=== PATIENT | female | born 1990 | race Caucasian/White ===

== ENCOUNTER 2021-12-17 12:57 | Observation (INO) ==
[2021-12-17 13:34] LABS: Basophils # (auto) 0.02 K/uL (0-0.2); Basophils % (auto) 0.3 %; Eosinophils # (auto) 0.18 K/uL (0-0.50); Hematocrit (blood only) 36.7 % (34.1-44.9); Hemoglobin 12.8 g/dl (12.0-16.0); Immature Granulocytes # (auto) 0.03 K/uL (0.00-0.02); Immature Granulocytes % (auto) 0.5 %; Lymphocytes # (auto) 1.29 K/uL (1.2-3.4); Lymphocytes % (auto) 21.2 %; Mean Corpuscular Hemoglobin 29.6 pg (25.0-34.0); Mean Corpuscular Hgb Conc 34.9 g/dL (32.0-36.0); Mean Corpuscular Volume 84.8 fL (80.0-100.0); Mean Platelet Volume 9.8 fL (9.4-12.3); Monocytes # (auto) 0.43 K/uL (0.24-0.82); Monocytes % (auto) 7.1 %; Neutrophils # (auto) 4.13 K/uL (1.4-6.5); Neutrophils % (auto) 67.9 %; Platelet Count 172 K/uL (130-400); RDW Standard Deviation 42.9 fL (36.4-46.3); Red Blood Count 4.33 M/uL (3.93-5.22); White Blood Count 6.08 K/ul (4.8-10.8)
[2021-12-17 13:55] LABS: Albumin Globulin Ratio 1.3 (0.9-2); Albumin Level 3.9 gm/dl (3.4-5.0); BUN Creatinine Ratio 6.2 (10-20); Bilirubin,Total 0.5 mg/dl (0.2-1.0); Calcium 8.7 mg/dl (8.5-10.1); Creatinine Clr Calc Pharmacy 42.3 ml/min; Est GFR (African American) 24.3 ml/min; Est GFR (Non-African American) 20.9 ml/min; Potassium 3.5 mmol/L (3.5-5.1); Total Protein 6.9 gm/dl (6.0-8.3)
[2021-12-17] MEDS ORDERED: PANTOprazole 80 MG in DEXTROSE 5% 100 ML IV STA (14:02)
[2021-12-17] MEDS ORDERED: hydrALAZINE HCL 20 MG/ML VIAL IV STA ×3 (14:02→18:48)
--- NOTE | 2021-12-17 14:03 | Emergency Department Note ---
Impression & Plan Hypertensive emergency, Acute renal failure, COVID-19, Acute epigastric pain ED Provider Note Name: AARON CHAUHAN Age: 31 Sex: F Arrives Via: Ambulance Informant: Patient, EMS ED Provider: Cyrus Donnelly MD Chief Complaint: Epigastric pain Impression: As per impressions above Medical Decision Makin-year-old female arrives for evaluation of epigastric pain. Patient has never been at this facility before but notes recently spending over a week in an outside hospital. Story is a bit vague though seems she has been dealing with this epigastric pain for quite some time and was hospitalized for worsening blood pressure. She notes she has been taking her new blood pressure medications including her clonidine which she does have the patches on her left shoulder at this time. Unfortunately patient is not a great historian as to what her previous work-up or labs have been. That said on arrival she does seem somewhat uncomfortable alert of concern is her blood pressure is quite elevated. She has no chest pain or shortness of breath or recent syncope. She does note that she has been having increasing diarrhea body aches fatigue and chills without fever. On examination she seems to have some tenderness over the epigastrium though does not have peritonitis. Work-up initiated including CT imaging, laboratory evaluation. During this I attempted to obtain the records from the outside hospital though after multiple hours of construction secretary attempting to get them she was unsuccessful in outside hospital setting the requested labs nor discharge summaries. During this time patient was multiple rounds of antihypertensives though with her mild low heart rate we did use hydralazine. She furthermore had a CT which was essentially unremarkable. An EKG is unremarkable. She did test positive for COVID-19. Of note her creatinine is quite elevated above 2. When asking the patient she is somewhat unsure of what her kidney function has been in the past, does state that she was told her kidneys do not work very well but states she was never said she was in renal insufficiency or failure or that she needed to see a assistant professor of education. Without having her past labs it is impossible to know exactly what her previous renal function is but we will assume that this is acute renal failure and a 31-year-old who has COVID as well as the setting of hypertensive emergency. She was given hydration, hydralazine and some Tylenol for her discomfort. Given all this I consulted the hospitalist who evaluated her and bring her in for further management. Patient is not hypotensive, hypoxic nor she has significant respiratory distress I do not feel IV steroids are indicated at this time. Triage/Nursing Notes reviewed by Me Multiple attempts were tried to get outside hospital records but to no avail Differentials:Benign hypertension, hypertensive emergency, cardiovascular pathology, toxicologic, pheochromocytoma, electrolyte abnormality, renal disease, endorgan damage, as well as other pathologies. Vital Signs: reviewed and remarkable for hypertension Interventions: Normal saline bolus, Tylenol IV, hydralazine 10 mg IV x2, hydralazine 20 mg IV Labs:Reviewed and remarkable for no significant abnormalities Imaging:CT abdomen pelvis without contrast reveals no acute findings. Chest x- ray unremarkable. EKG:Per My Interpretation: Indication hypertension: NSR 62bpm, qtc 481. No Ectopy. No Ischemia. No previous EKG for comparison Cardiac/Tele Monitoring: Cardiac Monitoring: An Order was placed for continuous cardiac monitoring. The monitor shows a rate of 60 with a normal sinus rhythm. Consults:Dr Rebecca CHIN Hospitalist Plan: Disposition:Hospitalization. Condition: Good History of Present Illness:31-year-old female arrives for evaluation of epigastric pain. Patient notes several weeks of epigastric pain. Patient states the pain radiates to her back and her sides. Associated with nausea. She states pain gets worse with any eating. She notes diarrhea for the last 3 days as well. She states her diarrhea is somewhat dark and sometimes tarry. Sh e complains of feeling weak and tired. She notes she was admitted to [facility] for a week 2 weeks ago. She states this was for her abdominal pain and her high blood pressure. She was discharged on 3 different blood pressure medications including Cardura, spironolactone, clonidine. She has been using them but states they make her abdominal pain worse. She denies any falls, trauma, injuries. She denies any alcohol nor drug use. She states she does smoke but this too makes her feel worse. She notes that she had a CAT scan she believes at [facility] but they were unable to find why she was having pain. She does not take any antacids. She denies any chest pain, shortness of breath, syncope, headache, neck pain, fevers, chills, urinary symptoms, leg swelling, calf pain, rashes nor other concerning signs or symptoms. She denies any bruising or unusual nosebleeds. ROS: See above HPI for pertinent positives & negatives. A total of 10 systems reviewed and were otherwise negative. Past Medical History:Hypertension Past Surgical History:Tubal ligation Family History:Patient states unknown Social History:Patient from [place] notes she lives in housing with a roommate but states she is essentially homeless. She notes she smokes denies any drug or alcohol use. Home Medications:Cardura, clonidine, spironolactone Allergies:Denies any known drug allergies Vitals:Blood Pressure: 171/109, Pulse 64, RR 18, T 36.7C, O2 98% on RA Physical Exam: GENERAL: Patient is uncomfortable appearing and in mild distress. Dehydrated appearing EYES: No scleral icterus, unremarkable pupils. ENT: Mucous membranes dry, no nasal congestion. NECK: No masses appreciated, nomeningismus, trachea is midline. RESPIRATORY: No dyspnea. Clear to auscultation and equal bilaterally. No wheeze, no rhonchi. CARDIOVASCULAR: Regular rate and rhythm.No murmurs, rubs, gallops appreciated. GASTROINTESTINAL: Abdomen soft, non-tender, no peritonitis.Bowel sounds positive.No masses appreciated. BACK: No midline tenderness, no CVA tenderness EXTREMITIES: Normal motion all extremities, no cyanosis, no edema. NEUROLOGIC: Alert and oriented, no acute motor or sensory deficits, no focal weakness, cranial nerves grossly intact. SKIN: No rash, no jaundice, no diaphoresis. PSYCH: Appropriate GCS: 15 ED Course: Times/Reassessments: Patient does appear to be feeling better she is breathing comfortably and in no severe distress vitals do show that her heart rate has slightly increased with hydralazine and her blood pressure is slowly coming down after higher dosing of hydralazine Critical Care: I have personally spent 40 minutes of critical care time in the direct management of this patient. Acute hypertensive emergency requiring multiple rounds of IV. antihypertensives. This was a life/limb threatening event. This 40 minutes is in excess of all separately billable procedures. 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: Faroese Flight Operations Inspector Required: No Beliefs That Will Affect Care: None Current Living Situation: Other Current Living Situation Comment: roommate Feels Safe at Home: Yes Assistive Devices: None Allergies Allergies Allergy/AdvReac Type Severity Reaction Status Date / Time No Known Allergies Allergy Verified 12/17/21 23:57 Home Meds Home Medications Medication Instructions Recorded Confirmed carvedilol 25 mg tablet 25 mg PO BID 12/17/21 12/17/21 clonidine 0.1 mg/24 hr weekly 0.1 mg transdermal WK 12/17/21 12/17/21 transdermal patch clonidine 0.2 mg/24 hr weekly 0.2 mg transdermal WK 12/17/21 12/17/21 transdermal patch spironolactone 25 mg tablet 25 mg PO DAILY 12/17/21 12/17/21 Results & Data (ED) Vital Signs Vital Signs - 24 hr 12/17/21 15:08 12/17/21 15:30 12/17/21 17:18 Pulse Rate 54 L 62 62 Pulse Rate from SpO2 Sensor 55 L 64 63 Respiratory Rate 20 22 16 Blood Pressure 187/94 H 194/109 H 188/124 H Blood Pressure Mean 125 137 145 Pulse Oximetry 96 98 98 12/17/21 17:30 12/17/21 18:00 12/17/21 18:30 Pulse Rate 57 L 69 68 Pulse Rate from SpO2 Sensor 59 L 71 70 Respiratory Rate 14 13 17 Blood Pressure 179/118 H 204/113 H Blood Pressure Mean 138 143 Pulse Oximetry 96 98 98 Laboratory Data Result diagrams: 12/18/21 06:43 12/18/21 06:43 Lab Results 12/17/21 12/17/21 12/17/21 Range/Units 13:00 13:00 13:00 WBC 6.08 (4.8-10.8) K/ul RBC 4.33 (3.93-5.22) M/uL Hgb 12.8 (12.0-16.0) g/dl Hct 36.7 (34.1-44.9) % MCV 84.8 (80.0-100.0) fL MCH 29.6 (25.0-34.0) pg MCHC 34.9 (32.0-36.0) g/dL RDW Std Deviation 42.9 (36.4-46.3) fL RDW Coeff of Erin 14.0 (11.5-14.5) % Plt Count 172 (130-400) K/uL MPV 9.8 (9.4-12.3) fL Immature Gran % (Auto) 0.5 % Neut % (Auto) 67.9 % Lymph % (Auto) 21.2 % [place] % (Auto) 7.1 % Eos % (Auto) 3.0 % Baso % (Auto) 0.3 % Neut # (Auto) 4.13 (1.4-6.5) K/uL Lymph # (Auto) 1.29 (1.2-3.4) K/uL [place] # (Auto) 0.43 (0.24-0.82) K/uL Eos # (Auto) 0.18 (0-0.50) K/uL Baso # (Auto) 0.02 (0-0.2) K/uL Immature Gran # (Auto) 0.03 H (0.00-0.02) K/uL Sodium 137 (136-145) mmol/L Potassium 3.5 (3.5-5.1) mmol/L Chloride 106 (98-107) mmol/L Carbon Dioxide 22 (21-32) mmol/L Anion Gap 9 (3-11) BUN 18 (6-23) mg/dl Creatinine 2.89 H (0.6-1.2) mg/dl Est Cr Clr Drug Dosing 42.3 ml/min Est GFR ( Amer) 24.3 ml/min Est GFR (Non-Af Amer) 20.9 ml/min BUN/Creatinine Ratio 6.2 L (10-20) Glucose 95 (70-99(Fasting)) mg/dl Calcium 8.7 (8.5-10.1) mg/dl Magnesium (1.7-2.4) mg/dl Total Bilirubin 0.5 (0.2-1.0) mg/dl AST 17 (13-39) U/L ALT 20 (7-52) U/L Alkaline Phosphatase 71 (34-104) U/L Troponin I High Sens (0-14) pg/ml Total Protein 6.9 (6.0-8.3) gm/dl Albumin 3.9 (3.4-5.0) gm/dl Globulin 3.0 (2.5-4.0) gm/dl Albumin/Globulin Ratio 1.3 (0.9-2) Lipase 57 (11-82) U/L HCG, Qual Negative (Negative) SARS-CoV-2, RNA, NAAT (NEGATIVE) 12/17/21 12/17/21 Range/Units 13:00 15:05 WBC (4.8-10.8) K/ul RBC (3.93-5.22) M/uL Hgb (12.0-16.0) g/dl Hct (34.1-44.9) % MCV (80.0-100.0) fL MCH (25.0-34.0) pg MCHC (32.0-36.0) g/dL RDW Std Deviation (36.4-46.3) fL RDW Coeff of Erin (11.5-14.5) % Plt Count (130-400) K/uL MPV (9.4-12.3) fL Immature Gran % (Auto) % Neut % (Auto) % Lymph % (Auto) % [place] % (Auto) % Eos % (Auto) % Baso % (Auto) % Neut # (Auto) (1.4-6.5) K/uL Lymph # (Auto) (1.2-3.4) K/uL [place] # (Auto) (0.24-0.82) K/uL Eos # (Auto) (0-0.50) K/uL Baso # (Auto) (0-0.2) K/uL Immature Gran # (Auto) (0.00-0.02) K/uL Sodium (136-145) mmol/L Potassium (3.5-5.1) mmol/L Chloride (98-107) mmol/L Carbon Dioxide (21-32) mmol/L Anion Gap (3-11) BUN (6-23) mg/dl Creatinine (0.6-1.2) mg/dl Est Cr Clr Drug Dosing ml/min Est GFR ( Amer) ml/min Est GFR (Non-Af Amer) ml/min BUN/Creatinine Ratio (10-20) Glucose (70-99(Fasting)) mg/dl Calcium (8.5-10.1) mg/dl Magnesium 2.0 (1.7-2.4) mg/dl Total Bilirubin (0.2-1.0) mg/dl AST (13-39) U/L ALT (7-52) U/L Alkaline Phosphatase (34-104) U/L Troponin I High Sens 20.4 H (0-14) pg/ml Total Protein (6.0-8.3) gm/dl Albumin (3.4-5.0) gm/dl Globulin (2.5-4.0) gm/dl Albumin/Globulin Ratio (0.9-2) Lipase (11-82) U/L HCG, Qual (Negative) SARS-CoV-2, RNA, NAAT POSITIVE A* (NEGATIVE) Administered Medications Acetaminophen (Acetaminophen 325 Mg Tab) 650 mg PO Q4H PRN PRN Reason: Pain or Fever Stop: 01/16/22 22:35 Last Admin: 12/18/21 10:15 Dose: 650 mg Documented By: Admin: 12/18/21 05:48 Dose: 650 mg Documented By: Admin: 12/18/21 00:08 Dose: 650 mg Documented By: BREA Carvedilol (Carvedilol 25 Mg Tab) 25 mg PO BID [facility] Stop: 01/16/22 22:35 Last Admin: 12/18/21 07:57 Dose: 25 mg Documented By: Admin: 12/18/21 00:46 Dose: 25 mg Documented By: BREA Clonidine HCl (Clonidine Hcl 0.1 Mg/24 Hr Transderm Sys) 1 patch TD Th@0900 [facility] Stop: 01/17/22 08:59 Last Admin: 12/18/21 07:58 Dose: 1 patch Documented By: BEULAH Clonidine HCl (Clonidine Hcl 0.2 Mg/24 Hr Transderm Sys) 1 patch TD Th@0900 [facility] Stop: 01/17/22 08:59 Last Admin: 12/18/21 07:57 Dose: 1 patch Documented By: BEULAH Enoxaparin Sodium (Enoxaparin Inj 40 Mg/0.4 Ml Syr) 40 mg SQ PM [facility] Stop: 01/17/22 00:29 Last Admin: 12/18/21 01:21 Dose: Not Given Documented By: BREA Lactated Ringer's (Lr) 1,000 mls @ 125 mls/hr IV .Q8H ONE[facility] Stop: 01/16/22 22:35 Last Admin: 12/18/21 08:04 Dose: 125 mls/hr Documented By: Infusion: 12/18/21 08:04 Dose: 125 mls/hr Documented By: Admin: 12/18/21 00:08 Dose: 125 mls/hr Documented By: BREA Famotidine 20 mg/ Syringe 5 mls @ 2.5 mls/min IV BID [facility] Stop: 01/17/22 08:59 Last Admin: 12/18/21 07:59 Dose: 2.5 mls/min Documented By: BEULAH Rider (Remove Clonidine Patch) 1 each N/A Th@0859 [facility] Stop: 01/17/22 08:58 Last Admin: 12/18/21 07:58 Dose: 1 each Documented By: BEULAH Rider (Check Clonidine Patch Placement) 1 each N/A QS [facility] Stop: 01/17/22 00:00 Last Admin: 12/18/21 07:58 Dose: 1 each Documented By: Admin: 12/18/21 01:21 Dose: 1 each Documented By: BREA Rider (Remove Clonidine Patch) 1 each N/A Th@0859 [facility] Stop: 01/17/22 08:58 Last Admin: 12/18/21 07:58 Dose: 1 each Documented By: BEULAH Rider (Check Clonidine Patch Placement) 1 each N/A QS [facility] Stop: 01/17/22 07:59 Last Admin: 12/18/21 07:58 Dose: 1 each Documented By: BEULAH Pantoprazole Sodium (Pantoprazole 40 Mg Tab) 40 mg PO BID [facility] Stop: 01/16/22 22:35 Last Admin: 12/18/21 07:57 Dose: 40 mg Documented By: Admin: 12/18/21 00:46 Dose: 40 mg Documented By: BREA Spironolactone (Spironolactone 25 Mg Tab) 25 mg PO DAILY [facility] Stop: 01/16/22 22:35 Last Admin: 12/18/21 07:57 Dose: 25 mg Documented By: Admin: 12/18/21 00:46 Dose: 25 mg Documented By: BREA Discontinued Medications Acetaminophen (Acetaminophen 500 Mg Tab) 1,000 mg PO NOW STA Stop: 12/17/21 17:23 Last Admin: 12/17/21 17:42 Dose: 1,000 mg Documented By: VINAY Clonidine HCl (Clonidine Hcl 0.1 Mg Tab) 0.2 mg PO NOW ONE Stop: 12/18/21 01:16 Last Admin: 12/18/21 01:22 Dose: 0.2 mg Documented By: BREA Hydralazine HCl (Hydralazine Hcl 20 Mg/Ml Vial) 10 mg IV NOW STA Stop: 12/17/21 14:03 Last Admin: 12/17/21 14:59 Dose: 10 mg Documented By: VINAY Hydralazine HCl (Hydralazine Hcl 20 Mg/Ml Vial) 10 mg IV NOW STA Stop: 12/17/21 17:23 Last Admin: 12/17/21 17:42 Dose: 10 mg Documented By: VINAY Hydralazine HCl (Hydralazine Hcl 20 Mg/Ml Vial) 20 mg IV NOW STA Stop: 12/17/21 18:49 Last Admin: 12/17/21 19:17 Dose: 20 mg Documented By: VINAY Pantoprazole Sodium 80 mg/ (Dextrose) 100 mls @ 400 mls/hr IV ONE STA Stop: 12/17/21 14:16 Last Infusion: 12/17/21 15:30 Dose: 0 mls/hr Documented By: Admin: 12/17/21 15:01 Dose: 400 mls/hr Documented By: VINAY Sodium Chloride (Nss 1000ml) 1,000 mls @ 999 mls/hr IV .Q1H1M ONE Stop: 12/17/21 15:27 Last Infusion: 12/17/21 17:41 Dose: 0 mls/hr Documented By: Admin: 12/17/21 14:59 Dose: 999 mls/hr Documented By: VINAY Sodium Chloride (Nss 1000ml) 1,000 mls @ 125 mls/hr IV .Q8H ONEIL Stop: 01/16/22 17:29 Last Infusion: 12/18/21 01:22 Dose: 0 mls/hr Documented By: Admin: 12/17/21 17:42 Dose: 125 mls/hr Documented By: VINAY Famotidine 20 mg/ Syringe 5 mls @ 2.5 mls/min IV ONE ONE Stop: 12/18/21 00:16 Last Admin: 12/18/21 00:46 Dose: 2.5 mls/min Documented By: BREA Miscellaneous Information (Patient's Allergy Info Needs Entered) 1 each N/A Q30M ONEIL Stop: 01/16/22 22:59 Last Admin: 12/18/21 01:34 Dose: Not Given Documented By: Admin: 12/18/21 01:33 Dose: Not Given Documented By: BREA Morphine Sulfate (Morphine Sulfate 4 Mg/Ml 1 Ml Carp\Vial) 4 mg IV NOW STA Stop: 12/18/21 12:41 Last Admin: 12/18/21 13:17 Dose: 4 mg Documented By: [facility] [place] Imaging Data Radiologist's Impression: Abdomen/Pelvis CT 12/17/21 14:12 CT abd pelvis wo con CLINICAL HISTORY: epigastric abdominal pain COMPARISON STUDY: No previous studies for comparison. CT DOSE: 1280.01 mGycm TECHNIQUE: Standard CT of the Abdomen and Pelvis was performed without IV contrast. The patient did not receive oral contrast. A dose lowering technique was utilized adhering to the principles of ALARA. FINDINGS: Lung base: The lung bases are clear. Abdominal cavity: There is no evidence for abdominal mass, adenopathy or ascites. Liver: The liver is homogeneous in attenuation on these limited noncontrast images.. Spleen: The spleen is homogeneous in attenuation on these limited noncontrast images. There is mild splenomegaly. Pancreas: The pancreas is homogeneous in attenuation on these limited noncontrast images. Gall Bladder: The gallbladder is well distended with no evidence for cholelithiasis, wall thickening or pericholecystic edema.. Adrenal glands: The adrenal glands are normal in size and attenuation on these limited noncontrast images. Kidneys: The kidneys are homogeneous in attenuation on these limited noncontrast images. There is a 2 mm nonobstructing left renal calculus. There is no evidence for right renal calculus or hydronephrosis bilaterally. There is no gross renal mass is identified. Bowel: The bowel loops are normally placed within the abdomen and pelvis without evidence for dilatation or obstruction. There is no evidence for mass lesion. There are no inflammatory changes present. There is no evidence for free air. There is a normal appendix in the right lower quadrant. Bladder: There is no evidence for focal bladder wall thickening, calculus or diverticulum. : There is no evidence for pelvic mass or adenopathy. Cystic changes are present involving the ovaries bilaterally. Vasculature: There is no evidence for focal aneurysmal dilatation of the abdo [place] aorta. Osseous structures: There is no acute osseous pathology. IMPRESSION: 1. 2 mm nonobstructing left renal calculus. 2. Cystic changes of the ovaries bilaterally. 3. Otherwise, no acute intra-abdominal or pelvic abnormality on these limited noncontrast images. ACT 112: Negative or not required by law. Electronically signed by: Rito Arteaga M.D. 12/17/2021 4:08 PM Chest X-Ray 12/17/21 17:41 SINGLE VIEW CHEST CLINICAL HISTORY: Covid. Hypertension FINDINGS: 2 AP, portable, upright chest radiographs are obtained. Correlation is made with abdominal CT performed earlier the same day 12/17/2021. The cardiomediastinal silhouette is top normal for projection. The lungs and pleural spaces are clear. No pneumothorax is seen. The bony thorax is grossly intact. IMPRESSION: No active disease in the chest. ACT 112: Negative or not required by law. Electronically signed by: Josef Saldana M.D. 12/17/2021 6:16 PM Discharge Plan Visit Data Chief Complaint: Abdominal Pain Stated Complaint: AB PAIN, NAUSEA, VOMITING, DIARRHEA ED Provider: Cyrus Donnelly Discharge Problem: Hypertensive emergency, Acute renal failure, COVID-19, Acute epigastric pain Patient Disposition: Admitted As Inpatient Discharge Instructions Interventions: ED Discharge Assessment Last Done: 12/17/21 21:29 : Acute renal failure Qualifiers: Acute renal failure type: unspecified Qualified Code(s): N17.9 - Acute kidney failure, unspecified
[2021-12-17 14:15] LABS: Pregnancy Test, Serum Negative (Negative)
[2021-12-17] MEDS ORDERED: SODIUM CHLORIDE 0.9% 1000ML 1,000 ML IV ONE (14:27)
[2021-12-17 15:09] LABS: Troponin I High Sensitivity 20.4 pg/ml (0-14)
--- NOTE | 2021-12-17 16:09 | CT Scan Report ---
CT abd pelvis wo con CLINICAL HISTORY: epigastric abdominal pain COMPARISON STUDY: No previous studies for comparison. CT DOSE: 1280.01 mGycm TECHNIQUE: Standard CT of the Abdomen and Pelvis was performed without IV contrast. The patient did not receive oral contrast. A dose lowering technique was utilized adhering to the principles of MIRTA Doll. FINDINGS: Lung base: The lung bases are clear. Abdominal cavity: There is no evidence for abdominal mass, adenopathy or ascites. Liver: The liver is homogeneous in attenuation on these limited noncontrast images.. Spleen: The spleen is homogeneous in attenuation on these limited noncontrast images. There is mild s plenomegaly. Pancreas: The pancreas is homogeneous in attenuation on these limited noncontrast images. Gall Bladder: The gallbladder is well distended with no evidence for cholelithiasis, wall thickening or pericholecystic edema.. Adrenal glands: The adrenal glands are normal in size and attenuation on these limited noncontrast im ages. Kidneys: The kidneys are homogeneous in attenuation on these limited noncontrast images. There is a 2 mm nonobstructing left renal calculus. There is no evidence for right renal calculus or hydronephros is bilaterally. There is no gross renal mass is identified. Bowel: The bowel loops are normally placed within the abdomen and pelvis without evidence for dilatat ion or obstruction. There is no evidence for mass lesion. There are no inflammatory changes present. There is no evidence for free air. There is a normal appendix in the right lower quadrant. Bladder: There is no evidence for focal bladder wall thickening, calculus or diverticulum. : There is no evidence for pelvic mass or adenopathy. Cystic changes are present involving the ovar ies bilaterally. Vasculature: There is no evidence for focal aneurysmal dilatation of the abdominal aorta. Osseous structures: There is no acute osseous pathology. IMPRESSION: 1. 2 mm nonobstructing left renal calculus. 2. Cystic changes of the ovaries bilaterally. 3. Otherwise, no acute intra-abdominal or pelvic abnormality on these limited noncontrast images. ACT 112: Negative or not required by law. Electronically signed by: Rito Arteaga M.D. 12/17/2021 4:08 PM
[2021-12-17] MEDS ORDERED: ACETAMINOPHEN 500 MG TAB PO STA (17:22)
[2021-12-17] MEDS ORDERED: SODIUM CHLORIDE 0.9% 1000ML 1,000 ML IV SCH (17:30)
--- NOTE | 2021-12-17 18:18 | XRay Report ---
SINGLE VIEW CHEST CLINICAL HISTORY: Covid. Hypertension FINDINGS: 2 AP, portable, upright chest radiographs are obtained. Correlation is made with abdominal CT performed earlier the same day 12/17/2021. The cardiomediastinal silhouette is top normal for proje ction. The lungs and pleural spaces are clear. No pneumothorax is seen. The bony thorax is grossly in tact. IMPRESSION: No active disease in the chest. ACT 112: Negative or not required by law. Electronically signed by: Josef Saldana M.D. 12/17/2021 6:16 PM
--- NOTE | 2021-12-17 19:02 | History & Physical Report ---
Date of Service December 17, 2021 Assessment & Plan (1) COVID: Plan: Acutely it appears most of her illness does relate to COVIDfortunately more myalgias and GI issues rather than any significant respiratory issues. She is 98 to 99% on room air and her chest x-ray is clear, lungs are clear to exam. Because of all of these parameters, as well as the fact that she is on day 7 of illnessnagi does not appear to be someone who would really benefit much, or at all, from any COVID-specific therapeutics, and given that her breathing is good and she is not hypoxiccorticosteroids would be likely of no real benefit (and possible harm as we get to her abdominal pain below). Supportive care, the specific fallout from her COVID appears to be a worsening of her hypertension from feeling lousy, possibly ZULEIMA on CKD, and abdominal pain that is likely a degree of illness/stress-induced gastritiseach to be outlined in their own plan below. (2) Uncontrolled hypertension: Plan: She relates this to an adrenal diagnosishave asked for records from her PCP and her hospital discharge summary to try to shed light on what exactly this diagnosis is. That said, I do agree with her that she is probably more u ncontrolled than normal due to feeling lousy. Continue home meds, additional clonidine now, symptomatic control to try to improve the "feeling lousy", as needed hydralazine, follow closely. Her EKG does not show any ischemia, her troponin is 20.4we will trend, but I suspect this is really more of a nonspecific elevation or simply due to afterload from her marked hypertension. (3) Elevated serum creatinine: Plan: Uncertain baselineI got a secondhand signout that she may have a baseline creatinine of about 1.5but she does not know, hopefully getting records as above will shed light on this. That said her estimation of "my kidneys work at 25%" suggest she may not be that far from her baseline. Certainly she is clinically dryand there is likely a prerenal component to this. Check a UA and a fractional excretion of sodium. No obstruction noted on CTtherefore renal ultrasound would likely be of limited utility. IV fluids in the form of LR at 125 an hour, follow-up basic metabolic panel in the morning. (4) Abdominal pain: Plan: Symptoms and exam most consistent with viral gastroenteritis related to COVID, as well as a stress/illness induced gastritis. At this point she shows no worrisome signs or symptoms or no signs of acute blood loss anemiawe will give aggressive symptomatic care with Pepcid and Protonix twice daily, as well as Zofran as needed. Serial exams, diet as tolerated. (5) Adrenal abnormality: Plan: See above under hypertensiondepending on information obtained, may need to institute further work-up. (6) DVT prophylaxis: Plan: Lovenox (7) Discharge planning issues: Plan: Admit to telemetry due to marked uncontrolled hypertension. History of Present Illness Chief Complaint: feeling lousy Primary Care Provider: NO PCP very pleasant and very fatigued 31yo - notes that she got sick about a week ago (last so today is day 7) - thought it was "just as summer flu" - notes that she has had myalgias, headaches, stomach (epigastric) pain, diarrhea (frequent, sometimes with a lot of urgency), poor PO intake. a little bit of a cough. no dyspnea. some chest pressure. no actual sob though. was just in [place] about 2wks ago - notes that she was in due to blood pressure issues related to her adrenal problem. She notes that while she was there they adjusted her medicines, she started to feel a good bit better, and was discharged feeling pretty reasonably well. She wonders if her current elevations in blood pressure are more due to feeling lousy. She was home for about the last 2 weeksbefore getting sick a week ago. She came to the hospital today just mostly because she was continuing to feel lousy. She was surprised to see that she had COVID, but notes that her roommate was sick starting somewhere shortly before she got sick herself. She is not aware of the name of her adrenal diagnosisbut notes that she has been following with a physician in the [facility] system for this for a while, does note that for what ever circumstances she was in the process of changing PCPs. Medical historyuncontrolled hypertension related to "adrenal problem" of which she does not remember the name of the diagnosis at this time, CKDuncertain of her baseline creatinine "my kidneys work at 25% due to my high blood pressure" Surgical history tubal Social history smokerbut notes she is felt so lousy in the last week she has barely smoked. No alcohol no drugs Family history heart diseasenothing of a strong/specific nature. Home Medications Medication Instructions Recorded Confirmed Type carvedilol 25 mg tablet 25 mg PO BID 12/17/21 12/17/21 History clonidine 0.1 mg/24 hr weekly 0.1 mg transdermal WK 12/17/21 12/17/21 History transdermal patch clonidine 0.2 mg/24 hr weekly 0.2 mg transdermal WK 12/17/21 12/17/21 History transdermal patch spironolactone 25 mg tablet 25 mg PO DAILY 12/17/21 12/17/21 History Past Med/Surg History Social History Smoking Status: Current some day smoker Tobacco Type: Cigarettes Preferred Language: Georgian Feels Safe at Home: Yes Review of Systems Review of Systems: All systems reviewed & are unremarkable except as noted in HPI & below Physical Exam Physical Exam: In general she is awake alert oriented x3 very fatigued but no distress. HEENT normocephalic atraumatic mucous membranes slightly dry. Cardio is regular no rubs murmurs or gallops. Lungs are clear to auscultation bilaterally no rales rhonchi or wheeze with good effort. Abdomen is soft she does have epigastric greater than left and right upper quadrant tenderness but no guarding rebound or rigidity. The remainder of her abdomen is soft benign nontender no guarding rebound or rigidity. Extremities without sinus clubbing or edema, no calf tenderness. Skin shows no rashes no pallor or icterus. Neuro shows cranial nerves II through XII be grossly intact gross motor and sensory are intact. Musculoskeletal yields no gross lesions. Mental status shows her to be very fatigued but has good recent and remote recall normal mood and affect good judgment and insight. Results & Data Results & Data ([facility]) Vital Signs (Past 12 Hours) Vital Signs Temp Pulse Resp BP Pulse Ox O2 Del Method 12/17/21 18:30 68 17 98 12/17/21 18:00 69 13 204/113 H 98 12/17/21 17:30 57 L 14 179/118 H 96 12/17/21 17:18 62 16 188/124 H 98 12/17/21 15:30 62 22 194/109 H 98 12/17/21 15:08 54 L 20 187/94 H 96 12/17/21 12:57 98.1 F 64 18 171/109 H 98 Room Air Code Status & VTE Plan VTE Prophylaxis Plan VTE Prophylaxis will be ordered: Yes PG Care Time/CCT Total # of Minutes Spent Total Time Spent with Patient: Total time spent is greater than 50% in coordination of care (as documented) at patient's floor/unit and/or counseling patient: Coding Level of Care Code 75448 Initial Inpt Care Lvl 3 Diagnoses COVID U07.1 Uncontrolled hypertension I10 Elevated serum creatinine R79.89 Abdominal pain R10.9 Adrenal abnormality E27.9 DVT prophylaxis Z29.9 Discharge planning issues Z02.9
[2021-12-17] MEDS ORDERED: POLYETHYLENE (MIRALAX) 17 GM PACK PO PRN (22:36)
[2021-12-17] MEDS ORDERED: ALUMINUM/MAGNESIUM SUSP 30 ML UDC PO PRN (22:36)
[2021-12-17] MEDS ORDERED: cloNIDine HCL 0.1 MG TAB PO ONE (22:36)
[2021-12-17] MEDS ORDERED: ONDANSETRON INJ 2 MG/ML 2 ML VIAL IV PRN (22:36)
[2021-12-17] MEDS ORDERED: MAGNESIUM HYDROXIDE SUSP 30 ML UDC PO PRN (22:36)
[2021-12-18] MEDS: ACETAMINOPHEN 325 MG TAB PO PRN ×3 (00:08→10:15)
[2021-12-18] MEDS: LACTATED RINGER'S 1,000 ML IV SCH ×2 (00:08→08:04)
[2021-12-18] MEDS ORDERED: FAMOTIDINE 20 MG in SYRINGE 3 ML IV ONE (00:15)
[2021-12-18] MEDS: SPIRONOLACTONE 25 MG TAB PO SCH ×2 (00:46→07:57)
[2021-12-18] MEDS: PANTOprazole 40 MG TAB PO SCH ×3 (00:46→21:13)
[2021-12-18] MEDS: carvediloL 25 MG TAB PO SCH ×3 (00:46→21:13)
[2021-12-18 00:51] LABS: Creatinine Urine Random 38.9 mg/dl
[2021-12-18 00:53] LABS: Appearance Urine Clear (Clear); Bacteria Urine Automated Negative (Negative); Bilirubin Urine Negative (Negative); Blood Urine Negative (Negative); Cast Urine Automated 0 /lpf (0-5); Color Urine Yellow; Epithelial Cell Urine Auto 20-30 /lpf (0-5); Glucose Urine UA Negative (Negative); Ketones Urine Negative (Negative); Leukocyte Esterase Urine Negative (Negative); Nitrite Urine Negative (Negative); Protein Urine 1+ (Negative); RBC Urine Automated 0-4 /hpf (0-4); Specific Gravity Urine 1.008 (1.000-1.030); Urobilinogen Urine Negative (Negative); pH Urine 6.5 (4.5-7.5)
[2021-12-18] MEDS ORDERED: cloNIDine HCL 0.1 MG TAB PO ONE (01:15)
[2021-12-18] MEDS: ENOXAPARIN INJ 40 MG/0.4 ML SYR SQ SCH ×2 (01:21→21:13)
[2021-12-18] MEDS: CHECK CLONIDINE PATCH PLACEMENT SCH ×5 (01:21→16:09)
[2021-12-18] MEDS: Patient's ALLERGY Info needs ENTERED SCH ×2 (01:33→01:34)
[2021-12-18 07:00] LABS: Basophils # (auto) 0.04 K/uL (0-0.2); Basophils % (auto) 0.8 %; Eosinophils # (auto) 0.16 K/uL (0-0.50); Eosinophils % (auto) 3.1 %; Hematocrit (blood only) 35.6 % (34.1-44.9); Hemoglobin 12.4 g/dl (12.0-16.0); Immature Granulocytes # (auto) 0.05 K/uL (0.00-0.02); Lymphocytes # (auto) 1.89 K/uL (1.2-3.4); Lymphocytes % (auto) 36.3 %; Mean Corpuscular Hemoglobin 29.5 pg (25.0-34.0); Mean Corpuscular Hgb Conc 34.8 g/dL (32.0-36.0); Mean Corpuscular Volume 84.6 fL (80.0-100.0); Mean Platelet Volume 10.1 fL (9.4-12.3); Monocytes # (auto) 0.48 K/uL (0.24-0.82); Monocytes % (auto) 9.2 %; Neutrophils # (auto) 2.59 K/uL (1.4-6.5); Neutrophils % (auto) 49.6 %; Platelet Count 166 K/uL (130-400); RDW Standard Deviation 42.9 fL (36.4-46.3); Red Blood Count 4.21 M/uL (3.93-5.22); White Blood Count 5.21 K/ul (4.8-10.8)
[2021-12-18 07:18] LABS: BUN Creatinine Ratio 6.2 (10-20); Calcium 8.2 mg/dl (8.5-10.1); Creatinine Clr Calc Pharmacy 47.2 ml/min; Est GFR (Non-African American) 24.1 ml/min; Potassium 3.4 mmol/L (3.5-5.1)
[2021-12-18] MEDS: cloNIDine HCL 0.1 MG/24 HR TRANSDERM SYS TD SCH (07:58)
[2021-12-18] MEDS: FAMOTIDINE 20 MG in SYRINGE 3 ML IV SCH ×2 (07:59→21:00)
[2021-12-18] MEDS ORDERED: MoRPHine SULFATE 4 MG/ML 1 ML CARP\\VIAL IV STA (12:40)
[2021-12-18] MEDS ORDERED: LIDOCAINE VISCOUS 2% 15 ML UDC PO STA (13:10)
[2021-12-18] MEDS ORDERED: ALUMINUM/MAGNESIUM SUSP 30 ML UDC PO STA (13:10)
[2021-12-18 14:31] LABS: Alanine Aminotransferase 20 U/L (7-52); Albumin Globulin Ratio 1.5 (0.9-2); Albumin Level 3.7 gm/dl (3.4-5.0); Alkaline Phosphatase 68 U/L (34-104); Anion Gap 8 (3-11); Aspartate Aminotransferase 16 U/L (13-39); BUN Creatinine Ratio 6.3 (10-20); Bilirubin,Total 0.6 mg/dl (0.2-1.0); Blood Urea Nitrogen 17 mg/dl (6-23); C Reactive Protein < 0.50 mg/dl (0-0.5); Calcium 8.4 mg/dl (8.5-10.1); Carbon Dioxide 22 mmol/L (21-32); Chloride 107 mmol/L (98-107); Creatinine Clr Calc Pharmacy 45.1 ml/min; Est GFR (African American) 26.5 ml/min; Est GFR (Non-African American) 22.8 ml/min; Globulin 2.5 gm/dl (2.5-4.0); Glucose 107 mg/dl (70-99(Fasting)); Potassium 3.4 mmol/L (3.5-5.1); Sodium 137 mmol/L (136-145); Total Protein 6.2 gm/dl (6.0-8.3)
[2021-12-18] MEDS: MoRPHine SULFATE 4 MG/ML 1 ML CARP\\VIAL IV PRN ×2 (16:41→20:59)
[2021-12-18] MEDS: hydrALAZINE HCL 20 MG/ML VIAL IV PRN ×2 (17:17→21:48)
--- NOTE | 2021-12-18 18:11 | Ultrasound Report ---
ULTRASOUND RIGHT UPPER QUADRANT ABDOMEN CLINICAL HISTORY: Right upper quadrant abdominal pain. COMPARISON STUDY: Abdominal CT dated 12/17/2021. TECHNIQUE: Real-time, grayscale, and color flow sonography of the right upper quadrant of the abdomen was performed. Images are reviewed in the transverse and longitudinal planes. FINDINGS: Liver: The liver is enlarged and demonstrates heterogeneous increased echotexture indicating steatosi s. Fatty sparing is seen adjacent to gallbladder fossa. There is no intrahepatic biliary ductal dilat ation. The main portal vein is patent. Gallbladder: The gallbladder is distended and there are shadowing calcified gallstones. There is no g allbladder wall thickening or pericholecystic fluid. A sonographic Eastman's sign is reportedly presen t. The common bile duct measures up to 0.4 cm in diameter. Pancreas: Visualized portions of the pancreatic head and body are normal in appearance. Right kidney: Survey images of the right kidney demonstrate normal size and echotexture. There is no hydronephrosis. Ascites: None. IMPRESSION: 1. Distended gallbladder with shadowing gallstones. There is no gallbladder wall thickening or perich olecystic fluid; however, a sonographic Eastman's sign is reportedly present. Acute cholecystitis is n ot entirely excluded. Clinical and laboratory correlation will be required. If warranted a nuclear he patobiliary scan could be considered for further assessment. 2. Hepatomegaly and hepatic steatosis. 3. There is no intra or extrahepatic biliary ductal dilatation. ACT 112: Negative or not required by law. Electronically signed by: Josef Saldana M.D. 12/18/2021 6:08 PM
--- NOTE | 2021-12-18 18:27 | Hospitalist Progress Note ---
Date of Service December 18, 2021 Assessment & Plan (1) COVID: Plan: Acutely it appears most of her illness does relate to COVIDfortunately more myalgias and GI issues rather than any significant respiratory issues. Continues to be stable on room air. With the evolution of her abdominal pain (see #4) I also do wonder if some of her GI symptoms may be gallbladder related. Continue supportive care. Because of all of these parameters, as well as the fact that she is on day 8 of illnessnagi does not appear to be someone who would really benefit much, or at all, from any COVID-specific therapeutics, and given that her breathing is good and she is not hypoxiccorticosteroids would be likely of no real benefit (and possible harm as we get to her abdominal pain below). Continue supportive care. (2) Uncontrolled hypertension: Plan: She relates this to an adrenal diagnosisoutpatient records show nothing of thisbut she certainly does seem to have really difficult to control hypertension, and no renal artery stenosis. Will check cortisol, renin, aldosterone, continue to titrate blood pressure meds. (3) Elevated serum creatinine: Plan: Appears actually to be around her baselinewhich appears to be stage III CKD. Keep fluids going to prevent any worsening until her p.o. intake improves. Manage blood pressure as best as possible. (4) Abdominal pain: Plan: Yesterday symptoms most consistent with viral gastroenteritis likely related to COVID, as well as stress/illness induced gastritis. However, today her nausea vomiting and right upper quadrant pain to become more dominantrepeat LFTs, check right upper quadrant ultrasound. (Is a late addendum LFTs were reassuring, right upper quadrant ultrasound did show a distended gallbladder and stones although no sheree cholecystitis, and a positive sonographic Eastman signgiven these equivocal but concerning findings, along with the clinical picturecontinue supportive care, serial examswe will also check HIDA. (5) Adrenal abnormality: Plan: See above under [facility] further work-up. (6) DVT prophylaxis: Plan: Lovenox (7) Discharge planning issues: Plan: Continue on telemetry due to marked uncontrolled hypertension. Admission and Anticipated Discharge Date Admission Date: December 17, 2021 Subjective lots of belly pain and nausea, some vomiting - couldn't tolerate eating. pain now more RUQ than anywhere else. otherwise no new complaints Called PCPs officelabs show her creatinine to probably be around her baseline, had renal artery duplex/renal ultrasound that was basically normal in August, had echo with the degree of LVH EF of 56% earlier this month. They were not aware/did not have on her problem list any type of adrenal or renal cause for her hypertension. Review of Systems Review of Systems: All systems reviewed & are unremarkable except as noted in HPI & below Physical Exam Physical Exam: gen sitting up and appearing uncomfortable. heent nc at mmm breathing unlabored no accessory muscles good effort skin no rashes no pallor or icterus. abd soft but (+) RUQ pain very exquisite although no guarding/rebound. (+) epigastric TTP as well. no guarding/rebound. Results & Data Results & Data ([facility]) Vital Signs (Past 12 Hours) Vital Signs Temp Pulse Pulse Pulse Resp BP Pulse Ox 12/18/21 17:08 98.8 F 59 L 18 201/109 H 99 12/18/21 10:35 69 16 154/93 H 98 12/18/21 10:21 98.1 F 61 22 184/98 H 98 12/18/21 09:09 60 12/18/21 09:09 12/18/21 06:59 97.5 F L 60 23 174/117 H 99 O2 Del Method 12/18/21 17:08 Room Air 12/18/21 10:35 Room Air 12/18/21 10:21 Room Air 12/18/21 09:09 12/18/21 09:09 Room Air 12/18/21 06:59 Room Air PG Care Time/CCT Total # of Minutes Spent Total Time Spent with Patient: Total time spent is greater than 50% in coordination of care (as documented) at patient's floor/unit and/or counseling patient: Coding Level of Care Code 96215 Subseq Hosp Care Lvl 3 Diagnoses COVID U07.1 Uncontrolled hypertension I10 Elevated serum creatinine R79.89 Abdominal pain R10.9 Adrenal abnormality E27.9 DVT prophylaxis Z29.9 Discharge planning issues Z02.9
[2021-12-18] MEDS ORDERED: amLODIPine BESYLATE 5 MG TAB PO ONE (19:22)
[2021-12-18] MEDS: PROMETHAZINE HCL 6.25 MG in SODIUM CHLORIDE 0.9% 50 ML IV PRN (21:02)
--- NOTE | 2021-12-18 21:46 | Electrocardiogram Report ---
Test Reason : Blood Pressure : / mmHG Vent. Rate : 062 BPM Atrial Rate : 062 BPM P-R Int : 164 ms QRS Dur : 104 ms QT Int : 474 ms P-R-T Axes : -18 020 052 degrees QTc Int : 481 ms Normal sinus rhythm Prolonged QT Abnormal ECG No previous ECGs available Confirmed by Gavino Kemp ([id number]) on 12/18/2021 9:46:13 PM Referred By: REFERRED SELF Confirmed By:Gavino Kemp
--- NOTE | 2021-12-18 22:50 | Electrocardiogram Report ---
Test Reason : Blood Pressure : / mmHG Vent. Rate : 060 BPM Atrial Rate : 060 BPM P-R Int : 174 ms QRS Dur : 102 ms QT Int : 484 ms P-R-T Axes : -20 036 053 degrees QTc Int : 484 ms Normal sinus rhythm Prolonged QT Abnormal ECG When compared with ECG of 18-DEC-2021 05:55, No significant change was found Confirmed by Gavino Kemp ([id number]) on 12/18/2021 10:49:26 PM Referred By: REFERRED SELF Confirmed By:Gavino Kemp
[2021-12-19] MEDS: CHECK CLONIDINE PATCH PLACEMENT SCH ×8 (01:02→23:15)
[2021-12-19] MEDS: LACTATED RINGER'S 1,000 ML IV SCH ×5 (01:26→21:15)
[2021-12-19] MEDS: MoRPHine SULFATE 4 MG/ML 1 ML CARP\\VIAL IV PRN ×4 (01:40→20:47)
[2021-12-19] MEDS: PANTOprazole 40 MG TAB PO SCH ×2 (08:48→20:49)
[2021-12-19] MEDS: carvediloL 25 MG TAB PO SCH ×2 (08:48→20:49)
[2021-12-19] MEDS: SPIRONOLACTONE 25 MG TAB PO SCH (08:48)
[2021-12-19] MEDS ORDERED: amLODIPine BESYLATE 5 MG TAB PO SCH (09:00)
[2021-12-19 09:30] LABS: Basophils # (auto) 0.03 K/uL (0-0.2); Basophils % (auto) 0.5 %; Eosinophils # (auto) 0.17 K/uL (0-0.50); Eosinophils % (auto) 2.9 %; Hematocrit (blood only) 34.4 % (34.1-44.9); Immature Granulocytes # (auto) 0.05 K/uL (0.00-0.02); Immature Granulocytes % (auto) 0.8 %; Lymphocytes % (auto) 25.4 %; Mean Corpuscular Hemoglobin 29.9 pg (25.0-34.0); Mean Corpuscular Hgb Conc 34.9 g/dL (32.0-36.0); Mean Corpuscular Volume 85.8 fL (80.0-100.0); Monocytes # (auto) 0.45 K/uL (0.24-0.82); Monocytes % (auto) 7.6 %; Neutrophils % (auto) 62.8 %; Platelet Count 165 K/uL (130-400); RDW Standard Deviation 43.3 fL (36.4-46.3); Red Blood Count 4.01 M/uL (3.93-5.22)
[2021-12-19] MEDS: FAMOTIDINE 20 MG in SYRINGE 3 ML IV SCH ×2 (09:33→20:50)
[2021-12-19 10:08] LABS: Albumin Globulin Ratio 1.4 (0.9-2); Albumin Level 3.6 gm/dl (3.4-5.0); BUN Creatinine Ratio 6.1 (10-20); Bilirubin,Total 0.5 mg/dl (0.2-1.0); Calcium 8.4 mg/dl (8.5-10.1); Creatinine Clr Calc Pharmacy 47.2 ml/min; Est GFR (African American) 27.3 ml/min; Est GFR (Non-African American) 23.6 ml/min; Globulin 2.5 gm/dl (2.5-4.0); Potassium 3.3 mmol/L (3.5-5.1); Total Protein 6.1 gm/dl (6.0-8.3)
--- NOTE | 2021-12-19 18:33 | Hospitalist Progress Note ---
Date of Service December 19, 2021 Assessment & Plan (1) COVID: Plan: Acutely it appears most of her illness does relate to COVIDfortunately more myalgias and GI issues rather than any significant respiratory issues. Continues to be stable on room air. With the evolution of her abdominal pain (see #4) I continue to wonder if some of her GI symptoms may be gallbladder related. Continue supportive care. Because of all of these parameters, as well as the fact that she is on day 9 of illnessnagi does not appear to be someone who would really benefit much, or at all, from any COVID-specific therapeutics, and given that her breathing is good and she is not hypoxiccorticosteroids would be likely of no real benefit (and possible harm as we get to her abdominal pain below). Continue supportive care. (2) Uncontrolled hypertension: Plan: She relates this to an adrenal diagnosisoutpatient records show nothing of thisbut she certainly does seem to have really difficult to control hypertension, and no renal artery stenosis. Cortisol okay, renin and aldosterone are pending, will also add TSH to next lab work. Pressure has responded reasonably well to the addition of amlodipinewill titrate. (3) Elevated serum creatinine: Plan: Appears actually to be around her baselinewhich appears to be stage III CKD. For now we will continue keep fluids going to prevent any worsening until her p.o. intake improves. Manage blood pressure as best as possible. (4) Abdominal pain: Plan: The main differentials appear to be how much of this is COVID-related viral, versus how much is biliary, versus how much is more of simply a gastritis type picture. HIDA will be helpful once its able to be completed, in the meantime serial exams and following for her ability to tolerate p.o., follow serial labs periodically. (5) Adrenal abnormality: Plan: See above under hypertensionpending further work-up. Renin and aldosterone sent (6) DVT prophylaxis: Plan: Lovenox (7) Discharge planning issues: Plan: Continue on telemetry due to marked uncontrolled hypertension. Although this is improving Admission and Anticipated Discharge Date Admission Date: December 17, 2021 Subjective Was n.p.o. and narcotic pain medicines had to be on hold for much of the morning due to HIDA scan, she notedand nursing noted as wellthat her pain was quite severe during that time. Unfortunately then, HIDA was not able to be done due to her COVID-positive status and apparently availability/negative pressure issues. She was able to eat, notes that with antiemetics and morphine her pain stays very well controlled and nausea stays very well controlled, and then whenever the medications wear off she feels worse again. In discussion of her abdominal pain, she notes that she has right-sided abdominal pain that has been going off and on for monthsdefinitely preceding when she got sick with COVID. Review of Systems Review of Systems: All systems reviewed & are unremarkable except as noted in HPI & below Physical Exam Physical Exam: In general she is awake and alert pleasant mildly anxious but no distress. HEENT normocephalic atraumatic mucous membranes moist. Breathing unlabored no accessory muscle use good effort. Skin shows no rashes no pallor or icterus. Abdomen is soft nondistended may be mildly tender epigastric and right upper quadrantnothing like yesterday no guarding rebound or rigidity no other tenderness. Skin shows no rashes no pallor or icterus. Neuro without focal deficits. Results & Data Results & Data ([facility]) Vital Signs (Past 12 Hours) Vital Signs Temp Pulse Pulse Resp BP Pulse Ox O2 Del Method 12/19/21 15:00 64 12/19/21 13:03 97.9 F 63 18 161/97 H 99 Room Air 12/19/21 07:00 60 12/19/21 08:39 98.1 F 69 18 161/99 H 96 Room Air PG Care Time/CCT Total # of Minutes Spent Total Time Spent with Patient: Total time spent is greater than 50% in coordination of care (as documented) at patient's floor/unit and/or counseling patient: Coding Level of Care Code 75690 Subseq Hosp Care Lvl 3 Diagnoses COVID U07.1 Uncontrolled hypertension I10 Elevated serum creatinine R79.89 Abdominal pain R10.9 Adrenal abnormality E27.9 DVT prophylaxis Z29.9 Discharge planning issues Z02.9
[2021-12-19] MEDS: amLODIPine BESYLATE 5 MG TAB PO SCH (20:50)
[2021-12-19] MEDS: ENOXAPARIN INJ 40 MG/0.4 ML SYR SQ SCH (20:50)
[2021-12-19] MEDS: MELATONIN 3 MG TAB PO PRN (22:01)
[2021-12-20] MEDS: LACTATED RINGER'S 1,000 ML IV SCH ×3 (06:04→21:41)
[2021-12-20] MEDS: MoRPHine SULFATE 4 MG/ML 1 ML CARP\\VIAL IV PRN ×3 (06:05→21:19)
[2021-12-20] MEDS: CHECK CLONIDINE PATCH PLACEMENT SCH ×4 (07:53→16:56)
[2021-12-20] MEDS: amLODIPine BESYLATE 5 MG TAB PO SCH ×2 (09:09→21:12)
[2021-12-20] MEDS: carvediloL 25 MG TAB PO SCH ×2 (09:10→21:13)
[2021-12-20] MEDS: PANTOprazole 40 MG TAB PO SCH ×2 (09:10→21:14)
[2021-12-20] MEDS: FAMOTIDINE 20 MG in SYRINGE 3 ML IV SCH ×2 (09:11→21:14)
[2021-12-20] MEDS: PROMETHAZINE HCL 6.25 MG in SODIUM CHLORIDE 0.9% 50 ML IV PRN (09:12)
[2021-12-20] MEDS: SPIRONOLACTONE 25 MG TAB PO SCH (10:11)
--- NOTE | 2021-12-20 18:14 | Hospitalist Progress Note ---
Date of Service December 20, 2021 Assessment & Plan (1) COVID: Plan: Acutely it appears most of her illness does relate to COVIDfortunately more myalgias and GI issues rather than any significant respiratory issues. Continues to be stable on room air. With the evolution of her abdominal pain (see #4) I continue to wonder if some of her GI symptoms may be gallbladder related. Continue supportive care. Because of all of these parameters, as well as the fact that she is on day 10 of illnessnagi does not appear to be someone who would really benefit much, or at all, from any COVID-specific therapeutics, and given that her breathing is good and she is not hypoxiccorticosteroids would be likely of no real benefit (and possible harm as we get to her abdominal pain below). Continue supportive care. (2) Uncontrolled hypertension: Plan: She relates this to an adrenal diagnosisoutpatient records show nothing of thisbut she certainly does seem to have really difficult to control hypertension, and no renal artery stenosis. Cortisol okay, renin and aldosterone are pending, adding TSH to next lab work. Pressure has responded reasonably well to the addition of amlodipinewe will continue. (3) Elevated serum creatinine: Plan: Appears actually to be around her baselinewhich appears to be stage III CKD. For now we will continue keep fluids going to prevent any worsening until her p.o. intake improves. Manage blood pressure as best as possible. Follow periodically (4) Abdominal pain: Plan: The main differentials appear to be how much of this is COVID-related viral, versus how much is biliary, versus how much is more of simply a gastritis type picture. As I continue to follow her, and the pain seems to be getting more localized to her right upper quadrant, and definitely seems to be triggered with eatingI am much more suspicious that some, if not all may be biliary/gallbladder dysfunction in nature. HIDA is still ordered and pending for Wednesday, but I will ask for surgical opinion. (5) Adrenal abnormality: Plan: See above under hypertensionpending further work-up. Renin and aldosterone sent (6) DVT prophylaxis: Plan: Lovenox (7) Discharge planning issues: Plan: Stable for medical, definitely not safe for home yet given that she cannot eat or drink well. Admission and Anticipated Discharge Date Admission Date: December 17, 2021 Subjective Continues to have abdominal pain nausea and vomiting basically right after eating every time. Pain and nausea medications help, but then whenever she tries to eat again it comes back. Notes the pain is predominantly right abdominal. Reiterates that now that she has given time to revisiting her HPI, this is definitely been going on for months. Review of Systems Review of Systems: All systems reviewed & are unremarkable except as noted in HPI & below Physical Exam Physical Exam: In general she is awake and alert pleasant no distress. HEENT normocephalic atraumatic mucous membranes moist. Breathing unlabored no accessory muscle use good effort. Skin shows no rashes no pallor or icterus. Abdomen is soft but she does have right upper quadrant tenderness with a mild degree of voluntary guardingworse than yesterday. She also has epigastric tenderness although comparatively less than the right upper quadrant. Results & Data Results & Data ([facility]) Vital Signs (Past 12 Hours) Vital Signs Temp Pulse Pulse Pulse Resp BP Pulse Ox 12/20/21 17:13 97.7 F 67 18 149/92 H 100 12/20/21 15:00 52 L 12/20/21 13:05 98.2 F 71 18 145/75 H 18 L 12/20/21 13:08 12/20/21 09:08 57 L 144/91 H 12/20/21 07:51 98.2 F 61 16 135/81 99 12/20/21 07:00 58 L O2 Del Method 12/20/21 17:13 Room Air 12/20/21 15:00 12/20/21 13:05 Room Air 12/20/21 13:08 Room Air 12/20/21 09:08 12/20/21 07:51 Room Air 12/20/21 07:00 PG Care Time/CCT Total # of Minutes Spent Total Time Spent with Patient: Total time spent is greater than 50% in coordination of care (as documented) at patient's floor/unit and/or counseling patient: Coding Level of Care Code 08898 Subseq Hosp Care Lvl 3 Diagnoses COVID U07.1 Uncontrolled hypertension I10 Elevated serum creatinine R79.89 Abdominal pain R10.9 Adrenal abnormality E27.9 DVT prophylaxis Z29.9 Discharge planning issues Z02.9
--- NOTE | 2021-12-20 20:53 | Surgery Consultation ---
Date of Consultation December 20, 2021 Assessment & Plan (1) Cholelithiasis: Patient has been admitted on the hospitalist service and is currently undergoing treatment for her COVID (supportive care) as well as uncontrolled hypertension. Concerning patient's cholelithiasis we recommend the following: The patient does have right upper quadrant pain but there is no convincing evidence of cholecystitis on imaging performed, and her LFTs are noted to be not elevated The primary service has ordered a HIDA scan which will help better delineate if patient is indeed suffering from cholecystitis. We will await results of this study to determine the next best course of action. It would be preferable for patient to be fully recovered from her COVID infection and have her blood pressure optimized prior to entertaining any surgery Supervising Physician Co-Signing Physician Notes As per Holden Malloy physician patent legal assistant The patient is not complaining of any abdominal discomfort No abdominal findings by exam no right upper quadrant discomfort History of Present Illness Reason for Consultation: Cholelithiasis Attending Physician: Albert Hartman DO History of Present Illness This is a 31-year-old female who was admitted to [facility] on 12/17/2021 secondary to generalized fatigue, myalgias, headache, as well as epigastric pain. In addition the patient notes some diarrhea. Prior to admission she has noted poor oral intake as well as a slight cough. As part of her evaluation she was tested for COVID which came back positive. The patient has largely had no respiratory symptoms due to her COVID and therefore did not receive any COVID-specific treatment and has received supportive care.. Since admission she has been treated for uncontrolled hypertension. The patient did report abdominal pain in the epigastric as well as right upper quadrant area. She did not undergo abdominal imaging which will be listed below. Due to the presence of gallstones General surgery was asked to see the patient. I did question patient on her abdominal pain and she notes that she has been having right upper quadrant and epigastric abdominal pain for approximately 2 months. She does note intermittent bouts of diarrhea. I asked her about the pain and she says it sometimes radiates to her back. She notes that the pain often will dissipate on its own without any active intervention. She does not identify any specific palliative factors. She does feel as though the pain is markedly worse after eating and specifically notes that the pain usually presents approximately 10 to 15 minutes after eating and again has been going on for approximately 2 months. She denies any fevers, shakes, or chills. She does report intermittent nausea and vomiting when she gets the pain. Since admission to the hospital this patient has had labs and imaging which I independent reviewed. She did have a CT scan of the abdomen pelvis on 12/17/2021. This showed a nonobstructing left-sided renal calculus. There is no acute intra-abdominal or pelvic abnormality noted on the study. A chest x-ray showed no evidence of pneumonia. (The study was on 12/17/2021.) Patient is also had a liver ultrasound on 12/18/2021. This showed a distended gallbladder with some gallstones. There is no got gallbladder wall thickening or pericholecystic fluid. Labs performed this admission included a CBC were white blood cell count has remained normal. Her hemoglobin, hematocrit, and platelet count have also been normal. Chemistry profile has revealed normal sodium levels. Her potassium has been approximately 3.3-3.4. Her BUN is within the normal range. The patient's creatinine has been anywhere from 2.5-2.8. The patient's bilirubin, transaminases, and alkaline phosphatase have been nonelevated. At time of admission her lipase was not elevated. Of note the patient did have a positive COVID test on 12/17/2021. Allergies Allergy/AdvReac Type Severity Reaction Status Date / Time No Known Allergies Allergy Verified 12/17/21 23:57 Home Medications Medication Instructions Recorded Confirmed Type carvedilol 25 mg tablet 25 mg PO BID 12/17/21 12/17/21 History clonidine 0.1 mg/24 hr weekly 0.1 mg transdermal WK 12/17/21 12/17/21 History transdermal patch clonidine 0.2 mg/24 hr weekly 0.2 mg transdermal WK 12/17/21 12/17/21 History transdermal patch spironolactone 25 mg tablet 25 mg PO DAILY 12/17/21 12/17/21 History Patient History Social History Smoking Status: Current some day smoker Tobacco Type: Cigarettes Cigarettes Per Day: 5; Second Hand Exposure: Yes; Hx Alcohol Use: No Hx Substance Use: No Preferred Language: Amharic Food Service Substitute Required: No Beliefs That Will Affect Care: None Current Living Situation: Other Current Living Situation Comment: roommate Feels Safe at Home: Yes Assistive Devices: None Review of Systems Constitutional: no fever and no chills Eyes: no eye pain Ear, Nose, Mouth, Throat: no ear pain Respiratory: no cough and no dyspnea Cardiovascular: no chest pain Gastrointestinal: as per Subjective / HPI Genitourinary: no dysuria Musculoskeletal: no back pain Integumentary: no rash Neurologic: no localized weakness Physical Exam Constitutional: well developed and well nourished; no acute distress Eyes: no conjunctival abnormality ENMT: Ears: no hearing impairment Mouth: no oropharynx abnormality Neck: trachea midline Respiratory: normal respiratory effort; no respiratory distress and no labored breathing Cardiovascular: Rate/Rhythm: regular rate and regular rhythm Gastrointestinal (Abdomen): Abdomen is soft and nondistended. Her abdomen is nonrigid with positive bowel sounds. There is no rebound tenderness or guarding. The patient did have pain with palpation in the right upper quadrant. Musculoskeletal: No calf tenderness Skin: no rashes Neurologic: moves all extremities Psychiatric: A+Ox3, euthymic affect Results & Data ([facility]) Vital Signs (Past 12 Hours) Vital Signs Temp Pulse Pulse Pulse Resp BP Pulse Ox 12/20/21 17:13 36.5 C 67 18 149/92 H 100 12/20/21 15:00 52 L 12/20/21 13:05 36.8 C 71 18 145/75 H 18 L 12/20/21 13:08 12/20/21 09:08 57 L 144/91 H O2 Del Method 12/20/21 17:13 Room Air 12/20/21 15:00 12/20/21 13:05 Room Air 12/20/21 13:08 Room Air 12/20/21 09:08 PG Care Time/CCT Total # of Minutes Spent Total Time Spent with Patient: Total time spent is greater than 50% in coordination of care (as documented) at patient's floor/unit and/or counseling patient: Coding Level of Care Code 27391 Inpt Consult Level 5 Diagnoses Cholelithiasis K80.20
[2021-12-20] MEDS: MELATONIN 3 MG TAB PO PRN (21:12)
[2021-12-20] MEDS: ENOXAPARIN INJ 40 MG/0.4 ML SYR SQ SCH (21:13)
[2021-12-21] MEDS: CHECK CLONIDINE PATCH PLACEMENT SCH ×8 (00:13→23:04)
[2021-12-21] MEDS: LACTATED RINGER'S 1,000 ML IV SCH ×3 (02:31→22:44)
[2021-12-21 07:52] LABS: Basophils # (auto) 0.03 K/uL (0-0.2); Basophils % (auto) 0.4 %; Eosinophils # (auto) 0.18 K/uL (0-0.50); Eosinophils % (auto) 2.6 %; Hematocrit (blood only) 32.5 % (34.1-44.9); Hemoglobin 10.6 g/dl (12.0-16.0); Immature Granulocytes # (auto) 0.03 K/uL (0.00-0.02); Immature Granulocytes % (auto) 0.4 %; Lymphocytes # (auto) 1.51 K/uL (1.2-3.4); Lymphocytes % (auto) 21.6 %; Mean Corpuscular Hemoglobin 29.1 pg (25.0-34.0); Mean Corpuscular Hgb Conc 32.6 g/dL (32.0-36.0); Mean Corpuscular Volume 89.3 fL (80.0-100.0); Mean Platelet Volume 10.1 fL (9.4-12.3); Monocytes # (auto) 0.52 K/uL (0.24-0.82); Monocytes % (auto) 7.4 %; Neutrophils # (auto) 4.73 K/uL (1.4-6.5); Neutrophils % (auto) 67.6 %; Platelet Count 165 K/uL (130-400); RDW Standard Deviation 45.5 fL (36.4-46.3); Red Blood Count 3.64 M/uL (3.93-5.22)
[2021-12-21 08:15] LABS: Albumin Globulin Ratio 1.5 (0.9-2); Albumin Level 3.4 gm/dl (3.4-5.0); Bilirubin,Total 0.5 mg/dl (0.2-1.0); Calcium 8.2 mg/dl (8.5-10.1); Creatinine Clr Calc Pharmacy 44.1 ml/min; Est GFR (African American) 25.1 ml/min; Est GFR (Non-African American) 21.7 ml/min; Globulin 2.3 gm/dl (2.5-4.0); Potassium 3.7 mmol/L (3.5-5.1); Total Protein 5.7 gm/dl (6.0-8.3)
[2021-12-21] MEDS: carvediloL 25 MG TAB PO SCH ×2 (09:13→21:12)
[2021-12-21] MEDS: PANTOprazole 40 MG TAB PO SCH ×2 (09:13→21:12)
[2021-12-21] MEDS: amLODIPine BESYLATE 5 MG TAB PO SCH ×2 (09:13→21:11)
[2021-12-21] MEDS: SPIRONOLACTONE 25 MG TAB PO SCH (09:13)
[2021-12-21] MEDS: FAMOTIDINE 20 MG in SYRINGE 3 ML IV SCH ×2 (09:13→21:12)
[2021-12-21] MEDS: MoRPHine SULFATE 4 MG/ML 1 ML CARP\\VIAL IV PRN ×3 (09:53→21:15)
--- NOTE | 2021-12-21 16:50 | Hospitalist Progress Note ---
Date of Service December 21, 2021 Assessment & Plan (1) COVID: Plan: Acutely it appears most of her illness does relate to COVIDfortunately more myalgias and GI issues rather than any significant respiratory issues. Continues to be stable on room air. With the evolution of her abdominal pain (see #4) I continue to wonder if some of her GI symptoms may be gallbladder related, but with the waxing and waning and slow improvement, may also be viral mediated. Continue supportive care. Because of all of these parameters, as well as the fact that she is on day 11 of illnessnagi does not appear to be someone who would really benefit much, or at all, from any COVID-specific therapeutics, and given that her breathing is good and she is not hypoxiccorticosteroids would be likely of no real benefit (and possible harm as we get to her abdominal pain below). Continue supportive care. (2) Uncontrolled hypertension: Plan: She relates this to an adrenal diagnosisoutpatient records show nothing of t hisbut she certainly does seem to have really difficult to control hypertension, and no renal artery stenosis. Cortisol okay, renin and aldosterone are pending, adding TSH to next lab work. Pressure has responded reasonably well to the addition of amlodipinewe will continue both now and as an outpatient (3) Elevated serum creatinine: Plan: Appears actually to be around her baselinewhich appears to be stage III CKD. For now we will continue keep fluids going to prevent any worsening until her p.o. intake improves. Manage blood pressure as best as possible. Follow periodicallycreatinine appears to be stable for her (4) Abdominal pain: Plan: The main differentials appear to be how much of this is COVID-related viral, versus how much is biliary, versus how much is more of simply a gastritis type picture. Appreciate surgical opinion. HIDA tomorrow. With waxing and waning symptoms, the whole picture is fairly nonspecific. If HIDA negative, consider ongoing supportive care and weaning back of medications, versus consideration for EGD (5) Adrenal abnormality: Plan: See above under hypertensionpending further work-up. Renin and aldosterone sent and pending (6) DVT prophylaxis: Plan: Lovenox (7) Discharge planning issues: Plan: Stable on medical, definitely not safe for home yet given that she cannot eat or drink well without significant support Admission and Anticipated Discharge Date Admission Date: December 17, 2021 Subjective Eating better notes that is really only with the medication. But she has not arora d nausea or vomiting. Abdominal pain is betterbut she clarifies multiple times that it is really only with the medication. Otherwise no new complaints. Mostly just wants to be able to take shower. Review of Systems Review of Systems: All systems reviewed & are unremarkable except as noted in HPI & below Physical Exam Physical Exam: In general she is awake and alert no distress. HEENT normocephalic atraumatic mucous membranes moist. Breathing unlabored no accessory muscle use good effort. Skin shows no rashes no pallor or icterus. Abdomen is soft mild right upper quadrant greater than epigastric tenderness no guarding rebound or rigiditymuch better than yesterday. Skin without rashes pallor or icterus. Results & Data Results & Data ([facility]) Vital Signs (Past 12 Hours) Vital Signs Temp Pulse Pulse Resp BP Pulse Ox O2 Del Method 12/21/21 15:32 97.9 F 65 20 156/95 H 95 Room Air 12/21/21 08:20 Room Air 12/21/21 07:51 98.1 F 59 L 16 127/77 97 Room Air 12/21/21 05:44 97.9 F 59 L 18 133/81 99 Room Air 12/21/21 05:53 Room Air PG Care Time/CCT Total # of Minutes Spent Total Time Spent with Patient: Total time spent is greater than 50% in coordination of care (as documented) at patient's floor/unit and/or counseling patient: Coding Level of Care Code 10218 Subseq Hosp Care Lvl 3 Diagnoses COVID U07.1 Uncontrolled hypertension I10 Elevated serum creatinine R79.89 Abdominal pain R10.9 Adrenal abnormality E27.9 DVT prophylaxis Z29.9 Discharge planning issues Z02.9
[2021-12-21] MEDS: MELATONIN 3 MG TAB PO PRN (21:12)
[2021-12-21] MEDS: ENOXAPARIN INJ 40 MG/0.4 ML SYR SQ SCH (21:12)
[2021-12-22] MEDS: ACETAMINOPHEN 325 MG TAB PO PRN (02:41)
[2021-12-22] MEDS: LACTATED RINGER'S 1,000 ML IV SCH ×2 (08:33→15:33)
[2021-12-22] MEDS: CHECK CLONIDINE PATCH PLACEMENT SCH ×4 (08:33→15:34)
[2021-12-22] MEDS: amLODIPine BESYLATE 5 MG TAB PO SCH ×2 (08:34→21:48)
[2021-12-22] MEDS: SPIRONOLACTONE 25 MG TAB PO SCH (08:36)
[2021-12-22] MEDS: PANTOprazole 40 MG TAB PO SCH ×2 (08:36→21:48)
[2021-12-22] MEDS: carvediloL 25 MG TAB PO SCH ×2 (08:36→21:48)
[2021-12-22] MEDS: FAMOTIDINE 20 MG in SYRINGE 3 ML IV SCH ×2 (08:36→21:49)
[2021-12-22] MEDS: MoRPHine SULFATE 4 MG/ML 1 ML CARP\\VIAL IV PRN ×2 (11:37→22:15)
--- NOTE | 2021-12-22 12:54 | Surgery Progress Note ---
Date of Service December 22, 2021 Assessment & Plan (1) Cholelithiasis: Plan: Pt admitted with + covid diagnosis and uncontrolled HTN, found to have gallstones on imaging for RUQ pain No findings of cholecystitis on CT or RUQ US. WBC and LFTs unremarkable Has been tolerating a diet, but reports continued right sided pain On exam patient's abdomen is soft, non distended, with mild discomfort to palpation elicited in the RUQ Awaiting HIDA scan which she says will occur this evening, will f/u on results Admission and Anticipated Discharge Date Admission Date: December 17, 2021 Subjective Patient feeling okay. Still reporting some R sided abdominal pain. She is tolerating a diet otherwise. Says it helps only mildly when she takes pain medication. Physical Exam Physical Exam: awake/alert, no distress Gastrointestinal (Abdomen): Inspection/Auscultation: abdomen not distended Percussion/Palpation: + abdomen tender (discomfort to palpation in R upper abdom en ) and abdomen soft Results & Data ([facility]) Vital Signs (Past 12 Hours) Vital Signs Temp Pulse Pulse Resp BP Pulse Ox O2 Del Method 12/22/21 08:00 Room Air 12/22/21 08:37 36.4 C L 62 16 153/85 H 97 Room Air 12/22/21 08:28 36.5 C 51 L 16 156/85 H 99 Room Air PG Care Time/CCT Total # of Minutes Spent Total Time Spent with Patient: Total time spent is greater than 50% in coordination of care (as documented) at patient's floor/unit and/or counseling patient: Coding Level of Care Code 06542 Subseq Hosp Care Lvl 1 Diagnoses Cholelithiasis K80.20
--- NOTE | 2021-12-22 16:50 | Hospitalist Progress Note ---
Date of Service December 22, 2021 Assessment & Plan (1) COVID: Plan: Acutely it appears most of her illness does relate to COVIDfortunately more myalgias and GI issues rather than any significant respiratory issues. Continues to be stable on room air. With the evolution of her abdominal pain (see #4) I continue to wonder if some of her GI symptoms may be gallbladder related, but with the waxing and waning and slow improvement, may also be viral mediated. Continue supportive care. Because of all of these parameters, as well as the fact that she is on day 12 of illnessnagi does not appear to be someone who would really benefit much, or at all, from any COVID-specific therapeutics, and given that her breathing is good and she is not hypoxiccorticosteroids would be likely of no real benefit (and possible harm as we get to her abdominal pain below). Continue supportive care. (2) Uncontrolled hypertension: Plan: She relates this to an adrenal diagnosisoutpatient records show nothing of t hisbut she certainly does seem to have really difficult to control hypertension, and no renal artery stenosis. Cortisol okay, renin and aldosterone are pending, adding TSH to next lab work. Pressure has responded reasonably well to the addition of amlodipinewould recommend this be added to her outpatient regimen on discharge (3) Elevated serum creatinine: Plan: Appears actually to be around her baselinewhich appears to be stage III CKD. For now we will continue keep fluids going to prevent any worsening until her p.o. intake improves. Manage blood pressure as best as possible. Follow periodicallycreatinine appears to be stable for her. We will repeat BMP in a.m. (4) Abdominal pain: Plan: The main differentials appear to be how much of this is COVID-related viral, versus how much is biliary, versus how much is more of simply a gastritis type p icture. Appreciate surgical opinion. HIDA later today. With waxing and waning symptoms, the whole picture is fairly nonspecific. If HIDA negative, given that her symptoms are unremitting for about a week in the hospital, and preceded COVID infection, and have been going on for probably about 3 or 4 months per her recollectionif HIDA negative, would probably have GI see her for considerations for EGD. (5) Adrenal abnormality: Plan: See above under hypertensionpending further work-up. Renin and aldosterone sent and pending (6) DVT prophylaxis: Plan: Lovenox (7) Discharge planning issues: Plan: Stable on medical, definitely not safe for home yet given that she cannot eat or drink well without significant support Admission and Anticipated Discharge Date Admission Date: December 17, 2021 Subjective Feeling about the same. Still really cannot eat without significant pain. Predominantly right-sided. Review of Systems Review of Systems: All systems reviewed & are unremarkable except as noted in HPI & below Physical Exam Physical Exam: Vitals noted, in general she is fatigued but no distress. H EENT normocephalic atraumatic mucous membranes moist. Breathing unlabored no accessory muscle use good effort. Abdomen is soft she has mild right upper quadrant and epigastric tenderness no guarding rebound or rigidity. Skin shows no rashes, pallor, icterus. No focal neurodeficits. Results & Data Results & Data ([facility]) Vital Signs (Past 12 Hours) Vital Signs Temp Pulse Pulse Resp BP BP Pulse Ox 12/22/21 14:33 97.5 F L 54 L 16 136/83 100 12/22/21 08:00 12/22/21 08:37 97.5 F L 62 16 153/85 H 97 12/22/21 08:28 97.7 F 51 L 16 156/85 H 99 O2 Del Method 12/22/21 14:33 Room Air 12/22/21 08:00 Room Air 12/22/21 08:37 Room Air 12/22/21 08:28 Room Air PG Care Time/CCT Total # of Minutes Spent Total Time Spent with Patient: Total time spent is greater than 50% in coordination of care (as documented) at patient's floor/unit and/or counseling patient: Coding Level of Care Code 88332 Subseq Hosp Care Lvl 3 Diagnoses COVID U07.1 Uncontrolled hypertension I10 Elevated serum creatinine R79.89 Abdominal pain R10.9 Adrenal abnormality E27.9 DVT prophylaxis Z29.9 Discharge planning issues Z02.9
--- NOTE | 2021-12-22 21:00 | Nuclear Medicine Report ---
NM hepatobiliary EF CLINICAL HISTORY: RUQ pain, nonspecific GB distention on US COMPARISON STUDY: CT of the abdomen and pelvis December 17, 2021. Right upper quadrant ultrasound November 292021. TECHNIQUE: 5.2 mCi of technetium 99m Choletec was injected IV at 6:35 PM on December 22, 2021. Immediatel y following injection, imaging of the abdomen was carried out in the anterior projection for 60 minut es. At this time, Boost was ingested and imaging was performed for an additional 45 minutes to estima te gallbladder ejection fraction. FINDINGS: Hepatic uptake of radiotracer is prompt and homogeneous. Activity is identified within the common bile duct and small bowel at 10 minutes. Gallbladder activity is noted at 20 minutes. Followin g ingestion of Boost, gallbladder ejection fraction was estimated at 77%. Normal is 30-35%. IMPRESSION: 1. Normal hepatobiliary scan. No evidence for acute or chronic cholecystitis. 2. Normal gallbladder ejection fraction. ACT 112: Negative or not required by law. Electronically signed by: Adithya Mancia M.D. 12/22/2021 8:58 PM
[2021-12-22] MEDS: ENOXAPARIN INJ 40 MG/0.4 ML SYR SQ SCH (21:48)
[2021-12-23] MEDS: CHECK CLONIDINE PATCH PLACEMENT SCH ×8 (00:14→23:51)
[2021-12-23] MEDS: MELATONIN 3 MG TAB PO PRN ×2 (00:14→20:19)
[2021-12-23] MEDS: MoRPHine SULFATE 4 MG/ML 1 ML CARP\\VIAL IV PRN ×2 (04:23→07:37)
[2021-12-23] MEDS: LACTATED RINGER'S 1,000 ML IV SCH ×2 (04:25→09:11)
[2021-12-23 05:41] LABS: Basophils # (auto) 0.03 K/uL (0-0.2); Basophils % (auto) 0.4 %; Eosinophils # (auto) 0.26 K/uL (0-0.50); Eosinophils % (auto) 3.2 %; Hematocrit (blood only) 34.2 % (34.1-44.9); Hemoglobin 11.5 g/dl (12.0-16.0); Immature Granulocytes # (auto) 0.04 K/uL (0.00-0.02); Immature Granulocytes % (auto) 0.5 %; Lymphocytes # (auto) 2.04 K/uL (1.2-3.4); Lymphocytes % (auto) 25.4 %; Mean Corpuscular Hemoglobin 30.2 pg (25.0-34.0); Mean Corpuscular Hgb Conc 33.6 g/dL (32.0-36.0); Mean Corpuscular Volume 89.8 fL (80.0-100.0); Mean Platelet Volume 9.8 fL (9.4-12.3); Monocytes # (auto) 0.68 K/uL (0.24-0.82); Monocytes % (auto) 8.5 %; Neutrophils # (auto) 4.98 K/uL (1.4-6.5); Platelet Count 236 K/uL (130-400); RDW Coefficient of Variation 13.6 % (11.5-14.5); RDW Standard Deviation 44.7 fL (36.4-46.3); Red Blood Count 3.81 M/uL (3.93-5.22); White Blood Count 8.03 K/ul (4.8-10.8)
[2021-12-23 06:01] LABS: Albumin Globulin Ratio 1.4 (0.9-2); Albumin Level 3.4 gm/dl (3.4-5.0); Bilirubin,Total 0.4 mg/dl (0.2-1.0); Calcium 8.3 mg/dl (8.5-10.1); Est GFR (Non-African American) 19.9 ml/min; Globulin 2.5 gm/dl (2.5-4.0); Potassium 3.9 mmol/L (3.5-5.1); Total Protein 5.9 gm/dl (6.0-8.3)
[2021-12-23] MEDS: PANTOprazole 40 MG TAB PO SCH ×2 (07:35→20:21)
[2021-12-23] MEDS: amLODIPine BESYLATE 5 MG TAB PO SCH ×2 (07:35→20:22)
[2021-12-23] MEDS: carvediloL 25 MG TAB PO SCH ×2 (07:36→20:22)
[2021-12-23] MEDS: FAMOTIDINE 20 MG in SYRINGE 3 ML IV SCH ×2 (07:36→20:21)
[2021-12-23] MEDS: SPIRONOLACTONE 25 MG TAB PO SCH (07:40)
--- NOTE | 2021-12-23 08:46 | Surgery Progress Note ---
Date of Service December 23, 2021 Assessment & Plan (1) Cholelithiasis: Plan: Pt admitted with + covid diagnosis and uncontrolled HTN, found to have gallstones on imaging for RUQ pain No findings of cholecystitis on CT or RUQ US. WBC and LFTs unremarkable HIDA obtained yesterday revealed no evidence of acute or chronic cholecystitis with normal EF Has been tolerating a diet, but reports continued right sided pain.. still taking morphine On exam patient's abdomen is soft, non distended, with mild discomfort to palpation elicited in the RUQ No plans for surgical intervention while here given no evidence of acute molina. Allow pt to recover from covid, HTN, ZULEIMA on CKD Could consider GI for workup of other etiologies of pain We will sign off, please call with any questions/concerns Admission and Anticipated Discharge Date Admission Date: December 17, 2021 Subjective Patient continues to report R sided abdominal pain. Says she must take morphine prior to eating. No n/v. Says pain has been constant over last 2 months. Physical Exam Physical Exam: awake/alert, no distress Gastrointestinal (Abdomen): Inspection/Auscultation: abdomen not distended Percussion/Palpation: + abdomen tender (discomfort to palpation in R upper abdomen ) and abdomen soft Results & Data ([facility]) Vital Signs (Past 12 Hours) Vital Signs Temp Pulse Resp BP Pulse Ox O2 Del Method 12/23/21 07:45 Room Air 12/23/21 07:32 36.7 C 60 16 146/87 H 98 Room Air 12/22/21 21:47 36.4 C L 66 16 180/97 H 100 Room Air PG Care Time/CCT Total # of Minutes Spent Total Time Spent with Patient: Total time spent is greater than 50% in coordination of care (as documented) at patient's floor/unit and/or counseling patient: Coding Level of Care Code 37065 Subseq Hosp Care Lvl 1 Diagnoses Cholelithiasis K80.20
[2021-12-23] MEDS ORDERED: DICYCLOMINE HCL 10 MG CAP PO ONE (08:55)
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
[2021-12-23] MEDS ORDERED: MoRPHine SULFATE 2 MG/ML CARP IV PRN (08:58)
[2021-12-23] MEDS: NICOTINE 7 MG/24 HR TDSY TD SCH (09:11)
--- NOTE | 2021-12-23 09:31 | Gastrointestinal Consultation ---
Date of Consultation December 23, 2021 Assessment & Plan (1) Abdominal pain: 31 year old female with pmhx of hypertension, adrenal abnormality, admitted 12/17/21 with complaints of epigastric pain x several months. she also tested positive for covid on day of admission but has not had any significant respiratory symptoms. She had unremarkable CT abd/pelvis. US suggestive of distended gallbladder with gallstones. HIDA with EF of 77%. Surgery on consult and no surgery planned at this time. GI consulted for opinion on EGD. - Discussed case with Dr. Montoya who advised on plan. - continue with protonix 40mg bid, famotidine 20mg bid. will add carafate 1gm qid to see if this helps with her symptoms. - Patient is without any alarm symptoms currently, could consider EGD as an outpatient. History of Present Illness Reason for Consultation: Nausea, vomiting, abdominal pain Requesting Physician: Ankita Arias PA-C Attending Physician: Heena Leon MD History of Present Illness 31 year old female with pmhx of hypertension, adrenal abnormality, admitted 12/17/21 with complaints of epigastric pain x several months. she rates this as a 2/10 on the pain scale. described as burning/stabbing in nature. She tells me she has also had nausea, vomiting, and heartburn in the past but has not had any of these symptoms recently. She moves bowels every other day. stools can be dark. GI was consulted to see for opinion on EGD. She did test positive for covid on 12/17/21. The patient has not had any respiratory symptoms due to her COVID and therefore she did not receive any COVID-specific treatment - just supportive care. Since admission she has also been treated for uncontrolled hypertension. Surgery was consulted due to cholelithiasis on on US. HIDA with EF of 77%. No surgical plans at this time. She denies any dysphagia, brbpr. she tells me she has not ever had an egd or colonoscopy. Allergies Allergy/AdvReac Type Severity Reaction Status Date / Time No Known Allergies Allergy Verified 12/17/21 23:57 Home Medications Medication Instructions Recorded Confirmed Type carvedilol 25 mg tablet 25 mg PO BID 12/17/21 12/17/21 History clonidine 0.1 mg/24 hr weekly 0.1 mg transdermal WK 12/17/21 12/17/21 History transdermal patch clonidine 0.2 mg/24 hr weekly 0.2 mg transdermal WK 12/17/21 12/17/21 History transdermal patch spironolactone 25 mg tablet 25 mg PO DAILY 12/17/21 12/17/21 History Patient History Social History Smoking Status: Current some day smoker Tobacco Type: Cigarettes Cigarettes Per Day: 5; Second Hand Exposure: Yes; Hx Alcohol Use: No Hx Substance Use: No Preferred Language: Vietnamese Communication Ability: Effective Clinic Scheduler Required: No Beliefs That Will Affect Care: None Current Living Situation: Other Current Living Situation Comment: roommate Feels Safe at Home: Yes Assistive Devices: None Review of Systems Constitutional: no fever and no chills Cardiovascular: no chest pain Physical Exam Constitutional: WD/WN, vitals as above Eyes: + anicteric sclerae and PERRL ENMT: external ear and nose normal, oropharynx normal Respiratory: normal respiratory effort, lungs clear to auscultation Cardiovascular: RRR, no murmur, no edema Gastrointestinal (Abdomen): soft, mild epigastric tenderness, no guarding. normoactive bowel sounds. Skin: no rashes, warm and dry Psychiatric: A+Ox3, euthymic affect Results & Data ([facility]) Vital Signs (Past 12 Hours) Vital Signs Temp Pulse Resp BP Pulse Ox O2 Del Method 12/23/21 07:45 Room Air 12/23/21 07:32 36.7 C 60 16 146/87 H 98 Room Air 12/22/21 21:47 36.4 C L 66 16 180/97 H 100 Room Air Diagnostic Findings CT abd pelvis wo con 12/17/21 CLINICAL HISTORY: epigastric abdominal pain COMPARISON STUDY: No previous studies for comparison. CT DOSE: 1280.01 mGycm TECHNIQUE: Standard CT of the Abdomen and Pelvis was performed without IV contrast. The patient did not receive oral contrast. A dose lowering technique was utilized adhering to the principles of ALARA. FINDINGS: Lung base: The lung bases are clear. Abdominal cavity: There is no evidence for abdominal mass, adenopathy or ascites. Liver: The liver is homogeneous in attenuation on these limited noncontrast images.. Spleen: The spleen is homogeneous in attenuation on these limited noncontrast images. There is mild splenomegaly. Pancreas: The pancreas is homogeneous in attenuation on these limited noncontrast images. Gall Bladder: The gallbladder is well distended with no evidence for cholelithiasis, wall thickening or pericholecystic edema.. Adrenal glands: The adrenal glands are normal in size and attenuation on these limited noncontrast images. Kidneys: The kidneys are homogeneous in attenuation on these limited noncontrast images. There is a 2 mm nonobstructing left renal calculus. There is no evidence for right renal calculus or hydronephrosis bilaterally. There is no gross renal mass is identified. Bowel: The bowel loops are normally placed within the abdomen and pelvis without evidence for dilatation or obstruction. There is no evidence for mass lesion. There are no inflammatory changes present. There is no evidence for free air. There is a normal appendix in the right lower quadrant. Bladder: There is no evidence for focal bladder wall thickening, calculus or diverticulum. : There is no evidence for pelvic mass or adenopathy. Cystic changes are present involving the ovaries bilaterally. Vasculature: There is no evidence for focal aneurysmal dilatation of the abdominal aorta. Osseous structures: There is no acute osseous pathology. IMPRESSION: 1. 2 mm nonobstructing left renal calculus. 2. Cystic changes of the ovaries bilaterally. 3. Otherwise, no acute intra-abdominal or pelvic abnormality on these limited noncontrast images. ULTRASOUND RIGHT UPPER QUADRANT ABDOMEN 12/18/21 CLINICAL HISTORY: Right upper quadrant abdominal pain. COMPARISON STUDY: Abdominal CT dated 12/17/2021. TECHNIQUE: Real-time, grayscale, and color flow sonography of the right upper quadrant of the abdomen was performed. Images are reviewed in the transverse and longitudinal planes. FINDINGS: Liver: The liver is enlarged and demonstrates heterogeneous increased ech otexture indicating steatosis. Fatty sparing is seen adjacent to gallbladder fossa. There is no intrahepatic biliary ductal dilatation. The main portal vein is patent. Gallbladder: The gallbladder is distended and there are shadowing calcified gallstones. There is no gallbladder wall thickening or pericholecystic fluid. A sonographic Eastman's sign is reportedly present. The common bile duct measures up to 0.4 cm in diameter. Pancreas: Visualized portions of the pancreatic head and body are normal in appearance. Right kidney: Survey images of the right kidney demonstrate normal size and echo texture. There is no hydronephrosis. Ascites: None. IMPRESSION: 1. Distended gallbladder with shadowing gallstones. There is no gallbladder wall thickening or pericholecystic fluid; however, a sonographic Eastman's sign is reportedly present. Acute cholecystitis is not entirely excluded. Clinical and laboratory correlation will be required. If warranted a nuclear hepatobiliary scan could be considered for further assessment. 2. Hepatomegaly and hepatic steatosis. 3. There is no intra or extrahepatic biliary ductal dilatation. NM hepatobiliary EF 12/22/21 CLINICAL HISTORY: RUQ pain, nonspecific GB distention on US COMPARISON STUDY: CT of the abdomen and pelvis December 17, 2021. Right upper quadrant ultrasound December 18, 2021. TECHNIQUE: 5.2 mCi of technetium 99m Choletec was injected IV at 6:35 PM on December 22, 2021. Immediately following injection, imaging of the abdomen was carried out in the anterior projection for 60 minutes. At this time, Boost was ingested and imaging was performed for an additional 45 minutes to estimate gallbladder ejection fraction. FINDINGS: Hepatic uptake of radiotracer is prompt and homogeneous. Activity is identified within the common bile duct and small bowel at 10 minutes. Gallbladder activity is noted at 20 minutes. Following ingestion of Boost, gallbladder ejection fraction was estimated at 77%. Normal is 30-35%. IMPRESSION: 1. Normal hepatobiliary scan. No evidence for acute or chronic cholecystitis. 2. Normal gallbladder ejection fraction. PG Care Time/CCT Total # of Minutes Spent Total Time Spent with Patient: Total time spent is greater than 50% in coordination of care (as documented) at patient's floor/unit and/or counseling patient: Coding Level of Care Code 86720 Inpt Consult Level 4 Diagnoses Abdominal pain R10.9
--- NOTE | 2021-12-23 12:08 | XRay Report ---
KUB CLINICAL HISTORY: persistent abdominal pain, eval constipation COMPARISON STUDY: CT of the abdomen and pelvis December 17, 2021. FINDINGS: Bowel gas pattern is unremarkable. There is no evidence for a bowel obstruction. Moderate a mount of stool within the colon and rectum is present. This has increased since prior CT. No urinary calculi are identified. IMPRESSION: 1. No evidence for a bowel obstruction. 2. Moderate amount of stool within the colon and rectum, increased since prior CT. ACT 112: Negative or not required by law. Electronically signed by: Adithya Mancia M.D. 12/23/2021 12:07 PM
[2021-12-23] MEDS: SUCRALFATE 1 GM/10 ML UDC PO SCH ×3 (12:29→20:23)
[2021-12-23] MEDS ORDERED: POLYETHYLENE (MIRALAX) 17 GM PACK PO ONE (14:45)
[2021-12-23] MEDS: DICLOFENAC SOD 1% GEL 100 GM TUBE EXT SCH ×2 (17:53→20:21)
--- NOTE | 2021-12-23 18:03 | Nephrology Consultation ---
Date of Consultation December 23, 2021 Assessment & Plan (1) Hypertensive emergency: BP controlled. Tolerating current therapy well. Renin and pradip levels pending. Continue amlodipine 10 mg daily, carvedilol 25 mg twice daily spironlactone 25 mg daily, and clonidine 0.3 mg patch. Low sodium diet. Close outpatient follow up encouraged. (2) ZULEIMA (acute kidney injury): Non-oliguric. Volume status acceptable. Electrolytes normal. Medications appropriate for kidney function. No emergent indication for DUMPMAN. Urine acellular. Imaging reviewed. Document strict I/O's and repeat metabolic profile in the AM. (3) Chronic kidney disease: KDIGO staging and classification of CKD reviewed. CKD IIIb by history but baseline not entirely clear. Recent records suggest 2.6-2.8 mg/dL. Protein +1 by dipstick. I suspect likely hypertension related nephrosclerosis. Close outpatient follow up will be essential. Medications appropriately dosed for kidney dysfunction. Avoid YAKELIN/ARB for now. (4) COVID: History of Present Illness Reason for Consultation: ZULEIMA/CKD Requesting Physician: Heena Leon MD Attending Physician: Heena Leon MD History of Present Illness Atiya Eli is a 31-year-old female with morbid obesity, hypertension, obstructive sleep apnea, and CKD. She describes a history of chronic kidney disease but denies any formal nephrology evaluation in the past. During a recent admission to [facility], she was told that her kidneys were filtering 25%. She was admitted from December 03 through with hypertensive emergency. BP eventually controlled with amlodipine 10 mg daily, spironolactone 25 mg daily, carvedilol 25 mg twice daily, and clonidine 0.3 mg/d patch. Records from report a renal duplex that did not demonstrate significant renal artery stenosis and urine catecholamines that did not demonstrate evidence of pheochromocytoma. She reports doing well at home after discharge until the onset of GI symptoms approximately 1 week later. Atiya's roommate had recently developed symptomatic COVID. Atiya presented to [facility] on December 17 with epigastric pain. Symptoms attributed to COVID Nephrology consultation requested for acute and chronic kidney dysfunction. Serum creatinine on December 07 was 2.86 mg/dL and potassium 2.3 mmol/L at that time. Atiya was admitted to [facility] on [address] 20 with a creatinine of 2.6 mg/dL. Creatinine is now 3.0 mg/dL. Metabolic profile is otherwise acceptable. Urine microscopy has been acellular. Dipstick notable for +[address] abdomen and pelvis without contrast reviewed demonstrating a 2 mm non-obstructing stone on the left. This cannot be a ppreciated on more recent KUB. The kidneys are normal in size with at least mild symmetric cortical atrophy. There is no evidence of obstruction. No cysts or lesions appreciated in the kidneys. Cystic changes of the ovaries are noted. There are no concerning adrenal lesions appreciated. AM cortisol 8.8. Renin and aldosterone levels are pending. GI symptoms have been attributed to COVID associated gastroenteritis. Symptoms are improving BP has been controlled with amlodipine 5 mg BID, carvedilol 25 mg BID, spironolactone 25 mg daily, and clonidine patch 0.3 mg daily. Atiya is tolerating the medications well. Hypertension initially diagnosed as a teenager. She first started medical therapy following approximately 8 years ago. She denies any history of eclampsia or preeclampsia. She reports hypertension not requiring medications during and being maintained on medical therapy for a short period of time following . She was eventually able to wean herself off medications. She denies a history of symptomatic hypertension but relates that she has a long history of notably accelerated (>250 mmHg) but asymptomatic BP readings in the past. She denies any prior history of PCOS. No notable family history of kidney disease reported. Allergies Allergy/AdvReac Type Severity Reaction Status Date / Time No Known Allergies Allergy Verified 12/17/21 23:57 Home Medications Medication Instructions Recorded Confirmed Type carvedilol 25 mg tablet 25 mg PO BID 12/17/21 12/17/21 History clonidine 0.1 mg/24 hr weekly 0.1 mg transdermal WK 12/17/21 12/17/21 History transdermal patch clonidine 0.2 mg/24 hr weekly 0.2 mg transdermal WK 12/17/21 12/17/21 History transdermal patch spironolactone 25 mg tablet 25 mg PO DAILY 12/17/21 12/17/21 History Patient History Medical History (Updated 12/23/21 @ 18:23 by Dennis Lee DO) Chronic kidney disease Social History Smoking Status: Current some day smoker Tobacco Type: Cigarettes Cigarettes Per Day: 5; Second Hand Exposure: Yes; Hx Alcohol Use: No Hx Substance Use: No Preferred Language: Croatian Communication Ability: Effective Selector Packer Required: No Beliefs That Will Affect Care: None Current Living Situation: Other Current Living Situation Comment: roommate Feels Safe at Home: Yes Assistive Devices: None Review of Systems Review of Systems: All systems reviewed & are unremarkable except as noted in HPI & below Physical Exam Constitutional: well developed; no acute distress Eyes: no scleral abnormality and no corneal abnormality Neck: normal visual inspection and trachea midline Respiratory: normal respiratory effort Auscultation: lungs clear to auscultation bilaterally Cardiovascular: Rate/Rhythm: regular rate Heart Sounds: normal S1 and normal S2 Extremities: no edema Musculoskeletal: Extremities: no cyanosis and no clubbing Skin: normal turgor; no lesions Neurologic: Motor/Sensory: no tremor and no asterixis Psychiatric: Orientation: alert and oriented x 3 Results & Data ([facility]) Vital Signs (Past 12 Hours) Vital Signs Temp Pulse Resp BP Pulse Ox O2 Del Method 12/23/21 15:10 36.8 C 99 H 18 134/81 99 Room Air 12/23/21 07:45 Room Air 12/23/21 07:32 36.7 C 60 16 146/87 H 98 Room Air Laboratory Results Laboratory Results - last 24 hr 12/23/21 12/23/21 12/23/21 05:25 05:25 05:25 WBC 8.03 RBC 3.81 L Hgb 11.5 L Hct 34.2 MCV 89.8 MCH 30.2 MCHC 33.6 RDW Std Deviation 44.7 RDW Coeff of Erin 13.6 Plt Count 236 MPV 9.8 Immature Gran % (Auto) 0.5 Neut % (Auto) 62.0 Lymph % (Auto) 25.4 Darke % (Auto) 8.5 Eos % (Auto) 3.2 Baso % (Auto) 0.4 Neut # (Auto) 4.98 Lymph # (Auto) 2.04 Darke # (Auto) 0.68 Eos # (Auto) 0.26 Baso # (Auto) 0.03 Immature Gran # (Auto) 0.04 H Sodium 139 Potassium 3.9 Chloride 109 H Carbon Dioxide 24 Anion Gap 6 BUN 18 Creatinine 3.02 H Est Cr Clr Drug Dosing 41.0 Est GFR ( Amer) 23.0 Est GFR (Non-Af Amer) 19.9 BUN/Creatinine Ratio 6.0 L Glucose 115 H Calcium 8.3 L Magnesium Total Bilirubin 0.4 AST 11 L ALT 17 Alkaline Phosphatase 77 Total Protein 5.9 L Albumin 3.4 Globulin 2.5 Albumin/Globulin Ratio 1.4 Lipase 40 Ur Random Creatinine U Random Total Protein 12/23/21 12/23/21 05:25 10:00 WBC RBC Hgb Hct MCV MCH MCHC RDW Std Deviation RDW Coeff of Erin Plt Count MPV Immature Gran % (Auto) Neut % (Auto) Lymph % (Auto) Darke % (Auto) Eos % (Auto) Baso % (Auto) Neut # (Auto) Lymph # (Auto) Darke # (Auto) Eos # (Auto) Baso # (Auto) Immature Gran # (Auto) Sodium Potassium Chloride Carbon Dioxide Anion Gap BUN Creatinine Est Cr Clr Drug Dosing Est GFR ( Amer) Est GFR (Non-Af Amer) BUN/Creatinine Ratio Glucose Calcium Magnesium 2.1 Total Bilirubin AST ALT Alkaline Phosphatase Total Protein Albumin Globulin Albumin/Globulin Ratio Lipase Ur Random Creatinine 76.0 U Random Total Protein 37.0 H PG Care Time/CCT Total # of Minutes Spent Total Time Spent with Patient: Total time spent is greater than 50% in coordination of care (as documented) at patient's floor/unit and/or counseling patient: Coding Level of Care Code 50691 Inpt Consult Level 4 Diagnoses Hypertensive emergency I16.1 ZULEIMA (acute kidney injury) N17.9 Chronic kidney disease N18.9 COVID U07.1
[2021-12-23] MEDS: ACETAMINOPHEN 325 MG TAB PO PRN (20:20)
[2021-12-23] MEDS: HEPARIN SOD 5,000 UNIT/0.5 ML VIAL SQ SCH (20:24)
[2021-12-24 07:14] LABS: Hematocrit (blood only) 30.7 % (34.1-44.9); Hemoglobin 10.3 g/dl (12.0-16.0); Mean Corpuscular Hemoglobin 29.7 pg (25.0-34.0); Mean Corpuscular Hgb Conc 33.6 g/dL (32.0-36.0); Mean Corpuscular Volume 88.5 fL (80.0-100.0); Mean Platelet Volume 9.6 fL (9.4-12.3); Platelet Count 222 K/uL (130-400); RDW Coefficient of Variation 13.6 % (11.5-14.5); RDW Standard Deviation 44.2 fL (36.4-46.3); Red Blood Count 3.47 M/uL (3.93-5.22); White Blood Count 6.18 K/ul (4.8-10.8)
[2021-12-24 07:36] LABS: Albumin Level 3.2 gm/dl (3.4-5.0); BUN Creatinine Ratio 5.9 (10-20); Bilirubin Direct 0.1 mg/dl (0-0.2); Bilirubin,Total 0.5 mg/dl (0.2-1.0); Calcium 8.4 mg/dl (8.5-10.1); Creatinine Clr Calc Pharmacy 42.7 ml/min; Est GFR (African American) 24.2 ml/min; Est GFR (Non-African American) 20.9 ml/min; Potassium 4.1 mmol/L (3.5-5.1); Total Protein 5.7 gm/dl (6.0-8.3)
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
[2021-12-24] MEDS: CHECK CLONIDINE PATCH PLACEMENT SCH ×4 (08:25→15:59)
[2021-12-24] MEDS: amLODIPine BESYLATE 5 MG TAB PO SCH ×2 (08:26→20:46)
[2021-12-24] MEDS: HEPARIN SOD 5,000 UNIT/0.5 ML VIAL SQ SCH ×2 (08:27→20:42)
[2021-12-24] MEDS: DICLOFENAC SOD 1% GEL 100 GM TUBE EXT SCH ×4 (08:27→20:46)
[2021-12-24] MEDS: carvediloL 25 MG TAB PO SCH ×2 (08:27→20:46)
[2021-12-24] MEDS: PANTOprazole 40 MG TAB PO SCH ×2 (08:28→20:44)
[2021-12-24] MEDS: SPIRONOLACTONE 25 MG TAB PO SCH (08:28)
[2021-12-24] MEDS: NICOTINE 7 MG/24 HR TDSY TD SCH (08:28)
[2021-12-24] MEDS: SUCRALFATE 1 GM/10 ML UDC PO SCH ×4 (08:29→20:45)
[2021-12-24] MEDS ORDERED: POLYETHYLENE (MIRALAX) 17 GM PACK PO SCH (09:00)
--- NOTE | 2021-12-24 09:27 | Nephrology Progress Note ---
Date of Service December 24, 2021 Assessment & Plan (1) Hypertensive emergency: Plan: BP controlled. Tolerating current therapy well. Renin and pradip levels pending. Continue amlodipine 10 mg daily, carvedilol 25 mg twice daily spironolactone 25 mg daily, and clonidine 0.3 mg patch. Low sodium diet. Close outpatient follow up encouraged. (2) ZULEIMA (acute kidney injury): Plan: Non-oliguric. Volume status acceptable. Electrolytes normal. Medications appropriate for kidney function. 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 Urine acellular. Imaging reviewed. Document strict I/O's and repeat metabolic profile in the AM. (3) Chronic kidney disease: Plan: KDIGO staging and classification of CKD reviewed. CKD IIIb by history but b aseline not entirely clear. Recent records suggest 2.6-3.0 mg/dL. Protein +1 by dipstick. I suspect likely hypertension related nephrosclerosis. Close outpatient follow up will be essential. Medications appropriately dosed for kidney dysfunction. Avoid YAKELIN/ARB for now. (4) COVID: Admission and Anticipated Discharge Date Admission Date: December 17, 2021 Subjective No acute events overnight. Abdominal pain persists. Describes persistent right upper quadrant discomfort with tenderness to palpation. Denies any improvement since admission. Reports constipation. No fevers or chills. BP reasonably controlled. Tolerating current Rx's well. No fluid retention or edema. Review of Systems Review of Systems: All systems reviewed & are unremarkable except as noted in HPI & below Physical Exam Constitutional: well developed and + morbidly obese; no acute distress Eyes: + anicteric sclerae; no corneal abnormality Neck: normal visual inspection and trachea midline Respiratory: normal respiratory effort Auscultation: lungs clear to auscultation bilaterally Cardiovascular: Rate/Rhythm: regular rate Heart Sounds: normal S1 and normal S2 Extremities: no edema Gastrointestinal (Abdomen): Inspection/Auscultation: normal bowel sounds Percussion/Palpation: abdomen soft Musculoskeletal: Extremities: no cyanosis and no clubbing Skin: normal turgor; no lesions Neurologic: Motor/Sensory: no tremor and no asterixis Psychiatric: Orientation: alert and cooperative Results & Data ([facility]) Vital Signs (Past 12 Hours) Vital Signs Temp Pulse Resp BP BP Pulse Ox O2 Del Method 12/24/21 07:20 36.6 C 61 16 145/86 H 97 Room Air 12/23/21 21:40 126/86 Laboratory Results Laboratory Results - last 24 hr 12/23/21 12/23/21 12/23/21 05:25 05:25 10:00 WBC RBC Hgb Hct MCV MCH MCHC RDW Std Deviation RDW Coeff of Erin Plt Count MPV Sodium Potassium Chloride Carbon Dioxide Anion Gap BUN Creatinine Est Cr Clr Drug Dosing Est GFR ( Amer) Est GFR (Non-Af Amer) BUN/Creatinine Ratio Glucose Calcium Magnesium 2.1 Total Bilirubin Direct Bilirubin AST ALT Alkaline Phosphatase Total Protein Albumin Lipase 40 25-OH Vitamin D Total Ur Random Creatinine 76.0 U Random Total Protein 37.0 H 12/24/21 12/24/21 12/24/21 06:54 06:54 06:54 WBC 6.18 RBC 3.47 L Hgb 10.3 L Hct 30.7 L MCV 88.5 MCH 29.7 MCHC 33.6 RDW Std Deviation 44.2 RDW Coeff of Erin 13.6 Plt Count 222 MPV 9.6 Sodium 140 Potassium 4.1 Chloride 109 H Carbon Dioxide 26 Anion Gap 5 BUN 17 Creatinine 2.90 H Est Cr Clr Drug Dosing 42.7 Est GFR ( Amer) 24.2 Est GFR (Non-Af Amer) 20.9 BUN/Creatinine Ratio 5.9 L Glucose 91 Calcium 8.4 L Magnesium 2.0 Total Bilirubin 0.5 Direct Bilirubin 0.1 AST 10 L ALT 14 Alkaline Phosphatase 71 Total Protein 5.7 L Albumin 3.2 L Lipase 25-OH Vitamin D Total 14.8 L Ur Random Creatinine U Random Total Protein PG Care Time/CCT Total # of Minutes Spent Total Time Spent with Patient: Total time spent is greater than 50% in coordination of care (as documented) at patient's floor/unit and/or counseling patient: Coding Level of Care Code 93297 Subseq Hosp Care Lvl 3 Diagnoses Hypertensive emergency I16.1 ZULEIMA (acute kidney injury) N17.9 Chronic kidney disease N18.9 COVID U07.1
[2021-12-24] MEDS: FAMOTIDINE 20 MG in SYRINGE 3 ML IV SCH ×2 (09:40→20:41)
[2021-12-24] MEDS: ACETAMINOPHEN 325 MG TAB PO PRN ×2 (09:48→20:44)
[2021-12-24] MEDS: DOCUSATE SODIUM/SENNA 50/8.6MG TAB PO SCH (10:52)
[2021-12-24] MEDS ORDERED: ERGOCALCIFEROL 50,000 UNITS 1250 MCG CAP PO SCH (12:30)
--- NOTE | 2021-12-24 12:39 | Communication Note ---
Date of Service: December 24, 2021 I was contacted by Ankita Arias PA-C asking if we were planning an EGD. I had discussed with Dr. Montoya and given her covid status, we would plan to do an EGD as an outpatient once she is recovered from covid. I had discussed this with patient yesterday. I made 4 attempts to contact the patient via phone today to relay this again to patient, but there was no answer on her room phone.
[2021-12-25] MEDS: CHECK CLONIDINE PATCH PLACEMENT SCH ×8 (00:26→23:30)
[2021-12-25] MEDS: HYDROmorphone INJ 0.5 MG/0.5 ML SYR IV PRN ×3 (01:58→18:16)
[2021-12-25] MEDS: ACETAMINOPHEN 325 MG TAB PO PRN (04:11)
[2021-12-25 07:48] LABS: Hematocrit (blood only) 30.5 % (34.1-44.9); Hemoglobin 10.2 g/dl (12.0-16.0); Mean Corpuscular Hemoglobin 29.7 pg (25.0-34.0); Mean Corpuscular Hgb Conc 33.4 g/dL (32.0-36.0); Mean Corpuscular Volume 88.7 fL (80.0-100.0); Mean Platelet Volume 9.7 fL (9.4-12.3); Platelet Count 233 K/uL (130-400); RDW Coefficient of Variation 13.2 % (11.5-14.5); RDW Standard Deviation 43.3 fL (36.4-46.3); Red Blood Count 3.44 M/uL (3.93-5.22); White Blood Count 6.69 K/ul (4.8-10.8)
[2021-12-25 08:13] LABS: Albumin Globulin Ratio 1.3 (0.9-2); Albumin Level 3.1 gm/dl (3.4-5.0); BUN Creatinine Ratio 7.6 (10-20); Bilirubin,Total 0.3 mg/dl (0.2-1.0); Calcium 8.1 mg/dl (8.5-10.1); Creatinine Clr Calc Pharmacy 42.5 ml/min; Est GFR (African American) 24.1 ml/min; Est GFR (Non-African American) 20.8 ml/min; Globulin 2.4 gm/dl (2.5-4.0); Total Protein 5.5 gm/dl (6.0-8.3)
[2021-12-25] MEDS: amLODIPine BESYLATE 5 MG TAB PO SCH (08:23)
[2021-12-25] MEDS: SUCRALFATE 1 GM/10 ML UDC PO SCH ×4 (08:23→21:06)
[2021-12-25] MEDS: DICLOFENAC SOD 1% GEL 100 GM TUBE EXT SCH ×4 (08:23→20:18)
[2021-12-25] MEDS: carvediloL 25 MG TAB PO SCH ×3 (08:23→20:19)
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
[2021-12-25] MEDS: cloNIDine HCL 0.1 MG/24 HR TRANSDERM SYS TD SCH (08:25)
[2021-12-25] MEDS: SPIRONOLACTONE 25 MG TAB PO SCH (08:25)
[2021-12-25] MEDS: HEPARIN SOD 5,000 UNIT/0.5 ML VIAL SQ SCH ×2 (08:25→20:20)
[2021-12-25] MEDS: PANTOprazole 40 MG TAB PO SCH ×2 (08:26→20:19)
[2021-12-25] MEDS: NICOTINE 7 MG/24 HR TDSY TD SCH (08:26)
[2021-12-25] MEDS: DOCUSATE SODIUM/SENNA 50/8.6MG TAB PO SCH (08:27)
[2021-12-25] MEDS: FAMOTIDINE 20 MG in SYRINGE 3 ML IV SCH (08:30)
--- NOTE | 2021-12-25 12:21 | Nephrology Progress Note ---
Date of Service December 25, 2021 Assessment & Plan (1) Hypertensive emergency: Plan: BP controlled. Tolerating current therapy well. Renin and pradip levels pending. Continue amlodipine 10 mg daily, carvedilol 25 mg twice daily spironolactone 25 mg daily, and clonidine 0.3 mg patch. Low sodium diet. Close outpatient follow up encouraged. (2) ZULEIMA (acute kidney injury): Plan: Non-oliguric. Volume status acceptable. Electrolytes normal. Medications appropriate for kidney function. 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 Urine acellular. Imaging reviewed. Document strict I/O's and repeat metabolic profile in the AM. (3) Chronic kidney disease: Plan: KDIGO staging and classification of CKD reviewed. CKD IIIb by history but b aseline not entirely clear. Recent records suggest 2.6-3.0 mg/dL. Protein +1 by dipstick. I suspect likely hypertension related nephrosclerosis. Close outpatient follow up will be essential. Medications appropriately dosed for kidney dysfunction. Avoid YAKELIN/ARB for now. (4) COVID: Plan: Anticipated discharge tomorrow to [facility]. Admission and Anticipated Discharge Date Admission Date: December 17, 2021 Subjective No acute events overnight. Sleeping this AM. Reported feeling very tired and with some nausea. No fevers or chills. Abdominal pain persists but with improvement. Review of Systems Review of Systems: All systems reviewed & are unremarkable except as noted in HPI & below Physical Exam Constitutional: well developed and + morbidly obese; no acute distress Eyes: + anicteric sclerae; no scleral abnormality and no corneal abnormality Neck: normal visual inspection and trachea midline Respiratory: normal respiratory effort Auscultation: lungs clear to auscultation bilaterally Cardiovascular: Rate/Rhythm: regular rate Heart Sounds: normal S1 and normal S2 Extremities: no edema Gastrointestinal (Abdomen): Inspection/Auscultation: normal bowel sounds Percussion/Palpation: abdomen soft Musculoskeletal: Extremities: no cyanosis and no clubbing Skin: normal turgor; no lesions Neurologic: Motor/Sensory: no tremor and no asterixis Psychiatric: Orientation: alert, oriented x 3 and cooperative Results & Data ([facility]) Vital Signs (Past 12 Hours) Vital Signs Temp Pulse Resp BP Pulse Ox O2 Del Method 12/25/21 09:45 Room Air 12/25/21 09:31 36.5 C 90 18 156/83 H 95 Room Air 07/28/22 08:17 36.5 C 60 12 129/86 99 Room Air Laboratory Results Laboratory Results - last 24 hr 12/24/21 12/25/21 12/25/21 06:54 07:09 07:09 WBC 6.69 RBC 3.44 L Hgb 10.2 L Hct 30.5 L MCV 88.7 MCH 29.7 MCHC 33.4 RDW Std Deviation 43.3 RDW Coeff of Erin 13.2 Plt Count 233 MPV 9.7 Sodium 139 Potassium 4.0 Chloride 108 H Carbon Dioxide 26 Anion Gap 5 BUN 22 Creatinine 2.91 H Est Cr Clr Drug Dosing 42.5 Est GFR ( Amer) 24.1 Est GFR (Non-Af Amer) 20.8 BUN/Creatinine Ratio 7.6 L Glucose 129 H Calcium 8.1 L Phosphorus 3.9 Total Bilirubin 0.3 AST 9 L ALT 15 Alkaline Phosphatase 75 Total Protein 5.5 L Albumin 3.1 L Globulin 2.4 L Albumin/Globulin Ratio 1.3 PG Care Time/CCT Total # of Minutes Spent Total Time Spent with Patient: Total time spent is greater than 50% in coordination of care (as documented) at patient's floor/unit and/or counseling patient: Coding Level of Care Code 68106 Subseq Hosp Care Lvl 3 Diagnoses Hypertensive emergency I16.1 ZULEIMA (acute kidney injury) N17.9 Chronic kidney disease N18.9 COVID U07.1
[2021-12-25] MEDS: hydrALAZINE HCL 20 MG/ML VIAL IV PRN (15:48)
[2021-12-25] MEDS: MELATONIN 3 MG TAB PO PRN (20:18)
[2021-12-25] MEDS: hydrOXYzine HCl 10 MG TAB PO PRN (20:18)
[2021-12-25] MEDS ORDERED: carvediloL 12.5 MG TAB PO SCH (21:00)
[2021-12-26] MEDS: NICOTINE 7 MG/24 HR TDSY TD SCH (08:51)
[2021-12-26] MEDS: DOCUSATE SODIUM/SENNA 50/8.6MG TAB PO SCH (08:51)
[2021-12-26] MEDS: PANTOprazole 40 MG TAB PO SCH (08:51)
[2021-12-26] MEDS: carvediloL 25 MG TAB PO SCH (08:51)
[2021-12-26] MEDS: SUCRALFATE 1 GM/10 ML UDC PO SCH (08:51)
[2021-12-26] MEDS: HEPARIN SOD 5,000 UNIT/0.5 ML VIAL SQ SCH (08:52)
[2021-12-26] MEDS: DICLOFENAC SOD 1% GEL 100 GM TUBE EXT SCH (08:54)
[2021-12-26] MEDS: SPIRONOLACTONE 25 MG TAB PO SCH (08:54)
[2021-12-26] MEDS: CHECK CLONIDINE PATCH PLACEMENT SCH ×2 (08:54→08:55)
[2021-12-26] MEDS ORDERED: FAMOTIDINE 20 MG TAB PO SCH (09:00)
[2021-12-26] MEDS ORDERED: amLODIPine BESYLATE 5 MG TAB PO SCH (09:00)
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
[2021-12-26] MEDS: ACETAMINOPHEN 325 MG TAB PO PRN (09:21)
[2021-12-26] MEDS: hydrOXYzine HCl 10 MG TAB PO PRN (10:10)
[2021-12-26 11:04] LABS: BUN Creatinine Ratio 6.8 (10-20); Creatinine Clr Calc Pharmacy 39.9 ml/min; Est GFR (African American) 22.3 ml/min; Est GFR (Non-African American) 19.2 ml/min; Potassium 4.3 mmol/L (3.5-5.1)
[2021-12-27 10:47] LABS: Renin Activity 7.85 ng/mL/h (0.25-5.82)
== END 2021-12-26 11:54 | disposition home or self-care (01) ==
LOC: ED 12:57 → SUATTDRO 18:48 → 2S 18:48 → INTOOBSV 18:48 → 2S 21:29 → 3E 12-21 05:31 → 3N 12-25 09:33

== ENCOUNTER 2022-04-21 08:14 | Inpatient (IN) ==
[2022-04-21] MEDS ORDERED: SODIUM CHLORIDE 0.9% 1000ML 1,000 ML IV STA (08:33)
[2022-04-21] MEDS ORDERED: ONDANSETRON INJ 2 MG/ML 2 ML VIAL IV STA ×2 (08:33→21:13)
--- NOTE | 2022-04-21 08:38 | Emergency Department Note ---
Impression & Plan Hypertensive emergency, Nausea & vomiting, Elevated troponin ED Provider Note NAME: AARON CHAUHAN AGE: 31 SEX: F : 1990 ARRIVES VIA: Ambulance INFORMANT: Patient ED PROVIDER(S): Albert Tucker DO CHIEF COMPLAINT: N/V/D HPI: Pt is a 31-year-old female who presents to the ER for symptoms that started 8 days ago. Initially started with a runny nose and sore throat combination with nausea, vomiting, and diarrhea. Has been vomiting about 5-6 times a day and has been having about 5-7 bouts of loose stools per day. Denies any dysuria, urgency, or frequency. Last menstrual period was almost exactly a month ago. Denies any other vaginal bleeding or vaginal discharge. She notes her symptoms have been going on for the past 8 days and she did not see her PCP as she does not have a ride. She only has an intermittent cough. No fevers. No other exacerbating or remitting factors. Pain is focal periumbilically. Is a 5 out of 10 and crampy pain. ROS: See above HPI for pertinent positives & negatives. A total of 10 systems reviewed and were otherwise negative. PAST MEDICAL HISTORY:See Below PAST SURGICAL HISTORY:See Below FAMILY HISTORY:See Below SOCIAL HISTORY:See Below HOME MEDICATIONS:See Below ALLERGIES:See Below VITALS:See Below PHYSICAL EXAMINATION: GENERAL: Sitting up in bed, alert, chronically ill-appearing, disheveled EYE EXAM: normal conjunctiva. PERRL and EOM's grossly intact. OROPHARYNX: no exudate, no erythema, lips, buccal mucosa, and tongue normal and mucous membranes are moist NECK: supple, no nuchal rigidity, no adenopathy, non-tender LUNGS: Clear to auscultation. Normal chest wall mechanics HEART: no murmurs, S1 normal and S2 normal ABDOMEN: abdomen soft, non-tender, normo-active bowel sounds, no masses, no rebound or guarding. UPPER EXTREMITIES: upper extremities are grossly normal. LOWER EXTREMITIES: No pitting edema. NEURO EXAM: Normal sensorium, cranial nerves II-XII grossly intact, normal speech, no gross weakness of arms, no gross weakness of legs. MEDICAL DECISION MAKING: Patient is a 31-year-old female who presents ER with above-stated complaint. IV was established blood work was obtained. Blood pressures to systolic were 250s. She has not been taking any of her medications. She mitts to a headache and belly pain. No chest pain or shortness of breath. IV was established blood work was obtained. Labs show leukocytosis 17,000. No significant anemia. BMP with hypokalemia 2.7. Creatinine at 3.15 up from a baseline of about 3. LFTs bilirubin was unremarkable. Troponin was elevated at nearly 100. Lipase is normal. UA was contaminated. Stool cultures were obtained and pending upon admission. COVID influenza and RSV was negative. CT abdomen pelvis showed no acute pathology. Patient was updated bedside. Patient was given IV labetalol, hydralazine and placed on a clonidine patch. Systolic pressures trended down to the 170s. Patient was updated and admitted for further work-up. Triage Nursing notes reviewed. Limited review of prior medical records performed Vital Signs: reviewed and remarkable for HTN Differential diagnosis: Differential diagnoses includes but is not limited to gastritis, peptic ulcer disease, GERD, gallbladder disease, pancreatitis, small bowel obstruction, acute coronary syndrome, pericarditis, ischemic bowel, irritable bowel disease, irritable bowel syndrome, appendicitis, diverticulitis, malignancy, hernia, urinary tract infection, torsion, 32, perforation, trauma, infectious. ER treatment provided: See below Diagnostics interpreted by me: ECG: Sinus rhythm rate 97 Normal axis No PVCs Prolonged QTC of 523 Cardiac Monitoring: An order was placed for continuous cardiac monitoring. The monitor shows a rate of 92 with sinus rhythm. Laboratory studies: As stated above and show below. Imaging studies: CT abdomen pelvis showed mesenteric adenitis CT head was negative Consultation(s): Discussed with the hospitalist for further evaluation Dr. Mendez Procedures: none Critical Care: I have personally spent 32 minutes of critical care time in the direct management of this patient. This includes bedside care, interpretation of diagnostic studies, and testing, discussion with consultants, patient, and family members, and other required patient management activities. This 32 minutes is in excess of all separately billable procedures. Past Med/Surg History Medical History Chronic kidney disease Social History Smoking Status: Current every day smoker Tobacco Type: Cigarettes Cigarettes Per Day: 5; Second Hand Exposure: Yes; Hx Alcohol Use: No Hx Substance Use: No Preferred Language: Kinyarwanda Communication Ability: Effective S Iron Worker Required: No Beliefs That Will Affect Care: None Current Living Situation: Other Current Living Situation Comment: roommate Feels Safe at Home: Yes Assistive Devices: None Allergies Allergies Allergy/AdvReac Type Severity Reaction Status Date / Time No Known Allergies Allergy Verified 12/17/21 23:57 Home Meds Home Medications Medication Instructions Recorded Confirmed carvedilol 25 mg tablet 25 mg PO BID 12/17/21 12/17/21 clonidine 0.1 mg/24 hr weekly 0.1 mg transdermal WK 12/17/21 12/17/21 transdermal patch clonidine 0.2 mg/24 hr weekly 0.2 mg transdermal WK 12/17/21 12/17/21 transdermal patch spironolactone 25 mg tablet 25 mg PO DAILY 12/17/21 12/17/21 Previous Rx's Medication Instructions Recorded diclofenac sodium 1 % topical gel 2 g EXT QID PRN pain #100 grams 12/25/21 (Voltaren Arthritis Pain) ergocalciferol (vitamin D2) 1,250 50,000 unit PO Q7D #7 caps 12/25/21 mcg (50,000 unit) capsule pantoprazole 40 mg tablet,delayed 40 mg PO BID #60 tabs 12/25/21 release sucralfate 100 mg/mL oral 1 g (10 mL) PO QID #1,000 mL 12/25/21 suspension acetaminophen 325 mg tablet 650 mg PO Q4H PRN #0 tabs 12/26/21 amlodipine 10 mg tablet 10 mg PO DAILY #30 tabs 12/26/21 hydroxyzine HCl 10 mg tablet 10 mg PO BID PRN anxiety or sleep 12/26/21 #60 tabs Results & Data (ED) Vital Signs Vital Signs - 24 hr 04/21/22 08:23 04/21/22 09:49 04/21/22 08:53 Temperature 37.2 C Temperature Source Oral Pulse Rate 96 H 103 H Pulse Rate [Finger] 95 H Pulse Rate from SpO2 Sensor Respiratory Rate 18 19 17 Respiratory Effort / Characteristics Non-Labored Spontaneous Non-Labored Spontaneous Respiratory Depth Normal Normal Respiratory Pattern Regular Regular Blood Pressure 235/153 H Blood Pressure [Right Arm] 250/167 H Blood Pressure Mean 180 Blood Pressure Mean [Right Arm] 194 Blood Pressure Position Sitting Blood Pressure Position [Right Arm] Sitting Pulse Oximetry 99 98 Oxygen Delivery Method Room Air Room Air Room Air Sepsis Recent Fever Within 48 Hours No Sepsis New/Unexplained Change in Mental Status No Sepsis Action Taken by Nursing No Action Required 04/21/22 09:00 04/21/22 09:10 04/21/22 09:20 Temperature Temperature Source Pulse Rate 94 H 98 H 108 H Pulse Rate [Finger] Pulse Rate from SpO2 Sensor Respiratory Rate 16 15 18 Respiratory Effort / Characteristics Respiratory Depth Respiratory Pattern Blood Pressure Blood Pressure [Right Arm] Blood Pressure Mean Blood Pressure Mean [Right Arm] Blood Pressure Position Blood Pressure Position [Right Arm] Pulse Oximetry Oxygen Delivery Method Room Air Room Air Room Air Sepsis Recent Fever Within 48 Hours Sepsis New/Unexplained Change in Mental Status Sepsis Action Taken by Nursing 04/21/22 09:31 04/21/22 09:40 04/21/22 09:49 Temperature Temperature Source Pulse Rate 100 H 104 H Pulse Rate [Finger] Pulse Rate from SpO2 Sensor Respiratory Rate 18 15 Respiratory Effort / Characteristics Respiratory Depth Respiratory Pattern Blood Pressure 250/167 H Blood Pressure [Right Arm] Blood Pressure Mean 194 Blood Pressure Mean [Right Arm] Blood Pressure Position Blood Pressure Position [Right Arm] Pulse Oximetry Oxygen Delivery Method Room Air Room Air Room Air Sepsis Recent Fever Within 48 Hours Sepsis New/Unexplained Change in Mental Status Sepsis Action Taken by Nursing 04/21/22 09:49 04/21/22 09:50 04/21/22 10:00 Temperature Temperature Source Pulse Rate 89 82 85 Pulse Rate [Finger] Pulse Rate from SpO2 Sensor 89 81 85 Respiratory Rate 24 20 21 Respiratory Effort / Characteristics Respiratory Depth Respiratory Pattern Blood Pressure Blood Pressure [Right Arm] Blood Pressure Mean Blood Pressure Mean [Right Arm] Blood Pressure Position Blood Pressure Position [Right Arm] Pulse Oximetry 98 97 99 Oxygen Delivery Method Room Air Room Air Room Air Sepsis Recent Fever Within 48 Hours Sepsis New/Unexplained Change in Mental Status Sepsis Action Taken by Nursing 04/21/22 10:01 04/21/22 10:01 04/21/22 10:07 Temperature Temperature Source Pulse Rate 85 86 Pulse Rate [Finger] Pulse Rate from SpO2 Sensor 87 85 Respiratory Rate 19 18 Respiratory Effort / Characteristics Respiratory Depth Respiratory Pattern Blood Pressure 223/154 H Blood Pressure [Right Arm] Blood Pressure Mean 177 Blood Pressure Mean [Right Arm] Blood Pressure Position Blood Pressure Position [Right Arm] Pulse Oximetry 99 98 Oxygen Delivery Method Room Air Room Air Room Air Sepsis Recent Fever Within 48 Hours Sepsis New/Unexplained Change in Mental Status Sepsis Action Taken by Nursing 04/21/22 10:07 04/21/22 10:10 04/21/22 10:20 Temperature Temperature Source Pulse Rate 82 88 Pulse Rate [Finger] Pulse Rate from SpO2 Sensor 84 88 Respiratory Rate 15 16 Respiratory Effort / Characteristics Respiratory Depth Respiratory Pattern Blood Pressure 220/167 H Blood Pressure [Right Arm] Blood Pressure Mean 184 Blood Pressure Mean [Right Arm] Blood Pressure Position Blood Pressure Position [Right Arm] Pulse Oximetry 96 98 Oxygen Delivery Method Room Air Room Air Room Air Sepsis Recent Fever Within 48 Hours Sepsis New/Unexplained Change in Mental Status Sepsis Action Taken by Nursing 04/21/22 10:30 04/21/22 10:31 04/21/22 10:31 Temperature Temperature Source Pulse Rate 94 H 93 H Pulse Rate [Finger] Pulse Rate from SpO2 Sensor 96 H 95 H Respiratory Rate 10 L 19 Respiratory Effort / Characteristics Respiratory Depth Respiratory Pattern Blood Pressure 164/115 H Blood Pressure [Right Arm] Blood Pressure Mean 131 Blood Pressure Mean [Right Arm] Blood Pressure Position Blood Pressure Position [Right Arm] Pulse Oximetry 99 99 Oxygen Delivery Method Room Air Room Air Room Air Sepsis Recent Fever Within 48 Hours Sepsis New/Unexplained Change in Mental Status Sepsis Action Taken by Nursing 04/21/22 10:42 Temperature Temperature Source Pulse Rate Pulse Rate [Finger] Pulse Rate from SpO2 Sensor 66 Respiratory Rate Respiratory Effort / Characteristics Respiratory Depth Respiratory Pattern Blood Pressure Blood Pressure [Right Arm] Blood Pressure Mean Blood Pressure Mean [Right Arm] Blood Pressure Position Blood Pressure Position [Right Arm] Pulse Oximetry 98 Oxygen Delivery Method Room Air Sepsis Recent Fever Within 48 Hours Sepsis New/Unexplained Change in Mental Status Sepsis Action Taken by Nursing Laboratory Data Result diagrams: 04/21/22 08:40 04/21/22 08:40 Lab Results 04/21/22 04/21/22 04/21/22 Range/Units 08:40 08:40 08:40 WBC 17.45 H (4.8-10.8) K/ul RBC 5.48 H (3.93-5.22) M/uL Hgb 15.5 (12.0-16.0) g/dl Hct 41.8 (34.1-44.9) % MCV 76.3 L (80.0-100.0) fL MCH 28.3 (25.0-34.0) pg MCHC 37.1 H (32.0-36.0) g/dL RDW Std Deviation 38.4 (36.4-46.3) fL RDW Coeff of Erin 14.3 (11.5-14.5) % Plt Count 75 L (130-400) K/uL MPV 11.0 (9.4-12.3) fL Immature Gran % (Auto) 0.7 % Neut % (Auto) 75.0 % Lymph % (Auto) 16.7 % Cascade % (Auto) 6.5 % Eos % (Auto) 0.6 % Baso % (Auto) 0.5 % Neut # (Auto) 13.08 H (1.4-6.5) K/uL Lymph # (Auto) 2.92 (1.2-3.4) K/uL Cascade # (Auto) 1.13 H (0.24-0.82) K/uL Eos # (Auto) 0.11 (0-0.50) K/uL Baso # (Auto) 0.09 (0-0.2) K/uL Immature Gran # (Auto) 0.12 H (0.00-0.02) K/uL Sodium 133 L (136-145) mmol/L Potassium 2.7 L (3.5-5.1) mmol/L Chloride 95 L (98-107) mmol/L Carbon Dioxide 27 (21-32) mmol/L Anion Gap 11 (3-11) BUN 30 H (6-23) mg/dl Creatinine 3.15 H (0.6-1.2) mg/dl Est Cr Clr Drug Dosing 39.2 ml/min Est GFR ( Amer) 21.9 ml/min Est GFR (Non-Af Amer) 18.9 ml/min BUN/Creatinine Ratio 9.5 L (10-20) Glucose 117 H (70-99(Fasting)) mg/dl Calcium 9.0 (8.5-10.1) mg/dl Magnesium (1.7-2.4) mg/dl Total Bilirubin 1.3 H (0.2-1.0) mg/dl AST 26 (13-39) U/L ALT 14 (7-52) U/L Alkaline Phosphatase 101 (34-104) U/L Troponin I High Sens 138.3 H* D (0-14) pg/ml Total Protein 6.5 (6.0-8.3) gm/dl Albumin 3.5 (3.4-5.0) gm/dl Globulin 3.0 (2.5-4.0) gm/dl Albumin/Globulin Ratio 1.2 (0.9-2) Lipase 12 (11-82) U/L Urine Color Urine Appearance (Clear) Urine pH (4.5-7.5) Ur Specific Fitzwilliam (1.000-1.030) Urine Protein (Negative) Urine Glucose (UA) (Negative) Urine Ketones (Negative) Urine Blood (Negative) Urine Nitrite (Negative) Urine Bilirubin (Negative) Urine Urobilinogen (Negative) Ur Leukocyte Esterase (Negative) Urine WBC (Auto) (0-5) /hpf Urine RBC (Auto) (0-4) /hpf U Hyaline Cast (Auto) (0-5) /lpf U Epithel Cells (Auto) (0-5) /lpf Urine Bacteria (Auto) (Negative) Ur Renal Epithelial Cell (0-5) /lpf Urine Yeast POC Ur Test NEG (NEG) SARS-CoV-2 (PCR) (Negative) Influenza Type A (PCR) (Neg) Influenza Type B (PCR) (Neg) RSV (RT-PCR) (Neg) 04/21/22 04/21/22 04/21/22 Range/Units 08:40 08:40 08:53 WBC (4.8-10.8) K/ul RBC (3.93-5.22) M/uL Hgb (12.0-16.0) g/dl Hct (34.1-44.9) % MCV (80.0-100.0) fL MCH (25.0-34.0) pg MCHC (32.0-36.0) g/dL RDW Std Deviation (36.4-46.3) fL RDW Coeff of Erin (11.5-14.5) % Plt Count (130-400) K/uL MPV (9.4-12.3) fL Immature Gran % (Auto) % Neut % (Auto) % Lymph % (Auto) % Cascade % (Auto) % Eos % (Auto) % Baso % (Auto) % Neut # (Auto) (1.4-6.5) K/uL Lymph # (Auto) (1.2-3.4) K/uL Cascade # (Auto) (0.24-0.82) K/uL Eos # (Auto) (0-0.50) K/uL Baso # (Auto) (0-0.2) K/uL Immature Gran # (Auto) (0.00-0.02) K/uL Sodium (136-145) mmol/L Potassium (3.5-5.1) mmol/L Chloride (98-107) mmol/L Carbon Dioxide (21-32) mmol/L Anion Gap (3-11) BUN (6-23) mg/dl Creatinine (0.6-1.2) mg/dl Est Cr Clr Drug Dosing ml/min Est GFR ( Amer) ml/min Est GFR (Non-Af Amer) ml/min BUN/Creatinine Ratio (10-20) Glucose (70-99(Fasting)) mg/dl Calcium (8.5-10.1) mg/dl Magnesium 2.1 (1.7-2.4) mg/dl Total Bilirubin (0.2-1.0) mg/dl AST (13-39) U/L ALT (7-52) U/L Alkaline Phosphatase (34-104) U/L Troponin I High Sens (0-14) pg/ml Total Protein (6.0-8.3) gm/dl Albumin (3.4-5.0) gm/dl Globulin (2.5-4.0) gm/dl Albumin/Globulin Ratio (0.9-2) Lipase (11-82) U/L Urine Color Yellow Urine Appearance Clear (Clear) Urine pH 6.5 (4.5-7.5) Ur Specific Fitzwilliam 1.017 (1.000-1.030) Urine Protein 4+ H (Negative) Urine Glucose (UA) Negative (Negative) Urine Ketones Negative (Negative) Urine Blood 3+ H (Negative) Urine Nitrite Negative (Negative) Urine Bilirubin Negative (Negative) Urine Urobilinogen Negative (Negative) Ur Leukocyte Esterase Negative (Negative) Urine WBC (Auto) 5-10 H (0-5) /hpf Urine RBC (Auto) 5-10 H (0-4) /hpf U Hyaline Cast (Auto) 1-5 (0-5) /lpf U Epithel Cells (Auto) >30 H (0-5) /lpf Urine Bacteria (Auto) Negative (Negative) Ur Renal Epithelial Cell 10-20 H (0-5) /lpf Urine Yeast Not Reportable POC Ur Test (NEG) SARS-CoV-2 (PCR) NEGATIVE (Negative) Influenza Type A (PCR) Negative (Neg) Influenza Type B (PCR) Negative (Neg) RSV (RT-PCR) Negative (Neg) Administered Medications Clonidine HCl (Clonidine Hcl 0.3 Mg/24 Hr Transderm Sys) 1 patch TD Q7D ONEIL Stop: 05/21/22 08:44 Last Admin: 04/21/22 09:17 Dose: 1 patch Documented By: PATEL Potassium Chloride (K Dylan / Wtr) 10 meq in 100 mls @ 100 mls/hr IV Q1H ONEIL Stop: 04/21/22 15:29 Last Admin: 04/21/22 14:12 Dose: 100 mls/hr Documented By: Infusion: 04/21/22 14:12 Dose: 0 mls/hr Documented By: Admin: 04/21/22 13:13 Dose: 100 mls/hr Documented By: CHAPIS Lactated Ringer's (Lr) 1,000 mls @ 80 mls/hr IV .[id number] ONEIL Stop: 05/21/22 11:44 Last Admin: 04/21/22 12:03 Dose: 80 mls/hr Documented By: OPHELIA Miscellaneous (Remove Clonidine Patch) 1 each N/A CQWK ONEIL Stop: 05/21/22 08:44 Last Admin: 04/21/22 08:51 Dose: Not Given Documented By: PATEL Discontinued Medications Hydralazine HCl (Hydralazine Hcl 20 Mg/Ml Vial) 10 mg IV NOW STA Stop: 04/21/22 10:00 Last Admin: 04/21/22 10:14 Dose: 10 mg Documented By: PATEL Sodium Chloride (Nss 1000ml) 1,000 mls @ 999 mls/hr IV .Q1H1M STA Stop: 04/21/22 09:33 Last Infusion: 04/21/22 09:53 Dose: 0 mls/hr Documented By: Admin: 04/21/22 08:50 Dose: 999 mls/hr Documented By: PATEL Potassium Chloride (K Dylan / Wtr) 10 meq in 100 mls @ 100 mls/hr IV Q1H ONEIL; P rotocol Stop: 04/21/22 11:44 Last Infusion: 04/21/22 13:02 Dose: 0 mls/hr Documented By: Admin: 04/21/22 10:14 Dose: 100 mls/hr Documented By: Infusion: 04/21/22 10:14 Dose: 100 mls/hr Documented By: Admin: 04/21/22 10:14 Dose: 100 mls/hr Documented By: PATEL Acetaminophen (Ofirmev) 1,000 mg in 100 mls @ 400 mls/hr IV NOW STA Stop: 04/21/22 11:40 Last Infusion: 04/21/22 13:46 Dose: 0 mls/hr Documented By: Admin: 04/21/22 13:06 Dose: 400 mls/hr Documented By: OPHELIA Labetalol HCl (Labetalol Hcl Iv 5 Mg/Ml 20ml) 10 mg IV NOW STA Stop: 04/21/22 09:26 Last Admin: 04/21/22 09:44 Dose: 10 mg Documented By: PATEL Co-signed By: YOSSI Ondansetron HCl (Ondansetron Inj 2 Mg/Ml 2 Ml Vial) 4 mg IV NOW STA Stop: 04/21/22 08:34 Last Admin: 04/21/22 08:50 Dose: 4 mg Documented By: PATEL Imaging Data Radiologist's Impression: Head CT 04/21/22 08:33 CT SCAN OF THE BRAIN WITHOUT IV CONTRAST CLINICAL HISTORY: Headache. COMPARISON STUDY: No priors. TECHNIQUE: Unenhanced axial CT scan of the brain is performed from the vertex to the skull base. A dose lowering technique was utilized adhering to the principles of ALARA. CT DOSE: 2409.96 mGy.cm FINDINGS: Brain parenchyma: The brain parenchyma is normal in appearance. There is no hemorrhage, mass effect, or evidence of acute territorial ischemia by CT criteria. Carey-white matter differentiation is preserved. No extra-axial fluid collection is seen. Ventricles, sulci, cisterns: Normal in configuration. Intracranial vasculature: The visualized intracranial vasculature at the skull base is normal in appearance. Calvarium: Unremarkable. Sinuses and mastoids: The visualized paranasal sinuses are clear. The mastoid air cells are well pneumatized. Orbits: The bony orbits are grossly intact. IMPRESSION: No acute intracranial abnormality. ACT 112: Negative or not required by law. Electronically signed by: Josef Saldana M.D. 04/21/2022 9:46 AM Abdomen/Pelvis CT 04/21/22 08:41 CT abd pelvis wo con CLINICAL HISTORY: abd pain n/v/d periumbilical TECHNIQUE: Helical axial images of the abdomen and pelvis were obtained. Automated dose lowering techniques and/or adjustment according to patient size were utilized for this exam. This exam was performed without intravenous contrast. COMPARISON: Comparison is made to CT abdomen pelvis 12/17/2021 FINDINGS: Lower chest: No acute abnormality. Liver: Unremarkable. No focal lesions are seen. Gallbladder and biliary tree: No calcified gallstones. Normal caliber wall. No intra- or extrahepatic biliary ductal dilation. Pancreas: Unremarkable, no focal lesions. Spleen: Unremarkable. Adrenals: Unremarkable. Kidneys and ureters: Unremarkable. Bladder: Diffuse homogeneous wall thickening is seen. Reproductive organs: Unremarkable. Bowel: Unremarkable appearance of the bowel. The appendix is normal. Right ovarian cystic changes seen. Lymph nodes Retroperitoneal: Subcentimeter lymph nodes are noted. Pelvic: Unremarkable. Mesenteric: Subcentimeter lymph nodes are noted. Peritoneum: Stranding is noted about the mesenteric vasculature in the left midabdomen. Vessels: Unremarkable. Abdominal wall: A fat-containing umbilical hernia is seen. Bones: Minimal degenerative changes are seen. IMPRESSION: There is left mesenteric stranding with associated lymphadenopathy compatible with mesenteric adenitis. No bowel disease or other acute abnormality is seen. ACT 112: Negative or not required by law. Electronically signed by: Brett Montoya M.D. 04/21/2022 10:39 AM Discharge Plan Visit Data Chief Complaint: Illness Stated Complaint: FLU LIKE SX, HTN ED Provider: Albert Tucker Discharge Problem: Hypertensive emergency, Nausea & vomiting, Elevated troponin Discharge Instructions Interventions: ED Discharge Assessment Last Done: 04/21/22 14:36
[2022-04-21 08:58] LABS: Hematocrit (blood only) 41.8 % (34.1-44.9); Hemoglobin 15.5 g/dl (12.0-16.0); White Blood Count 17.45 K/ul (4.8-10.8)
[2022-04-21 09:02] LABS: Appearance Urine Clear (Clear); Bacteria Urine Automated Negative (Negative); Bilirubin Urine Negative (Negative); Blood Urine 3+ (Negative); Color Urine Yellow; Epithelial Cell Urine Auto >30 /lpf (0-5); Glucose Urine UA Negative (Negative); Ketones Urine Negative (Negative); Leukocyte Esterase Urine Negative (Negative); Nitrite Urine Negative (Negative); Protein Urine 4+ (Negative); Specific Gravity Urine 1.017 (1.000-1.030); Urobilinogen Urine Negative (Negative); pH Urine 6.5 (4.5-7.5)
[2022-04-21] MEDS: cloNIDine HCL 0.3 MG/24 HR TRANSDERM SYS TD SCH (09:17)
[2022-04-21 09:20] LABS: Albumin Globulin Ratio 1.2 (0.9-2); Albumin Level 3.5 gm/dl (3.4-5.0); BUN Creatinine Ratio 9.5 (10-20); Bilirubin,Total 1.3 mg/dl (0.2-1.0); Creatinine Clr Calc Pharmacy 39.2 ml/min; Est GFR (African American) 21.9 ml/min; Est GFR (Non-African American) 18.9 ml/min; Potassium 2.7 mmol/L (3.5-5.1); Total Protein 6.5 gm/dl (6.0-8.3)
[2022-04-21 09:22] LABS: Mean Corpuscular Hemoglobin 28.3 pg (25.0-34.0); Mean Corpuscular Hgb Conc 37.1 g/dL (32.0-36.0); Mean Corpuscular Volume 76.3 fL (80.0-100.0); Platelet Count 75 K/uL (130-400); RDW Coefficient of Variation 14.3 % (11.5-14.5); RDW Standard Deviation 38.4 fL (36.4-46.3); Red Blood Count 5.48 M/uL (3.93-5.22)
[2022-04-21 09:24] LABS: Basophils # (auto) 0.09 K/uL (0-0.2); Basophils % (auto) 0.5 %; Eosinophils # (auto) 0.11 K/uL (0-0.50); Eosinophils % (auto) 0.6 %; Immature Granulocytes # (auto) 0.12 K/uL (0.00-0.02); Immature Granulocytes % (auto) 0.7 %; Lymphocytes # (auto) 2.92 K/uL (1.2-3.4); Lymphocytes % (auto) 16.7 %; Monocytes # (auto) 1.13 K/uL (0.24-0.82); Monocytes % (auto) 6.5 %; Neutrophils # (auto) 13.08 K/uL (1.4-6.5)
[2022-04-21 09:25] LABS: Troponin I High Sensitivity 138.3 pg/ml (0-14)
[2022-04-21] MEDS ORDERED: LABETALOL HCL IV 5 MG/ML 20ML IV STA ×2 (09:25→17:33)
[2022-04-21 09:42] LABS: Influenza A virus by PCR Negative (Neg); Influenza B virus by PCR Negative (Neg); RSV by PCR Negative (Neg); SARS CoV2 RNA(COVID-19)Cepheid NEGATIVE (Negative)
--- NOTE | 2022-04-21 09:48 | CT Scan Report ---
CT SCAN OF THE BRAIN WITHOUT IV CONTRAST CLINICAL HISTORY: Headache. COMPARISON STUDY: No priors. TECHNIQUE: Unenhanced axial CT scan of the brain is performed from the vertex to the skull base. A d ose lowering technique was utilized adhering to the principles of ALARA. CT DOSE: 2409.96 mGy.cm FINDINGS: Brain parenchyma: The brain parenchyma is normal in appearance. There is no hemorrhage, mass effect, or evidence of acute territorial ischemia by CT criteria. Carey-white matter differentiation is preser quintin. No extra-axial fluid collection is seen. Ventricles, sulci, cisterns: Normal in configuration. Intracranial vasculature: The visualized intracranial vasculature at the skull base is normal in appe arance. Calvarium: Unremarkable. Sinuses and mastoids: The visualized paranasal sinuses are clear. The mastoid air cells are well pneu matized. Orbits: The bony orbits are grossly intact. IMPRESSION: No acute intracranial abnormality. ACT 112: Negative or not required by law. Electronically signed by: Josef Saldana M.D. 04/21/2022 9:46 AM
[2022-04-21] MEDS ORDERED: hydrALAZINE HCL 20 MG/ML VIAL IV STA (09:59)
[2022-04-21] MEDS: POTASSIUM CHLORIDE / WTR 10 MEQ/100 ML PLCT IV SCH ×5 (10:14→17:06)
--- NOTE | 2022-04-21 10:40 | CT Scan Report ---
CT abd pelvis wo con CLINICAL HISTORY: abd pain n/v/d periumbilical TECHNIQUE: Helical axial images of the abdomen and pelvis were obtained. Automated dose lowering tech niques and/or adjustment according to patient size were utilized for this exam. This exam was perfor med without intravenous contrast. COMPARISON: Comparison is made to CT abdomen pelvis 12/17/2021 FINDINGS: Lower chest: No acute abnormality. Liver: Unremarkable. No focal lesions are seen. Gallbladder and biliary tree: No calcified gallstones. Normal caliber wall. No intra- or extrahepatic biliary ductal dilation. Pancreas: Unremarkable, no focal lesions. Spleen: Unremarkable. Adrenals: Unremarkable. Kidneys and ureters: Unremarkable. Bladder: Diffuse homogeneous wall thickening is seen. Reproductive organs: Unremarkable. Bowel: Unremarkable appearance of the bowel. The appendix is normal. Right ovarian cystic changes see n. Lymph nodes Retroperitoneal: Subcentimeter lymph nodes are noted. Pelvic: Unremarkable. Mesenteric: Subcentimeter lymph nodes are noted. Peritoneum: Stranding is noted about the mesenteric vasculature in the left midabdomen. Vessels: Unremarkable. Abdominal wall: A fat-containing umbilical hernia is seen. Bones: Minimal degenerative changes are seen. IMPRESSION: There is left mesenteric stranding with associated lymphadenopathy compatible with mesenteric adeniti s. No bowel disease or other acute abnormality is seen. ACT 112: Negative or not required by law. Electronically signed by: Brett Montoya M.D. 04/21/2022 10:39 AM
--- NOTE | 2022-04-21 11:05 | History & Physical Report ---
Date of Service April 21, 2022 Assessment & Plan (1) Nausea & vomiting: Plan: Uncontrolled hypertension Ran out of medications in the last week, has not taken home regimen including: Amlodipine 10, carvedilol 25 twice daily, clonidine transdermal patch, spirono lactone. Follows with urology, in the past 1+ protein and suspected hypertension related nephrosclerosis. Patient initially [id number], likely with medication noncompliance with additional rebound due to clonidine withdrawal Neurological exam without deficits Antihypertensives as above. Goal to bring down from [id number] to less than 180 today, and then progressively down to outpatient goal over the next day or 2 Low-salt diet TSH pending Renin elevated @ 7.85, Emmanuel wnl at 7 - R/Emmanuel Ratio: 1.12, Emmanuel/Renin 0.89. Cortisol normal at that time No renal artery stenosis on prior ultrasound Recommend tobacco cessation - Prior emmanuel normal, Renin elevated 7.85 Prior aldosterone level Abdominal pain Prior admission with discharge 12/26/2021, HIDA scan was negative, CT A/P was with gallstones without transaminitis. Deferred acute cholecystectomy during that admission, was recommended to follow-up with general surgery for elective cholecystectomy. Patient did not show for 02/04/2022 appointment. - Past GI Eval 12/19: Pepcid, Famotidine, carafate. Outpatient GI followup for EGD. - No transaminitis on admit. Tb 1.3 in the setting of volume depletion/n/v - Leukocytotis 17.45, ?demargination with vomiting. Stool PCR pending with concurrent mesenteric adenitis. Nonbloody bowel movements Patient with an episode of epigastric pain and an episode of bright red blood with her first episode of vomiting. ?UGIB vs Lina Atkins, history suspicious for Lina-Atkins tear. Patient with prior concern for peptic ulcer disease, was scheduled for outpatient follow-up but did not make this appointment. We will continue PPI twice daily at this time and follow hemoglobin. If hemoglobin dropping or recurrent hematemesis, will consult GI for inpatient scope. Recommend optimization of blood pressure, potassium, and fluid status prior to procedural intervention at this time. Hemoglobin 15.5 on admission Zofran, PPI, H2 CKD Past history of CKD with unclear baseline suspect 2.62.9, ?hypertensive nephrosclerosis - 3.15 on admission with commendation of acute hypertension with no medication use in the prior week and volume depletion with nausea/vomiting Received IV fluids, continue LR, continue hypertension control trend BMP Renally dose medications Elevated troponin Patient without upper chest pain rating into her shoulder, does endorse rib pain in her lower ribs when vomiting. EKG without acute ST segment changes/territorial T wave inversions. EKG not transmitted to MUSE at time of review, was reviewed onoca-bt-xama Troponin acutely elevated to 138 on admission, prior low-grade elevation in the 30s. Patient without concurrent diabetes. Does have hypertension and BMI 45 with tobacco use Trend troponin, echo pending. Suspect 2/2 severe hypertension Hypokalemia 2.7 on admission In the setting of 1 week of nausea/vomiting with poor p.o. intake. Additionally patient has been hypokalemic with concern for hyperaldosteronism, although prior Emmanuel levels have been normal with an elevated renin/cortisol on prior eval Resuming spironolactone, trend potassium every 4 hours, IV repletion ordered with p.o. to resume once nausea better controlled Tobacco abuse None in the last week as patient is felt too ill. Patch ordered at patient request DVT prophylaxis: SCDs, pharmacal prophylaxis deferred Diet:clears Disposition: Medical telemetry for cardiac evaluation and hypertension management CODE STATUS: Full code (2) CKD (chronic kidney disease) stage 3, GFR 30-59 ml/min: (3) ZULEIMA (acute kidney injury): (4) Hypertensive emergency: (5) Adrenal abnormality: History of Present Illness Primary Care Provider: Kishan Tubbs PA-C Atiya Mcdaniels is a 31-year-old female with a past medical history of CKD, hypertensive emergency, who presents with URI symptoms including sinus congestion, sore throat, nausea, vomiting, diarrhea and multiple loose stools per day. ER REview:CTA/P: There is left mesenteric stranding with associated lymphadenopathy compatible with mesenteric adenitis. No bowel disease or other acute abnormality is seen. Mesenteric adenitis present. All PCR pending. CT-H: IMPRESSION: No acute intracranial abnormality. - Trop 138.3 (last 31.2) UA with blood, without bacteria COVID-negative, flu negative, RSV negative Creatinine acutely elevated from baseline of 2.62.9, - 3.15 on admission with acute hypertension Home antihypertensives: Amlodipine 10, carvedilol 25 twice daily, clonidine transdermal patch, spironolactone. Follows with urology, in the past 1+ protein and suspected hypertension related nephrosclerosis. Atiya reports she has been sick since 8 days ago. Started with a headache, sore throat, stuffy nose. [place] feverish, not sure if she has had a temperature. Shifting the next day and developed vomiting and diarrhea. Has not been able to keep down any food or fluids in the last few days. Did have bright red blood in first episode of emesis and 'hut really bad' at the time above the belly button. Has not had a scope, was scheduled for an EGD but did not followup as an outpatient. Fever and chills off and on for the last few days, but not sure about the last 24 hours. Sleepy and has been sleeping a lot. Diarrhea is loose- liquid, 2-4 times per day. No bloody/black BM, BMs are off brownish in color. Did not followup with GI/Surgery after discharge. Followed up with Dr. Monte and was not concerned about this. Home medications: Has not taken in th elast 7 days, reports she stopped taking a week ago due to nausea and vomiting. Denies chest pain other than in her ribs, shortness of breath. Endorses fatigue over the last couple of days, lightheadedness in the last 2 days. Denies shoulder pain. Endorses diffuse muscle/body aches in the last week since being sick. Medical History: Reviewed Medications: Reviewed Surgical History: Reviewed Allergies: Reviewed Social History: Past cigarette use, none in last 8 days. Would like a patch Code Status: Full Code Allergies Allergy/AdvReac Type Severity Reaction Status Date / Time No Known Allergies Allergy Verified 12/17/21 23:57 Home Medications Medication Instructions Recorded Confirmed Type carvedilol 25 mg tablet 25 mg PO BID 12/17/21 12/17/21 History clonidine 0.1 mg/24 hr weekly 0.1 mg transdermal WK 12/17/21 12/17/21 History transdermal patch clonidine 0.2 mg/24 hr weekly 0.2 mg transdermal WK 12/17/21 12/17/21 History transdermal patch spironolactone 25 mg tablet 25 mg PO DAILY 12/17/21 12/17/21 History diclofenac sodium 1 % topical gel 2 g EXT QID PRN pain #100 grams 12/25/21 Rx (Voltaren Arthritis Pain) ergocalciferol (vitamin D2) 1,250 50,000 unit PO Q7D #7 caps 12/25/21 Rx mcg (50,000 unit) capsule pantoprazole 40 mg tablet,delayed 40 mg PO BID #60 tabs 12/25/21 Rx release sucralfate 100 mg/mL oral 1 g (10 mL) PO QID #1,000 mL 12/25/21 Rx suspension acetaminophen 325 mg tablet 650 mg PO Q4H PRN #0 tabs 12/26/21 Rx amlodipine 10 mg tablet 10 mg PO DAILY #30 tabs 12/26/21 Rx hydroxyzine HCl 10 mg tablet 10 mg PO BID PRN anxiety or sleep 12/26/21 Rx #60 tabs Past Med/Surg History Medical History Chronic kidney disease Social History Smoking Status: Current every day smoker Tobacco Type: Cigarettes Cigarettes Per Day: 5; Second Hand Exposure: Yes; Hx Alcohol Use: No Hx Substance Use: No Preferred Language: Nam[place]ian Communication Ability: Effective Sensitized Paper Tester Required: No Beliefs That Will Affect Care: None Current Living Situation: Other Current Living Situation Comment: roommate Feels Safe at Home: Yes Assistive Devices: None Review of Systems Review of Systems: All systems reviewed & are unremarkable except as noted in HPI & below Physical Exam Physical Exam: General: A&Ox3. NAD. Cooperative. HEENT: Atraumatic, normocephalic. Pulm: CTAB A&P. -wheezes, -rales, -rhonchi. Symmetrical chest rise. No increased work of breathing. No respiratory distress. Cardiac: regular, tachycardic, -mrg. Radial pulses intact and symmetrical. Abdominal: Nontender, nondistended, soft. BS present. CRANIAL NERVES: II: Pupils equal and reactive, no relative afferent pupillary defect, no VF cuts III, IV, : EOM intact, no gaze preference or deviation, no nystagmus. V: normal sensation in V1, V2, and V3 segments bilaterally VII: no asymmetry, no nasolabial fold flattening VIII: normal hearing to speech IX, X: normal palatal elevation, no uvular deviation XI: 5/5 head turn and 5/5 shoulder shrug bilaterally XII: midline tongue protrusion MOTOR: RUE: 5/5 field care coordinator strength LUE: 5/5 field care coordinator strength RLE: 5/5 to ankle dorsiflexion/plantarflexion LLE: 5/5 to ankle dorsiflexion/plantarflexion SENSORY: Normal to touch in upper and lower extremities without deficit or asymmetry Results & Data Results & Data ([facility]) Vital Signs (Past 12 Hours) Vital Signs Temp Pulse Pulse Resp BP BP Pulse Ox 04/21/22 10:42 98 04/21/22 10:31 164/115 H 04/21/22 10:31 93 H 19 99 04/21/22 10:30 94 H 10 L 99 04/21/22 10:20 88 16 98 04/21/22 10:10 82 15 96 04/21/22 10:07 220/167 H 04/21/22 10:07 86 18 98 04/21/22 10:01 223/154 H 04/21/22 10:01 85 19 99 04/21/22 10:00 85 21 99 04/21/22 09:50 82 20 97 04/21/22 09:49 89 24 98 04/21/22 09:49 250/167 H 04/21/22 09:40 104 H 15 04/21/22 09:31 100 H 18 04/21/22 09:20 108 H 18 04/21/22 09:10 98 H 15 04/21/22 09:00 94 H 16 04/21/22 08:53 103 H 17 04/21/22 09:49 95 H 19 250/167 H 98 04/21/22 08:23 37.2 C 96 H 18 235/153 H 99 O2 Del Method 04/21/22 10:42 Room Air 04/21/22 10:31 Room Air 04/21/22 10:31 Room Air 04/21/22 10:30 Room Air 04/21/22 10:20 Room Air 04/21/22 10:10 Room Air 04/21/22 10:07 Room Air 04/21/22 10:07 Room Air 04/21/22 10:01 Room Air 04/21/22 10:01 Room Air 04/21/22 10:00 Room Air 04/21/22 09:50 Room Air 04/21/22 09:49 Room Air 04/21/22 09:49 Room Air 04/21/22 09:40 Room Air 04/21/22 09:31 Room Air 04/21/22 09:20 Room Air 04/21/22 09:10 Room Air 04/21/22 09:00 Room Air 04/21/22 08:53 Room Air 04/21/22 09:49 Room Air 04/21/22 08:23 Room Air PG Care Time/CCT Total # of Minutes Spent Total Time Spent with Patient: Total time spent is greater than 50% in coordination of care (as documented) at patient's floor/unit and/or counseling patient: Coding Level of Care Code 59743 Initial Inpt Care Lvl 3 Diagnoses Nausea & vomiting R11.2 CKD (chronic kidney disease) stage 3, GFR 30-59 ml/min N18.30 ZULEIMA (acute kidney injury) N17.9 Hypertensive emergency I16.1 Adrenal abnormality E27.9
[2022-04-21] MEDS ORDERED: ACETAMINOPHEN 1,000 MG/100 ML VIAL IV STA (11:26)
[2022-04-21] MEDS: LACTATED RINGER'S 1,000 ML IV SCH ×2 (12:03→16:06)
[2022-04-21] MEDS ORDERED: SPIRONOLACTONE 25 MG TAB PO ONE (15:21)
[2022-04-21] MEDS ORDERED: hydrALAZINE HCL 20 MG/ML VIAL IV ONE (15:21)
[2022-04-21] MEDS ORDERED: amLODIPine BESYLATE 5 MG TAB PO ONE (15:21)
[2022-04-21] MEDS: PANTOprazole 40 MG in SYRINGE 0 ML IV SCH ×2 (16:06→22:14)
[2022-04-21] MEDS: SUCRALFATE 1 GM/10 ML UDC PO SCH ×3 (16:07→20:22)
[2022-04-21] MEDS: CHECK CLONIDINE PATCH PLACEMENT SCH (16:07)
[2022-04-21 16:18] LABS: Adenovirus F 40/41 PCR Not Detected (NotDetected); Astrovirus PCR Not Detected (NotDetected); Campylobacter PCR Not Detected (NotDetected); Cryptosporidium PCR Not Detected (NotDetected); Cyclospora cayetanensis PCR Not Detected (NotDetected); Entamoeba histolytica PCR Not Detected (NotDetected); Enteroaggregative E.coli(EAEC) Not Detected (NotDetected); Enteropathogenic E.coli (EPEC) Not Detected (NotDetected); Enterotoxigenic E.coli (ETEC) Not Detected (NotDetected); Giardia lamblia PCR Not Detected (NotDetected); Norovirus GI/GII PCR Not Detected (NotDetected); Plesiomonas shigelloides PCR Not Detected (NotDetected); Rotavirus A PCR Not Detected (NotDetected); Salmonella PCR Not Detected (NotDetected); Sapovirus PCR Not Detected (NotDetected); Shiga-like Toxin E.coli (STEC) Not Detected (NotDetected); Shigella/Enteroinvasive E.coli Not Detected (NotDetected); Vibrio cholerae PCR Not Detected (NotDetected); Vibrio species PCR Not Detected (NotDetected); Yersinia enterocolitica PCR Not Detected (NotDetected)
[2022-04-21] MEDS: POTASSIUM CHLORIDE CRTAB 20 MEQ TABCR PO SCH ×2 (16:48→20:21)
[2022-04-21 16:55] LABS: Hematocrit (blood only) 37.4 % (34.1-44.9)
[2022-04-21 17:16] LABS: BUN Creatinine Ratio 9.6 (10-20); Calcium 8.5 mg/dl (8.5-10.1); Creatinine Clr Calc Pharmacy 39.6 ml/min; Est GFR (African American) 22.1 ml/min; Est GFR (Non-African American) 19.1 ml/min; Potassium 2.7 mmol/L (3.5-5.1)
[2022-04-21] MEDS ORDERED: LORazepam 1 MG TAB PO STA (17:35)
[2022-04-21] MEDS ORDERED: ONDANSETRON INJ 2 MG/ML 2 ML VIAL IV SCH (17:45)
[2022-04-21] MEDS: carvediloL 25 MG TAB PO SCH (20:20)
[2022-04-21 21:07] LABS: Hematocrit (blood only) 38.3 % (34.1-44.9); Hemoglobin 14.1 g/dl (12.0-16.0)
[2022-04-22] MEDS: CHECK CLONIDINE PATCH PLACEMENT SCH ×3 (00:45→16:18)
[2022-04-22 02:59] LABS: Hemoglobin 12.4 g/dl (12.0-16.0); Mean Corpuscular Hemoglobin 27.9 pg (25.0-34.0); Mean Corpuscular Hgb Conc 35.4 g/dL (32.0-36.0); Mean Corpuscular Volume 78.8 fL (80.0-100.0); Mean Platelet Volume 12.4 fL (9.4-12.3); Platelet Count 79 K/uL (130-400); RDW Coefficient of Variation 14.8 % (11.5-14.5); RDW Standard Deviation 41.6 fL (36.4-46.3); Red Blood Count 4.44 M/uL (3.93-5.22); White Blood Count 16.47 K/ul (4.8-10.8)
[2022-04-22 03:03] LABS: Basophils # (auto) 0.07 K/uL (0-0.2); Basophils % (auto) 0.4 %; Eosinophils % (auto) 0.6 %; Immature Granulocytes # (auto) 0.14 K/uL (0.00-0.02); Immature Granulocytes % (auto) 0.9 %; Lymphocytes # (auto) 2.86 K/uL (1.2-3.4); Lymphocytes % (auto) 17.4 %; Monocytes # (auto) 1.19 K/uL (0.24-0.82); Monocytes % (auto) 7.2 %; Neutrophils # (auto) 12.11 K/uL (1.4-6.5); Neutrophils % (auto) 73.5 %; RBC Morphology Unremarkable
[2022-04-22 03:09] LABS: BUN Creatinine Ratio 8.9 (10-20); Calcium 8.3 mg/dl (8.5-10.1); Creatinine Clr Calc Pharmacy 36.5 ml/min; Est GFR (African American) 20.1 ml/min; Est GFR (Non-African American) 17.3 ml/min; Potassium 2.9 mmol/L (3.5-5.1)
[2022-04-22] MEDS ORDERED: ONDANSETRON INJ 2 MG/ML 2 ML VIAL IV STA (03:17)
[2022-04-22] MEDS: ACETAMINOPHEN 500 MG TAB PO PRN ×3 (05:52→23:56)
[2022-04-22] MEDS: LACTATED RINGER'S 1,000 ML IV SCH (08:09)
[2022-04-22] MEDS: hydrALAZINE HCL 20 MG/ML VIAL IV PRN (08:10)
[2022-04-22] MEDS ORDERED: POTASSIUM CHLORIDE CRTAB 20 MEQ TABCR PO STA (08:20)
[2022-04-22] MEDS: NICOTINE 14 MG/24 HR PATCH TD SCH (09:32)
[2022-04-22] MEDS: POTASSIUM CHLORIDE CRTAB 20 MEQ TABCR PO SCH ×3 (09:32→21:21)
[2022-04-22] MEDS: amLODIPine BESYLATE 5 MG TAB PO SCH (09:33)
[2022-04-22] MEDS: carvediloL 25 MG TAB PO SCH ×2 (09:33→21:20)
[2022-04-22] MEDS: SUCRALFATE 1 GM/10 ML UDC PO SCH ×4 (09:33→21:21)
[2022-04-22] MEDS: SPIRONOLACTONE 25 MG TAB PO SCH (09:33)
[2022-04-22] MEDS: PANTOprazole 40 MG in SYRINGE 0 ML IV SCH ×2 (09:34→21:20)
--- NOTE | 2022-04-22 14:06 | Hospitalist Progress Note ---
Date of Service April 22, 2022 Assessment & Plan (1) Hypertensive emergency: Plan: Ran out of medications in the last week, has not taken home regimen including: Amlodipine 10, carvedilol 25 twice daily, clonidine transdermal patch, spironolactone. - Supposed to follow with nephrology following her hospitalization for same in November 2021, suspected hypertension related nephrosclerosis. Patient initially [id number], likely with medication noncompliance with add itional rebound due to clonidine withdrawal Antihypertensives as above. Goal to bring down from [id number] to less than 180 today, and then progressively down to outpatient goal over the next day or 2 Low-salt, heart healthy diet Renin elevated @ 7.85, Pradip wnl at 7 - R/Pradip Ratio: 1.12, Pradip/Renin 0.89. Cortisol normal at that time No renal artery stenosis on prior ultrasound Recommend tobacco cessation - Prior pradip normal, Renin elevated 7.85 - Associated with elevated troponin which likely represents myocardial demand ischemia, no acute EKG changes and trop downtrending - Echo completed but has not been read and placed on chart yet - Given a dose of IV Hydralazine 10mg this AM x1 --> BP this afternoon greatly improved to 167/95 - Episode of CP this AM, repeat hsTop downtrending and EKG nonacute. CP resolved w/o intervention. (2) Nausea & vomiting: Plan: N/V with Abdominal pain Prior admission with discharge 12/26/2021, HIDA scan was negative, CT A/P was with gallstones without transaminitis. Deferred acute cholecystectomy during that admission, was recommended to follow-up with general surgery for elective cholecystectomy. Patient did not show for 02/04/2022 appointment. - Past GI Eval 12/19: Pepcid, Famotidine, carafate. Outpatient GI followup for EGD. - No transaminitis on admit. Tb 1.3 in the setting of volume depletion/n/v - Leukocytosis 17.45, ?demargination with vomiting. Stool PCR negative with concurrent mesenteric adenitis. Nonbloody bowel movements Patient with an episode of epigastric pain and an episode of bright red blood with her first episode of vomiting. ?UGIB vs Lina Atkins, history suspicious for Lina-Atkins tear. Patient with prior concern for peptic ulcer disease, was scheduled for outpatient follow-up but did not make this appointment. We will continue PPI twice daily at this time and follow hemoglobin. If hemoglobin dropping or recurrent hematemesis, will consult GI for inpatient scope. Recommend optimization of blood pressure, potassium, and fluid status prior to procedural intervention at this time. Hemoglobin 15.5 on admission Zofran, PPI, H2 - Heme test stool as pt concerned that there may be blood present (3) Hypokalemia: Plan: 2.7 on admission In the setting of 1 week of nausea/vomiting with poor p.o. intake. Additionally patient has been hypokalemic with concern for hyperaldosteronism, although prior Pradip levels have been normal with an elevated renin/cortisol on prior eval Resuming spironolactone, trend potassium every 4 hours, IV repletion ordered with p.o. to resume once nausea better controlled - Repeat K+ this AM on chemistry panel was 2.9, additional oral replacement ordered (4) CKD (chronic kidney disease) stage 3, GFR 30-59 ml/min: Plan: ZULEIMA on CKD Past history of CKD with unclear baseline suspect 2.62.9, ?hypertensive nephrosclerosis - 3.15 on admission with commendation of acute hypertension with no medication use in the prior week and volume depletion with nausea/vomiting Received IV fluids, continue LR, continue hypertension control trend BMP Renally dose medications - BMP ordered for tomorrow AM as she is not significantly off her baseline (5) Thrombocytopenia: Plan: - Etiology ?? - Could be related to a viral syndrome that she had over the past week that was inducing the abd pain n/v - Follow with repeat CBC in AM (6) Adrenal abnormality: Plan Repeat labs ordered for tomorrow. BP improved. Anticipate can be discharged home tomorrow. Pt requesting a shower chair, script has been provided. She has been advised she may need to pay for an uber or find other means of transportation if she is discharged tomorrow. Plan d/w Dr. Stark. Admission and Anticipated Discharge Date Admission Date: April 21, 2022 Subjective Patient seen on daily rounds this morning. She is currently resting in bed, has no complaints. Prior to my arrival, she had c/o CP and left arm pain to her nurse while her echo was being performed which she states dissipated after 20 minutes. No shorntess of breath. Denies vision changes or headache. No further abd pain, n/v. She was medicated early this AM with a dose if IV Hydralazine. She claims she doesn't have a ride home today and maybe not until Wednesday. Review of Systems Review of Systems: All systems reviewed and are unremarkable except as noted in HPI and below. Denies fever, chills, fatigue, headache, nasal congestion, sore throat, cough, shortness of breath, palpitations, orthopnea, PND, abdominal pain, n/v/d, constipation, dysuria, hematuria, frequency, back pain, joint pain or swelling, easy bruising or bleeding, skin lesions or rashes. Physical Exam Physical Exam: GENERAL: 31 yo Well-developed, well-nourished but morbidly obese WF. NAD. LUNGS: Clear to auscultation bilaterally. CARDIOVASCULAR: Regular rate and rhythm. ABDOMEN: Soft, non-tender and non-distended. BS normoactive x 4 quad. EXTREMITIES: No edema. Non-tender. Peripheral pulses +2/4. NEUROLOGIC: A&O x3. Nonfocal PSYCHIATRIC: Cooperative. Appropriate mood and affect. SKIN: Warm, dry, intact. No rashes or lesions. Results & Data Results & Data ([facility]) Vital Signs (Past 12 Hours) Vital Signs Temp Pulse Pulse Resp BP Pulse Ox O2 Del Method 04/22/22 08:00 78 04/22/22 11:04 36.7 C 83 19 167/95 H 97 Room Air 04/22/22 10:00 78 196/100 H 04/22/22 07:19 37.0 C 86 20 203/141 H 96 Room Air 04/22/22 03:42 37.0 C 83 20 174/115 H 98 Room Air Laboratory Results 04/22/22 02:20 04/22/22 02:20 PG Care Time/CCT Total # of Minutes Spent Total Time Spent with Patient: Total time spent is greater than 50% in coordination of care (as documented) at patient's floor/unit and/or counseling patient: Coding Level of Care Code 19088 Subseq Hosp Care Lvl 3 Diagnoses Hypertensive emergency I16.1 Nausea & vomiting R11.2 Hypokalemia E87.6 CKD (chronic kidney disease) stage 3, GFR 30-59 ml/min N18.30 Thrombocytopenia D69.6 Adrenal abnormality E27.9
--- NOTE | 2022-04-22 17:14 | XCELERA ---
[id number]
--- NOTE | 2022-04-22 23:45 | Electrocardiogram Report ---
Test Reason : Blood Pressure : / mmHG Vent. Rate : 097 BPM Atrial Rate : 097 BPM P-R Int : 156 ms QRS Dur : 104 ms QT Int : 408 ms P-R-T Axes : 035 010 044 degrees QTc Int : 519 ms Normal sinus rhythm Voltage criteria for left ventricular hypertrophy Prolonged QT Abnormal ECG When compared with ECG of 18-DEC-2021 05:56, Vent. rate has increased BY 37 BPM Confirmed by Gavino Kemp ([id number]) on 04/22/2022 11:45:33 PM Referred By: REFERRED SELF Confirmed By:Gavino Kemp
--- NOTE | 2022-04-23 00:03 | Electrocardiogram Report ---
Test Reason : Blood Pressure : / mmHG Vent. Rate : 094 BPM Atrial Rate : 094 BPM P-R Int : 184 ms QRS Dur : 108 ms QT Int : 412 ms P-R-T Axes : 066 035 -25 degrees QTc Int : 516 ms Normal sinus rhythm Prolonged QT Abnormal ECG When compared with ECG of 21-APR-2022 08:49, ST now depressed in Inferior leads T wave inversion now evident in Inferolateral leads Confirmed by Gavino Kemp ([id number] on 04/23/2022 12:03:30 AM Referred By: REFERRED SELF Confirmed By:Gavino Kemp
[2022-04-23] MEDS: CHECK CLONIDINE PATCH PLACEMENT SCH ×3 (00:34→16:44)
[2022-04-23 05:13] LABS: Basophils # (auto) 0.06 K/uL (0-0.2); Basophils % (auto) 0.4 %; Eosinophils # (auto) 0.36 K/uL (0-0.50); Eosinophils % (auto) 2.5 %; Hematocrit (blood only) 32.4 % (34.1-44.9); Hemoglobin 10.9 g/dl (12.0-16.0); Immature Granulocytes # (auto) 0.12 K/uL (0.00-0.02); Immature Granulocytes % (auto) 0.8 %; Lymphocytes % (auto) 19.1 %; Mean Corpuscular Hemoglobin 27.8 pg (25.0-34.0); Mean Corpuscular Hgb Conc 33.6 g/dL (32.0-36.0); Mean Corpuscular Volume 82.7 fL (80.0-100.0); Mean Platelet Volume 11.7 fL (9.4-12.3); Monocytes # (auto) 0.95 K/uL (0.24-0.82); Monocytes % (auto) 6.5 %; Neutrophils % (auto) 70.7 %; Platelet Count 117 K/uL (130-400); RDW Coefficient of Variation 15.3 % (11.5-14.5); Red Blood Count 3.92 M/uL (3.93-5.22); White Blood Count 14.69 K/ul (4.8-10.8)
[2022-04-23 05:35] LABS: Calcium 8.2 mg/dl (8.5-10.1); Creatinine Clr Calc Pharmacy 32.8 ml/min; Est GFR (African American) 17.9 ml/min; Est GFR (Non-African American) 15.5 ml/min
[2022-04-23] MEDS: hydrALAZINE HCL 20 MG/ML VIAL IV PRN ×2 (07:52→16:20)
[2022-04-23] MEDS ORDERED: POTASSIUM CHLORIDE CRTAB 20 MEQ TABCR PO STA (08:12)
[2022-04-23] MEDS: carvediloL 25 MG TAB PO SCH ×2 (08:45→20:16)
[2022-04-23] MEDS: amLODIPine BESYLATE 5 MG TAB PO SCH (08:45)
[2022-04-23] MEDS: NICOTINE 14 MG/24 HR PATCH TD SCH (08:45)
[2022-04-23] MEDS: SPIRONOLACTONE 25 MG TAB PO SCH (08:45)
[2022-04-23] MEDS: SUCRALFATE 1 GM/10 ML UDC PO SCH ×4 (08:46→20:16)
[2022-04-23] MEDS: POTASSIUM CHLORIDE CRTAB 20 MEQ TABCR PO SCH ×3 (08:51→20:16)
[2022-04-23] MEDS: ACETAMINOPHEN 500 MG TAB PO PRN ×2 (09:24→17:24)
[2022-04-23] MEDS ORDERED: LACTATED RINGER'S 1,000 ML IV SCH (09:45)
[2022-04-23] MEDS: PANTOprazole 40 MG in SYRINGE 0 ML IV SCH ×2 (10:52→20:16)
[2022-04-23] MEDS ORDERED: SPIRONOLACTONE 25 MG TAB PO ONE (12:00)
--- NOTE | 2022-04-23 12:03 | Nephrology Consultation ---
Date of Consultation April 23, 2022 Assessment & Plan (1) ZULEIMA (acute kidney injury): (2) Hypertensive kidney disease with CKD stage IV: (3) Hypokalemia: (4) Elevated troponin: (5) Hypertensive urgency: Plan 31-year-old female with morbid obesity, stage IV CKD secondary to hypertensive nephropathy repeated episodes of hypertensive urgency, admitted to the hospital with nausea vomiting unable to keep medication again noted to have hypertensive urgency, ZULEIMA. -- Focus on managing her nausea and vomiting -- increase spironolactone to 50 mg daily, continue other antihypertensive medications, replace potassium with 40 KCL IV if she is not able to to keep p.o. -- as she feels like her nausea is slightly better and she will be able to eat, encouraged her to maintain oral intake and discontinue IV fluid -- monitor renal function and electrolyte -- not consider any other workup at this time Thank you for allowing me to participate in your patient's care. It was a pleasure to see Atiya. History of Present Illness Reason for Consultation: Hypertensive urgency, acute kidney injury with history of advanced CKD. Attending Physician: Severiano Stark MD History of Present Illness Atiya Eli is a 31-year-old F with PMH of stage 4 CKD, morbid obesity, hypertension,RICHARDSON admitted to the hospital with hypertensive urgency, ZULEIMA, diarrhea and intractable nausea and vomiting. Nephrology consult was requested for further management of ZULEIMA and hypertensive urgency. EMR records are re viewed in detail during patient's visit. Atiya presented to the hospital with several days history of runny nose, sore throat, diarrhea, nausea and vomiting. the she reports not able to keep any thing down including her medications. Has been vomiting about 5-6 times a day and has been having about 5-7 bouts of loose stools per day. No dysuria, urgency, or frequency. On admission she was noted to have hypertensive urgency with systolic blood pressure above 200 diastolic above 100. She was started back on her home medication however blood pressure continues to be significantly elevated. And prior to admission also there is report that she ran out of her prescription medications. the on admission her creatinine was 3.2 which worsened to 3.8 this morning, potassium has been persistently low at 3.0. She was continued on amlodipine 10, spironolactone 25, clonidine and carvedilol 25 mg twice a day. She reports voiding a lot. Continues to struggle with nausea. She also feel extremely emotional as she had a fall out with her boyfriend and being in hospital during holidays. Current everyday smoker. She has history of stage IV CKD baseline creatinine since November staying around 3.0, no records prior to November 2021 available. Urinalysis with low-grade proteinuria. prior renal imaging showed mild symmetrical cortical atrophy but no postrenal obstruction. Renal artery Doppler was negative for hemodynamically mediated renal artery stenosis. She was initially diagnosed with hypertension as a teenager. she was started on medication after hypertension during 8 years ago But no history of eclampsia or preeclampsia. After she was able to wean herself off of medication. he was admitted to hospital in November with epigastric pain and at that time she was again noted to be in hypertensive urgency. Workup was otherwise unremarkable including Urine microscopy +1 protein but no hematuria. CT abdomen pelvis showed otherwise normal kidney and adrenal gland. AM cortisol 8.8. Renin Was mildly elevated but aldosterone was normal. Workup for pheochromocytoma was normal. Eventually blood pressure improved prior to discharge. Currently she complain of feeling stressed and emotional but no shortness of breath chest pain, abdominal pain. She continues to have significant nausea. she also reports blood with her stool and some perianal pain but no constipation. Allergies Allergy/AdvReac Type Severity Reaction Status Date / Time No Known Allergies Allergy Verified 12/17/21 23:57 Home Medications Medication Instructions Recorded Confirmed Type carvedilol 25 mg tablet 25 mg PO BID 12/17/21 12/17/21 History clonidine 0.1 mg/24 hr weekly 0.1 mg transdermal WK 12/17/21 12/17/21 History transdermal patch clonidine 0.2 mg/24 hr weekly 0.2 mg transdermal WK 12/17/21 12/17/21 History transdermal patch spironolactone 25 mg tablet 25 mg PO DAILY 12/17/21 12/17/21 History diclofenac sodium 1 % topical gel 2 g EXT QID PRN pain #100 grams 12/25/21 Rx (Voltaren Arthritis Pain) ergocalciferol (vitamin D2) 1,250 50,000 unit PO Q7D #7 caps 12/25/21 Rx mcg (50,000 unit) capsule pantoprazole 40 mg tablet,delayed 40 mg PO BID #60 tabs 12/25/21 Rx release sucralfate 100 mg/mL oral 1 g (10 mL) PO QID #1,000 mL 12/25/21 Rx suspension acetaminophen 325 mg tablet 650 mg PO Q4H PRN #0 tabs 12/26/21 Rx amlodipine 10 mg tablet 10 mg PO DAILY #30 tabs 12/26/21 Rx hydroxyzine HCl 10 mg tablet 10 mg PO BID PRN anxiety or sleep 12/26/21 Rx #60 tabs Patient History Medical History (Updated 04/23/22 @ 12:16 by Haritha Henry MD) Chronic kidney disease Hypertensive kidney disease with CKD stage IV Hypertensive urgency Social History Smoking Status: Current every day smoker Tobacco Type: Cigarettes Cigarettes Per Day: 5; Second Hand Exposure: Yes; Do You Dip or Chew Tobacco: No; Hx Alcohol Use: No Hx Substance Use: No Preferred Language: Prydeinig Communication Ability: Effective Super[employer] Required: No Beliefs That Will Affect Care: None Current Living Situation: Significant Other Current Living Situation Comment: roommate Other Information That Helps Us Care for You: No Feels Safe at Home: Yes Assistive Devices: None Review of Systems Review of Systems: detailed review of system was otherwise unremarkable except mention above. Physical Exam Constitutional: WD/WN, vitals as above + morbidly obese; no acute distress Eyes: + anicteric sclerae ENMT: Ears: no hearing impairment Neck: normal visual inspection Respiratory: normal respiratory effort; no respiratory distress and no cough Auscultation: lungs clear to auscultation bilaterally Cardiovascular: Rate/Rhythm: regular rate and regular rhythm Heart Sounds: normal S1 and normal S2 Extremities: no edema Gastrointestinal (Abdomen): Inspection/Auscultation: abdomen normal to inspection and normal bowel sounds Percussion/Palpation: abdomen soft; abdomen nontender Musculoskeletal: Extremities: extremities normal to inspection Skin: normal turgor; no rashes Neurologic: no focal motor deficits and not confused Psychiatric: Orientation: alert and oriented x 3 Affect: euthymic affect Results & Data ([facility]) Vital Signs (Past 12 Hours) Vital Signs Temp Pulse Pulse Resp BP BP Pulse Ox 04/23/22 09:06 36.4 C L 81 20 174/109 H 98 04/23/22 08:00 36.8 C 70 19 179/127 H 98 04/23/22 07:30 77 04/23/22 03:44 36.9 C 75 18 174/83 H 97 04/23/22 00:15 37.0 C 75 20 159/95 H 98 O2 Del Method 04/23/22 09:06 Room Air 04/23/22 08:00 Room Air 04/23/22 07:30 04/23/22 03:44 Room Air 04/23/22 00:15 Room Air PG Care Time/CCT Total # of Minutes Spent Total Time Spent with Patient: Total time spent is greater than 50% in coordination of care (as documented) at patient's floor/unit and/or counseling patient: Coding Level of Care Code 82832 Inpt Consult Level 5 Diagnoses ZULEIMA (acute kidney injury) N17.9 Hypertensive kidney disease with CKD stage IV I12.9; N18.4 Hypokalemia E87.6 Elevated troponin R77.8 Hypertensive urgency I16.0
--- NOTE | 2022-04-23 14:05 | Hospitalist Progress Note ---
Date of Service April 23, 2022 Assessment & Plan (1) Hypertensive emergency: Plan: Ran out of medications in the last week, has not taken home regimen including: Amlodipine 10, carvedilol 25 twice daily, clonidine transdermal patch, spironolactone. - Supposed to follow with nephrology following her hospitalization for same in November 2021, suspected hypertension related nephrosclerosis. Patient initially [id number], likely with medication noncompliance with add itional rebound due to clonidine withdrawal Antihypertensives as above. Goal to bring down from [id number] to less than 180 today, and then progressively down to outpatient goal over the next day or 2 Low-salt, heart healthy diet Renin elevated @ 7.85, Pradip wnl at 7 - R/Pradip Ratio: 1.12, Pradip/Renin 0.89. Cortisol normal at that time No renal artery stenosis on prior ultrasound Recommend tobacco cessation - Prior pradip normal, Renin elevated 7.85 - Associated with elevated troponin which likely represents myocardial demand ischemia, no acute EKG changes and trop downtrending - Echo completed -severe concentric left ventricular hypertrophy unsurprising given her uncontrolled blood pressure Continue carvedilol 25 mg p.o. twice daily, amlodipine 10 mg p.o. daily, clonidine 0.2 mg patch Spironolactone increased by nephrology to 50 mg p.o. daily Hydralazine 10 mg IV every 4 hourly as needed for systolic blood pressure greater than 160. (2) Hypertensive kidney disease with CKD stage IV: Plan: ZULEIMA on CKD Past history of CKD with unclear baseline suspect 2.62.9, ?hypertensive nephrosclerosis - Appears to be euvolemic on exam and taking good oral intake therefore lactated Ringer's ordered this morning was discontinued. - We will continue to trend to peak. I suspect the damage is already done been done however, and as long as she makes good urine output her creatinine will eventually trend down. Nephrology consulted as delta creatinine increased today - appreciate recommendations (3) Nausea & vomiting: Plan: N/V with Abdominal pain -Fecal occult blood positive. We will continue to trend CBC. Avoid anticoagulation at this time. -Suspect secondary to mesenteric adenitis which is mostly resolved at this time but she may also be having some hypertensive emergency causing her nausea and vomiting. -Appears to be mostly resolved at this time. (4) Hypokalemia: Plan: 2.7 on admission In the setting of 1 week of nausea/vomiting with poor p.o. intake. Addition ally patient has been hypokalemic with concern for hyperaldosteronism, although prior Pradip levels have been normal with an elevated renin/cortisol on prior eval -Potassium 3.0 this morning. Continue KCl 20 meq p.o. 3 times daily. Additional 40 meq this morning. Increasing spironolactone should also help. (5) Thrombocytopenia: Plan: Appears to be improving. Suspect secondary to viral enteritis (6) Adrenal abnormality: (7) Acute kidney injury: (8) Bright red blood per rectum: Plan: Fecal occult blood positive Serial hemoglobin. Avoid anticoagulation. Follow-up gastroenterology as an outpatient. Plan VTE prophylaxis - low risk Diet - heart healthy, low-sodium Disposition -continued admission due to worsening renal function and unresolved hyperkalemia Admission and Anticipated Discharge Date Admission Date: April 21, 2022 Subjective Continues to have good urine output per patient. Feeling stressed today as I got nephrology involved and she is trying to come to terms with her kidney damage that has already been done. Nausea and vomiting improving. Abdominal pain resolved. Bright red blood on wiping. No fever or chills. Review of Systems Review of Systems: All systems reviewed & are unremarkable except as noted in Subjective Physical Exam Constitutional: WD/WN, vitals as above Respiratory: normal respiratory effort, lungs clear to auscultation Cardiovascular: RRR, no murmur, no edema Gastrointestinal (Abdomen): normal bowel sounds, soft, nontender, no hepatosplenomegaly Skin: no rashes, warm and dry Genitourinary: no CVA tenderness Results & Data Results & Data ([facility]) Vital Signs (Past 12 Hours) Vital Signs Temp Pulse Pulse Resp BP BP Pulse Ox 04/23/22 13:22 36.4 C L 82 20 158/100 H 98 04/23/22 09:06 36.4 C L 81 20 174/109 H 98 04/23/22 08:00 36.8 C 70 19 179/127 H 98 04/23/22 07:30 77 04/23/22 03:44 36.9 C 75 18 174/83 H 97 O2 Del Method 04/23/22 13:22 Room Air 04/23/22 09:06 Room Air 04/23/22 08:00 Room Air 04/23/22 07:30 04/23/22 03:44 Room Air PG Care Time/CCT Total # of Minutes Spent Total Time Spent with Patient: Total time spent is greater than 50% in coordination of care (as documented) at patient's floor/unit and/or counseling patient: Coding Level of Care Code 03493 Subseq Hosp Care Lvl 3 Diagnoses Hypertensive emergency I16.1 Hypertensive kidney disease with CKD stage IV I12.9; N18.4 Nausea & vomiting R11.2 Hypokalemia E87.6 Thrombocytopenia D69.6 Adrenal abnormality E27.9 Acute kidney injury N17.9 Bright red blood per rectum K62.5
[2022-04-23] MEDS ORDERED: METOPROLOL TARTRATE 1 MG/ML VIAL IV ONE (16:13)
[2022-04-24] MEDS: CHECK CLONIDINE PATCH PLACEMENT SCH ×3 (00:28→15:03)
[2022-04-24] MEDS: ACETAMINOPHEN 500 MG TAB PO PRN (06:05)
[2022-04-24] MEDS: hydrOXYzine HCl 10 MG TAB PO PRN (06:05)
[2022-04-24 06:07] LABS: Hematocrit (blood only) 32.3 % (34.1-44.9); Hemoglobin 10.9 g/dl (12.0-16.0); Mean Corpuscular Hemoglobin 27.9 pg (25.0-34.0); Mean Corpuscular Hgb Conc 33.7 g/dL (32.0-36.0); Mean Corpuscular Volume 82.8 fL (80.0-100.0); Mean Platelet Volume 11.1 fL (9.4-12.3); Platelet Count 152 K/uL (130-400); RDW Coefficient of Variation 15.7 % (11.5-14.5); RDW Standard Deviation 46.6 fL (36.4-46.3); White Blood Count 14.03 K/ul (4.8-10.8)
[2022-04-24 07:12] LABS: BUN Creatinine Ratio 10.2 (10-20); Calcium 8.3 mg/dl (8.5-10.1); Creatinine Clr Calc Pharmacy 31.8 ml/min; Est GFR (African American) 17.3 ml/min; Est GFR (Non-African American) 14.9 ml/min
[2022-04-24] MEDS: amLODIPine BESYLATE 5 MG TAB PO SCH (08:28)
[2022-04-24] MEDS: carvediloL 25 MG TAB PO SCH ×2 (08:28→20:36)
[2022-04-24] MEDS: SUCRALFATE 1 GM/10 ML UDC PO SCH ×4 (08:29→20:36)
[2022-04-24] MEDS: NICOTINE 14 MG/24 HR PATCH TD SCH (08:29)
[2022-04-24] MEDS: PANTOprazole 40 MG in SYRINGE 0 ML IV SCH (08:29)
[2022-04-24] MEDS: POTASSIUM CHLORIDE CRTAB 20 MEQ TABCR PO SCH (08:30)
[2022-04-24] MEDS ORDERED: SPIRONOLACTONE 25 MG TAB PO SCH (09:00)
--- NOTE | 2022-04-24 13:39 | Nephrology Progress Note ---
Date of Service April 24, 2022 Assessment & Plan (1) ZULEIMA (acute kidney injury): (2) Hypertensive kidney disease with CKD stage IV: (3) Hypokalemia: (4) Elevated troponin: (5) Hypertensive urgency: Plan 31-year-old female with morbid obesity, stage IV CKD secondary to hypertensive nephropathy repeated episodes of hypertensive urgency, admitted to the hospital with nausea vomiting unable to keep medication again noted to have hypertensive urgency, ZULEIMA. --Continue spironolactone 50 mg daily and increase as needed, goal blood pressure less than 130/80. c -- monitor renal function and electrolyte, with underlying pretty advanced CKD, there is high risk for further worsening of renal function. -- encouraged to keep well hydrated Will follow Admission and Anticipated Discharge Date Admission Date: April 21, 2022 Juan Rajput was seen and examined this morning. No overnight events, she reports having good sleep and had breakfast this morning however she does not feel well and not sure why but denied any specific symptoms. Blood pressure improved. no significant change in renal function, electrolyte acceptable, potassium improved. Review of Systems Review of Systems: detailed review of system was otherwise unremarkable exce pt mention above. Physical Exam Constitutional: WD/WN, vitals as above + morbidly obese; no acute distress Eyes: + anicteric sclerae ENMT: Ears: no hearing impairment Neck: normal visual inspection Respiratory: Auscultation: + diminished lung sounds; no crackles and no wheezes Cardiovascular: RRR, no murmur, no edema Rate/Rhythm: regular rate and regular rhythm Extremities: + edema Musculoskeletal: Extremities: extremities normal to inspection Skin: no rashes Neurologic: no focal motor deficits and not confused Psychiatric: Orientation: alert and oriented x 3 Affect: euthymic affect Results & Data ([facility]) Vital Signs (Past 12 Hours) Vital Signs Temp Pulse Pulse Resp BP BP Pulse Ox 04/24/22 12:37 36.6 C 71 20 144/73 H 96 04/24/22 10:45 77 04/24/22 08:52 36.9 C 69 20 141/92 H 98 04/24/22 03:28 37.2 C 77 20 162/81 H 96 O2 Del Method 04/24/22 12:37 Room Air 04/24/22 10:45 04/24/22 08:52 Room Air 04/24/22 03:28 Room Air PG Care Time/CCT Total # of Minutes Spent Total Time Spent with Patient: Total time spent is greater than 50% in coordination of care (as documented) at patient's floor/unit and/or counseling patient: Coding Level of Care Code 16725 Subseq Hosp Care Lvl 3 Diagnoses ZULEIMA (acute kidney injury) N17.9 Hypertensive kidney disease with CKD stage IV I12.9; N18.4 Hypokalemia E87.6 Elevated troponin R77.8 Hypertensive urgency I16.0
--- NOTE | 2022-04-24 14:52 | Hospitalist Progress Note ---
Date of Service April 24, 2022 Assessment & Plan (1) Hypertensive emergency: Plan: Ran out of medications in the last week, has not taken home regimen including: Amlodipine 10, carvedilol 25 twice daily, clonidine transdermal patch, spironolactone. - Supposed to follow with nephrology following her hospitalization for same in November 2021, suspected hypertension related nephrosclerosis. Patient initially [id number], likely with medication noncompliance with add itional rebound due to clonidine withdrawal Antihypertensives as above. Goal to bring down from [id number] to less than 180 today, and then progressively down to outpatient goal over the next day or 2 Low-salt, heart healthy diet Renin elevated @ 7.85, Pradip wnl at 7 - R/Pradip Ratio: 1.12, Pradip/Renin 0.89. Cortisol normal at that time No renal artery stenosis on prior ultrasound Recommend tobacco cessation - Prior pradip normal, Renin elevated 7.85 - Associated with elevated troponin which likely represents myocardial demand ischemia, no acute EKG changes and trop downtrending - Echo completed -severe concentric left ventricular hypertrophy unsurprising given her uncontrolled blood pressure Continue carvedilol 25 mg p.o. twice daily, amlodipine 10 mg p.o. daily, clonidine 0.2 mg patch Spironolactone increased by nephrology to 50 mg p.o. daily, will increase to 100mg tomorrow to aim for better BP control Hydralazine 10 mg IV every 4 hourly as needed for systolic blood pressure greater than 160. (2) Hypertensive kidney disease with CKD stage IV: Plan: ZULEIMA on CKD Past history of CKD with unclear baseline suspect 2.62.9, ?hypertensive nephrosclerosis - Appears to be euvolemic on exam and taking good oral intake therefore lactated Ringer's ordered this morning was discontinued. - We will continue to trend to peak. I suspect the damage is already done been done however, and as long as she makes good urine output her creatinine will eventually trend down. Cr continues to increase but rate of increase appears to be slowing which is reassuring Urine protein/Cr ratio ordered to assess for nephrotic syndrome to see if this has been increased since November (3) Nausea & vomiting: Plan: N/V with Abdominal pain -Fecal occult blood positive. We will continue to trend CBC. Avoid anticoagulation at this time. -Suspect secondary to mesenteric adenitis which is mostly resolved at this time but she may also be having some hypertensive emergency causing her nausea and vomiting. -Appears to be mostly resolved at this time. (4) Hypokalemia: Plan: 2.7 on admission In the setting of 1 week of nausea/vomiting with poor p.o. intake. Additional ly patient has been hypokalemic with concern for hyperaldosteronism, although prior Pradip levels have been normal with an elevated renin/cortisol on prior eval -Potassium 4.0 this morning. Stop potassium supplementation. Increasing spironolactone should keep her potassium up now. (5) Thrombocytopenia: Plan: Resolved. Suspect secondary to viral enteritis (6) Adrenal abnormality: (7) Acute kidney injury: (8) Bright red blood per rectum: Plan: Fecal occult blood positive Serial hemoglobin. Avoid anticoagulation. Follow-up gastroenterology as an outpatient. Plan VTE prophylaxis - low risk, although this may need to be reconsider if nephrotic syndrome confirmed Diet - heart healthy, low-sodium Disposition -continued admission due to worsening renal function Admission and Anticipated Discharge Date Admission Date: April 21, 2022 Subjective Reportedly having blood on wiping although not getting any worse. Hemoglobin stable after intravenous fluids. Eating and drinking well. Good urine output per patient - not previously recorded. Review of Systems Review of Systems: All systems reviewed & are unremarkable except as noted in Subjective Physical Exam Constitutional: WD/WN, vitals as above Respiratory: normal respiratory effort, lungs clear to auscultation Cardiovascular: RRR, no murmur, no edema Gastrointestinal (Abdomen): normal bowel sounds, soft, nontender, no hepatosplenomegaly Skin: no rashes, warm and dry Genitourinary: no CVA tenderness Results & Data Results & Data ([facility]) Vital Signs (Past 12 Hours) Vital Signs Temp Pulse Pulse Resp BP BP Pulse Ox 04/24/22 12:37 36.6 C 71 20 144/73 H 96 04/24/22 10:45 77 04/24/22 08:52 36.9 C 69 20 141/92 H 98 04/24/22 03:28 37.2 C 77 20 162/81 H 96 O2 Del Method 04/24/22 12:37 Room Air 04/24/22 10:45 04/24/22 08:52 Room Air 04/24/22 03:28 Room Air PG Care Time/CCT Total # of Minutes Spent Total Time Spent with Patient: Total time spent is greater than 50% in coordination of care (as documented) at patient's floor/unit and/or counseling patient: Coding Level of Care Code 80194 Subseq Hosp Care Lvl 2 Diagnoses Hypertensive emergency I16.1 Hypertensive kidney disease with CKD stage IV I12.9; N18.4 Nausea & vomiting R11.2 Hypokalemia E87.6 Thrombocytopenia D69.6 Adrenal abnormality E27.9 Acute kidney injury N17.9 Bright red blood per rectum K62.5
[2022-04-24] MEDS: PANTOprazole 40 MG TAB PO SCH (20:36)
[2022-04-24] MEDS: hydrALAZINE HCL 20 MG/ML VIAL IV PRN (23:13)
[2022-04-25] MEDS: CHECK CLONIDINE PATCH PLACEMENT SCH ×3 (00:30→15:20)
[2022-04-25 04:57] LABS: Hematocrit (blood only) 31.7 % (34.1-44.9); Hemoglobin 10.7 g/dl (12.0-16.0); Mean Corpuscular Hemoglobin 28.5 pg (25.0-34.0); Mean Corpuscular Hgb Conc 33.8 g/dL (32.0-36.0); Mean Corpuscular Volume 84.3 fL (80.0-100.0); Mean Platelet Volume 10.7 fL (9.4-12.3); Platelet Count 206 K/uL (130-400); RDW Coefficient of Variation 15.4 % (11.5-14.5); RDW Standard Deviation 46.8 fL (36.4-46.3); Red Blood Count 3.76 M/uL (3.93-5.22); White Blood Count 14.54 K/ul (4.8-10.8)
[2022-04-25 05:20] LABS: BUN Creatinine Ratio 11.1 (10-20); Calcium 8.3 mg/dl (8.5-10.1); Creatinine Clr Calc Pharmacy 30.1 ml/min; Est GFR (African American) 16.1 ml/min; Est GFR (Non-African American) 13.9 ml/min; Potassium 3.8 mmol/L (3.5-5.1)
[2022-04-25] MEDS: ACETAMINOPHEN 500 MG TAB PO PRN ×2 (06:19→15:39)
[2022-04-25] MEDS: NICOTINE 14 MG/24 HR PATCH TD SCH (09:14)
[2022-04-25] MEDS: SUCRALFATE 1 GM/10 ML UDC PO SCH ×4 (09:16→20:14)
[2022-04-25] MEDS: carvediloL 25 MG TAB PO SCH ×2 (09:17→20:14)
[2022-04-25] MEDS: PANTOprazole 40 MG TAB PO SCH ×2 (09:17→20:14)
[2022-04-25] MEDS: SPIRONOLACTONE 100 MG TAB PO SCH (09:17)
[2022-04-25] MEDS: amLODIPine BESYLATE 5 MG TAB PO SCH (09:17)
[2022-04-25 11:39] LABS: Appearance Urine Clear (Clear); Bacteria Urine Automated Negative (Negative); Bilirubin Urine Negative (Negative); Blood Urine Negative (Negative); Color Urine Yellow; Glucose Urine UA Negative (Negative); Ketones Urine Negative (Negative); Leukocyte Esterase Urine Negative (Negative); Nitrite Urine Negative (Negative); Protein Urine 2+ (Negative); RBC Urine Automated 0-4 /hpf (0-4); Specific Gravity Urine 1.011 (1.000-1.030); Urobilinogen Urine Negative (Negative)
[2022-04-25 11:58] LABS: Creatinine Urine Random 82.7 mg/dl; Protein Creatinine Ratio Urine 1.1 (0-0.2); Total Protein Urine Random 89.4 mg/dl (0-11.9)
--- NOTE | 2022-04-25 12:45 | Nephrology Progress Note ---
Date of Service April 25, 2022 Assessment & Plan (1) ZULEIMA (acute kidney injury): (2) Hypertensive kidney disease with CKD stage IV: (3) Hypokalemia: (4) Elevated troponin: (5) Hypertensive urgency: Plan 31-year-old female with morbid obesity, stage IV CKD secondary to hypertensive nephropathy repeated episodes of hypertensive urgency, admitted to the hospital with nausea vomiting unable to keep medication again noted to have hypertensive urgency, ZULEIMA. Slow progressive worsening of renal function, creatinine up to 4.1 electrolyte acceptable, although blood pressure better control, reports having decent p.o. intake and urine output. -- since urinalysis showed no proteinuria no hematuria and proteinuria improved, will not consider any other workup at this time. -- Continue spironolactone 50 mg daily and increase as needed, goal blood pressure less than 130/80. c -- monitor renal function and electrolyte, with underlying pretty advanced CKD, there is high risk for further worsening of renal function. -- encouraged to keep well hydrated Will follow Admission and Anticipated Discharge Date Admission Date: April 21, 2022 Juan Rajput was seen and examined this morning. No overnight events, she reports having good sleep and had breakfast this morning. Blood pressure improved. repeat UA showed low-grade proteinuria, no hematuria pyuria. Creatinine continues to worsen up to 4.1 this morning, electrolyte acceptable. Physical Exam Constitutional: WD/WN, vitals as above + morbidly obese; no acute distress Eyes: + anicteric sclerae ENMT: Ears: no hearing impairment Neck: normal visual inspection Respiratory: Auscultation: + diminished lung sounds; no crackles and no wheezes Cardiovascular: RRR, no murmur, no edema Rate/Rhythm: regular rate and regular rhythm Extremities: + edema Musculoskeletal: Extremities: extremities normal to inspection Skin: no rashes Neurologic: no focal motor deficits Psychiatric: Orientation: alert and oriented x 3 Affect: euthymic affect Results & Data ([facility]) Vital Signs (Past 12 Hours) Vital Signs Temp Pulse Pulse Resp BP Pulse Ox O2 Del Method 04/25/22 12:17 37.0 C 74 18 149/94 H 98 Room Air 04/25/22 08:00 74 04/25/22 07:35 37.1 C 77 19 145/97 H 96 Room Air 04/25/22 03:11 36.8 C 87 18 146/84 H 98 Room Air PG Care Time/CCT Total # of Minutes Spent Total Time Spent with Patient: Total time spent is greater than 50% in coordination of care (as documented) at patient's floor/unit and/or counseling patient: Coding Level of Care Code 92736 Subseq Hosp Care Lvl 3 Diagnoses ZULEIMA (acute kidney injury) N17.9 Hypertensive kidney disease with CKD stage IV I12.9; N18.4 Hypokalemia E87.6 Elevated troponin R77.8 Hypertensive urgency I16.0
[2022-04-25] MEDS: hydrALAZINE HCL 20 MG/ML VIAL IV PRN (19:22)
[2022-04-25] MEDS: hydrOXYzine HCl 10 MG TAB PO PRN (20:14)
--- NOTE | 2022-04-25 20:57 | Hospitalist Progress Note ---
Date of Service April 25, 2022 Assessment & Plan (1) Acute kidney injury: Plan: Creatinine today now 4. Recent CT a/p without obstruction. 2+ protein on repeat u/a today. Has baseline CKD stage 4 likely on the basis of hypertensive nephrosclerosis per nephrology. ZULEIMA - due to recent viral illness with severe dehydration? Cont supportive care. ZULEIMA is nonoliguric. Hopefully creatinine has peaked and will continue to improve. Hold any YAKELIN or ARB. Defer any additional w/u to nephrology. BMP am. Check CPK in am given her c/o myalgias - r/o rhabdomyolysis. (2) Hypertensive emergency: Plan: Resolved. Pre-hospital med regimen: Amlodipine 10, carvedilol 25 twice daily, clonidine transdermal patch, spironolactone. Apparently ran out of meds about 1 week prior to admission, and also came down with suspected viral illness during the same timeframe. Initial SBPs as high as 250 at time of admission. Marked improvement in BPs since that time with resumption of home meds. Supposed to have had follow-up with nephrology following her hospitalization in November 2021 but never went to nephrology clinic. Renin elevated at 7.85, Emmanuel wnl at 7; thus no hyperaldo state. Cortisol 8.8 this past summer. No renal artery stenosis on prior renal artery ultrasound. TSH 11/2021 wnl. Continue carvedilol 25 mg p.o. twice daily, amlodipine 10 mg p.o. daily, clonidine 0.2 mg patch, Spironolactone 100mg daily. Ideally needs sleep study - r/o RICHARDSON - given her morbid obesity. (3) Hypertensive kidney disease with CKD stage IV: Plan: ZULEIMA on CKD stage 4 - as above Suspected baseline creatinine 2.62.9 Has significant proteinuria with 4+ protein on prior u/a; repeat u/a today with 2+ protein Defer w/u & management to nephrology (4) Nausea & vomiting: Plan: resolved (5) Hypokalemia: Plan: repleted resolved (6) Thrombocytopenia: Plan: Resolved Lowest platelet count was 75 now normal Suspect secondary to viral enteritis?? (7) Bright red blood per rectum: Plan: Fecal occult blood positive H/H stable x 3 days Etiology? Due to recent infectious process given #8 below? Other? Cont to trend CBC If BRBPR continues then GI consultation while here (8) Mesenteric adenitis: Plan: as seen on CT abd/pelvis at time of admission historically this is typically due to a viral process recent stool biofire negative for most bacterial pathogens & some viral pathogens (9) Plantar fascial fibromatosis of both feet: Plan: suspected refer to podiatry post-d/c (10) Proteinuria: Plan: see above repeat u/a today with 2+; was 4+ prior need for 24-hour urine to quantitate proteinuria? 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 Plan cont to monitor renal function Admission and Anticipated Discharge Date Admission Date: April 21, 2022 Subjective patient overall feeling better appetite improved; tolerating diet no nausea/emesis diarrhea improved c/o body aches/myalgias no dyspnea also c/o LE edema - starting a few days ago has skin lesions on b/l feet, plantar aspect -- wants me to look at them despite Creatinine cont to make good urine tele with NSR Review of Systems Review of Systems: gen - no fevers or chills; energy improved cv - no cp pulm - no dyspnea, no cough GI - mild abdominal discomfort - central and lower abdomen - no LUTS Physical Exam Physical Exam: gen - morbidly obese, NAD mouth - MMM neck - no JVD heart - RRR, s1 s2, no murmur lungs - CTA b/l abd - soft, minimally tender central abdomen, BS+, no HSM, no peritoneal signs ext - trace edema b/l, pulses 2+ b/l musculo - b/l feet - plantar aspect - cystic type structure over medial plantar fascia mid-foot b/l, nontender skin - no rash psych - a/o x 3 Results & Data Results & Data ([facility]) Vital Signs (Past 12 Hours) Vital Signs Temp Pulse Pulse Resp BP Pulse Ox O2 Del Method 04/25/22 20:13 79 129/83 04/25/22 19:17 36.6 C 69 18 169/105 H 98 Room Air 04/25/22 16:20 74 04/25/22 15:42 36.6 C 75 18 144/95 H 97 Room Air 04/25/22 12:17 37.0 C 74 18 149/94 H 98 Room Air Laboratory Results Laboratory Results - last 24 hr 04/25/22 04/25/22 04/25/22 04:16 04:16 05:25 WBC 14.54 H RBC 3.76 L Hgb 10.7 L Hct 31.7 L MCV 84.3 MCH 28.5 MCHC 33.8 RDW Std Deviation 46.8 H RDW Coeff of Erin 15.4 H Plt Count 206 MPV 10.7 Sodium 136 Potassium 3.8 Chloride 106 Carbon Dioxide 23 Anion Gap 7 BUN 45 H Creatinine 4.05 H Est Cr Clr Drug Dosing 30.1 Est GFR ( Amer) 16.1 Est GFR (Non-Af Amer) 13.9 BUN/Creatinine Ratio 11.1 Glucose 100 H Calcium 8.3 L Urine Color Urine Appearance Urine pH Ur Specific [place] Urine Protein Urine Glucose (UA) Urine Ketones Urine Blood Urine Nitrite Urine Bilirubin Urine Urobilinogen Ur Leukocyte Esterase Urine WBC (Auto) Urine RBC (Auto) U Hyaline Cast (Auto) U Epithel Cells (Auto) Urine Bacteria (Auto) Ur Random Creatinine U Random Total Protein Protein/Creatinin Ratio Stool Occult Bld Scrn Negative 04/25/22 04/25/22 04/25/22 07:30 11:02 11:02 WBC RBC Hgb Hct MCV MCH MCHC RDW Std Deviation RDW Coeff of Erin Plt Count MPV Sodium Potassium Chloride Carbon Dioxide Anion Gap BUN Creatinine Est Cr Clr Drug Dosing Est GFR ( Amer) Est GFR (Non-Af Amer) BUN/Creatinine Ratio Glucose Calcium Urine Color Yellow Urine Appearance Clear Urine pH 5.0 Ur Specific [place] 1.011 Urine Protein 2+ H Urine Glucose (UA) Negative Urine Ketones Negative Urine Blood Negative Urine Nitrite Negative Urine Bilirubin Negative Urine Urobilinogen Negative Ur Leukocyte Esterase Negative Urine WBC (Auto) 1-5 Urine RBC (Auto) 0-4 U Hyaline Cast (Auto) 1-5 U Epithel Cells (Auto) 5-10 H Urine Bacteria (Auto) Negative Ur Random Creatinine 82.7 U Random Total Protein 89.4 H Protein/Creatinin Ratio 1.1 H Stool Occult Bld Scrn Positive A 04/25/22 14:37 WBC RBC Hgb Hct MCV MCH MCHC RDW Std Deviation RDW Coeff of Erin Plt Count MPV Sodium Potassium Chloride Carbon Dioxide Anion Gap BUN Creatinine Est Cr Clr Drug Dosing Est GFR ( Amer) Est GFR (Non-Af Amer) BUN/Creatinine Ratio Glucose Calcium Urine Color Urine Appearance Urine pH Ur Specific [place] Urine Protein Urine Glucose (UA) Urine Ketones Urine Blood Urine Nitrite Urine Bilirubin Urine Urobilinogen Ur Leukocyte Esterase Urine WBC (Auto) Urine RBC (Auto) U Hyaline Cast (Auto) U Epithel Cells (Auto) Urine Bacteria (Auto) Ur Random Creatinine U Random Total Protein Protein/Creatinin Ratio Stool Occult Bld Scrn Negative PG Care Time/CCT Total # of Minutes Spent Total Time Spent with Patient: Total time spent is greater than 50% in coordination of care (as documented) at patient's floor/unit and/or counseling patient: Coding Level of Care Code 45460 Subseq Hosp Care Lvl 2 Diagnoses Acute kidney injury N17.9 Hypertensive emergency I16.1 Hypertensive kidney disease with CKD stage IV I12.9; N18.4 Nausea & vomiting R11.2 Hypokalemia E87.6 Thrombocytopenia D69.6 Bright red blood per rectum K62.5 Mesenteric adenitis I88.0 Plantar fascial fibromatosis of both feet M72.2 Proteinuria R80.9 Morbid obesity with BMI of 45.0-49.9, adult E66.01; Z68.42 Tobacco dependence F17.200
[2022-04-26] MEDS: CHECK CLONIDINE PATCH PLACEMENT SCH ×4 (00:02→23:24)
[2022-04-26 05:17] LABS: Hemoglobin 10.9 g/dl (12.0-16.0); Mean Corpuscular Volume 84.8 fL (80.0-100.0); Mean Platelet Volume 10.6 fL (9.4-12.3); Platelet Count 256 K/uL (130-400); RDW Coefficient of Variation 15.4 % (11.5-14.5); RDW Standard Deviation 46.8 fL (36.4-46.3); Red Blood Count 3.89 M/uL (3.93-5.22); White Blood Count 9.57 K/ul (4.8-10.8)
[2022-04-26 05:38] LABS: Albumin Level 3.2 gm/dl (3.4-5.0); BUN Creatinine Ratio 12.7 (10-20); Calcium 8.9 mg/dl (8.5-10.1); Creatinine Clr Calc Pharmacy 33.7 ml/min; Est GFR (African American) 18.5 ml/min; Phosphorus 4.6 mg/dl (2.5-4.9); Potassium 4.1 mmol/L (3.5-5.1)
[2022-04-26] MEDS: NICOTINE 14 MG/24 HR PATCH TD SCH (08:38)
[2022-04-26] MEDS: SUCRALFATE 1 GM/10 ML UDC PO SCH ×4 (08:40→19:49)
[2022-04-26] MEDS: PANTOprazole 40 MG TAB PO SCH ×2 (08:40→19:49)
[2022-04-26] MEDS: SPIRONOLACTONE 100 MG TAB PO SCH (08:40)
[2022-04-26] MEDS: amLODIPine BESYLATE 5 MG TAB PO SCH (08:40)
[2022-04-26] MEDS: carvediloL 25 MG TAB PO SCH ×2 (08:40→19:48)
--- NOTE | 2022-04-26 13:13 | Nephrology Progress Note ---
Date of Service April 26, 2022 Assessment & Plan (1) ZULEIMA (acute kidney injury): (2) Hypertensive kidney disease with CKD stage IV: (3) Hypokalemia: (4) Elevated troponin: (5) Hypertensive urgency: Plan 31-year-old female with morbid obesity, stage IV CKD secondary to hypertensive nephropathy repeated episodes of hypertensive urgency, admitted to the hospital with nausea vomiting unable to keep medication again noted to have hypertensive urgency, ZULEIMA. Renal function started to improve, creatinine down to 3.7, electrolyte acceptable, although blood pressure better controlled, reports having decent p.o. intake and urine output. -- Continue spironolactone 100 mg daily and increase as needed, goal blood pressure less than 130/80. c -- monitor renal function and electrolyte, with underlying pretty advanced CKD, there is high risk for further worsening of renal function. -- encouraged to keep well hydrated Will follow Admission and Anticipated Discharge Date Admission Date: April 21, 2022 Juan Rajput was seen and examined this morning. No overnight events, she reports having good sleep and had breakfast this morning. Blood pressure improved. repeat UA showed low-grade proteinuria, no hematuria pyuria. Renal function started to improve, creatinine 3.7 this morning, electrolyte acceptable. BP improved. Review of Systems Review of Systems: detailed review of system was otherwise unremarkable except mention above. Physical Exam Constitutional: WD/WN, vitals as above + morbidly obese; no acute distress Eyes: + anicteric sclerae ENMT: Ears: no hearing impairment Neck: normal visual inspection Respiratory: Auscultation: + diminished lung sounds; no crackles and no wheezes Cardiovascular: RRR, no murmur, no edema Rate/Rhythm: regular rate and regular rhythm Extremities: + edema Musculoskeletal: Extremities: extremities normal to inspection Skin: no rashes Neurologic: no focal motor deficits Psychiatric: Orientation: alert and oriented x 3 Affect: euthymic affect Results & Data ([facility]) Vital Signs (Past 12 Hours) Vital Signs Temp Pulse Pulse Resp BP Pulse Ox O2 Del Method 04/26/22 11:27 36.5 C 69 18 128/89 98 Room Air 04/26/22 08:52 64 04/26/22 07:35 36.7 C 77 18 164/98 H 97 Room Air 04/26/22 02:39 36.5 C 72 14 153/106 H 98 Room Air PG Care Time/CCT Total # of Minutes Spent Total Time Spent with Patient: Total time spent is greater than 50% in coordination of care (as documented) at patient's floor/unit and/or counseling patient: Coding Level of Care Code 37047 Subseq Hosp Care Lvl 3 Diagnoses ZULEIMA (acute kidney injury) N17.9 Hypertensive kidney disease with CKD stage IV I12.9; N18.4 Hypokalemia E87.6 Elevated troponin R77.8 Hypertensive urgency I16.0
[2022-04-26] MEDS: ACETAMINOPHEN 500 MG TAB PO PRN (19:48)
--- NOTE | 2022-04-26 20:44 | Hospitalist Progress Note ---
Date of Service April 26, 2022 Assessment & Plan (1) Acute kidney injury: Plan: Creatinine today now 3.6 - modestly improved from peak of 4. Recent CT a/p without obstruction. 2+ protein on repeat u/a 48 hours ago. Has baseline CKD stage 4 likely on the basis of hypertensive nephrosclerosis per nephrology. ZULEIMA - due to recent viral illness with severe dehydration? Cont supportive care. ZULEIMA is nonoliguric. Hopefully creatinine has peaked and will continue to improve. Hold any YAKELIN or ARB. Defer any additional w/u to nephrology. BMP am. CPK wnl thus no rhabdomyolysis. (2) Hypertensive emergency: Plan: Resolved. Pre-hospital med regimen: Amlodipine 10, carvedilol 25 twice daily, clonidine transdermal patch, spironolactone. Apparently ran out of meds about 1 week prior to admission, and also came down with suspected viral illness during the same timeframe. Initial SBPs as high as 250 at time of admission. Marked improvement in BPs since that time with resumption of home meds. Supposed to have had follow-up with nephrology following her hospitalization in November 2021 but never went to nephrology clinic. Renin elevated at 7.85, Emmanuel wnl at 7; thus no hyperaldo state. Cortisol 8.8 this past summer. No renal artery stenosis on prior renal artery ultrasound. TSH 11/2021 wnl. Continue carvedilol 25 mg p.o. twice daily, amlodipine 10 mg p.o. daily, clonidine 0.2 mg patch, Spironolactone 100mg daily. Ideally needs sleep study - r/o RICHARDSON - given her morbid obesity. (3) Hypertensive kidney disease with CKD stage IV: Plan: ZULEIMA on CKD stage 4 - as above Suspected baseline creatinine 2.62.9 Has significant proteinuria with 4+ protein on prior u/a; repeat u/a today with 2+ protein Defer w/u & management to nephrology (4) Nausea & vomiting: Plan: resolved (5) Hypokalemia: Plan: repleted resolved (6) Thrombocytopenia: Plan: Resolved Lowest platelet count was 75 now normal Suspect secondary to viral enteritis?? (7) Bright red blood per rectum: Plan: Fecal occult blood positive H/H stable x 3 days Etiology? Due to recent infectious process given #8 below? Other? Cont to trend CBC If BRBPR continues then GI consultation while here (8) Mesenteric adenitis: Plan: as seen on CT abd/pelvis at time of admission historically this is typically due to a viral process recent stool biofire negative for most bacterial pathogens & some viral pathogens abd pain resolved (9) Plantar fascial fibromatosis of both feet: Plan: suspected refer to podiatry post-d/c (10) Proteinuria: Plan: see above repeat u/a today with 2+; was 4+ prior need for 24-hour urine to quantitate proteinuria? 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 Plan cont to monitor renal function Admission and Anticipated Discharge Date Admission Date: April 21, 2022 Subjective no new events eating well abd pain essentially resolved no N/V diarrhea resolved making good urine edema of LEs still present Review of Systems Review of Systems: gen - no fever cv - no cp pulm - no cough or dyspnea Physical Exam Physical Exam: gen - morbidly obese, NAD mouth - MMM neck - no JVD heart - RRR, s1 s2, no murmur lungs - CTA b/l abd - soft,NT BS+, no HSM, no peritoneal signs ext - trace-1+ edema b/l, pulses 2+ b/l psych - a/o x 3 Results & Data Results & Data ([facility]) Vital Signs (Past 12 Hours) Vital Signs Temp Pulse Pulse Resp BP BP Pulse Ox 04/26/22 19:45 36.6 C 75 16 144/85 H 97 04/26/22 15:57 75 04/26/22 15:34 36.7 C 76 17 130/70 97 04/26/22 11:27 36.5 C 69 18 128/89 98 04/26/22 08:52 64 O2 Del Method 04/26/22 19:45 Room Air 04/26/22 15:57 04/26/22 15:34 Room Air 04/26/22 11:27 Room Air 04/26/22 08:52 Laboratory Results Laboratory Results - last 24 hr 04/26/22 04/26/22 04:42 04:42 WBC 9.57 RBC 3.89 L Hgb 10.9 L Hct 33.0 L MCV 84.8 MCH 28.0 MCHC 33.0 RDW Std Deviation 46.8 H RDW Coeff of Erin 15.4 H Plt Count 256 MPV 10.6 Sodium 137 Potassium 4.1 Chloride 106 Carbon Dioxide 24 Anion Gap 7 BUN 46 H Creatinine 3.61 H D Est Cr Clr Drug Dosing 33.7 Est GFR ( Amer) 18.5 Est GFR (Non-Af Amer) 16.0 BUN/Creatinine Ratio 12.7 Glucose 103 H Calcium 8.9 Phosphorus 4.6 Total Creatine Kinase 14 L Albumin 3.2 L PG Care Time/CCT Total # of Minutes Spent Total Time Spent with Patient: Total time spent is greater than 50% in coordination of care (as documented) at patient's floor/unit and/or counseling patient: Coding Level of Care Code 81142 Subseq Hosp Care Lvl 2 Diagnoses Acute kidney injury N17.9 Hypertensive emergency I16.1 Hypertensive kidney disease with CKD stage IV I12.9; N18.4 Nausea & vomiting R11.2 Hypokalemia E87.6 Thrombocytopenia D69.6 Bright red blood per rectum K62.5 Mesenteric adenitis I88.0 Plantar fascial fibromatosis of both feet M72.2 Proteinuria R80.9 Morbid obesity with BMI of 45.0-49.9, adult E66.01; Z68.42 Tobacco dependence F17.200
[2022-04-27] MEDS: hydrALAZINE HCL 20 MG/ML VIAL IV PRN (03:31)
[2022-04-27 08:47] LABS: Hematocrit (blood only) 34.7 % (34.1-44.9); Hemoglobin 11.7 g/dl (12.0-16.0); Mean Corpuscular Hemoglobin 28.3 pg (25.0-34.0); Mean Corpuscular Hgb Conc 33.7 g/dL (32.0-36.0); Mean Platelet Volume 10.2 fL (9.4-12.3); Platelet Count 347 K/uL (130-400); RDW Standard Deviation 45.7 fL (36.4-46.3); Red Blood Count 4.13 M/uL (3.93-5.22); White Blood Count 9.24 K/ul (4.8-10.8)
[2022-04-27 09:10] LABS: Albumin Level 3.4 gm/dl (3.4-5.0); BUN Creatinine Ratio 14.2 (10-20); Creatinine Clr Calc Pharmacy 30.4 ml/min; Est GFR (African American) 16.6 ml/min; Est GFR (Non-African American) 14.4 ml/min; Phosphorus 4.9 mg/dl (2.5-4.9); Potassium 4.4 mmol/L (3.5-5.1)
[2022-04-27] MEDS: SUCRALFATE 1 GM/10 ML UDC PO SCH ×4 (09:10→20:44)
[2022-04-27] MEDS: SPIRONOLACTONE 100 MG TAB PO SCH (09:10)
[2022-04-27] MEDS: PANTOprazole 40 MG TAB PO SCH ×2 (09:10→20:44)
[2022-04-27] MEDS: carvediloL 25 MG TAB PO SCH ×2 (09:10→20:44)
[2022-04-27] MEDS: CHECK CLONIDINE PATCH PLACEMENT SCH ×2 (09:11→16:00)
[2022-04-27] MEDS: amLODIPine BESYLATE 5 MG TAB PO SCH (09:11)
[2022-04-27] MEDS: NICOTINE 14 MG/24 HR PATCH TD SCH (09:11)
--- NOTE | 2022-04-27 12:29 | Nephrology Progress Note ---
Date of Service April 27, 2022 Assessment & Plan (1) ZULEIMA (acute kidney injury): Plan: Non-oliguric. Volume status acceptable. Electrolytes normal. Medications appropriate for kidney function. No emergent indication for [employer]. Urine acellular. Imaging reviewed. Document strict I/O's and repeat metabolic profile in the AM. (2) Hypertensive kidney disease with CKD stage IV: Plan: Progressive CKD and proteinuria. Unfortunately, prognosis for kidney recovery is guarded. (3) Hypertensive emergency: Plan: BP reasonable. Tolerating current therapy well. Continue amlodipine 10 mg daily, carvedilol 25 mg twice daily spironolactone 100 mg daily, and clonidine 0.3 mg patch. Low sodium diet. Close outpatient follow up encouraged. (4) Chronic kidney disease: Plan: KDIGO staging and classification of CKD reviewed. CKD IV-V approaching the need for [employer]. Will require close outpatient follow up and advanced care planning for anticipated HD, including referral for AVF. Follow up with Dr. Henry in [place] within 1 week of discharge. Medications appropriately dosed for kidney dysfunction. Avoid YAKELIN/ARB for now. Admission and Anticipated Discharge Date Admission Date: April 21, 2022 Subjective No acute events overnight. Diarrhea resolved. Appetite is good. No nausea or vomiting. Overall, Atiya feels well. Improvement in BP noted. Atiya was emotional when discussing her kidney dysfunction today. Outpatient follow up is difficult for her due to limited transportation options. She reported a significant amount of stress related to being out of work and struggling with financial concerns. Review of Systems Review of Systems: All systems reviewed & are unremarkable except as noted in HPI & below Psychiatric: + depression; no anxiety Physical Exam Constitutional: well developed and + morbidly obese; no acute distress Eyes: no scleral abnormality and no corneal abnormality ENMT: Mouth: no oral mucosal abnormality and oral mucous membranes not dry Neck: normal visual inspection (scarring on right side) and trachea midline Respiratory: normal respiratory effort Auscultation: lungs clear to auscultation bilaterally Cardiovascular: Rate/Rhythm: regular rate Heart Sounds: normal S1 and normal S2 Extremities: + pedal edema and + edema Musculoskeletal: Extremities: no cyanosis and no clubbing Skin: normal turgor and + scar Neurologic: Motor/Sensory: no tremor and no asterixis Psychiatric: Orientation: alert and oriented x 3 Results & Data ([facility]) Vital Signs (Past 12 Hours) Vital Signs Temp Pulse Pulse Resp BP BP Pulse Ox 04/27/22 11:52 36.7 C 75 18 148/67 H 98 04/27/22 10:46 69 04/27/22 10:46 04/27/22 07:51 36.6 C 70 18 151/91 H 95 04/27/22 03:45 69 144/78 H 04/27/22 02:54 36.3 C L 70 16 168/115 H 97 O2 Del Method 04/27/22 11:52 Room Air 04/27/22 10:46 04/27/22 10:46 Room Air 04/27/22 07:51 Room Air 04/27/22 03:45 04/27/22 02:54 Room Air Laboratory Results Laboratory Results - last 24 hr 04/27/22 04/27/22 08:24 08:24 WBC 9.24 RBC 4.13 Hgb 11.7 L Hct 34.7 MCV 84.0 MCH 28.3 MCHC 33.7 RDW Std Deviation 45.7 RDW Coeff of Erin 15.0 H Plt Count 347 MPV 10.2 Sodium 139 Potassium 4.4 Chloride 108 H Carbon Dioxide 22 Anion Gap 9 BUN 56 H Creatinine 3.95 H D Est Cr Clr Drug Dosing 30.4 Est GFR ( Amer) 16.6 Est GFR (Non-Af Amer) 14.4 BUN/Creatinine Ratio 14.2 Glucose 130 H Calcium 9.0 Phosphorus 4.9 Albumin 3.4 PG Care Time/CCT Total # of Minutes Spent Total Time Spent with Patient: Total time spent is greater than 50% in coordination of care (as documented) at patient's floor/unit and/or counseling patient: Coding Level of Care Code 87017 Subseq Hosp Care Lvl 3 Diagnoses ZULEIMA (acute kidney injury) N17.9 Hypertensive kidney disease with CKD stage IV I12.9; N18.4 Hypertensive emergency I16.1 Chronic kidney disease N18.9
--- NOTE | 2022-04-27 21:52 | Hospitalist Progress Note ---
Date of Service April 27, 2022 Assessment & Plan (1) Acute kidney injury: Plan: Creatinine today 3.9. Creatinine peak of 4 this admission. Thus, no significant improvement in ZULEIMA to date. Recent CT a/p without obstruction. 2+ protein on repeat u/a over the weekend. Has baseline CKD stage 4 likely on the basis of hypertensive nephrosclerosis per nephrology. ZULEIMA - due to recent viral illness with severe dehydration/prerenal etiology?? Cont supportive care. ZULEIMA is nonoliguric. Hopefully creatinine will improve over next few days. She appears euvolemic at this time; deferring on IV hydration. Hold any YAKELIN or ARB. Defer any additional w/u to nephrology. BMP am. Recent CPK wnl thus no rhabdomyolysis as cause of ZULEIMA (she had been c/o severe diffuse myalgias). (2) Hypertensive emergency: Plan: Resolved. Pre-hospital med regimen: Amlodipine 10, carvedilol 25 twice daily, clonidine transdermal patch, spironolactone. Apparently ran out of meds about 1 week prior to admission, and also came down with suspected viral illness during the same timeframe. Initial SBPs as high as 250 at time of admission. Marked improvement in BPs since that time with resumption of home meds. Supposed to have had follow-up with nephrology following her hospitalization in November 2021 but never went to nephrology clinic. Renin elevated at 7.85, Emmanuel wnl at 7; thus no hyperaldo state. Cortisol 8.8 this past summer. No renal artery stenosis on prior renal artery ultrasound. TSH 11/2021 wnl. Continue carvedilol 25 mg p.o. twice daily, amlodipine 10 mg p.o. daily, clonidine 0.2 mg patch, Spironolactone 100mg daily. Ideally needs sleep study - r/o RICHARDSON - given her morbid obesity. Set up at discharge. SBPs mildly elevated - 150s - defer to nephrology dose adjustment of meds but consider small titration of clonidine patch. (3) Hypertensive kidney disease with CKD stage IV: Plan: ZULEIMA on CKD stage 4 - as above Suspected baseline creatinine 2.62.9 Has significant proteinuria with 4+ protein on prior u/a; repeat u/a with 2+ protein Defer w/u & management to nephrology (4) Nausea & vomiting: Plan: resolved thought 2nd to viral process (mesenteric adenitis seen on CT a/p at admission) (5) Hypokalemia: Plan: repleted resolved (6) Thrombocytopenia: Plan: Resolved Lowest platelet count was 75 now normal Suspect secondary to viral enteritis?? (7) Bright red blood per rectum: Plan: Fecal occult blood positive H/H stable despite recent BRBPR Etiology? Due to recent infectious process given #8 below? Other? Cont to trend CBC If BRBPR continues then GI consultation while here (8) Mesenteric adenitis: Plan: as seen on CT abd/pelvis at time of admission historically this is typically due to a viral process recent stool biofire negative for most bacterial pathogens & some viral pathogens abd pain resolved (9) Plantar fascial fibromatosis of both feet: Plan: suspected refer to podiatry post-d/c (10) Proteinuria: Plan: see above need for 24-hour urine to quantitate proteinuria? defer to nephrology (11) Morbid obesity with BMI of 45.0-49.9, adult: Plan: BMI 43 (12) Tobacco dependence: Plan: cont nicoderm patch 14mg/day counseling specialist to quit tobacco usage Plan cont to monitor renal function no d/c home at this time offered psych consult but patient declining at this time Admission and Anticipated Discharge Date Admission Date: April 21, 2022 Subjective patient w/o new complaints nausea resolved abd pain nearly resolved eating well, tolerating diet; some mild dyspepsia only she was very tearful during the visit she and nephrology had discussion about possible dialysis in the future this was upsetting understandably I offered to consult psych to help with support to her - wants to wait for now but not completely opposed to future consultation w/ psych no new issues otherwise Review of Systems Review of Systems: gen - no fevers cv - no cp pulm - no dyspnea or GRACE GI - no vomiting; diarrhea resolved - no LUTS Physical Exam Physical Exam: gen - morbidly obese, NAD - but tearful today mouth - MMM neck - no JVD heart - RRR, s1 s2, no murmur lungs - CTA b/l abd - soft, NT, BS+, no HSM, no peritoneal signs ext - trace edema b/l, pulses 2+ b/l psych - a/o x 3, tearful Results & Data Results & Data ([facility]) Vital Signs (Past 12 Hours) Vital Signs Temp Pulse Pulse Resp BP Pulse Ox O2 Del Method 04/27/22 19:08 36.7 C 91 H 18 165/76 H 98 Room Air 04/27/22 18:04 158/100 H 04/27/22 16:00 36.7 C 80 18 191/92 H 98 Room Air 04/27/22 11:52 36.7 C 75 18 148/67 H 98 Room Air 04/27/22 10:46 69 04/27/22 10:46 Room Air Laboratory Results Laboratory Results - last 24 hr 04/27/22 04/27/22 08:24 08:24 WBC 9.24 RBC 4.13 Hgb 11.7 L Hct 34.7 MCV 84.0 MCH 28.3 MCHC 33.7 RDW Std Deviation 45.7 RDW Coeff of Erin 15.0 H Plt Count 347 MPV 10.2 Sodium 139 Potassium 4.4 Chloride 108 H Carbon Dioxide 22 Anion Gap 9 BUN 56 H Creatinine 3.95 H D Est Cr Clr Drug Dosing 30.4 Est GFR ( Amer) 16.6 Est GFR (Non-Af Amer) 14.4 BUN/Creatinine Ratio 14.2 Glucose 130 H Calcium 9.0 Phosphorus 4.9 Albumin 3.4 PG Care Time/CCT Total # of Minutes Spent Total Time Spent with Patient: Total time spent is greater than 50% in coordination of care (as documented) at patient's floor/unit and/or counseling patient: Coding Level of Care Code 38881 Subseq Hosp Care Lvl 2 Diagnoses Acute kidney injury N17.9 Hypertensive emergency I16.1 Hypertensive kidney disease with CKD stage IV I12.9; N18.4 Nausea & vomiting R11.2 Hypokalemia E87.6 Thrombocytopenia D69.6 Bright red blood per rectum K62.5 Mesenteric adenitis I88.0 Plantar fascial fibromatosis of both feet M72.2 Proteinuria R80.9 Morbid obesity with BMI of 45.0-49.9, adult E66.01; Z68.42 Tobacco dependence F17.200
[2022-04-28] MEDS: CHECK CLONIDINE PATCH PLACEMENT SCH ×3 (00:37→16:05)
[2022-04-28 05:56] LABS: BUN Creatinine Ratio 16.2 (10-20); Calcium 8.6 mg/dl (8.5-10.1); Est GFR (African American) 18.4 ml/min; Est GFR (Non-African American) 15.8 ml/min; Potassium 4.5 mmol/L (3.5-5.1)
[2022-04-28] MEDS: carvediloL 25 MG TAB PO SCH ×2 (08:52→21:45)
[2022-04-28] MEDS: amLODIPine BESYLATE 5 MG TAB PO SCH (08:52)
[2022-04-28] MEDS: NICOTINE 14 MG/24 HR PATCH TD SCH (08:53)
[2022-04-28] MEDS: PANTOprazole 40 MG TAB PO SCH ×2 (08:53→21:45)
[2022-04-28] MEDS: cloNIDine HCL 0.3 MG/24 HR TRANSDERM SYS TD SCH (08:53)
[2022-04-28] MEDS: SPIRONOLACTONE 100 MG TAB PO SCH (08:54)
[2022-04-28] MEDS: SUCRALFATE 1 GM/10 ML UDC PO SCH ×4 (08:54→21:43)
--- NOTE | 2022-04-28 10:46 | Nephrology Progress Note ---
Date of Service April 28, 2022 Assessment & Plan (1) ZULEIMA (acute kidney injury): Plan: Non-oliguric. Volume status acceptable. Electrolytes normal. Medications appropriate for kidney function. No emergent indication for ONLINE ADVERTISING DIRECTOR. Creatinine relatively stable at 3.6 mg/dL. Volume status is reasonable though there is some dependent edema and Atiya may ultimately benefit for addition of a low dose loop diuretic. I opted to defer adjustment in medications now. If she is relatively stable, planning for discharge with close outpatient follow up is a reasonable consideration. (2) Hypertensive kidney disease with CKD stage IV: Plan: Progressive CKD and proteinuria. Unfortunately, prognosis for kidney recovery is guarded. Remains on carvedilol 25 mg BID, amlodipine 10 mg daily, clonidine patc h 0.3 mg, and spironolactone 100 mg daily. Atiya told me that she plans to follow up for outpatient sleep study. If BP remains persistently elevated, I would suggest addition of a low dose loop diuretic, such as furosemide 20 mg daily. (3) Hypertensive emergency: Plan: Tolerating current therapy well. Low sodium diet. Close outpatient follow up encouraged. (4) Chronic kidney disease: Plan: KDIGO staging and classification of CKD reviewed. CKD IV-V approaching the need for ONLINE ADVERTISING DIRECTOR. Will require close outpatient follow up and advanced care planning for anticipated HD, including referral for AVF. Follow up with Dr. Henry in [place] within 1 week of discharge. Medications appropriately dosed for kidney dysfunction. Avoid YAKELIN/ARB for now. Admission and Anticipated Discharge Date Admission Date: April 21, 2022 Subjective No acute events. Continues to struggle with anxiety and concerns regarding health and kidney function. Reports some increased edema in her legs. Appetite is good. Overall, she feels reasonably well though very anxious. Review of Systems 2 Review of Systems: All systems reviewed & are unremarkable except as noted in HPI & below Physical Exam Constitutional: well developed and + morbidly obese; no acute distress Eyes: no scleral abnormality and no corneal abnormality ENMT: Mouth: no oral mucosal abnormality and oral mucous membranes not dry Neck: normal visual inspection (scarring on right side) and trachea midline Respiratory: normal respiratory effort Auscultation: lungs clear to auscultation bilaterally Cardiovascular: Rate/Rhythm: regular rate Heart Sounds: normal S1 and normal S2 Extremities: + pedal edema and + edema Musculoskeletal: Extremities: no cyanosis and no clubbing Skin: normal turgor and + scar Neurologic: Motor/Sensory: no tremor and no asterixis Psychiatric: Orientation: alert and oriented x 3 Results & Data ([facility]) Vital Signs (Past 12 Hours) Vital Signs Temp Pulse Resp BP BP Pulse Ox O2 Del Method 04/28/22 07:15 Room Air 04/28/22 07:11 36.9 C 71 18 171/97 H 94 Room Air 04/28/22 02:38 36.8 C 74 18 157/87 H 96 Room Air 04/27/22 22:52 37 C 80 18 163/94 H 94 Room Air Laboratory Results Laboratory Results - last 24 hr 04/28/22 05:15 Sodium 138 Potassium 4.5 Chloride 107 Carbon Dioxide 23 Anion Gap 8 BUN 59 H Creatinine 3.64 H D Est Cr Clr Drug Dosing 33.0 Est GFR ( Amer) 18.4 Est GFR (Non-Af Amer) 15.8 BUN/Creatinine Ratio 16.2 Glucose 103 H Calcium 8.6 PG Care Time/CCT Total # of Minutes Spent Total Time Spent with Patient: Total time spent is greater than 50% in coordination of care (as documented) at patient's floor/unit and/or counseling patient: Coding Level of Care Code 65641 Subseq Hosp Care Lvl 3 Diagnoses ZULEIMA (acute kidney injury) N17.9 Hypertensive kidney disease with CKD stage IV I12.9; N18.4 Hypertensive emergency I16.1 Chronic kidney disease N18.9
--- NOTE | 2022-04-28 18:42 | Hospitalist Progress Note ---
Date of Service April 28, 2022 Assessment & Plan (1) Acute kidney injury: Plan: Creatinine continues to improvenow down to 3.[address] a/p without obstruction. 2+ protein on repeat u/a over the weekend. Has baseline CKD stage 4 likely on the basis of hypertensive nephrosclerosis per nephrology. ZULEIMA - due to recent viral illness with severe dehydration/prerenal etiology?? Cont supportive care. ZULEIMA is nonoliguric. Hopefully creatinine will continue to improvealthough concern on just overall worsening of CKD with hypertensive mediated damage. Would be safe/stable for home with close outpatient follow-up and blood pressure control (2) Hypertensive emergency: Plan: Resolved. due to social situation and transient homelessness, had run out of medications. Blood pressure control slowly improving. With creatinine, would hold off on diuretics/ACEs/ARB's for now. Continue to follow. (3) Hypertensive kidney disease with CKD stage IV: Plan: ZULEIMA on CKD stage 4 - as above Suspected baseline creatinine 2.62.9, But hard to tell if it worsened from uncontrolled hypertension stable for homewill need close outpatient follow-up (4) Nausea & vomiting: Plan: resolved thought 2nd to viral process (mesenteric adenitis seen on CT a/p at admission) (5) Hypokalemia: Plan: repleted resolved (6) Thrombocytopenia: Plan: Resolved Lowest platelet count was 75 now normal Suspect secondary to viral enteritis?? (7) Bright red blood per rectum: Plan: Fecal occult blood positive H/H stable despite recent BRBPR Etiology? Due to recent infectious process given #8 below? Other? Cont to trend CBC If BRBPR continues then GI consultation while here, has notoutpatient follow-up (8) Mesenteric adenitis: Plan: as seen on CT abd/pelvis at time of admission historically this is typically due to a viral process recent stool biofire negative for most bacterial pathogens & some viral pathogens abd pain resolved (9) Plantar fascial fibromatosis of both feet: Plan: suspected refer to podiatry post-d/c (10) Proteinuria: Plan: see above need for 24-hour urine to quantitate proteinuria? defer to nephrology (11) Morbid obesity with BMI of 45.0-49.9, adult: Plan: BMI 43 (12) Tobacco dependence: Plan: cont nicoderm patch 14mg/day would benefit from cessation Admission and Anticipated Discharge Date Admission Date: April 21, 2022 Subjective physically feeling okay. No acute complaints. Feels okay about going homeexcept that she does not have a way there. Notes that she was briefly homeless, which made it pretty much impossible to get medications and follow-up, notes this is not the situation anymore, and should be okay with medicines. She does ask that everything be refilled Review of Systems Review of Systems: All systems reviewed & are unremarkable except as noted in HPI & below Physical Exam Physical Exam: In general she is awake and alert pleasantly anxious no distress. HEENT normocephalic atraumatic mucous membranes moist. Breathing unlabored no accessory muscle use good effort. Skin shows no rashes no pallor or icterus. Neuro without focal deficits. Results & Data Results & Data ([facility]) Vital Signs (Past 12 Hours) Vital Signs Temp Pulse Resp BP BP Pulse Ox O2 Del Method 04/28/22 14:00 97.9 F 79 18 152/91 H 98 04/28/22 11:09 98.4 F 74 20 130/73 95 Room Air 04/28/22 07:15 Room Air 04/28/22 07:11 98.4 F 71 18 171/97 H 94 Room Air PG Care Time/CCT Total # of Minutes Spent Total Time Spent with Patient: Total time spent is greater than 50% in coordination of care (as documented) at patient's floor/unit and/or counseling patient: Coding Level of Care Code 85030 Subseq Hosp Care Lvl 2 Diagnoses Acute kidney injury N17.9 Hypertensive emergency I16.1 Hypertensive kidney disease with CKD stage IV I12.9; N18.4 Nausea & vomiting R11.2 Hypokalemia E87.6 Thrombocytopenia D69.6 Bright red blood per rectum K62.5 Mesenteric adenitis I88.0 Plantar fascial fibromatosis of both feet M72.2 Proteinuria R80.9 Morbid obesity with BMI of 45.0-49.9, adult E66.01; Z68.42 Tobacco dependence F17.200
[2022-04-28] MEDS: ACETAMINOPHEN 500 MG TAB PO PRN (18:53)
[2022-04-29] MEDS: CHECK CLONIDINE PATCH PLACEMENT SCH ×2 (00:19→07:53)
[2022-04-29 07:32] LABS: BUN Creatinine Ratio 16.8 (10-20); Calcium 8.9 mg/dl (8.5-10.1); Creatinine Clr Calc Pharmacy 34.2 ml/min; Est GFR (African American) 19.2 ml/min; Est GFR (Non-African American) 16.6 ml/min; Potassium 4.8 mmol/L (3.5-5.1)
[2022-04-29] MEDS: PANTOprazole 40 MG TAB PO SCH (07:53)
[2022-04-29] MEDS: amLODIPine BESYLATE 5 MG TAB PO SCH (07:53)
[2022-04-29] MEDS: carvediloL 25 MG TAB PO SCH (07:53)
[2022-04-29] MEDS: SPIRONOLACTONE 100 MG TAB PO SCH (07:53)
[2022-04-29] MEDS: NICOTINE 14 MG/24 HR PATCH TD SCH (07:54)
[2022-04-29] MEDS: SUCRALFATE 1 GM/10 ML UDC PO SCH (07:54)
--- NOTE | 2022-04-29 10:14 | Nephrology Progress Note ---
Date of Service April 29, 2022 Assessment & Plan (1) ZULEIMA (acute kidney injury): Plan: Non-oliguric. Volume status acceptable. Electrolytes normal. Medications appropriate for kidney function. No emergent indication for EXTRA GANG SUPERVISOR. Creatinine stable at 3.6 mg/dL. Medications appropriately dosed for kidney function. Avoid RAAS blockade. Close outpatient follow up required. (2) Hypertensive kidney disease with CKD stage IV: Plan: Progressive CKD and proteinuria. Unfortunately, prognosis for kidney recovery is guarded. We discussed advanced care planning. Stressed the importance of low sodium diet and medication adherence. Close follow up with Dr. Henry in [place] within 1 week of discharge. (3) Hypertensive emergency: Plan: Tolerating current therapy well. Rx's refilled at request. (4) Chronic kidney disease: Admission and Anticipated Discharge Date Admission Date: April 21, 2022 Subjective No acute events overnight. Atiya was seen and evaluated just prior to discharge this AM. Importance of close outpatient follow up stressed. Contact information was also provided. I reviewed the plan of care with Dr. Hartman this AM. Review of Systems Review of Systems: All systems reviewed & are unremarkable except as noted in HPI & below Physical Exam Constitutional: well developed; no acute distress Neck: normal visual inspection (scarring on right side) and trachea midline Respiratory: normal respiratory effort Auscultation: lungs clear to auscultation bilaterally Cardiovascular: Rate/Rhythm: regular rate Extremities: + pedal edema Musculoskeletal: Extremities: no cyanosis and no clubbing Skin: normal turgor Neurologic: Motor/Sensory: no tremor and no asterixis Psychiatric: Orientation: alert and oriented x 3 Results & Data ([facility]) Vital Signs (Past 12 Hours) Vital Signs Temp Pulse Pulse Resp BP BP Pulse Ox 04/29/22 09:47 81 04/29/22 09:44 64 04/29/22 09:32 36.5 C 67 20 175/107 H 171/97 H 95 04/29/22 07:02 36.5 C 67 20 175/107 H 95 04/29/22 03:25 36.5 C 70 18 155/73 H 97 04/28/22 22:18 65 04/28/22 23:04 36.7 C 69 18 166/90 H 93 O2 Del Method 04/29/22 09:47 04/29/22 09:44 04/29/22 09:32 04/29/22 07:02 Room Air 04/29/22 03:25 Room Air 04/28/22 22:18 04/28/22 23:04 Room Air Laboratory Results Laboratory Results - last 24 hr 04/29/22 06:40 Sodium 137 Potassium 4.8 Chloride 108 H Carbon Dioxide 20 L Anion Gap 9 BUN 59 H Creatinine 3.51 H Est Cr Clr Drug Dosing 34.2 Est GFR ( Amer) 19.2 Est GFR (Non-Af Amer) 16.6 BUN/Creatinine Ratio 16.8 Glucose 98 Calcium 8.9 PG Care Time/CCT Total # of Minutes Spent Total Time Spent with Patient: Total time spent is greater than 50% in coordination of care (as documented) at patient's floor/unit and/or counseling patient: Coding Level of Care Code 59711 Subseq Hosp Care Lvl 3 Diagnoses ZULEIMA (acute kidney injury) N17.9 Hypertensive kidney disease with CKD stage IV I12.9; N18.4 Hypertensive emergency I16.1 Chronic kidney disease N18.9
--- NOTE | 2022-04-29 18:51 | Discharge Summary ---
Date of Service April 29, 2022 Admission HPI Per Admitting Provider Atiya Mcdaniels is a 31-year-old female with a past medical history of CKD, hypertensive emergency, who presents with URI symptoms including sinus congestion, sore throat, nausea, vomiting, diarrhea and multiple loose stools per day. ER REview:CTA/P: There is left mesenteric stranding with associated lymphadenopathy compatible with mesenteric adenitis. No bowel disease or other acute abnormality is seen. Mesenteric adenitis present. All PCR pending. CT-H: IMPRESSION: No acute intracranial abnormality. - Trop 138.3 (last 31.2) UA with blood, without bacteria COVID-negative, flu negative, RSV negative Creatinine acutely elevated from baseline of 2.62.9, - 3.15 on admission with acute hypertension Home antihypertensives: Amlodipine 10, carvedilol 25 twice daily, clonidine transdermal patch, spironolactone. Follows with urology, in the past 1+ protein and suspected hypertension related nephrosclerosis. Atiya reports she has been sick since 8 days ago. Started with a headache, sore throat, stuffy nose. [place] feverish, not sure if she has had a temperature. Shifting the next day and developed vomiting and diarrhea. Has not been able to keep down any food or fluids in the last few days. Did have bright red blood in first episode of emesis and 'hut really bad' at the time above the belly button. Has not had a scope, was scheduled for an EGD but did not followup as an outpatient. Fever and chills off and on for the last few days, but not sure about the last 24 hours. Sleepy and has been sleeping a lot. Diarrhea is loose- liquid, 2-4 times per day. No bloody/black BM, BMs are off brownish in color. Did not followup with GI/Surgery after discharge. Followed up with Dr. Monte and was not concerned about this. Home medications: Has not taken in th elast 7 days, reports she stopped taking a week ago due to nausea and vomiting. Denies chest pain other than in her ribs, shortness of breath. Endorses fatigue over the last couple of days, lightheadedness in the last 2 days. Denies shoulder pain. Endorses diffuse muscle/body aches in the last week since being sick. Medical History: Reviewed Medications: Reviewed Surgical History: Reviewed Allergies: Reviewed Social History: Past cigarette use, none in last 8 days. Would like a patch Code Status: Full Code Principal Diagnosis ZULEIMA Discharge Exam General she is awake and alert pleasant no distress. HEENT normocephalic atraumatic mucous membranes moist. Breathing unlabored no accessory muscle use good effort. Skin shows no rashes no pallor or icterus. Neuro without focal deficits. Discharge Data Allergies Allergy/AdvReac Type Severity Reaction Status Date / Time No Known Allergies Allergy Verified 12/17/21 23:57 Consultations 04/21/22 10:19 ED Decision to Admit Stat 04/23/22 08:12 Consult Nephrology Routine Ordered Studies 04/21/22 08:33 CT head/brain wo con Stat 04/21/22 08:41 CT abd pelvis wo con Stat Hospital Course (1) Acute kidney injury: Creatinine continues to improvenow down to 3.[address] a/p without obstruction. 2+ protein on repeat u/a over the weekend. Has baseline CKD stage 4 likely on the basis of hypertensive nephrosclerosis per nephrology. ZULEIMA - due to recent viral illness with severe dehydration/prerenal etiology?? Cont supportive care. ZULEIMA is nonoliguric. Hopefully creatinine will continue to improvealthough concern on just overall worsening of CKD with hypertensive mediated damage. Would be safe/stable for home with close outpatient follow-up and blood pressure controlcreatinine continues to improveoutpatient follow-up with serial basic metabolic panel (2) Hypertensive emergency: Resolved. due to social situation and transient homelessness, had run out of medications. Blood pressure control slowly improving. With creatinine, would hold off on diuretics/ACEs/ARB's for now. Continue to follow as outpatient (3) Hypertensive kidney disease with CKD stage IV: ZULEIMA on CKD stage 4 - as above Suspected previous baseline creatinine 2.62.9, But hard to tell if it worsened from uncontrolled hypertension stable for homewill need close outpatient follow-up with PCP and nephrology (4) Nausea & vomiting: resolved thought 2nd to viral process (mesenteric adenitis seen on CT a/p at admission) (5) Hypokalemia: repleted resolved (6) Thrombocytopenia: Resolved Lowest platelet count was 75 now normal Suspect secondary to viral enteritis?? (7) Bright red blood per rectum: Fecal occult blood positive H/H stable despite recent BRBPR Etiology? Due to recent infectious process given #8 below? Other? Outpatient follow-up with PCP and possibly GI, outpatient CBC in 1 to 2 weeks (8) Mesenteric adenitis: as seen on CT abd/pelvis at time of admission historically this is typically due to a viral process recent stool biofire negative for most bacterial pathogens & some viral pathogens abd pain resolved (9) Plantar fascial fibromatosis of both feet: suspected refer to podiatry post-d/c (10) Proteinuria: see above need for 24-hour urine to quantitate proteinuria? defer to nephrology (11) Morbid obesity with BMI of 45.0-49.9, adult: BMI 43 (12) Tobacco dependence: cont nicoderm patch 14mg/day would benefit from cessation Total Time Total Time Spent Total Time Spent (In Minutes): Less than 30 Discharge Plan Discharge Items Patient Disposition: Home - Self-Care Reason For Visit: HYPERTENSIVE EMERGENCY,N/V Discharge Diagnosis: high blood pressure, chronic kidney disease Activity: Resume your previous activity Non-emergency contact: Primary Care Provider and [employer] Controlled Machine Call non-emergency contact if: you have any medication questions and your symptoms worsen Follow-up/Referrals: Kishan Tubbs PA-C [Primary Care Provider] - 05/04/22 10:30 am Diet: Low Sodium (2gm) Addtl Attending Provider Instructions: high blood pressure -take your medications every day as outlined below -if you're having trouble getting your medicines call your PCP and pediatric urologist for further guidance, possible samples etc -ideally check your blood pressure 1-2x per day and write the numbers down so that you can follow how your trends are chronic kidney disease -the biggest thing to keep this from getting worse will be keeping your blood pressure under control -we'll also want to keep an eye on your numbers with labwork - ideally next check wednesday, then probably weekly for the foreseeable future Pending Studies at Discharge: No Stand-Alone Forms: My [employer], Smoking Cessation Medications and DC Order Prescriptions: New spironolactone 100 mg Tablet 100 mg PO DAILY Qty: 30 0RF clonidine 0.3 mg/24 hr Patch Weekly 1 patch transdermal Q7D Qty: 4 0RF Continued diclofenac sodium [Voltaren Arthritis Pain] 1 % Gel 2 g EXT QID PRN (Reason: pain) Qty: 100 0RF acetaminophen 325 mg Tablet 650 mg PO Q4H PRNQty: 0 0RF hydroxyzine HCl 10 mg Tablet 10 mg PO BID PRN (Reason: anxiety or sleep) Qty: 60 0RF carvedilol 25 mg tablet 25 mg PO BID Qty: 60 0RF sucralfate 100 mg/mL Suspension 1 g PO QID Qty: 1000 0RF amlodipine 10 mg tablet 10 mg PO DAILY Qty: 30 0RF pantoprazole 40 mg Tablet,Delayed Release (Dr/Ec) 40 mg PO BID Qty: 60 0RF ergocalciferol (vitamin D2) 1,250 mcg (50,000 unit) Capsule 50,000 unit PO Q7D Qty: 7 0RF Discontinued clonidine 0.1 mg/24 hr patch weekly 0.1 mg transdermal WK Rx Instructions: CHANGE ON THURSDAYS clonidine 0.2 mg/24 hr patch weekly 0.2 mg transdermal WK Rx Instructions: CHANGES ON THURSDAYS spironolactone 25 mg tablet 25 mg PO DAILY Discharge Orders: Discharge Order (Routine); Ordered 04/29/22 Ordered By: Albert Payan/Other Patient Handouts: Controlling High Blood Pressure, Hypertension and Kidney Disease, Eating Heart-Healthy Foods Admission Data Admit Date/Time: 04/21/22 11:25 Attending Provider: Albert Hartman Admit Provider: Morgan Mendez Primary Care Provider: Kishan Tubbs Other Providers: Morgna Mendez ; Haritha Henry Other Interventions: Discharge Summary Assessment (RN) Last Done: 04/29/22 09:32 Coding Level of Care Code D/C DAY MANAGEMENT <30 MINS Diagnoses Acute kidney injury N17.9 Hypertensive emergency I16.1 Hypertensive kidney disease with CKD stage IV I12.9; N18.4 Nausea & vomiting R11.2 Hypokalemia E87.6 Thrombocytopenia D69.6 Bright red blood per rectum K62.5 Mesenteric adenitis I88.0 Plantar fascial fibromatosis of both feet M72.2 Proteinuria R80.9 Morbid obesity with BMI of 45.0-49.9, adult E66.01; Z68.42 Tobacco dependence F17.200
== END 2022-04-29 10:16 | disposition home or self-care (01) | DRG 683 ==
LOC: ED 08:14 → EDINP 11:25 → SUATTDRO 11:25 → 2W 14:36 → 4W 21:08

== ENCOUNTER 2022-06-16 18:59 | Inpatient (IN) ==
[2022-06-16 21:12] LABS: Basophils # (auto) 0.06 K/uL (0-0.2); Basophils % (auto) 0.5 %; Eosinophils # (auto) 0.11 K/uL (0-0.50); Eosinophils % (auto) 0.9 %; Hematocrit (blood only) 39.3 % (34.1-44.9); Hemoglobin 13.5 g/dl (12.0-16.0); Immature Granulocytes # (auto) 0.04 K/uL (0.00-0.02); Immature Granulocytes % (auto) 0.3 %; Lymphocytes # (auto) 0.95 K/uL (1.2-3.4); Lymphocytes % (auto) 7.9 %; Mean Corpuscular Hemoglobin 28.6 pg (25.0-34.0); Mean Corpuscular Hgb Conc 34.4 g/dL (32.0-36.0); Mean Corpuscular Volume 83.3 fL (80.0-100.0); Mean Platelet Volume 9.1 fL (9.4-12.3); Monocytes # (auto) 0.84 K/uL (0.24-0.82); Neutrophils # (auto) 10.05 K/uL (1.4-6.5); Neutrophils % (auto) 83.4 %; Platelet Count 313 K/uL (130-400); RDW Coefficient of Variation 12.7 % (11.5-14.5); RDW Standard Deviation 38.4 fL (36.4-46.3); Red Blood Count 4.72 M/uL (3.93-5.22); White Blood Count 12.05 K/ul (4.8-10.8)
[2022-06-16 21:18] LABS: Appearance Urine Clear (Clear); Bacteria Urine Automated Negative (Negative); Bilirubin Urine Negative (Negative); Blood Urine Negative (Negative); Cast Urine Automated 0 /lpf (0-5); Color Urine Yellow; Epithelial Cell Urine Auto >30 /lpf (0-5); Glucose Urine UA Negative (Negative); Ketones Urine Negative (Negative); Leukocyte Esterase Urine Negative (Negative); Nitrite Urine Negative (Negative); Protein Urine 2+ (Negative); RBC Urine Automated 0-4 /hpf (0-4); Specific Gravity Urine 1.013 (1.000-1.030); Urobilinogen Urine Negative (Negative)
[2022-06-16 22:03] LABS: Alanine Aminotransferase 165 U/L (7-52); Albumin Globulin Ratio 1.2 (0.9-2); Albumin Level 4.1 gm/dl (3.4-5.0); Alkaline Phosphatase 169 U/L (34-104); Anion Gap 7 (3-11); Aspartate Aminotransferase 304 U/L (13-39); BUN Creatinine Ratio 14.2 (10-20); Bilirubin,Total 0.9 mg/dl (0.2-1.0); Blood Urea Nitrogen 42 mg/dl (6-23); Calcium 9.5 mg/dl (8.5-10.1); Carbon Dioxide 21 mmol/L (21-32); Chloride 105 mmol/L (98-107); Est GFR (African American) 23.7 ml/min; Est GFR (Non-African American) 20.4 ml/min; Globulin 3.3 gm/dl (2.5-4.0); Glucose 102 mg/dl (70-99(Fasting)); Lipase 58 U/L (11-82); Potassium 6.4 mmol/L (3.5-5.1); Sodium 133 mmol/L (136-145); Total Protein 7.4 gm/dl (6.0-8.3)
[2022-06-16] MEDS ORDERED: SODIUM CHLORIDE 0.9% 1000ML 1,000 ML IV ONE (22:37)
--- NOTE | 2022-06-16 22:52 | Emergency Department Note ---
Impression & Plan Abdominal pain, Chronic kidney disease, Acute hyperkalemia, Abnormal LFTs ED Provider Note NAME: AARON CHAUHAN AGE: 31 SEX: F : 1990 ARRIVES VIA: Ambulance INFORMANT: Patient, ED PROVIDER(S): Yadiel Calvin DO CHIEF COMPLAINT: Abdominal pain HPI: The patient is a 31-year-old female who presented to the emergency department for evaluation of abdominal pain. She has a history of end-stage renal disease but is currently not on dialysis. She has noticed that her abdomen appears to be distended and she has a tightness across her entire abdomen. She denies having any vomiting. She has had dysuria and frequency. She denies have any specific back pain. She is had no fever. The patient denies having any black or bloody bowel moods. She states her pain is moderate. She called 911 and arrived via ambulance but was taken directly to the waiting room and only recently returned to a room. ROS: See above HPI for pertinent positives & negatives. A total of 10 systems reviewed and were otherwise negative. PAST MEDICAL HISTORY: See Below PAST SURGICAL HISTORY: See Below FAMILY HISTORY: See Below SOCIAL HISTORY: See Below HOME MEDICATIONS: See Below ALLERGIES: See Below VITALS: See Below PHYSICAL EXAMINATION: GENERAL: Patient is awake alert in no acute distress patient is resting comfortably and showing no signs of anxiety EYES: The conjunctivae are injected bilaterally. Pupils are round and reactive. EARS, NOSE, MOUTH AND THROAT: The nose is without any evidence of any deformity. Mucous membranes are dry. NECK: The neck is nontender and supple. RESPIRATORY: Normal respiratory effort is noted there is no evidence of wheezing rhonchi or rales CARDIOVASCULAR: Regular rate and rhythm noted there no murmurs rubs or gallops normal S1 normal S2. GASTROINTESTINAL: The abdomen is soft and moderately distended. There is no guarding rigidity appreciated. MUSCULOSKELETAL/EXTREMITIES: There is no evidence of gross deformity full range of motion is noted in the hips and shoulders. SKIN: Skin was warm and dry. Pedal edema was noted bilaterally. NEUROLOGIC: Patient is awake alert and oriented x3. MEDICAL DECISION MAKING: The patient is a 31-year-old female who presented to the emergency department for an evaluation of abdominal pain. The patient has a history of renal disease. She has been noticing some increased urine output. I discussed patient's laboratory and radiographic studies with her. No definite abnormality was noted on CT of the abdomen and pelvis although reviewing the images with the hospitalist it is possible the patient may require further imaging of her gallbladder given her elevation in her LFTs. For this reason ultrasound was ordered after discussion with the admitting team. The patient was treated with IV fluids as well as IV calcium. She was also treated with insulin and dextrose and a DuoNeb for the hyperkalemia. She had some subtle changes on her EKG that could be consistent with hyperkalemia. Overall she was feeling much better. Triage Nursing notes reviewed. Prior medical records reviewed Vital Signs: reviewed and remarkable for elevated blood pressure. Differential diagnosis: Etiologies such as appendicitis, diverticulitis, obstruction, inflammatory bowel disease, renal colic, PUD, biliary pathology, pancreatitis, mesenteric ischemia, aortic pathology, infections, genitourinary, UTI, perforated viscus, as well as others were entertained. ER treatment provided: See below Diagnostics interpreted by me: ECG: EKG was obtained in the emergency department. My interpretation is sinus bradycardia 51 bpm. There was no ectopy. Peaked T waves were noted. This was compared to a tracing from April 22, 2022. On the previous tracing there was significant ST segment depressions which are resolved compared to today's tracing. Cardiac Monitoring: An order was placed for continuous cardiac monitoring. The monitor shows a rate of 66 bpm with sinus rhythm. Laboratory studies: As stated above and show below. Imaging studies: See below. Radiographic imaging was reviewed by myself Consultation(s): I discussed this case with Dr. Mendoza who is on-call for the [facility] hospitalist group. ED COURSE: Procedures: none Critical Care: I have personally spent greater than 45 minutes of critical care time in the direct management of this patient. This includes bedside care, interpretation of diagnostic studies, and testing, discussion with consultants, patient, and family members, and other required patient management activities. This 45 minutes is in excess of all separately billable procedures. 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 Beliefs That Will Affect Care: None Current Living Situation: Significant Other Current Living Situation Comment: roommate Feels Safe at Home: Yes Assistive Devices: None Allergies Allergies Allergy/AdvReac Type Severity Reaction Status Date / Time No Known Allergies Allergy Verified 06/17/22 00:56 Home Meds Home Medications Medication Instructions Recorded Confirmed acetaminophen 325 mg tablet 650 mg PO Q4H PRN PAIN/FEVER 06/17/22 06/17/22 Previous Rx's Medication Instructions Recorded hydroxyzine HCl 10 mg tablet 10 mg PO BID PRN anxiety or sleep 12/26/21 #60 tabs amlodipine 10 mg tablet 10 mg PO DAILY #30 tabs 04/28/22 carvedilol 25 mg tablet 25 mg PO BID #60 tabs 04/28/22 clonidine 0.3 mg/24 hr weekly 1 patch transdermal Q7D #4 ea 04/28/22 transdermal patch ergocalciferol (vitamin D2) 1,250 50,000 unit PO Q7D #7 caps 04/28/22 mcg (50,000 unit) capsule pantoprazole 40 mg tablet,delayed 40 mg PO BID #60 tabs 04/28/22 release spironolactone 100 mg tablet 100 mg PO DAILY #30 tabs 04/28/22 sucralfate 100 mg/mL oral 1 g (10 mL) PO QID #1,000 mL 04/28/22 suspension Results & Data (ED) Vital Signs Vital Signs - 24 hr 06/16/22 19:14 06/16/22 23:48 06/16/22 23:50 Temperature 36.3 C L Temperature Source Temporal Artery Scan Pulse Rate 60 54 L 55 L Pulse Rate from SpO2 Sensor 54 L 55 L Respiratory Rate 18 18 18 Respiratory Effort / Characteristics Non-Labored Spontaneous Respiratory Depth Normal Blood Pressure Blood Pressure Mean Blood Pressure Position Sitting Pulse Oximetry 96 100 99 Oxygen Delivery Method Room Air Sepsis Recent Fever Within 48 Hours No Sepsis New/Unexplained Change in Mental Status No Sepsis Action Taken by Nursing No Action Required 06/17/22 00:00 06/17/22 00:10 06/17/22 00:20 Temperature Temperature Source Pulse Rate 53 L 50 L 60 Pulse Rate from SpO2 Sensor 54 L 51 L 57 L Respiratory Rate 15 17 18 Respiratory Effort / Characteristics Respiratory Depth Blood Pressure Blood Pressure Mean Blood Pressure Position Pulse Oximetry 100 99 99 Oxygen Delivery Method Sepsis Recent Fever Within 48 Hours Sepsis New/Unexplained Change in Mental Status Sepsis Action Taken by Nursing 06/17/22 00:30 06/17/22 00:40 06/17/22 00:50 Temperature Temperature Source Pulse Rate 57 L 56 L Pulse Rate from SpO2 Sensor 58 L 56 L Respiratory Rate 15 15 Respiratory Effort / Characteristics Respiratory Depth Blood Pressure 168/100 H Blood Pressure Mean 122 Blood Pressure Position Pulse Oximetry 100 100 Oxygen Delivery Method Sepsis Recent Fever Within 48 Hours Sepsis New/Unexplained Change in Mental Status Sepsis Action Taken by Nursing 06/17/22 00:50 06/17/22 01:00 06/17/22 01:00 Temperature Temperature Source Pulse Rate 53 L 50 L Pulse Rate from SpO2 Sensor 52 L 51 L Respiratory Rate 13 12 Respiratory Effort / Characteristics Respiratory Depth Blood Pressure 171/107 H Blood Pressure Mean 128 Blood Pressure Position Pulse Oximetry 100 100 Oxygen Delivery Method Sepsis Recent Fever Within 48 Hours Sepsis New/Unexplained Change in Mental Status Sepsis Action Taken by Nursing 06/17/22 01:10 06/17/22 01:20 06/17/22 01:30 Temperature Temperature Source Pulse Rate 53 L 49 L Pulse Rate from SpO2 Sensor 50 L 50 L Respiratory Rate 15 16 Respiratory Effort / Characteristics Respiratory Depth Blood Pressure 182/102 H Blood Pressure Mean 128 Blood Pressure Position Pulse Oximetry 100 100 Oxygen Delivery Method Sepsis Recent Fever Within 48 Hours Sepsis New/Unexplained Change in Mental Status Sepsis Action Taken by Nursing 06/17/22 01:30 06/17/22 01:40 Temperature Temperature Source Pulse Rate 67 66 Pulse Rate from SpO2 Sensor 65 Respiratory Rate 18 21 Respiratory Effort / Characteristics Respiratory Depth Blood Pressure Blood Pressure Mean Blood Pressure Position Pulse Oximetry 100 Oxygen Delivery Method Sepsis Recent Fever Within 48 Hours Sepsis New/Unexplained Change in Mental Status Sepsis Action Taken by Prison Medications Current Medication List: was personally reviewed by me Laboratory Data Attestation: I reviewed the patient's lab results. 06/16/22 20:50 06/16/22 20:50 Lab Results 01/17/23 01/17/23 01/17/23 Range/Units 20:50 20:50 20:50 WBC 12.05 H (4.8-10.8) K/ul RBC 4.72 (3.93-5.22) M/uL Hgb 13.5 (12.0-16.0) g/dl Hct 39.3 (34.1-44.9) % MCV 83.3 (80.0-100.0) fL MCH 28.6 (25.0-34.0) pg MCHC 34.4 (32.0-36.0) g/dL RDW Std Deviation 38.4 (36.4-46.3) fL RDW Coeff of Erin 12.7 (11.5-14.5) % Plt Count 313 (130-400) K/uL MPV 9.1 L (9.4-12.3) fL Immature Gran % (Auto) 0.3 % Neut % (Auto) 83.4 % Lymph % (Auto) 7.9 % Crisp % (Auto) 7.0 % Eos % (Auto) 0.9 % Baso % (Auto) 0.5 % Neut # (Auto) 10.05 H (1.4-6.5) K/uL Lymph # (Auto) 0.95 L (1.2-3.4) K/uL Crisp # (Auto) 0.84 H (0.24-0.82) K/uL Eos # (Auto) 0.11 (0-0.50) K/uL Baso # (Auto) 0.06 (0-0.2) K/uL Immature Gran # (Auto) 0.04 H (0.00-0.02) K/uL Sodium 133 L (136-145) mmol/L Potassium 6.4 H* (3.5-5.1) mmol/L Chloride 105 (98-107) mmol/L Carbon Dioxide 21 (21-32) mmol/L Anion Gap 7 (3-11) BUN 42 H (6-23) mg/dl Creatinine 2.95 H (0.6-1.2) mg/dl Est Cr Clr Drug Dosing Not Reportable Est GFR ( Amer) 23.7 ml/min Est GFR (Non-Af Amer) 20.4 ml/min BUN/Creatinine Ratio 14.2 (10-20) Glucose 102 H (70-99(Fasting)) mg/dl POC Glucose (70-99) mg/dl Calcium 9.5 (8.5-10.1) mg/dl Total Bilirubin 0.9 (0.2-1.0) mg/dl AST 304 H (13-39) U/L ALT 165 H (7-52) U/L Alkaline Phosphatase 169 H (34-104) U/L Total Creatine Kinase (26-192) U/L Troponin I High Sens 38.9 H (0-14) pg/ml Total Protein 7.4 (6.0-8.3) gm/dl Albumin 4.1 (3.4-5.0) gm/dl Globulin 3.3 (2.5-4.0) gm/dl Albumin/Globulin Ratio 1.2 (0.9-2) Lipase 58 (11-82) U/L Urine Color Yellow Urine Appearance Clear (Clear) Urine pH 7.0 (4.5-7.5) Ur Specific [place] 1.013 (1.000-1.030) Urine Protein 2+ H (Negative) Urine Glucose (UA) Negative (Negative) Urine Ketones Negative (Negative) Urine Blood Negative (Negative) Urine Nitrite Negative (Negative) Urine Bilirubin Negative (Negative) Urine Urobilinogen Negative (Negative) Ur Leukocyte Esterase Negative (Negative) Urine WBC (Auto) 1-5 (0-5) /hpf Urine RBC (Auto) 0-4 (0-4) /hpf U Hyaline Cast (Auto) 0 (0-5) /lpf U Epithel Cells (Auto) >30 H (0-5) /lpf Urine Bacteria (Auto) Negative (Negative) POC Ur Test (NEG) 06/16/22 06/16/22 06/17/22 Range/Units 20:50 20:50 00:10 WBC (4.8-10.8) K/ul RBC (3.93-5.22) M/uL Hgb (12.0-16.0) g/dl Hct (34.1-44.9) % MCV (80.0-100.0) fL MCH (25.0-34.0) pg MCHC (32.0-36.0) g/dL RDW Std Deviation (36.4-46.3) fL RDW Coeff of Erin (11.5-14.5) % Plt Count (130-400) K/uL MPV (9.4-12.3) fL Immature Gran % (Auto) % Neut % (Auto) % Lymph % (Auto) % Crisp % (Auto) % Eos % (Auto) % Baso % (Auto) % Neut # (Auto) (1.4-6.5) K/uL Lymph # (Auto) (1.2-3.4) K/uL Crisp # (Auto) (0.24-0.82) K/uL Eos # (Auto) (0-0.50) K/uL Baso # (Auto) (0-0.2) K/uL Immature Gran # (Auto) (0.00-0.02) K/uL Sodium (136-145) mmol/L Potassium (3.5-5.1) mmol/L Chloride (98-107) mmol/L Carbon Dioxide (21-32) mmol/L Anion Gap (3-11) BUN (6-23) mg/dl Creatinine (0.6-1.2) mg/dl Est Cr Clr Drug Dosing Est GFR ( Amer) ml/min Est GFR (Non-Af Amer) ml/min BUN/Creatinine Ratio (10-20) Glucose (70-99(Fasting)) mg/dl POC Glucose 189 H (70-99) mg/dl Calcium (8.5-10.1) mg/dl Total Bilirubin (0.2-1.0) mg/dl AST (13-39) U/L ALT (7-52) U/L Alkaline Phosphatase (34-104) U/L Total Creatine Kinase 47 (26-192) U/L Troponin I High Sens (0-14) pg/ml Total Protein (6.0-8.3) gm/dl Albumin (3.4-5.0) gm/dl Globulin (2.5-4.0) gm/dl Albumin/Globulin Ratio (0.9-2) Lipase (11-82) U/L Urine Color Urine Appearance (Clear) Urine pH (4.5-7.5) Ur Specific [place] (1.000-1.030) Urine Protein (Negative) Urine Glucose (UA) (Negative) Urine Ketones (Negative) Urine Blood (Negative) Urine Nitrite (Negative) Urine Bilirubin (Negative) Urine Urobilinogen (Negative) Ur Leukocyte Esterase (Negative) Urine WBC (Auto) (0-5) /hpf Urine RBC (Auto) (0-4) /hpf U Hyaline Cast (Auto) (0-5) /lpf U Epithel Cells (Auto) (0-5) /lpf Urine Bacteria (Auto) (Negative) POC Ur Test NEG (NEG) Administered Medications Discontinued Medications Albuterol (Albut/Ipratrop 3mg/0.5mg Neb 3 Ml Vial) 12 ml NEB ONE ONE; Protocol Stop: 06/16/22 23:11 Last Admin: 06/17/22 00:58 Dose: 12 ml Documented By: CICI Dextrose (Dextrose 50% 50 Ml Syringe) 50 ml IV NOW STA Stop: 06/16/22 23:11 Last Admin: 06/16/22 23:58 Dose: 50 ml Documented By: CICI Sodium Chloride (Nss 1000ml) 1,000 mls @ 999 mls/hr IV .Q1H1M ONE Stop: 06/16/22 23:37 Last Admin: 06/16/22 23:44 Dose: 999 mls/hr Documented By: CICI Calcium Chloride 1,000 mg/ (Dextrose) 60 mls @ 240 mls/hr IV NOW STA Stop: 06/16/22 23:24 Last Infusion: 06/17/22 00:27 Dose: 0 mls/hr Documented By: Admin: 06/16/22 23:57 Dose: 240 mls/hr Documented By: CICI Insulin Human Regular (Novolin-R Insulin Per Unit Charge) 10 units IV NOW STA Stop: 06/16/22 23:11 Last Admin: 06/16/22 23:58 Dose: 10 units Documented By: CICI Co-signed By: SHAHEED Imaging Data Radiologist's Impression: Chest X-Ray 06/16/22 22:37 SINGLE VIEW CHEST CLINICAL HISTORY: Atypical chest pain. FINDINGS: An AP, portable, upright chest radiograph is compared to study dated 12/17/2021. The cardiomediastinal silhouette is top normal for projection. The lungs and pleural spaces are clear. No pneumothorax is seen. The bony thorax is grossly intact. IMPRESSION: No active disease in the chest. ACT 112: Negative or not required by law. Electronically signed by: Josef Saldana M.D. 06/16/2022 11:03 PM Patient: AARON CHAUHAN (Female) : 89 Status: ER Date: 06/16/22 23:24 Room #: History: PT. REPORTS DIFFUSE ABDOMINAL PAIN APPEDIX PRESENT PT. DENIES CHANCE OF Slices: [phone] Priors: Tech: Preethi Dietz @ [phone] Exams: CT ABDOMEN & PELVIS Without Contrast Contrast: Accession Numbers: [id number] Referring Physician: SCOTTY^YADIEL^R Preliminary Findings Only See Final Report For Complete Findings CT ABDOMEN & PELVIS Without Contrast: Solid abdominal organs are unremarkable. No free air or intestinal obstruction. Right ovarian cyst versus follicle. Radiologist: Albert Gordon MD Study ready at 23:33 and initial results transmitted at 23:45 Discharge Plan Visit Data Chief Complaint: Abdominal Pain Stated Complaint: AB PAIN ED Provider: Yadiel Calvin Discharge Problem: Abdominal pain, Chronic kidney disease, Acute hyperkalemia, Abnormal LFTs Patient Disposition: Being Evaluated by Hospitalist Forms Stand Al[facility] Prescriptions Prescriptions: No Action hydroxyzine HCl 10 mg Tablet 10 mg PO BID PRN (Reason: anxiety or sleep) Qty: 60 0RF spironolactone 100 mg Tablet 100 mg PO DAILY Qty: 30 0RF clonidine 0.3 mg/24 hr Patch Weekly 1 patch transdermal Q7D Qty: 4 0RF Rx Instructions: CHANGES ON WEDNESDAYS carvedilol 25 mg tablet 25 mg PO BID Qty: 60 0RF sucralfate 100 mg/mL Suspension 1 g PO QID Qty: 1000 0RF amlodipine 10 mg tablet 10 mg PO DAILY Qty: 30 0RF pantoprazole 40 mg Tablet,Delayed Release (Dr/Ec) 40 mg PO BID Qty: 60 0RF ergocalciferol (vitamin D2) 1,250 mcg (50,000 unit) Capsule 50,000 unit PO Q7D Qty: 7 0RF Rx Instructions: TAKES ON WEDNESDAYS acetaminophen 325 mg tablet 650 mg PO Q4H PRN (Reason: PAIN/FEVER) Referrals Referrals: Kishan Tubbs PA-C [Primary Care Provider] -
--- NOTE | 2022-06-16 23:05 | XRay Report ---
SINGLE VIEW CHEST CLINICAL HISTORY: Atypical chest pain. FINDINGS: An AP, portable, upright chest radiograph is compared to study dated 12/17/2021. The cardiom ediastinal silhouette is top normal for projection. The lungs and pleural spaces are clear. No pneumo thorax is seen. The bony thorax is grossly intact. IMPRESSION: No active disease in the chest. ACT 112: Negative or not required by law. Electronically signed by: Josef Saldana M.D. 06/16/2022 11:03 PM
[2022-06-16] MEDS ORDERED: ALBUT/IPRATROP 3MG/0.5MG NEB 3 ML VIAL NEB ONE (23:10)
[2022-06-16] MEDS ORDERED: CALCIUM CHLORIDE 10% 1,000 MG in DEXTROSE 5% 50 ML IV STA (23:10)
[2022-06-16] MEDS ORDERED: DEXTROSE 50% 50 ML SYRINGE IV STA (23:10)
[2022-06-16] MEDS ORDERED: NovoLIN-R INSULIN PER UNIT CHARGE IV STA (23:10)
[2022-06-16 23:45] LABS: Troponin I High Sensitivity 38.9 pg/ml (0-14)
--- NOTE | 2022-06-17 01:47 | History & Physical Report ---
Date of Service June 17, 2022 Assessment & Plan (1) Abdominal pain: (2) Abnormal LFTs: (3) Acute hyperkalemia: (4) Chronic kidney disease, stage 4 (severe): (5) Tobacco dependence: (6) Morbid obesity with BMI of 45.0-49.9, adult: (7) Hypertensive kidney disease with CKD stage IV: (8) Thrombocytopenia: (9) Elevated troponin: Plan Hyperkalemia/CKD stage IV- Likely secondary to decreased potassium excretion through the kidneys associated with relative dehydration From the ED the patient received the followin mils of dextrose 50% solution, regular insulin 10 units IV, calcium chloride 1 g IV, hour-long DuoNeb, and NSS x1 L Follow-up potassium ordered and pending N.p.o. except essential medications Continue NSS at 100 mils per hour Serial laboratories every morning Hold spironolactone as potential cause of hyperkalemia Consult nephrology Elevated troponin- Troponin 38.9 on admission with repeat lab pending The patient will be admitted to telemetry for serial cardiac enzymes, serial EKG's, cardiac rhythm monitoring Troponins from 04/21-04/22/2022 range from 136.7 to a peak of 378.4 to 255.6 upon discharge. Most recent echo on 04/21/2022 with ejection fraction greater than 70% Continue amlodipine, carvedilol, clonidine patch. Hold spironolactone due to hyperkalemia Abdominal pain/abnormal LFTs- AST 304, ALT [address] scan of abdomen and pelvis negative Ultrasound of abdomen has been ordered and pending Patient reports that she had a HIDA scan a few months ago, and was told that she is to have her gallbladder out, but became too busy to follow-up with surgery Follow-up ultrasound and laboratories ordered and pending GERD- Continue pantoprazole 40 mg p.o. twice daily History of Present Illness Chief Complaint: The patient presents to the emergency department with complaint of abdominal pain centered in the epigastrium, but present to both side, occasionally accompanied by nausea without vomiting Primary Care Provider: Kishan Tubbs PA-C The patient is a 31-year-old female with a past medical history including CKD stage IV, anemia due to chronic disease, tobacco dependence, morbid obesity, proteinuria, plantar fascial fibromatosis of both feet, mesenteric adenitis, bright red blood per rectum, hypertensive urgency, thrombocytopenia, vitamin D deficiency, hypertensive emergency, history of COVID-19, and adrenal abnormality. Patient was admitted for abdominal pain from 04/21-04/29/2022, and was diagnosed with mesenteric adenitis at that time. She reports that she has been told in the past that she had an issue with her gallbladder and was going to schedule a follow-up appointment to have surgery, but became busy. She denies any recent change in diet, stool pattern, liquid intake. She denies any recent travels or sick exposures. Allergies Allergy/AdvReac Type Severity Reaction Status Date / Time No Known Allergies Allergy Verified 06/17/22 00:56 Home Medications Medication Instructions Recorded Confirmed Type hydroxyzine HCl 10 mg tablet 10 mg PO BID PRN anxiety or sleep 12/26/21 06/17/22 Rx #60 tabs amlodipine 10 mg tablet 10 mg PO DAILY #30 tabs 04/28/22 06/17/22 Rx carvedilol 25 mg tablet 25 mg PO BID #60 tabs 04/28/22 06/17/22 Rx clonidine 0.3 mg/24 hr weekly 1 patch transdermal Q7D #4 ea 04/28/22 06/17/22 Rx transdermal patch ergocalciferol (vitamin D2) 1,250 50,000 unit PO Q7D #7 caps 04/28/22 06/17/22 Rx mcg (50,000 unit) capsule pantoprazole 40 mg tablet,delayed 40 mg PO BID #60 tabs 04/28/22 06/17/22 Rx release spironolactone 100 mg tablet 100 mg PO DAILY #30 tabs 04/28/22 06/17/22 Rx sucralfate 100 mg/mL oral 1 g (10 mL) PO QID #1,000 mL 04/28/22 06/17/22 Rx suspension acetaminophen 325 mg tablet 650 mg PO Q4H PRN PAIN/FEVER 06/17/22 06/17/22 History Past Med/Surg History Medical History Anemia due to chronic kidney disease Chronic kidney disease Chronic kidney disease, stage 4 (severe) Hypertensive kidney disease with CKD stage IV Hypertensive urgency Family History Denies family history of Crohn's disease Colorectal cancer Ulcerative colitis Social History Smoking Status: Current every day smoker Tobacco Type: Cigarettes Cigarettes Per Day: 5; Second Hand Exposure: Yes; Hx Alcohol Use: No Hx Substance Use: No Preferred Language: Lao Communication Ability: Effective Superintendent Greens Required: No Beliefs That Will Affect Care: None Current Living Situation: Significant Other Current Living Situation Comment: roommate Feels Safe at Home: Yes Assistive Devices: None Review of Systems Review of Systems: The patient denies chest pain, palpitations, shortness of breath, dyspnea on exertion, cough, lower extremity swelling, sore throat, fevers, chills, sweats, vomiting, blood in urine or stool, dysuria, urinary frequency or urgency, lightheadedness, dizziness, headache, memory loss, loss of consciousness, rash, abnormal bruising or bleeding, imbalance, focal or generalized weakness, numbness or tingling in arms or legs, generalized arthralgias or myalgias, back or neck pain, or night sweats. The review of systems is otherwise negative other than for that already noted above, and at least 10 systems have been reviewed. Physical Exam Physical Exam: The patient is awake, alert and oriented 3, well developed and well nourished, normocephalic and atraumatic, lying in bed and in no acute distress. HEENT--PERRL, EOMI, mucous membranes and oropharynx dry. Neck--supple. No JVD. No bruits. Thyroid normal, trachea midline, no adenopathy. Heart--normal S1 and S2. No murmurs, rubs or gallops. Lungs--clear bilaterally, no respiratory distress, no accessory muscle use. Abdomen--normal bowel sounds and soft. Tenderness epigastrium and bilaterally on palpation. Nondistended, no hernias or masses, no organomegaly. Morbidly obese Extremities--no cyanosis or clubbing. No edema. Dermatologic--normal skin turgor, normal color, no abnormal lymph nodes, no rash. Neurologic--cranial nerves II through XII grossly intact. Rheumatologic--normal range of motion. Psychiatric--normal affect. Results & Data Results & Data ([facility]) Vital Signs (Past 12 Hours) Vital Signs Temp Pulse Resp Pulse Ox O2 Del Method 06/16/22 19:14 36.3 C L 60 18 96 Room Air Laboratory Results Laboratory Results WBC 12.05 K/ul (4.8-10.8) H 06/16/22 20:50 RBC 4.72 M/uL (3.93-5.22) 06/16/22 20:50 Hgb 13.5 g/dl (12.0-16.0) 06/16/22 20:50 Hct 39.3 % (34.1-44.9) 06/16/22 20:50 MCV 83.3 fL (80.0-100.0) 06/16/22 20:50 MCH 28.6 pg (25.0-34.0) 06/16/22 20:50 MCHC 34.4 g/dL (32.0-36.0) 06/16/22 20:50 RDW Std Deviation 38.4 fL (36.4-46.3) 06/16/22 20:50 RDW Coeff of Erin 12.7 % (11.5-14.5) 06/16/22 20:50 Plt Count 313 K/uL (130-400) 06/16/22 20:50 MPV 9.1 fL (9.4-12.3) L 06/16/22 20:50 Immature Gran % (Auto) 0.3 % 06/16/22 20:50 Neut % (Auto) 83.4 % 06/16/22 20:50 Lymph % (Auto) 7.9 % 06/16/22 20:50 [place] % (Auto) 7.0 % 06/16/22 20:50 Eos % (Auto) 0.9 % 06/16/22 20:50 Baso % (Auto) 0.5 % 06/16/22 20:50 Neut # (Auto) 10.05 K/uL (1.4-6.5) H 06/16/22 20:50 Lymph # (Auto) 0.95 K/uL (1.2-3.4) L 06/16/22 20:50 [place] # (Auto) 0.84 K/uL (0.24-0.82) H 06/16/22 20:50 Eos # (Auto) 0.11 K/uL (0-0.50) 06/16/22 20:50 Baso # (Auto) 0.06 K/uL (0-0.2) 06/16/22 20:50 Immature Gran # (Auto) 0.04 K/uL (0.00-0.02) H 06/16/22 20:50 Sodium 133 mmol/L (136-145) L 06/16/22 20:50 Potassium 6.4 mmol/L (3.5-5.1) H* 06/16/22 20:50 Chloride 105 mmol/L (98-107) 06/16/22 20:50 Carbon Dioxide 21 mmol/L (21-32) 06/16/22 20:50 Anion Gap 7 (3-11) 06/16/22 20:50 BUN 42 mg/dl (6-23) H 06/16/22 20:50 Creatinine 2.95 mg/dl (0.6-1.2) H 06/16/22 20:50 Est Cr Clr Drug Dosing Not Reportable 06/16/22 20:50 Est GFR ( Amer) 23.7 ml/min 06/16/22 20:50 Est GFR (Non-Af Amer) 20.4 ml/min 06/16/22 20:50 BUN/Creatinine Ratio 14.2 (10-20) 06/16/22 20:50 Glucose 102 mg/dl (70-99(Fasting)) H 06/16/22 20:50 POC Glucose 189 mg/dl (70-99) H 06/17/22 00:10 Calcium 9.5 mg/dl (8.5-10.1) 06/16/22 20:50 Total Bilirubin 0.9 mg/dl (0.2-1.0) 06/16/22 20:50 AST 304 U/L (13-39) H 06/16/22 20:50 ALT 165 U/L (7-52) H 06/16/22 20:50 Alkaline Phosphatase 169 U/L (34-104) H 06/16/22 20:50 Total Creatine Kinase 47 U/L (26-192) 06/16/22 20:50 Troponin I High Sens 38.9 pg/ml (0-14) H 06/16/22 20:50 Total Protein 7.4 gm/dl (6.0-8.3) 06/16/22 20:50 Albumin 4.1 gm/dl (3.4-5.0) 06/16/22 20:50 Globulin 3.3 gm/dl (2.5-4.0) 06/16/22 20:50 Albumin/Globulin Ratio 1.2 (0.9-2) 06/16/22 20:50 Lipase 58 U/L (11-82) 06/16/22 20:50 Urine Color Yellow 06/16/22 20:50 Urine Appearance Clear (Clear) 06/16/22 20:50 Urine pH 7.0 (4.5-7.5) 06/16/22 20:50 Ur Specific [place] 1.013 (1.000-1.030) 06/16/22 20:50 Urine Protein 2+ (Negative) H 06/16/22 20:50 Urine Glucose (UA) Negative (Negative) 06/16/22 20:50 Urine Ketones Negative (Negative) 06/16/22 20:50 Urine Blood Negative (Negative) 06/16/22 20:50 Urine Nitrite Negative (Negative) 06/16/22 20:50 Urine Bilirubin Negative (Negative) 06/16/22 20:50 Urine Urobilinogen Negative (Negative) 06/16/22 20:50 Ur Leukocyte Esterase Negative (Negative) 06/16/22 20:50 Urine WBC (Auto) 1-5 /hpf (0-5) 06/16/22 20:50 Urine RBC (Auto) 0-4 /hpf (0-4) 06/16/22 20:50 U Hyaline Cast (Auto) 0 /lpf (0-5) 06/16/22 20:50 U Epithel Cells (Auto) >30 /lpf (0-5) H 06/16/22 20:50 Urine Bacteria (Auto) Negative (Negative) 06/16/22 20:50 POC Ur Test NEG (NEG) 06/16/22 20:50 SARS-CoV-2, RNA, NAAT NEGATIVE (NEGATIVE) 06/17/22 01:42 Impressions Chest X-Ray 06/16/22 22:37 SINGLE VIEW CHEST CLINICAL HISTORY: Atypical chest pain. FINDINGS: An AP, portable, upright chest radiograph is compared to study dated 12/17/2021. The cardiomediastinal silhouette is top normal for projection. The lungs and pleural spaces are clear. No pneumothorax is seen. The bony thorax is grossly intact. IMPRESSION: No active disease in the chest. ACT 112: Negative or not required by law. Electronically signed by: Josef Saldana M.D. 06/16/2022 11:[address] [facility] Patient: ASHISH MARRERO (Female) : [birth year] Status: ER Date: 06/16/22 23:27 Room #: C9 History: injected 7cc gadavist through existing iv back of rt hand uneventful at 2305. egfr 38.6 status post left parietal craniotomy. RUE weakness. hx of previous stroke. Slices: 498 Priors: cat scan head Tech: DaniaChris @ [phone] Exams: MRI HEAD W/WO Contrast Contrast: IV Amt: 7cc gadavist Accession Numbers: [id number] Referring Physician: [facility] Preliminary Findings Only See Final Report For Complete Findings MRI HEAD W/WO Contrast: Compared to CT head 06/16/2022. Redemonstrated left parietal craniotomy defect. Redemonstrated convex appearing extra-axial fluid collection underlying the craniotomy flap at the posterior aspect left parietal lobe 3.5 x 1.3 cm. Signal intensity is most consistent with acute extra-axial hemorrhage. Redemonstrated small signal void consistent with gas bubble. Mild effacement of the underlying brain parenchyma without edema or mass-effect on the ventricles. Mild irregular enhancement of the underlying brain parenchyma. Recommend correlation with preoperative studies to assess interval change. Mild diffuse leptomeningeal enhancement/thickening. Irregularly peripherally enhancing lesion in the left cerebral peduncle approximately 1.5 x 1.1 x 1 cm without mass-effect. Although there is hyperintensity on precontrast T1-weighted images within the lesion, there is no evidence for blood products on gradient images. Considerations include a subacute infarct, neoplasm including a partially treated mass. 6 mm signal void on gradient images at the anterior aspect of the right middle cranial fossa without definite enhancement postcontrast, consistent with the densely calcified lesion seen on CT, possibly a small meningioma No evidence for an acute stroke. Redemonstrated old right basal ganglia and caudate lacunar infarct. Non-specific white matter changes, most commonly seen with small vessel disease. No hydrocephalus. No midline shift. Basilar cisterns are intact. Radiologist: Hunter Ortega M.D. Study ready at 23:39 and initial results transmitted at 23:55 *This report constitutes a preliminary interpretation only. Non-acute findings felt to be unrelated to the clinical presentation may not be discussed in this report. The study will be interpreted and a final report will be generated by the local Radiologist the following shift. To reach the [facility] radiology department call [phone]. If a discrepancy is found between the preliminary and final interpretations of this study, please notify us via our Client Portal at [email or web address], under QA Exams. You can also fax this report with a description of the discrepancy, or include the final report, to our daytime fax number [phone]. If faxing, please indicate the severity of discrepancy using one of the following categories: [ ] 1 - Agree/Informational [ ] 2 - Unlikely to Affect Management [ ] 3 - Possible Eventual Change of Management [ ] 4 - Probable Immediate Change of Management Code Status & VTE Plan Code Status Full code VTE Prophylaxis Plan VTE Prophylaxis will be ordered: Yes PG Care Time/CCT Total # of Minutes Spent Total Time Spent with Patient: Total time spent is greater than 50% in coordination of care (as documented) at patient's floor/unit and/or counseling patient: Coding Level of Care Code 21446 INT INP/OBS CARE MIN Diagnoses Abdominal pain R10.84 Abdominal location: generalized Abnormal LFTs R79.89 Acute hyperkalemia E87.5 Chronic kidney disease, stage 4 (severe) N18.4 Tobacco dependence F17.200 Morbid obesity with BMI of 45.0-49.9, adult E66.01; Z68.42 Hypertensive kidney disease with CKD stage IV I12.9; N18.4 Thrombocytopenia D69.6 Elevated troponin R77.8 (1) Abdominal pain Abdominal location: generalized Qualified Code(s): R10.84 - Generalized abdominal pain
[2022-06-17] MEDS ORDERED: hydrOXYzine HCl 10 MG TAB PO PRN (02:57)
[2022-06-17] MEDS ORDERED: ONDANSETRON INJ 2 MG/ML 2 ML VIAL IV PRN (02:57)
[2022-06-17] MEDS: SODIUM CHLORIDE 0.9% 1000ML 1,000 ML IV SCH ×2 (03:00→15:56)
[2022-06-17 04:14] LABS: Basophils # (auto) 0.05 K/uL (0-0.2); Basophils % (auto) 0.6 %; Eosinophils # (auto) 0.14 K/uL (0-0.50); Eosinophils % (auto) 1.6 %; Hematocrit (blood only) 37.2 % (34.1-44.9); Hemoglobin 12.7 g/dl (12.0-16.0); Immature Granulocytes # (auto) 0.03 K/uL (0.00-0.02); Immature Granulocytes % (auto) 0.3 %; Lymphocytes # (auto) 1.59 K/uL (1.2-3.4); Lymphocytes % (auto) 18.3 %; Mean Corpuscular Hemoglobin 28.6 pg (25.0-34.0); Mean Corpuscular Hgb Conc 34.1 g/dL (32.0-36.0); Mean Corpuscular Volume 83.8 fL (80.0-100.0); Mean Platelet Volume 9.2 fL (9.4-12.3); Monocytes # (auto) 0.81 K/uL (0.24-0.82); Monocytes % (auto) 9.3 %; Neutrophils # (auto) 6.06 K/uL (1.4-6.5); Neutrophils % (auto) 69.9 %; Platelet Count 290 K/uL (130-400); RDW Coefficient of Variation 12.6 % (11.5-14.5); Red Blood Count 4.44 M/uL (3.93-5.22); White Blood Count 8.68 K/ul (4.8-10.8)
[2022-06-17 04:44] LABS: Troponin I High Sensitivity 29.8 pg/ml (0-14)
[2022-06-17 04:52] LABS: Albumin Globulin Ratio 1.2 (0.9-2); Albumin Level 3.7 gm/dl (3.4-5.0); BUN Creatinine Ratio 13.6 (10-20); Bilirubin,Total 1.2 mg/dl (0.2-1.0); Calcium 9.4 mg/dl (8.5-10.1); Creatinine Clr Calc Pharmacy 45.6 ml/min; Est GFR (African American) 24.6 ml/min; Est GFR (Non-African American) 21.2 ml/min; Potassium 4.8 mmol/L (3.5-5.1); Total Protein 6.7 gm/dl (6.0-8.3)
--- NOTE | 2022-06-17 04:52 | Surgery Consultation ---
Date of Consultation June 17, 2022 Assessment & Plan (1) Acute cholecystitis: The patient has been admitted on the hospitalist service. We recommend proceeding as follows: It appears as though the patient is suffering from acute cholecystitis and would benefit from a cholecystectomy Would keep patient n.p.o. for the present time Provide hydration with IV fluids Provide analgesics Provide antiemetics Patient was noted to have elevated LFTs. Serial labs are to be followed. Patient is noted to have worsening of LFTs GI consult may be indicated Antibiotics in the form of Zosyn have been initiated I discussed the case with the admitting service. Due to patient's history of elevated troponins they are planning on trending her her troponins and considering obtaining a cardiology consultation for preoperative clearance The primary service is also consulted nephrology due to patient's hyperkalemia and chronic kidney disease. I have discussed with the medical service to see if patient be medically optimized for surgery and I feel that this will be pending input from cardiology and nephrology. We will continue to follow along with tentative plans for cholecystectomy once medically optimized/cleared Supervising Physician Co-Signing Physician Notes I personally saw and evaluated the patient with Cole Malloy PA-C and agree with the assessment and plan. 31-year-old female with acute cholecystitis, elevated troponins, stage IV kidney disease Her ultrasound and CAT scan images and results were personally viewed by myself, she does have gallstones and some gallbladder wall thickening as well as right upper quadrant pain consistent with cholecystitis She was hyperkalemic and had acute on chronic renal failure upon admission She would need to be cleared medically prior to proceeding with cholecystectomy We will tentatively plan on laparoscopic cholecystectomy, possible open tomorrow pending her progress Will follow History of Present Illness Reason for Consultation: Cholecystitis Attending Physician: Sharan Mendoza MD History of Present Illness This is a 31-year-old female who presented to the emergency department secondary to abdominal pain. The patient noted over the proximate past 24 hours her abdo men appeared to be more distended and she described abdominal pain across her entire abdomen but this appeared to be worse in the right upper quadrant. She denies any nausea or vomiting. She denies any radiation or modifying factors of the pain. She denies any fevers, shakes, or chills. She denies any prior abdominal surgeries. The patient believes in the past she was told that she had issues with her gallbladder and was planning on following up with general surgery but became too busy and this was never accomplished. It is noteworthy to mention that the patient denies any chest pain but was noted to have an elevated troponin. She also has stage IV chronic kidney disease but is not currently on dialysis. It is noteworthy to mention that the patient was admitted to the hospital in 2021. CT scan at that time showed findings consistent with mesenteric adenitis. Patient's previous imaging was reviewed and she did have a liver ultrasound in November 2021 that showed a distended gallbladder with gallstones. There is no pericholecystic fluid or gallbladder wall thickening at that time. In November 2021 the patient did undergo a HIDA scan which was negative for acute cholecystitis. Labs and imaging were performed upon arrival to the emergency department which independently reviewed. Chest x-ray showed no evidence of pneumonia. Patient did undergo a CT scan of the abdomen and pelvis. This study showed no evidence of free air or bowel obstruction. There is no evidence of any pathology of the solid organs of the abdomen. An abdominal ultrasound was performed which showed gallstones with gallbladder wall thickening felt to be consistent with acute cholecystitis. Initial labs were performed were CBC revealed white blood cell count was 12.0. Hemoglobin, hematocrit, platelet count were normal. CBC was subsequently repeated where her white blood cell count had normalized. Her hemoglobin, hematocrit, and platelet count remain normal. Initial chemistry profile was performed that showed sodium and potassium are 133 and 6.4. Her BUN and creatinine were 42 and 2.9. Chemistry profile showed bilirubin was within the normal range. She had elevated LFTs with an AST of 304 and an ALT of 165. Her alkaline phosphatase was 169. Troponin was elevated at 38.9. A repeat troponin was repeated performed which was decreased to 29.8. Lipase was nonelevated. Urinalysis was negative for infection. A test was negative. A COVID test was pending. Due to the patient's hyperkalemia she did receive 1000 mg of calcium chloride, a DuoNeb treatment, and 10 units of intravenous insulin. A repeat chemistry profile was pending for further assessment. At the time of my interview the patient was resting comfortably in bed and her pain had improved. Allergies Allergy/AdvReac Type Severity Reaction Status Date / Time No Known Allergies Allergy Verified 06/17/22 00:56 Home Medications Medication Instructions Recorded Confirmed Type hydroxyzine HCl 10 mg tablet 10 mg PO BID PRN anxiety or sleep 12/26/21 06/17/22 Rx #60 tabs amlodipine 10 mg tablet 10 mg PO DAILY #30 tabs 04/28/22 06/17/22 Rx carvedilol 25 mg tablet 25 mg PO BID #60 tabs 04/28/22 06/17/22 Rx clonidine 0.3 mg/24 hr weekly 1 patch transdermal Q7D #4 ea 04/28/22 06/17/22 Rx transdermal patch ergocalciferol (vitamin D2) 1,250 50,000 unit PO Q7D #7 caps 04/28/22 06/17/22 Rx mcg (50,000 unit) capsule pantoprazole 40 mg tablet,delayed 40 mg PO BID #60 tabs 04/28/22 06/17/22 Rx release spironolactone 100 mg tablet 100 mg PO DAILY #30 tabs 04/28/22 06/17/22 Rx sucralfate 100 mg/mL oral 1 g (10 mL) PO QID #1,000 mL 04/28/22 06/17/22 Rx suspension acetaminophen 325 mg tablet 650 mg PO Q4H PRN PAIN/FEVER 06/17/22 06/17/22 History Patient History Medical History Anemia due to chronic kidney disease Chronic kidney disease Chronic kidney disease, stage 4 (severe) Hypertensive kidney disease with CKD stage IV Hypertensive urgency Family History Denies family history of Crohn's disease Colorectal cancer Ulcerative colitis Social History Smoking Status: Current every day smoker Tobacco Type: Cigarettes Cigarettes Per Day: 5; Second Hand Exposure: No; Do You Dip or Chew Tobacco: No; Tobacco Cessation Education Requested by Patient: No Hx Alcohol Use: No Hx Substance Use: No Preferred Language: Algerian Communication Ability: Effective Wedding Consultant Required: No Beliefs That Will Affect Care: None Current Living Situation: Alone Current Living Situation Comment: Lives alone, partner frequently visits Other Information That Helps Us Care for You: No Feels Safe at Home: Yes Safety Concerns: Feels Safe At This Time Assistive Devices: None Review of Systems Constitutional: no fever and no chills Eyes: no eye pain Ear, Nose, Mouth, Throat: no ear pain Respiratory: no cough Cardiovascular: no chest pain Gastrointestinal: as per Subjective / HPI Genitourinary: no dysuria Musculoskeletal: no back pain Integumentary: no rash Neurologic: no localized weakness Physical Exam Constitutional: + obese; no acute distress Eyes: + anicteric sclerae ENMT: Ears: no hearing impairment Neck: trachea midline Respiratory: normal respiratory effort; no respiratory distress and no labored breathing Cardiovascular: Rate/Rhythm: regular rate and regular rhythm Gastrointestinal (Abdomen): Abdomen is rotund and nonrigid. It is nondistended. There is no rebound tenderness or guarding. With deep palpation in the right upper quadrant the patient did experience pain. Musculoskeletal: No calf tenderness Skin: no rashes Neurologic: moves all extremities Psychiatric: Orientation: alert and oriented x 3 Affect: + flat affect Results & Data ([facility]) Vital Signs (Past 12 Hours) Vital Signs Temp Pulse Pulse Resp BP BP Pulse Ox 06/17/22 04:10 54 L 18 178/101 H 97 06/17/22 02:57 06/17/22 02:20 52 L 15 99 06/17/22 02:14 155/93 H 06/17/22 02:14 53 L 13 97 06/17/22 02:10 56 L 16 100 06/17/22 02:00 53 L 18 99 06/17/22 02:00 171/90 H 06/17/22 01:56 169/96 H 06/17/22 01:56 53 L 16 99 06/17/22 01:50 50 L 19 99 06/17/22 01:40 66 21 06/17/22 01:30 67 18 100 06/17/22 01:30 182/102 H 06/17/22 01:20 49 L 16 100 06/17/22 01:10 53 L 15 100 06/17/22 01:00 50 L 12 100 06/17/22 01:00 171/107 H 06/17/22 00:50 53 L 13 100 06/17/22 00:50 168/100 H 06/17/22 00:40 56 L 15 100 06/17/22 00:30 57 L 15 100 06/17/22 00:20 60 18 99 06/17/22 00:10 50 L 17 99 06/17/22 00:00 53 L 15 100 06/16/22 23:50 55 L 18 99 06/16/22 23:48 54 L 18 100 06/16/22 19:14 36.3 C L 60 18 96 Pulse Ox O2 Del Method O2 Del Method 06/17/22 04:10 Room Air 06/17/22 02:57 98 Room Air 06/17/22 02:20 06/17/22 02:14 06/17/22 02:14 06/17/22 02:10 06/17/22 02:00 06/17/22 02:00 06/17/22 01:56 06/17/22 01:56 06/17/22 01:50 06/17/22 01:40 06/17/22 01:30 06/17/22 01:30 06/17/22 01:20 06/17/22 01:10 06/17/22 01:00 06/17/22 01:00 06/17/22 00:50 06/17/22 00:50 06/17/22 00:40 06/17/22 00:30 06/17/22 00:20 06/17/22 00:10 06/17/22 00:00 06/16/22 23:50 06/16/22 23:48 06/16/22 19:14 Room Air PG Care Time/CCT Total # of Minutes Spent Total Time Spent with Patient: Total time spent is greater than 50% in coordination of care (as documented) at patient's floor/unit and/or counseling patient: Coding Level of Care Code INP/OBS CONSULT LVL 5, 80 MIN Diagnoses Acute cholecystitis K81.0
[2022-06-17] MEDS ORDERED: PIPERACILLIN/TAZOBACTAM 4.5 GM (over 30 mins) IV ONE (05:30)
--- NOTE | 2022-06-17 07:02 | CT Scan Report ---
ABDOMEN AND PELVIS CT WITHOUT CONTRAST CT DOSE: 2169.29 mGy.cm HISTORY: Acute generalized abdominal pain pain TECHNIQUE: Multiaxial CT images of the abdomen and pelvis were performed without contrast. A dose lo wering technique was utilized adhering to the principles of ALARA. COMPARISON STUDY: CT abdomen and pelvis 04/21/2022 FINDINGS: The heart is mildly enlarged. Clear lung bases. No pneumatosis or pneumoperitoneum. The une nhanced spleen, pancreas and adrenal glands are unremarkable. Contracted gallbladder with mild wall t hickening. Hepatic steatosis with mild hepatomegaly. No hepatic mass or evidence of cirrhosis. No renal or ureteral calculi or hydronephrosis. Mild urinary bladder wall thickening with partial dis tention. Unremarkable appearance of the uterus. Follicular changes of the ovaries with 4 cm right ova chrissy cyst. Aorta and IVC are unremarkable. Subcentimeter retroperitoneal lymph nodes are likely physi ologic. No bowel obstruction or bowel wall thickening. Mild to moderate colonic fecal retention. Norm al appendix. Tiny fat filled umbilical hernia. No acute fracture. IMPRESSION: 1. No bowel obstruction or bowel wall thickening. Normal appendix. 2. Contracted gallbladder with mild wall thickening. Please refer to the abdominal ultrasound of same day for additional details. 3. Mild hepatomegaly with hepatic steatosis. ACT 112: Negative or not required by law. The above report was generated using voice recognition software. It may contain grammatical, syntax o r spelling errors. Electronically signed by: Lucas Frye M.D. 06/17/2022 7:00 AM
--- NOTE | 2022-06-17 07:27 | Ultrasound Report ---
US abdomen limited HISTORY: 31 years-old Female abnormal LFT's elevated LFTs COMPARISON: CT abdomen pelvis 06/16/2022 TECHNIQUE: Multiple real-time sonographic images of the abdominal right upper quadrant were obtained assessing grayscale appearance and color flow FINDINGS: Limited exam secondary to patient body habitus. Increased echogenicity of the liver measuring up to 19 cm in length. No hepatic mass identified. Dunia ent was recently given pain medication prior to the study, therefore the sonographic Eastman sign coul d not be obtained. Sludge with cholelithiasis. Mild gallbladder wall thickening measures up to 4 mm. There is questioned pericholecystic edema. Normal common bile duct, 4 mm. The imaged right kidney is unremarkable without hydronephrosis. IMPRESSION: 1. Sludge with cholelithiasis and mild gallbladder wall thickening. Additionally, there is equivocal pericholecystic edema. Findings are suspicious for acute cholecystitis in the appropriate clinical se tting. 2. No biliary ductal dilation. 3. Hepatic steatosis. ACT 112: Negative or not required by law. The above report was generated using voice recognition software. It may contain grammatical, syntax o r spelling errors. Electronically signed by: Lucas Frye M.D. 06/17/2022 7:24 AM
[2022-06-17] MEDS ORDERED: PHARMACY GLYCEMIC MGMT CONSULT PRN (07:46)
--- NOTE | 2022-06-17 08:09 | Pharmacy Report ---
Pharmacy Glycemic Short Note 2 - Date of Service June 17, 2022 - Glycemic Short BSG Results (Last 24 hours): 06/16/22 06/17/22 06/17/22 20:50 00:10 03:48 Glucose 102 H 85 POC Glucose 189 H OUTPATIENT ANTIDIABETIC REGIMEN: * n/a * A1c pending ASSESSMENT: * Consulted for BSG >180 mg/dL this morning with no history of diabetes. It appears this BSG was taken shortly after D50 was administered with 10 units of IV insulin for hyperkalemia. * Suspect elevated BSG d/t the D50, BSG this morning 89 mg/dL. A1c pending. Will follow today and sign off tomorrow if appropriate. * Will place novolog with correction factor weight based stress of 1. No carb ratio for now- patient is NPO. Will hold on basal. * A1c may be unreliable in setting of CKD. PLAN FOR INPATIENT GLYCEMIC CONTROL: * Basal insulin * HOLD * Bolus insulin * NovoLog per scale ACHS or Q6hrs while NPO * Goal Range: Low 120 mg/dL - High 160 mg/dL * Correction Factor: 30 mg/dL/unit * Nutritional / Prandial insulin ON HOLD
[2022-06-17 08:15] LABS: Prothrombin Time 10.4 Seconds (9.0-12.0)
[2022-06-17] MEDS: carvediloL 25 MG TAB PO SCH ×2 (08:26→20:06)
[2022-06-17] MEDS: CHECK CLONIDINE PATCH PLACEMENT SCH ×3 (08:37→23:53)
[2022-06-17] MEDS: INSULIN ASPART PER UNIT SC SCH ×3 (08:40→20:06)
[2022-06-17] MEDS ORDERED: SUCRALFATE 1 GM/10 ML UDC PO SCH (09:00)
[2022-06-17] MEDS ORDERED: SPIRONOLACTONE 100 MG TAB PO SCH (09:00)
[2022-06-17] MEDS ORDERED: amLODIPine BESYLATE 5 MG TAB PO SCH (09:00)
[2022-06-17] MEDS ORDERED: PANTOprazole 40 MG TAB PO SCH (09:00)
[2022-06-17 09:58] LABS: Estimated Average Glucose 94 mg/dl; Hemoglobin A1C 4.9 % (4.5-5.6)
--- NOTE | 2022-06-17 10:00 | Hospitalist Progress Note ---
Date of Service June 17, 2022 Assessment & Plan (1) Abdominal pain: Plan: Imaging and labs consistent with cholecystitis- surgical evaluation appreciated - her HScTNI has downtrended- likely mildly elevated with stress response and CKD - N.p.o. except essential medications - Continue NSS at 100 mils per hour - Continue Zosyn - renal dose - Dilaudid 0.25mg and Acetaminophen IV for pain control Overall awaiting ECHO this am to evaluate for RWMA- her HScTNI have downtrended. If her ECHO is without abnormalities her risks are as below. If ECHO abnormal will consult cardiology for risk evaluation (previous ECHO with LVEF 70% with concentric LVH and MR). She is functionally independent and with CKD IV. BP currently controlled. She is without chest pain now or with activity. She is also without dyspnea with activity. Her Estimated risk probability for perioperative myocardial infarction or arrest is 0.46%. Her Revised Cardia Risk for estimated risk of adverse outcome with non-cardiac surgery is low. Esitmated rate of [place]/Pulmonary edema, V-fib or other cardiac arrest is 0.9%. (2) Abnormal LFTs: Plan: Abdominal pain/abnormal LFTs- imaging noting hepatic steatosis AST increased this morning with likely relation to GBD - INR is normal and no encephalopathy- Ultrasound completed this am - noting hepatic steatosis and sludge with cholelithiasis and consistent with cholecystitis Ultrasound of abdomen has been ordered and pending Patient reports that she had a HIDA scan a few months ago, and was told that she is to have her gallbladder out, but became too busy to follow-up with surgery Follow-up ultrasound as below (3) Acute hyperkalemia: Plan: 6.4 on arrival Acutely treated- following treatment her K is 4.8 this morning - repeat at noon - follow with renal function - continue to hold Spironolactone - Continue with IVF - Appreciate Nephrology evaluation (4) Chronic kidney disease, stage 4 (severe): Plan: As above UA on admission without protiesn or blood BP control if needed with IV hydralazine Avoid further nephrotoxic medicaitons, renally dose as applicable, if nephrotoxic medications needed- minimize exposure time (5) Hypertensive kidney disease with CKD stage IV: Plan: CKD stage IV- Continue carvedilol, clonidine patch. - Hold Amlodopine convert to hydralazine PRN Hold spironolactone due to hyperkalemia Hyperkalemia - Appreciate nephrology assistance (6) Elevated troponin: Plan: Elevated troponin- Likely demand and slow clearance with renal dysfunction Troponin 38.9 on admission with repeat lab pending The patient will be admitted to telemetry for serial cardiac enzymes- down- trending x2, ECG without STEMI or other dynamic changes Most recent echo on 04/21/2022 with ejection fraction greater than 70%- repeat ECHO pending (7) Elevated serum glucose: Plan: Elevated serum glucose without the diagnosis of DM - A1C 4.9 - Likely elevated at this time post acute hyperkalemia treatment and stress - will follow with goal <180mg/DL while NPO- pharmacy consultation for now to assist with following in acute phase - repeat BMP at noon (8) Morbid obesity with BMI of 45.0-49.9, adult: Plan: No acute needs- conosider bariatric medicine consultation at discharge for overall CV risk reduction (9) Tobacco dependence: Plan: No acute needs- offer smoking cessation educaiton (10) GERD (gastroesophageal reflux disease): Plan: Continue PPI- convert to IV if needed Admission and Anticipated Discharge Date Admission Date: June 17, 2022 Supervising Physician Co-Signing Physician Notes Attending Attestation - Chart reviewed, care plan d/w GLORIA Turner. I agree w/ the [place] components of his documentation. Echo - EF 60-65%, normal LV wall motion; normal valve function; severe LVH. Severiano Mora MD Subjective Patient HD #1 admitted for acute onset of abdominal pain, located in epigastrium with radiation to back. This was associated with following eating yesterday AM. The patient feels the pain is sharp and stabbing in nature, that waxes and wanes. Improving somewhat since admission. Her HScTNI have downtrended and ECG is also without STEMI. Continue with IVF support, NPO, ABX renally dosed. Await ECHO, Nephrology consultation. Follow LFTs. Surgery for cholecystectomy planned for 06/18/22 Review of Systems Review of Systems: REVIEW OF SYSTEMS: Constitutional: No fever, sweats or chills Eyes: No diplopia, no worsening or blurred vision ENT: normal hearing, no trouble swallowing Respiratory: No cough, sputum, dyspnea at rest or on exertion Cardiovascular: No chest pain, tightness or palpitations Abdomen: (+) pain, nausea, NO vomiting, diarrhea or constipation Musculoskeletal: No joint pain, calf pain, swelling Neurologic: No weakness, numbness/tingling, or balance problems Psychiatric: (+) anxiety Skin: No rash or itch Physical Exam Physical Exam: PHYSICAL EXAM: General: awake, alert, no apparent distress Head: Normocephalic, atraumatic ENT: PERRL, EOMI, no pharyngeal exudate, mucous membranes moist Neuro: AAO x 3, speech clear and appropriate, strength intact bilaterally 5/5, sensation intact and equal all extremities and dermatomes, no pronator drift Chest: equal rise and fall of the chest, no accessory muscle use, no heaves or thrills, Clear to auscultation, on room air, Cardiac: Regular rate and rhythm, telemetry reviewed- NSR-SB, skin warm dry, cap refill <3 seconds, peripheral pulses +2 no JVD, no murmur, no edema GI: NABS x 4 quadrants, soft, tender to palpation epigastrium and RUQ, no rebound, guarding : Spontaneously voiding, no pain, no CVA tenderness, Psych: Normal mood and affect Results & Data Results & Data ([facility]) Vital Signs (Past 12 Hours) Vital Signs Pulse Pulse Resp BP BP Pulse Ox Pulse Ox 06/17/22 07:32 55 L 148/107 H 96 06/17/22 07:32 59 L 20 06/17/22 07:30 61 20 06/17/22 07:15 66 20 06/17/22 07:00 56 L 19 06/17/22 05:06 152/74 H 06/17/22 05:06 61 14 96 06/17/22 05:00 55 L 19 97 06/17/22 04:50 55 L 18 97 06/17/22 04:40 56 L 18 97 06/17/22 04:30 54 L 16 97 06/17/22 04:20 54 L 16 98 06/17/22 04:10 61 17 97 06/17/22 04:01 53 L 16 97 06/17/22 04:01 178/101 H 06/17/22 04:00 61 18 99 06/17/22 02:50 64 18 99 06/17/22 02:40 54 L 16 99 06/17/22 02:31 58 L 17 97 06/17/22 02:31 165/106 H 06/17/22 02:30 54 L 18 99 06/17/22 05:08 06/17/22 04:10 54 L 18 178/101 H 97 06/17/22 02:57 98 06/17/22 02:20 52 L 15 99 06/17/22 02:14 155/93 H 06/17/22 02:14 53 L 13 97 06/17/22 02:10 56 L 16 100 06/17/22 02:00 53 L 18 99 06/17/22 02:00 171/90 H 06/17/22 01:56 169/96 H 06/17/22 01:56 53 L 16 99 06/17/22 01:50 50 L 19 99 06/17/22 01:40 66 21 06/17/22 01:30 67 18 100 06/17/22 01:30 182/102 H 06/17/22 01:20 49 L 16 100 06/17/22 01:10 53 L 15 100 06/17/22 01:00 50 L 12 100 06/17/22 01:00 171/107 H 06/17/22 00:50 53 L 13 100 06/17/22 00:50 168/100 H 06/17/22 00:40 56 L 15 100 06/17/22 00:30 57 L 15 100 06/17/22 00:20 60 18 99 06/17/22 00:10 50 L 17 99 06/17/22 00:00 53 L 15 100 06/16/22 23:50 55 L 18 99 06/16/22 23:48 54 L 18 100 O2 Del Method O2 Del Method 06/17/22 07:32 Room Air 06/17/22 07:32 06/17/22 07:30 06/17/22 07:15 06/17/22 07:00 06/17/22 05:06 06/17/22 05:06 06/17/22 05:00 06/17/22 04:50 06/17/22 04:40 06/17/22 04:30 06/17/22 04:20 06/17/22 04:10 06/17/22 04:01 06/17/22 04:01 06/17/22 04:00 06/17/22 02:50 06/17/22 02:40 06/17/22 02:31 06/17/22 02:31 06/17/22 02:30 06/17/22 05:08 Room Air 06/17/22 04:10 Room Air 06/17/22 02:57 Room Air 06/17/22 02:20 06/17/22 02:14 06/17/22 02:14 06/17/22 02:10 06/17/22 02:00 06/17/22 02:00 06/17/22 01:56 06/17/22 01:56 06/17/22 01:50 06/17/22 01:40 06/17/22 01:30 06/17/22 01:30 06/17/22 01:20 06/17/22 01:10 06/17/22 01:00 06/17/22 01:00 06/17/22 00:50 06/17/22 00:50 06/17/22 00:40 06/17/22 00:30 06/17/22 00:20 06/17/22 00:10 06/17/22 00:00 06/16/22 23:50 06/16/22 23:48 Laboratory Results Abnormal lab results 06/16/22 06/16/22 06/16/22 Range/Units 20:50 20:50 20:50 WBC 12.05 H (4.8-10.8) K/ul MPV 9.1 L (9.4-12.3) fL Neut # (Auto) 10.05 H (1.4-6.5) K/uL Lymph # (Auto) 0.95 L (1.2-3.4) K/uL [place] # (Auto) 0.84 H (0.24-0.82) K/uL Immature Gran # (Auto) 0.04 H (0.00-0.02) K/uL Sodium 133 L (136-145) mmol/L Potassium 6.4 H* (3.5-5.1) mmol/L BUN 42 H (6-23) mg/dl Creatinine 2.95 H (0.6-1.2) mg/dl Glucose 102 H (70-99(Fasting)) mg/dl POC Glucose (70-99) mg/dl Total Bilirubin (0.2-1.0) mg/dl AST 304 H (13-39) U/L ALT 165 H (7-52) U/L Alkaline Phosphatase 169 H (34-104) U/L Troponin I High Sens 38.9 H (0-14) pg/ml Urine Protein 2+ H (Negative) U Epithel Cells (Auto) >30 H (0-5) /lpf 06/17/22 06/17/22 06/17/22 Range/Units 00:10 03:48 03:48 WBC (4.8-10.8) K/ul MPV 9.2 L (9.4-12.3) fL Neut # (Auto) (1.4-6.5) K/uL Lymph # (Auto) (1.2-3.4) K/uL [place] # (Auto) (0.24-0.82) K/uL Immature Gran # (Auto) 0.03 H (0.00-0.02) K/uL Sodium (136-145) mmol/L Potassium (3.5-5.1) mmol/L BUN (6-23) mg/dl Creatinine (0.6-1.2) mg/dl Glucose (70-99(Fasting)) mg/dl POC Glucose 189 H (70-99) mg/dl Total Bilirubin (0.2-1.0) mg/dl AST (13-39) U/L ALT (7-52) U/L Alkaline Phosphatase (34-104) U/L Troponin I High Sens 29.8 H (0-14) pg/ml Urine Protein (Negative) U Epithel Cells (Auto) (0-5) /lpf 06/17/22 Range/Units 03:48 WBC (4.8-10.8) K/ul MPV (9.4-12.3) fL Neut # (Auto) (1.4-6.5) K/uL Lymph # (Auto) (1.2-3.4) K/uL [place] # (Auto) (0.24-0.82) K/uL Immature Gran # (Auto) (0.00-0.02) K/uL Sodium 134 L (136-145) mmol/L Potassium (3.5-5.1) mmol/L BUN 39 H (6-23) mg/dl Creatinine 2.86 H (0.6-1.2) mg/dl Glucose (70-99(Fasting)) mg/dl POC Glucose (70-99) mg/dl Total Bilirubin 1.2 H (0.2-1.0) mg/dl AST 482 H (13-39) U/L ALT 370 H (7-52) U/L Alkaline Phosphatase 180 H (34-104) U/L Troponin I High Sens (0-14) pg/ml Urine Protein (Negative) U Epithel Cells (Auto) (0-5) /lpf Diagnostic Findings Abdomen/Pelvis CT 06/16/22 22:[address] WITHOUT CONTRAST CT DOSE: 2169.29 mGy.cm HISTORY: Acute generalized abdominal pain pain TECHNIQUE: Multiaxial CT images of the abdomen and pelvis were performed without contrast. A dose lowering technique was utilized adhering to the principles of ALARA. COMPARISON STUDY: CT abdomen and pelvis 04/21/2022 FINDINGS: The heart is mildly enlarged. Clear lung bases. No pneumatosis or pneumoperitoneum. The unenhanced spleen, pancreas and adrenal glands are unremarkable. Contracted gallbladder with mild wall thickening. Hepatic steatosis with mild hepatomegaly. No hepatic mass or evidence of cirrhosis. No renal or ureteral calculi or hydronephrosis. Mild urinary bladder wall th ickening with partial distention. Unremarkable appearance of the uterus. Follicular changes of the ovaries with 4 cm right ovarian cyst. Aorta and IVC are unremarkable. Subcentimeter retroperitoneal lymph nodes are likely physiologic. No bowel obstruction or bowel wall thickening. Mild to moderate colonic fecal retention. Normal appendix. Tiny fat filled umbilical hernia. No acute fracture. IMPRESSION: 1. No bowel obstruction or bowel wall thickening. Normal appendix. 2. Contracted gallbladder with mild wall thickening. Please refer to the abdominal ultrasound of same day for additional details. 3. Mild hepatomegaly with hepatic steatosis. ACT 112: Negative or not required by law. The above report was generated using voice recognition software. It may contain grammatical, syntax or spelling errors. Electronically signed by: Lucas Frye M.D. 06/17/2022 7:00 AM Chest X-Ray 06/16/22 22:37 SINGLE VIEW CHEST CLINICAL HISTORY: Atypical chest pain. FINDINGS: An AP, portable, upright chest radiograph is compared to study dated 12/17/2021. The cardiomediastinal silhouette is top normal for projection. The lungs and pleural spaces are clear. No pneumothorax is seen. The bony thorax is grossly intact. IMPRESSION: No active disease in the chest. ACT 112: Negative or not required by law. Electronically signed by: Josef Saldana M.D. 06/16/2022 11:03 PM Abdomen Ultrasound 06/17/22 01:48 US abdomen limited HISTORY: 31 years-old Female abnormal LFT's elevated LFTs COMPARISON: CT abdomen pelvis 06/16/2022 TECHNIQUE: Multiple real-time sonographic images of the abdominal right upper quadrant were obtained assessing grayscale appearance and color flow FINDINGS: Limited exam secondary to patient body habitus. Increased echogenicity of the liver measuring up to 19 cm in length. No hepatic mass identified. Patient was recently given pain medication prior to the study, therefore the sonographic Eastman sign could not be obtained. Sludge with cholelithiasis. Mild gallbladder wall thickening measures up to 4 mm. There is questioned pericholecystic edema. Normal common bile duct, 4 mm. The imaged right kidney is unremarkable without hydronephrosis. IMPRESSION: 1. Sludge with cholelithiasis and mild gallbladder wall thickening. Additionally, there is equivocal pericholecystic edema. Findings are suspicious for acute cholecystitis in the appropriate clinical setting. 2. No biliary ductal dilation. 3. Hepatic steatosis. ACT 112: Negative or not required by law. The above report was generated using voice recognition software. It may contain grammatical, syntax or spelling errors. Electronically signed by: Lucas Frye M.D. 06/17/2022 7:24 AM Medications Administered Carvedilol (Carvedilol 25 Mg Tab) 25 mg PO BID [facility] Stop: 07/17/22 08:59 Last Admin: 06/17/22 08:26 Dose: Not Given Documented By: ISABELL Sodium Chloride (Nss 1000ml) 1,000 mls @ 80 mls/hr IV .[id number] [facility] Stop: 07/17/22 02:56 Last Admin: 06/17/22 03:00 Dose: 80 mls/hr Documented By: CICI Piperacillin Sod/Tazobactam (Sod 4.5 gm/ Dextrose) 120 mls @ 30 mls/hr IV Q8H [facility]; Protocol Stop: 06/27/22 11:59 Last Admin: 06/17/22 12:40 Dose: 30 mls/hr Documented By: RICHELLE Pantoprazole Sodium 40 mg/ (Syringe) 10 mls @ 5 mls/min IV DAILY@1100 [facility] Stop: 07/17/22 10:59 Last Admin: 06/17/22 11:47 Dose: 5 mls/min Documented By: RICHELLE Insulin Aspart (Insulin Aspart Per Unit) 0 units SC Q6 ONEIL Stop: 07/17/22 07:59 Last Admin: 06/17/22 12:33 Dose: Not Given Documented By: Admin: 06/17/22 08:40 Dose: Not Given Documented By: ISABELL Miscellaneous (Check Clonidine Patch Placement) 1 each N/A QS [facility] Stop: 07/17/22 07:59 Last Admin: 06/17/22 08:37 Dose: 1 each Documented By: ISABELL Discontinued Medications Albuterol (Albut/Ipratrop 3mg/0.5mg Neb 3 Ml Vial) 12 ml NEB ONE ONE; Protocol Stop: 06/16/22 23:11 Last Admin: 06/17/22 00:58 Dose: 12 ml Documented By: CICI Dextrose (Dextrose 50% 50 Ml Syringe) 50 ml IV NOW STA Stop: 06/16/22 23:11 Last Admin: 06/16/22 23:58 Dose: 50 ml Documented By: CICI Sodium Chloride (Nss 1000ml) 1,000 mls @ 999 mls/hr IV .Q1H1M ONE Stop: 06/16/22 23:37 Last Infusion: 06/17/22 00:30 Dose: 0 mls/hr Documented By: Admin: 06/16/22 23:44 Dose: 999 mls/hr Documented By: CICI Calcium Chloride 1,000 mg/ (Dextrose) 60 mls @ 240 mls/hr IV NOW STA Stop: 06/16/22 23:24 Last Infusion: 06/17/22 00:27 Dose: 0 mls/hr Documented By: Admin: 06/16/22 23:57 Dose: 240 mls/hr Documented By: CICI Piperacillin Sod/Tazobactam (Sod 4.5 gm/ Dextrose) 120 mls @ 240 mls/hr IV 0530 ONE; Protocol Stop: 06/17/22 05:59 Last Infusion: 06/17/22 06:20 Dose: 0 mls/hr Documented By: Admin: 06/17/22 05:49 Dose: 240 mls/hr Documented By: CICI Insulin Human Regular (Novolin-R Insulin Per Unit Charge) 10 units IV NOW STA Stop: 06/16/22 23:11 Last Admin: 06/16/22 23:58 Dose: 10 units Documented By: CICI Co-signed By: SHAHEED PG Care Time/CCT Total # of Minutes Spent Total Time Spent with Patient: Total time spent is greater than 50% in coordination of care (as documented) at patient's floor/unit and/or counseling patient: Coding Level of Care Code 73562 SUB INP/OBS CARE 2/35MIN Diagnoses Abdominal pain R10.84 Abdominal location: generalized Abnormal LFTs R79.89 Acute hyperkalemia E87.5 Chronic kidney disease, stage 4 (severe) N18.4 Hypertensive kidney disease with CKD stage IV I12.9; N18.4 Elevated troponin R77.8 Elevated serum glucose R73.9 Morbid obesity with BMI of 45.0-49.9, adult E66.01; Z68.42 Tobacco dependence F17.200 GERD (gastroesophageal reflux disease) K21.9 (1) Abdominal pain Abdominal location: generalized Qualified Code(s): R10.84 - Generalized abdominal pain
[2022-06-17] MEDS: PANTOprazole 40 MG in SYRINGE 0 ML IV SCH (11:47)
[2022-06-17] MEDS ORDERED: HYDROmorphone INJ 0.5 MG/0.5 ML SYR IV PRN (11:56)
[2022-06-17] MEDS ORDERED: ACETAMINOPHEN 1,000 MG/100 ML VIAL IV PRN (11:57)
[2022-06-17] MEDS: PIPERACILLIN/TAZOBACTAM 4.5 GM in DEXTROSE 5% 100 ML IV SCH ×2 (12:40→20:06)
[2022-06-17 13:44] LABS: BUN Creatinine Ratio 12.7 (10-20); Calcium 8.9 mg/dl (8.5-10.1); Creatinine Clr Calc Pharmacy 44.1 ml/min; Est GFR (African American) 24.1 ml/min; Est GFR (Non-African American) 20.8 ml/min; Potassium 4.6 mmol/L (3.5-5.1)
--- NOTE | 2022-06-17 14:12 | Nephrology Consultation ---
Date of Consultation June 17, 2022 Assessment & Plan (1) Acute cholecystitis: (2) Hyperkalemia: (3) Hypertensive kidney disease with CKD stage IV: Plan 31-year-old female with stage IV CKD, baseline creatinine around 3, poorly- controlled hypertension, proteinuria and morbid obesity admitted to the hospital with abdominal pain and found to have acute cholecystitis. Renal function at baseline with creatinine around 2.8 but noted to have hyperkalemia on admission, potassium was 6.4 which improved and this morning potassium was 4.7. She is being kept NPO for planned for cholecystectomy tomorrow. -- Will monitor and follow along while she is waiting to have the surgery for acute cholecystitis. -- Monitor renal function electrolyte with a.m. labs. -- Dose medications for EGFR less than 30 Thank you for allowing me to participate in your patient's care. It was a pleasure to see Atiya. History of Present Illness Reason for Consultation: Stage 4 CKD, Hyperkalemia. Attending Physician: Sharan Mendoza MD History of Present Illness Ms. Atiya Eli is a 31-year-old female with PMH of CKD stage IV, anemia due to chronic disease, tobacco dependence, morbid obesity admitted to hospital with acute cholecystitis. Nephrology consult requested to manage stage 4 CKD and hyperkalemia. EMR records were reviewed during pts visit. Atiya presented to ER yesterday with abdominal pain. CT A/P and RUQ USG revealed acute cholecystitis. Seen by surgery and plan for cholecystectomy tomor row. [place] dmission cr was at baseline but K was 6.2, which now improved to 4.7 after Insulin, D50 and bicarbonate. She was admitted for abdominal pain from 04/21-04/29/2022, and was diagnosed with mesenteric adenitis at that time. She reports that she has been told in the past that she had an issue with her gallbladder and was going to schedule a follow-up appointment to have surgery, but became busy. Has stage 4 CKD , b/l cr around 3.0 secondary to hypertensive nephropathy. Labs available only from November 2019 and since then creatinine has been around 3. Has moderate degree proteinuria.CT A/P showed otherwise normal size bilateral kidney. Renal artery Doppler was negative for hemodynamically mediated renal artery stenosis. No history of regular heavy NSAID use, autoimmune disease. No known family history of CKD or ESRD. Current everyday smoker. Other comorbidities include proteinuria, plantar fascial fibromatosis of both feet, mesenteric adenitis, bright red blood per rectum, hypertensive urgency, thrombocytopenia, vitamin D deficiency, hypertensive emergency, history of COVID-19, and adrenal abnormality She was initially diagnosed with hypertension as a teenager. she was started on medication after hypertension during 8 years ago but no history of eclampsia or preeclampsia. After she was able to wean herself off of medication. She was admitted to hospital in November 2021 with epigastric pain and at that time she was again noted to be in hypertensive urgency. Workup was otherwise unremarkable including Urine microscopy +1 protein but no hematuria. CT abdomen pelvis showed otherwise normal kidney and adrenal gland. AM cortisol 8.8. Renin was mildly elevated but aldosterone was normal. Workup for pheochromocytoma was normal. She was still having some discomfort this morning. blood pressure was relatively high but improved from admission blood pressure. Allergies Allergy/AdvReac Type Severity Reaction Status Date / Time No Known Allergies Allergy Verified 06/17/22 00:56 Home Medications Medication Instructions Recorded Confirmed Type hydroxyzine HCl 10 mg tablet 10 mg PO BID PRN anxiety or sleep 12/26/21 06/17/22 Rx #60 tabs amlodipine 10 mg tablet 10 mg PO DAILY #30 tabs 04/28/22 06/17/22 Rx carvedilol 25 mg tablet 25 mg PO BID #60 tabs 04/28/22 06/17/22 Rx clonidine 0.3 mg/24 hr weekly 1 patch transdermal Q7D #4 ea 04/28/22 06/17/22 Rx transdermal patch ergocalciferol (vitamin D2) 1,250 50,000 unit PO Q7D #7 caps 04/28/22 06/17/22 Rx mcg (50,000 unit) capsule pantoprazole 40 mg tablet,delayed 40 mg PO BID #60 tabs 04/28/22 06/17/22 Rx release spironolactone 100 mg tablet 100 mg PO DAILY #30 tabs 04/28/22 06/17/22 Rx sucralfate 100 mg/mL oral 1 g (10 mL) PO QID #1,000 mL 04/28/22 06/17/22 Rx suspension acetaminophen 325 mg tablet 650 mg PO Q4H PRN PAIN/FEVER 06/17/22 06/17/22 History Patient History Medical History (Updated 06/17/22 @ 14:48 by Haritha Henry MD) Anemia due to chronic kidney disease Chronic kidney disease Chronic kidney disease, stage 4 (severe) Hyperkalemia Hypertensive kidney disease with CKD stage IV Hypertensive urgency Family History Denies family history of Crohn's disease Colorectal cancer Ulcerative colitis Social History Smoking Status: Current every day smoker Tobacco Type: Cigarettes Cigarettes Per Day: 5; Second Hand Exposure: No; Do You Dip or Chew Tobacco: No; Tobacco Cessation Education Requested by Patient: No Hx Alcohol Use: No Hx Substance Use: No Preferred Language: Congolese Communication Ability: Effective Advertising Executive Required: No Beliefs That Will Affect Care: None Current Living Situation: Alone Current Living Situation Comment: Lives alone, partner frequently visits Other Information That Helps Us Care for You: No Feels Safe at Home: Yes Safety Concerns: Feels Safe At This Time Assistive Devices: None Review of Systems Review of Systems: Detailed review of system was otherwise unremarkable except mentioned above. Physical Exam Constitutional: WD/WN, vitals as above + ill appearing and + morbidly obese; no acute distress Eyes: + anicteric sclerae ENMT: Ears: no hearing impairment and no external ear abnormality Nose: nasal mucous membranes not dry Neck: normal visual inspection Thyroid: no thyromegaly Respiratory: normal respiratory effort; no respiratory distress and no cough Auscultation: lungs clear to auscultation bilaterally Cardiovascular: Rate/Rhythm: regular rate and regular rhythm Heart Sounds: normal S1 and normal S2 Extremities: no edema Gastrointestinal (Abdomen): Inspection/Auscultation: + abdomen distended and normal bowel sounds Percussion/Palpation: + abdomen tender and abdomen soft; no guarding and abdomen not rigid Musculoskeletal: Extremities: extremities normal to inspection Skin: normal turgor; no rashes Neurologic: no focal motor deficits and not confused Psychiatric: Orientation: alert and oriented x 3 Affect: euthymic affect Results & Data ([facility]) Vital Signs (Past 12 Hours) Vital Signs Temp Pulse Pulse Resp BP BP Pulse Ox 06/17/22 11:35 06/17/22 10:54 36.5 C 52 L 20 150/99 H 98 06/17/22 07:32 55 L 148/107 H 96 06/17/22 07:32 59 L 20 06/17/22 07:30 61 20 06/17/22 07:15 66 20 06/17/22 07:00 56 L 19 06/17/22 05:06 152/74 H 06/17/22 05:06 61 14 96 06/17/22 05:00 55 L 19 97 06/17/22 04:50 55 L 18 97 06/17/22 04:40 56 L 18 97 06/17/22 04:30 54 L 16 97 06/17/22 04:20 54 L 16 98 06/17/22 04:10 61 17 97 06/17/22 04:01 53 L 16 97 06/17/22 04:01 178/101 H 06/17/22 04:00 61 18 99 06/17/22 02:50 64 18 99 06/17/22 02:40 54 L 16 99 06/17/22 02:31 58 L 17 97 06/17/22 02:31 165/106 H 06/17/22 02:30 54 L 18 99 06/17/22 05:08 06/17/22 04:10 54 L 18 178/101 H 97 06/17/22 02:57 06/17/22 02:20 52 L 15 99 06/17/22 02:14 155/93 H 06/17/22 02:14 53 L 13 97 Pulse Ox O2 Del Method O2 Del Method 06/17/22 11:35 Room Air 06/17/22 10:54 Room Air 06/17/22 07:32 Room Air 06/17/22 07:32 06/17/22 07:30 06/17/22 07:15 06/17/22 07:00 06/17/22 05:06 06/17/22 05:06 06/17/22 05:00 06/17/22 04:50 06/17/22 04:40 06/17/22 04:30 06/17/22 04:20 06/17/22 04:10 06/17/22 04:01 06/17/22 04:01 06/17/22 04:00 06/17/22 02:50 06/17/22 02:40 06/17/22 02:31 06/17/22 02:31 06/17/22 02:30 06/17/22 05:08 Room Air 06/17/22 04:10 Room Air 06/17/22 02:57 98 Room Air 06/17/22 02:20 06/17/22 02:14 06/17/22 02:14 PG Care Time/CCT Total # of Minutes Spent Total Time Spent with Patient: Total time spent is greater than 50% in coordination of care (as documented) at patient's floor/unit and/or counseling patient: Coding Level of Care Code INP/OBS CONSULT LVL 4, 60 MIN Diagnoses Acute cholecystitis K81.0 Hyperkalemia E87.5 Hypertensive kidney disease with CKD stage IV I12.9; N18.4
--- NOTE | 2022-06-17 16:01 | XCELERA ---
[id number]
[2022-06-17] MEDS ORDERED: Nursing to Pharmacy Communication SCH (17:15)
[2022-06-17] MEDS ORDERED: PIPERACILLIN/TAZOBACTAM 3.375 GM in DEXTROSE 5% 100 ML IV SCH (18:00)
[2022-06-18] MEDS: SODIUM CHLORIDE 0.9% 1000ML 1,000 ML IV SCH ×2 (01:04→17:38)
[2022-06-18] MEDS: PIPERACILLIN/TAZOBACTAM 4.5 GM in DEXTROSE 5% 100 ML IV SCH ×3 (03:18→23:20)
[2022-06-18 05:41] LABS: Basophils # (auto) 0.07 K/uL (0-0.2); Basophils % (auto) 0.6 %; Eosinophils # (auto) 0.37 K/uL (0-0.50); Eosinophils % (auto) 3.3 %; Hematocrit (blood only) 34.8 % (34.1-44.9); Hemoglobin 11.7 g/dl (12.0-16.0); Immature Granulocytes # (auto) 0.03 K/uL (0.00-0.02); Immature Granulocytes % (auto) 0.3 %; Lymphocytes # (auto) 2.57 K/uL (1.2-3.4); Lymphocytes % (auto) 22.8 %; Mean Corpuscular Hemoglobin 28.7 pg (25.0-34.0); Mean Corpuscular Hgb Conc 33.6 g/dL (32.0-36.0); Mean Corpuscular Volume 85.3 fL (80.0-100.0); Mean Platelet Volume 9.1 fL (9.4-12.3); Monocytes # (auto) 0.78 K/uL (0.24-0.82); Monocytes % (auto) 6.9 %; Neutrophils # (auto) 7.44 K/uL (1.4-6.5); Neutrophils % (auto) 66.1 %; Platelet Count 269 K/uL (130-400); RDW Coefficient of Variation 12.8 % (11.5-14.5); RDW Standard Deviation 39.6 fL (36.4-46.3); Red Blood Count 4.08 M/uL (3.93-5.22); White Blood Count 11.26 K/ul (4.8-10.8)
[2022-06-18 06:24] LABS: Albumin Globulin Ratio 1.3 (0.9-2); Albumin Level 3.6 gm/dl (3.4-5.0); BUN Creatinine Ratio 10.5 (10-20); Bilirubin,Total 0.7 mg/dl (0.2-1.0); Calcium 8.1 mg/dl (8.5-10.1); Creatinine Clr Calc Pharmacy 41.5 ml/min; Est GFR (Non-African American) 18.9 ml/min; Globulin 2.7 gm/dl (2.5-4.0); Magnesium 2.1 mg/dl (1.7-2.4); Potassium 4.4 mmol/L (3.5-5.1); Total Protein 6.3 gm/dl (6.0-8.3)
[2022-06-18] MEDS ORDERED: Nursing to Pharmacy Communication SCH ×2 (07:30→16:00)
[2022-06-18] MEDS ORDERED: INSULIN ASPART PER UNIT SC SCH ×2 (07:45→12:00)
[2022-06-18] MEDS: CHECK CLONIDINE PATCH PLACEMENT SCH ×3 (09:17→23:20)
[2022-06-18] MEDS: carvediloL 25 MG TAB PO SCH ×2 (09:19→20:25)
--- NOTE | 2022-06-18 09:31 | Pharmacy Report ---
Pharmacy Glycemic Sign Off Nt - Date of Service June 18, 2022 - Assessment & Plan ASSESSMENT: * Pharmacy was consulted by Star Turner on 06/17/22 for glycemic control and to write orders per [facility] inpatient glycemic control protocol. * Patient was ordered Novolog, weight based and low stress, for adequate glycemic control * BSGs ranging 84-124 mg/dl in the past 24 hrs with no adjustments * Patient has not received any insulin at all since BSGs are within goal. * Basal insulin not needed. No carb coverage needed. * Do not anticipate further changes in patient status that would quickly deteriorate glycemic control (i.e. patient to be NPO for upcoming procedure, steroids tapering, starting tube feedings, etc). PLAN FOR INPATIENT GLYCEMIC CONTROL: No changes needed to current regimen. * Continue NovoLog per scale ACHS/Q6hrs while NPO * Goal range = 120-160 mg/dl * CF = 30 mg/dl/unit * CR = 1 unit for ever __ g CHO consumed * Pharmacy is signing off of glycemic consult and will no longer be making adjustments to inpatient regimen. Please feel free to re-consult if needed. Thank you.
--- NOTE | 2022-06-18 10:48 | Surgery Progress Note ---
Date of Service June 18, 2022 Assessment & Plan (1) Acute cholecystitis: Plan: We will proceed with a laparoscopic cholecystectomy, possible open, possible intraoperative cholangiogram today Consent was obtained, risk discussed including bleeding, infection, bile leak, ductal injury She has an increased risk for perioperative complications due to her morbid obesity, stage IV kidney disease Admission and Anticipated Discharge Date Admission Date: June 17, 2022 Subjective Patient seen and examined. Still with right upper quadrant abdominal pain. Afebrile. No nausea or vomiting. Review of Systems Constitutional: no fever and no chills Physical Exam Constitutional: WD/WN, vitals as above Gastrointestinal (Abdomen): Inspection/Auscultation: abdomen normal to inspection; abdomen not distended Percussion/Palpation: + abdomen tender (Right upper quadrant) and abdomen soft; no guarding, abdomen not rigid and no hernia Results & Data ([facility]) Vital Signs (Past 12 Hours) Vital Signs Temp Pulse Pulse Resp BP Pulse Ox O2 Del Method 06/18/22 09:51 36.7 C 60 18 169/93 H 99 Room Air 06/18/22 08:07 36.5 C 60 16 145/76 H 99 Room Air 06/18/22 07:37 58 L 06/18/22 02:57 06/18/22 04:29 148/85 H 06/18/22 03:48 36.7 C 94 H 20 181/98 H 98 Room Air O2 Del Method 06/18/22 09:51 06/18/22 08:07 06/18/22 07:37 06/18/22 02:57 Room Air 06/18/22 04:29 06/18/22 03:48 PG Care Time/CCT Total # of Minutes Spent Total Time Spent with Patient: Total time spent is greater than 50% in coordination of care (as documented) at patient's floor/unit and/or counseling patient: Coding Level of Care Code 87607 SUB INP/OBS CARE Diagnoses Acute cholecystitis K81.0
[2022-06-18] MEDS ORDERED: BUPIVACAINE/EPINEPHRINE 0.25% 1:200,000 30 ML VIAL ONE (12:00)
--- NOTE | 2022-06-18 12:10 | Anesthesiology Consultation ---
Date of Service June 18, 2022 Assessment & Plan Chart Review Chart Review: Acceptable Risk for Surgery and Patient NOT seen in Pre Admission Testing Consults Requested none ASA ASA4 Proposed Anesthesia Anesthesia Type: General Risk / Benefits Reviewed With: PT / POA / Parent / Guardian, Accepts Plan and Informed Consent Obtained History Surgery Operation Date: 06/18/22 10:40 Proposed Procedures p Laparoscopic Cholecystectomy, Possible Open, Possible Cholangiogram - Azar Streeter, Height/Weight Height: 5 ft 9 in Weight: 151.3 kg Allergies Allergy/AdvReac Type Severity Reaction Status Date / Time No Known Allergies Allergy Verified 06/17/22 00:56 Medications Home Medications Medication Instructions Recorded Confirmed Last Taken hydroxyzine HCl 10 mg tablet 10 mg PO BID PRN anxiety or sleep 12/26/21 06/17/22 Unknown #60 tabs amlodipine 10 mg tablet 10 mg PO DAILY #30 tabs 04/28/22 06/17/22 06/16/22 carvedilol 25 mg tablet 25 mg PO BID #60 tabs 04/28/22 06/17/22 06/16/22 clonidine 0.3 mg/24 hr weekly 1 patch transdermal Q7D #4 ea 04/28/22 06/17/22 06/10/22 transdermal patch ergocalciferol (vitamin D2) 1,250 50,000 unit PO Q7D #7 caps 04/28/22 06/17/22 06/10/22 mcg (50,000 unit) capsule pantoprazole 40 mg tablet,delayed 40 mg PO BID #60 tabs 04/28/22 06/17/22 06/16/22 release spironolactone 100 mg tablet 100 mg PO DAILY #30 tabs 04/28/22 06/17/22 06/16/22 sucralfate 100 mg/mL oral 1 g (10 mL) PO QID #1,000 mL 04/28/22 06/17/22 06/16/22 suspension acetaminophen 325 mg tablet 650 mg PO Q4H PRN PAIN/FEVER 06/17/22 06/17/22 Unknown Active Medications Generic Name Dose Route Start Last Admin Trade Name Freq PRN Reason Stop Dose Admin Carvedilol 25 mg 06/17/22 09:00 06/18/22 09:19 Carvedilol 25 Mg Tab PO 07/17/22 08:59 25 mg BID ONEIL Administration Hydromorphone HCl 0.25 mg 06/17/22 11:56 06/18/22 03:12 Hydromorphone Inj 0.5 Mg/0.5 Ml Syr IV 07/01/22 11:55 0.25 mg Q6H PRN Administration Pain Sodium Chloride 1,000 mls @ 80 mls/hr 06/17/22 02:57 06/18/22 09:20 Nss 1000ml IV 07/17/22 02:56 0 mls/hr .[id number] ONEIL Infusion Piperacillin Sod/Tazobactam 120 mls @ 30 mls/hr 06/17/22 12:00 06/18/22 07:34 Sod 4.5 gm/ Dextrose IV 06/27/22 11:59 Infused Q8H ONEIL Infusion Protocol Pantoprazole Sodium 40 mg/ 10 mls @ 5 mls/min 06/17/22 11:00 06/17/22 11:47 Syringe IV 07/17/22 10:59 5 mls/min DAILY@1100 ONEIL Administration Miscellaneous 1 each 06/17/22 08:00 06/18/22 09:17 Check Clonidine Patch Placement N/A 07/17/22 07:59 1 each QS ONEIL Administration NPO Date Last Intake of Fluids: 06/17/22 Time Last Intake of Fluids: 23:59 Date Last Intake of Solids: 06/16/22 Time Last Intake of Solids: 14:00 Past Medical History Medical History Anemia due to chronic kidney disease Chronic kidney disease Chronic kidney disease, stage 4 (severe) Hyperkalemia Hypertensive kidney disease with CKD stage IV Hypertensive urgency Exercise / Class Metabolic Activity III < 4 Walking/Shop/Light housework Past Family History Family History Denies family history of Crohn's disease Colorectal cancer Ulcerative colitis Past Anesthesia History No Hx of Anesthesia Complications and No Family Hx of Anesthesia Complications History of PONV No Hx of PONV and No Hx of Motion Sickness Social History Smoking Status: Current every day smoker tobacco type: cigarettes Smoking cigarettes per day: 5 Do You Dip or Chew Tobacco: No Hx Alcohol Use: No Hx Substance Use: No substance use type: does not use Physical Exam Vital Signs Last Vital Signs Temp 36.7 C 06/18/22 09:51 Pulse 60 06/18/22 09:51 Resp 18 06/18/22 09:51 BP 169/93 H 06/18/22 09:51 Pulse Ox 99 06/18/22 09:51 O2 Del Method 06/18/22 09:51 Constitutional + morbidly obese; no acute distress ENMT Mouth: no dentition abnormality Thyromental Distance: < 3.5 Finger Breadths Mallampati Class: III Neck normal visual inspection, trachea midline, + short neck and + thick neck; neck extension not limited Respiratory normal respiratory effort Auscultation: + diminished lung sounds Cardiovascular Rate/Rhythm: regular rate and regular rhythm Heart Sounds: no murmur Musculoskeletal Spine: normal cervical ROM and no pain with cervical ROM Extremities: full ROM of extremities Neurologic moves all extremities Motor/Sensory: no sensory deficit Psychiatric Orientation: alert and oriented x 3 Testing Laboratory Results 06/18/22 05:30 06/18/22 05:30 PT 10.4 Seconds (9.0-12.0) 06/17/22 07:49 INR 1.0 (0.9-1.1) 06/17/22 07:49 Hemoglobin A1c 4.9 % (4.5-5.6) 06/17/22 03:48 Urine Color Yellow 06/16/22 20:50 Urine Appearance Clear (Clear) 06/16/22 20:50 Urine pH 7.0 (4.5-7.5) 06/16/22 20:50 Ur Specific [place] 1.013 (1.000-1.030) 06/16/22 20:50 Urine Protein 2+ (Negative) H 06/16/22 20:50 Urine Glucose (UA) Negative (Negative) 06/16/22 20:50 Urine Ketones Negative (Negative) 06/16/22 20:50 Urine Nitrite Negative (Negative) 06/16/22 20:50 Ur Leukocyte Esterase Negative (Negative) 06/16/22 20:50 Urine WBC (Auto) 1-5 /hpf (0-5) 06/16/22 20:50 Urine RBC (Auto) 0-4 /hpf (0-4) 06/16/22 20:50 U Hyaline Cast (Auto) 0 /lpf (0-5) 06/16/22 20:50 U Epithel Cells (Auto) >30 /lpf (0-5) H 06/16/22 20:50 Urine Bacteria (Auto) Negative (Negative) 06/16/22 20:50 06/18/22 07:20 POC Glucose 94 06/16/22 20:50 POC Ur Test NEG Electrocardiogram Date: 06/18/22 Findings: + NSR @ (@ 60;RAD) and + NSST changes Chest X-Ray Date: 06/16/22 Findings: + NAD Echocardiogram Date: 06/17/22 EF: 60% LV Function: normal RWMA: + none Other Findings: + LVH (severe concentric) and + diastolic dysfunction (Grade 2) Valvular Disease: + no significant valvular disease
[2022-06-18] MEDS ORDERED: PROPOFOL IV EMULSION 10 MG/ML 20 ML VIAL IV ONE (12:24)
[2022-06-18] MEDS ORDERED: fentaNYL citrate 100 MCG/2 ML VIAL ONE ×2 (12:25→14:23)
[2022-06-18] MEDS ORDERED: MIDAZOLAM HCL 1 MG/ML 2ML VIAL ONE (12:26)
[2022-06-18] MEDS ORDERED: DEXAMETHASONE SOD INJ 4 MG/ML VIAL ONE (13:15)
[2022-06-18] MEDS ORDERED: METOCLOPRAMIDE HCL INJ 5 MG/ML 2 ML VIAL ONE (13:15)
[2022-06-18] MEDS ORDERED: ONDANSETRON INJ 2 MG/ML 2 ML VIAL ONE (13:15)
[2022-06-18] MEDS ORDERED: GLYCOPYRROLATE 0.2 MG/ML VIAL ONE (13:21)
[2022-06-18] MEDS ORDERED: hydrALAZINE HCL 20 MG/ML VIAL ONE (13:29)
[2022-06-18] MEDS ORDERED: NEOSTIGMINE METHYLSULFATE 1 MG/ML 10ML VIAL ONE (14:04)
--- NOTE | 2022-06-18 14:17 | Post Operative Brief Note ---
PG Immediate Post Op with CF Date of Surgery June 18, 2022 Pre & Post Diagnosis Operation Date: 06/18/22 10:40 Pre-Op Diagnosis: Acute Cholecystitis Post-Op Diagnosis: Acute Cholecystitis with Abdominal Wall Adhesions I identified the patient and participated in the time-out.: Yes Procedure Operation Date: 06/18/22 10:40 Actual Procedures p Laparoscopic Cholecystectomy, Laparoscopic Lysis of Adhesions(Not Applicable) - Azar Streeter DO Surgeon Azar Streeter DO Bridal Consultant None Estimated Blood Loss 25 Findings See Below Acutely inflamed, dilated gallbladder consistent with acute cholecystitis Adhesions to the abdominal wall in the right upper quadrant Specimens Specimen Description: A: Gallbladder and Contents Anesthesia Type General Complications none Disposition Disposition: Recovery Room
--- NOTE | 2022-06-18 14:22 | Operative Report ---
PG Post Operative Report Pre & Post Diagnosis Operation Date: 06/18/22 10:40 Pre-Op Diagnosis: Acute Cholecystitis Post-Op Diagnosis: Acute Cholecystitis with Abdominal Wall Adhesions I identified the patient and participated in the time-out.: Yes Procedure Operation Date: 06/18/22 10:40 Actual Procedures p Laparoscopic Cholecystectomy, Laparoscopic Lysis of Adhesions(Not Applicable) - Azar Streeter DO Surgeon Azar Streeter DO Theater Usher None Estimated Blood Loss 25 Findings See Below Acutely inflamed, dilated gallbladder consistent with acute cholecystitis Abdominal wall adhesions in the right upper quadrant Fluids see anesthesia record Specimens Gallbladder to pathology Drains None Anesthesia Type General Complications none Disposition Disposition: Recovery Room Indications 31-year-old female with acute cholecystitis Description of Procedure The patient was brought to the operating room and placed in the supine position with both arms extended. At this time she underwent general endotracheal anesthesia without any problems. She was given appropriate pre-operative antibiotics. Her abdomen prepped and draped in the usual sterile fashion. A timeout was called, the procedure was verified as Laparoscopic cholecystectomy, possible open, possible intra-operative cholangiogram. Surgical, nursing and anesthesia teams agreed and the procedure was begun. After injection of 0.25% Marcaine with epinephrine, a supraumbilical vertical incision was made and carried down to the fascia using S-retractors. The abdominal wall was then elevated with towel clamps and abdomen entered using the Veress needle confirming position using the saline drop test. Pneumoperitoneum was established. 5mm trocar was placed. Laparoscope was introduced. No injury from entry into the abdomen was visualized after inspection of the abdomen. Three further ports were placed under direct visualization. One 11mm in the subxiphoid region. There were abdominal wall adhesions in the right upper quadrant that were lysed with scissors cautery. Then the two 5 mm ports were placed under direct visualization the right upper quadrant at this time the abdomen was inspected and the gallbladder identified. The gallbladder was edematous, dilated and had a thickened wall consistent with acute cholecystitis. The gallbladder fundus was grasped and retracted cephalad. The gallbladder infundibulum was then grasped and retracted laterally. The cystic duct and cystic artery were then identified and skeletonized. The critical view of safety was obtained. They were both then clipped twice proximally and once distally and then divided using scissors. The gallbladder was then taken off of the liver bed using electrocautery and placed in an endocatch bag and removed from the subxiphoid port. The liver bed was then inspected and no bile leak or bleeding was evident. The subxiphoid port was then closed using 0-Vicryl using the suture passer. The trocars were then removed under direct visualization and no bleeding was present. Abdomen was desufflated. The skin was then closed using 4-0 Monocryl in a subcuticular fashion. Surgical glue was applied. Needle and sponge counts were correct x 2. At this time the patient was awoken from anesthesia and extubated having remained stable throughout the entire case. The patient was then transported to PACU in stable condition. I attest to the content of the Intraoperative Record and any orders documented therein. Any exceptions are noted below.
[2022-06-18] MEDS: fentaNYL citrate 100 MCG/2 ML VIAL IV PRN ×4 (14:25→14:42)
[2022-06-18] MEDS ORDERED: ONDANSETRON INJ 2 MG/ML 2 ML VIAL IV PRN (14:26)
[2022-06-18] MEDS ORDERED: ATROPINE SULFATE 0.1 MG/ML 10ML SYR IV PRN (14:26)
[2022-06-18] MEDS ORDERED: NALOXONE HCL 0.4 MG/1 ML VIAL/CARP IV PRN (14:26)
[2022-06-18] MEDS ORDERED: FLUMAZENIL 0.1 MG/1 ML 10 ML VIAL IV PRN (14:26)
[2022-06-18] MEDS ORDERED: ePHEDrine sulfate 50 MG/ML AMP IV PRN (14:26)
[2022-06-18] MEDS ORDERED: PROMETHAZINE HCL 12.5 MG in SODIUM CHLORIDE 0.9% 50 ML IV PRN (14:26)
--- NOTE | 2022-06-18 14:55 | Anesthesiology Progress Note ---
Date of Service June 18, 2022 Anesthesia Post Procedure Vital Signs Vital Signs: Temp Pulse Pulse Resp BP Pulse Ox O2 Del Method 06/18/22 14:50 50 L 15 148/83 H 96 Nasal Cannula 06/18/22 14:40 49 L 15 146/78 H 96 Nasal Cannula 06/18/22 14:30 50 L 12 140/74 98 Oxymask 06/18/22 14:22 36.2 C L 62 15 156/90 H 96 Oxymask 06/18/22 09:51 36.7 C 60 18 169/93 H 99 Room Air 06/18/22 08:07 36.5 C 60 16 145/76 H 99 Room Air 06/18/22 07:37 58 L 06/18/22 02:57 06/18/22 04:29 148/85 H 06/18/22 03:48 36.7 C 94 H 20 181/98 H 98 Room Air 06/17/22 22:46 36.5 C 77 18 143/86 H 99 Room Air 06/17/22 22:43 58 L 06/17/22 19:36 36.5 C 60 18 147/95 H 97 Room Air 06/17/22 19:16 Room Air O2 Del Method O2 Flow Rate 06/18/22 14:50 2 06/18/22 14:40 2 06/18/22 14:30 10 06/18/22 14:22 10 06/18/22 09:51 06/18/22 08:07 06/18/22 07:37 06/18/22 02:57 Room Air 06/18/22 04:29 06/18/22 03:48 06/17/22 22:46 06/17/22 22:43 06/17/22 19:36 06/17/22 19:16 Pain Intensity Upper Abdomen: Pain Intensity: 4 Transfer of Care Handoff Completed per policy Notes Mental Status: alert / awake / arousable Patient Amnestic to Procedure: Yes Nausea / Vomiting: adequately controlled Pain: adequately controlled Airway Patency, RR, SpO2: stable & adequate BP & HR: stable & adequate Hydration State: stable & adequate Anesthetic Complications: no major complications apparent
[2022-06-18] MEDS ORDERED: MoRPHine SULFATE 2 MG/ML CARP IV PRN (15:14)
[2022-06-18] MEDS: MoRPHine SULFATE 4 MG/ML 1 ML CARP\\VIAL IV PRN ×4 (15:30→23:22)
--- NOTE | 2022-06-18 15:36 | Nephrology Progress Note ---
Date of Service June 18, 2022 Assessment & Plan (1) Acute cholecystitis: (2) Hyperkalemia: (3) Hypertensive kidney disease with CKD stage IV: Plan 31-year-old female with stage IV CKD, baseline creatinine around 3, poorly- controlled hypertension, proteinuria and morbid obesity admitted to the hospital with abdominal pain and found to have acute cholecystitis. Renal function at baseline with creatinine around 2.8 but noted to have hyperkalemia on admission, potassium was 6.4 which improved and this morning potassium was 4.7. She is being kept NPO for planned for cholecystectomy tomorrow. Renal function close to baseline, electrolyte acceptable. Blood pressure well controlled. -- Will monitor and follow along while she is waiting to have the surgery Tomorrow for acute cholecystitis. -- Monitor renal function electrolyte with a.m. labs. -- Dose medications for EGFR less than 30 Admission and Anticipated Discharge Date Admission Date: June 17, 2022 Juan Rajput was seen and examined in her room this morning. She denies any significant abdominal pain, nausea or vomiting. No shortness of breath or chest pain. Blood pressure well controlled. Renal function stable, potassium normal. Review of Systems Review of Systems: Detailed review of system was otherwise unremarkable except mentioned above. Physical Exam Constitutional: WD/WN, vitals as above + ill appearing and + morbidly obese; no acute distress Eyes: + anicteric sclerae Respiratory: no respiratory distress Auscultation: lungs clear to auscultation bilaterally Cardiovascular: Rate/Rhythm: regular rate and regular rhythm Heart Sounds: normal S1 and normal S2 Extremities: no edema Musculoskeletal: Extremities: extremities normal to inspection Skin: no rashes Neurologic: no focal motor deficits Psychiatric: Orientation: alert and oriented x 3 Affect: euthymic affect Results & Data ([facility]) Vital Signs (Past 12 Hours) Vital Signs Temp Pulse Pulse Resp BP Pulse Ox O2 Del Method 06/18/22 15:20 36.5 C 49 L 16 142/82 H 97 Room Air 06/18/22 15:00 36.5 C 51 L 17 149/82 H 97 Nasal Cannula 06/18/22 14:50 50 L 15 148/83 H 96 Nasal Cannula 06/18/22 14:40 49 L 15 146/78 H 96 Nasal Cannula 06/18/22 14:30 50 L 12 140/74 98 Oxymask 06/18/22 14:22 36.2 C L 62 15 156/90 H 96 Oxymask 06/18/22 09:51 36.7 C 60 18 169/93 H 99 Room Air 06/18/22 08:07 36.5 C 60 16 145/76 H 99 Room Air 06/18/22 07:37 58 L 06/18/22 04:29 148/85 H 06/18/22 03:48 36.7 C 94 H 20 181/98 H 98 Room Air O2 Flow Rate 06/18/22 15:20 06/18/22 15:00 2 06/18/22 14:50 2 06/18/22 14:40 2 06/18/22 14:30 10 06/18/22 14:22 10 06/18/22 09:51 06/18/22 08:07 06/18/22 07:37 06/18/22 04:29 06/18/22 03:48 PG Care Time/CCT Total # of Minutes Spent Total Time Spent with Patient: Total time spent is greater than 50% in coordination of care (as documented) at patient's floor/unit and/or counseling patient: Coding Level of Care Code 23364 SUB INP/OBS CARE 235MIN Diagnoses Acute cholecystitis K81.0 Hyperkalemia E87.5 Hypertensive kidney disease with CKD stage IV I12.9; N18.4
[2022-06-18] MEDS: PANTOprazole 40 MG in SYRINGE 0 ML IV SCH (15:46)
[2022-06-18] MEDS: INSULIN ASPART PER UNIT SC SCH ×2 (16:00→20:25)
[2022-06-18] MEDS: hydrALAZINE HCL 20 MG/ML VIAL IV PRN (19:29)
--- NOTE | 2022-06-18 20:52 | Electrocardiogram Report ---
Test Reason : Blood Pressure : / mmHG Vent. Rate : 051 BPM Atrial Rate : 051 BPM P-R Int : 174 ms QRS Dur : 102 ms QT Int : 490 ms P-R-T Axes : -11 030 046 degrees QTc Int : 451 ms Sinus bradycardia with sinus arrhythmia Cannot rule out Anterior infarct , age undetermined Abnormal ECG When compared with ECG of 22-APR-2022 08:38, Vent. rate has decreased BY [address] no longer depressed in Inferior leads ST no longer depressed in Lateral leads T wave inversion no longer evident in Inferior leads Nonspecific T wave abnormality no longer evident in Anterolateral leads QT has shortened Confirmed by Gavino Kemp ([id number]) on 06/18/2022 8:52:29 PM Referred By: REFERRED SELF Confirmed By:Gavino Kemp
--- NOTE | 2022-06-18 21:09 | Electrocardiogram Report ---
Test Reason : Blood Pressure : / mmHG Vent. Rate : 054 BPM Atrial Rate : 054 BPM P-R Int : 184 ms QRS Dur : 098 ms QT Int : 468 ms P-R-T Axes : -04 008 036 degrees QTc Int : 443 ms Sinus bradycardia Otherwise normal ECG When compared with ECG of 16-JUN-2022 23:05, No significant change was found Confirmed by Gavino Kemp ([id number]) on 06/18/2022 9:09:25 PM Referred By: REFERRED SELF Confirmed By:Gavino Kemp
--- NOTE | 2022-06-18 22:55 | History & Physical Bridge Note ---
Date of Service June 18, 2022 History & Physical Bridge Note I have examined the patient, reviewed the History & Physical and in the interval since the performance of the History & Physical I have noted the following changes of clinical significance: no changes noted Supervising Physician Co-Signing Physician Notes (1) Abdominal pain: Plan: Imaging and labs consistent with cholecystitis- surgical evaluation appreciated -Patient status post cholecystectomy Pain control acceptable (2) Abnormal LFTs: Plan: Abdominal pain/abnormal LFTs- imaging noting hepatic steatosis AST increased this morning with likely relation to GBD - INR is normal and no encephalopathy- Ultrasound completed this am - noting hepatic steatosis and sludge with cholelithiasis and consistent with cholecystitis Ultrasound of abdomen has been ordered and pending Patient reports that she had a HIDA scan a few months ago, and was told that she is to have her gallbladder out, but became too busy to follow-up with surgery Follow-up ultrasound as below (3) Acute hyperkalemia: Plan: 6.4 on arrival Acutely treated- following treatment her K is 4.8 this morning - repeat at noon - follow with renal function - continue to hold Spironolactone - Continue with IVF - Appreciate Nephrology evaluation (4) Chronic kidney disease, stage 4 (severe): Plan: As above UA on admission without protiesn or blood BP control if needed with IV hydralazine Avoid further nephrotoxic medicaitons, renally dose as applicable, if nephrotoxic medications needed- minimize exposure time (5) Hypertensive kidney disease with CKD stage IV: Plan: CKD stage IV- Continue carvedilol, clonidine patch. - Hold Amlodopine convert to hydralazine PRN Hold spironolactone due to hyperkalemia Hyperkalemia - Appreciate nephrology assistance (6) Elevated troponin: Plan: Elevated troponin- Likely demand and slow clearance with renal dysfunction Troponin 38.9 on admission with repeat lab pending The patient will be admitted to telemetry for serial cardiac enzymes- down- trending x2, ECG without STEMI or other dynamic changes Most recent echo on 04/21/2022 with ejection fraction greater than 70%- repeat ECHO pending (7) Elevated serum glucose: Plan: Elevated serum glucose without the diagnosis of DM - A1C 4.9 - Likely elevated at this time post acute hyperkalemia treatment and stress - will follow with goal <180mg/DL while NPO- pharmacy consultation for now to assist with following in acute phase - repeat BMP at noon (8) Morbid obesity with BMI of 45.0-49.9, adult: Plan: No acute needs- conosider bariatric medicine consultation at discharge for overall CV risk reduction (9) Tobacco dependence: Plan: No acute needs- offer smoking cessation educaiton (10) GERD (gastroesophageal reflux disease): Plan: Continue PPI-
[2022-06-19] MEDS: MoRPHine SULFATE 4 MG/ML 1 ML CARP\\VIAL IV PRN ×7 (03:15→23:33)
[2022-06-19] MEDS: SODIUM CHLORIDE 0.9% 1000ML 1,000 ML IV SCH ×2 (05:56→19:16)
[2022-06-19 06:39] LABS: Basophils # (auto) 0.03 K/uL (0-0.2); Basophils % (auto) 0.2 %; Eosinophils # (auto) 0.01 K/uL (0-0.50); Eosinophils % (auto) 0.1 %; Hematocrit (blood only) 37.8 % (34.1-44.9); Hemoglobin 12.4 g/dl (12.0-16.0); Immature Granulocytes # (auto) 0.06 K/uL (0.00-0.02); Immature Granulocytes % (auto) 0.5 %; Lymphocytes # (auto) 1.01 K/uL (1.2-3.4); Lymphocytes % (auto) 7.8 %; Mean Corpuscular Hemoglobin 28.1 pg (25.0-34.0); Mean Corpuscular Hgb Conc 32.8 g/dL (32.0-36.0); Mean Corpuscular Volume 85.7 fL (80.0-100.0); Mean Platelet Volume 9.3 fL (9.4-12.3); Monocytes # (auto) 0.81 K/uL (0.24-0.82); Monocytes % (auto) 6.2 %; Neutrophils # (auto) 11.05 K/uL (1.4-6.5); Neutrophils % (auto) 85.2 %; Platelet Count 287 K/uL (130-400); RDW Coefficient of Variation 12.7 % (11.5-14.5); RDW Standard Deviation 39.8 fL (36.4-46.3); Red Blood Count 4.41 M/uL (3.93-5.22); White Blood Count 12.97 K/ul (4.8-10.8)
[2022-06-19 07:24] LABS: Albumin Level 3.7 gm/dl (3.4-5.0); Bilirubin,Total 0.6 mg/dl (0.2-1.0); Calcium 8.3 mg/dl (8.5-10.1); Magnesium 2.1 mg/dl (1.7-2.4); Potassium 4.2 mmol/L (3.5-5.1)
[2022-06-19 07:30] LABS: Albumin Globulin Ratio 1.3 (0.9-2); BUN Creatinine Ratio 9.2 (10-20); Creatinine Clr Calc Pharmacy 41.1 ml/min; Est GFR (African American) 21.8 ml/min; Est GFR (Non-African American) 18.8 ml/min; Globulin 2.9 gm/dl (2.5-4.0); Total Protein 6.6 gm/dl (6.0-8.3)
[2022-06-19] MEDS: INSULIN ASPART PER UNIT SC SCH ×4 (07:59→20:34)
[2022-06-19] MEDS: CHECK CLONIDINE PATCH PLACEMENT SCH ×3 (08:38→23:21)
[2022-06-19] MEDS: PIPERACILLIN/TAZOBACTAM 4.5 GM in DEXTROSE 5% 100 ML IV SCH ×3 (08:39→23:20)
[2022-06-19] MEDS: carvediloL 25 MG TAB PO SCH ×2 (08:39→20:29)
--- NOTE | 2022-06-19 10:38 | Electrocardiogram Report ---
Test Reason : Blood Pressure : / mmHG Vent. Rate : 060 BPM Atrial Rate : 060 BPM P-R Int : 178 ms QRS Dur : 102 ms QT Int : 448 ms P-R-T Axes : 000 156 139 degrees QTc Int : 448 ms Normal sinus rhythm Limb lead reversal Abnormal ECG When compared with ECG of 17-JUN-2022 08:18, Limb lead reversal is now present Confirmed by Gavino Kemp ([id number]) on 06/19/2022 10:38:24 AM Referred By: REFERRED SELF Confirmed By:Gavino Kemp
--- NOTE | 2022-06-19 10:44 | Surgery Progress Note ---
Date of Service June 19, 2022 Assessment & Plan (1) Acute cholecystitis: Plan: POD#1 laparoscopic cholecystectomy Patient is feeling well post op. some expected post surgical pain that is manageable diet as tolerates may dispo to home from our standpoint when cleared by medicine f/u in clinic with Dr. Streeter within 2 weeks Admission and Anticipated Discharge Date Admission Date: June 17, 2022 Supervising Physician Co-Signing Physician Notes I personally saw and evaluated the patient with Otilia Parkre PA-C and agree with the assessment and plan. 31-year-old female postoperative day 1 laparoscopic cholecystectomy, laparoscopic lysis of adhesions She is feeling well her pain is much improved prior to the operation Advance her diet as tolerated She is stable for discharge from a surgical standpoint Subjective Patient reports feeling well. Tolerating a diet. No n/v. Has some expected post operative pain, but is managed. Physical Exam Physical Exam: awake/alert, sitting up at beside, no distress Gastrointestinal (Abdomen): Inspection/Auscultation: + abdominal surgical incision (surgical dressings in place) Percussion/Palpation: abdomen soft Results & Data ([facility]) Vital Signs (Past 12 Hours) Vital Signs Temp Pulse Pulse Resp BP Pulse Ox Pulse Ox 06/19/22 07:45 06/19/22 07:57 36.6 C 64 17 168/98 H 97 06/19/22 07:49 58 L 06/19/22 03:11 36.5 C 83 18 169/97 H 97 06/19/22 02:00 98 06/18/22 23:21 36.4 C L 60 16 169/94 H 98 O2 Del Method O2 Del Method 06/19/22 07:45 Room Air 06/19/22 07:57 Room Air 06/19/22 07:49 06/19/22 03:11 Room Air 06/19/22 02:00 Room Air 06/18/22 23:21 Room Air PG Care Time/CCT Total # of Minutes Spent Total Time Spent with Patient: Total time spent is greater than 50% in coordination of care (as documented) at patient's floor/unit and/or counseling patient: Coding Level of Care Code None Diagnoses Acute cholecystitis K81.0
[2022-06-19] MEDS: PANTOprazole 40 MG in SYRINGE 0 ML IV SCH (10:58)
--- NOTE | 2022-06-19 15:26 | Nephrology Progress Note ---
Date of Service June 19, 2022 Assessment & Plan (1) Acute cholecystitis: (2) Hyperkalemia: (3) Hypertensive kidney disease with CKD stage IV: Plan 31-year-old female with stage IV CKD, baseline creatinine around 3, poorly- controlled hypertension, proteinuria and morbid obesity admitted to the hospital with abdominal pain and found to have acute cholecystitis. Renal function at baseline with creatinine around 2.8 but noted to have hyperkalemia on admission, potassium was 6.4 which improved and this morning potassium was 4.7. She is being kept NPO for planned for cholecystectomy tomorrow. Renal function close to baseline, electrolyte acceptable. Blood pressure well controlled. -- Will monitor and follow along while in-hospital -- Monitor renal function electrolyte with a.m. labs. -- Dose medications for EGFR less than 30 Admission and Anticipated Discharge Date Admission Date: June 17, 2022 Juan Rajput was seen and examined in her room this morning. She denies any significant abdominal pain, nausea or vomiting. had cholecystectomy yesterday, recovered well has been having regular diet since this morning and tolerating. No shortness of breath or chest pain. Blood pressure well controlled. Renal function stable, potassium normal. Review of Systems Review of Systems: Detailed review of system was otherwise unremarkable except mentioned above. Physical Exam Constitutional: WD/WN, vitals as above + morbidly obese; no acute distress Eyes: + anicteric sclerae Respiratory: no respiratory distress Auscultation: lungs clear to auscultation bilaterally Cardiovascular: Rate/Rhythm: regular rate and regular rhythm Heart Sounds: normal S1 and normal S2 Extremities: no edema Musculoskeletal: Extremities: extremities normal to inspection Skin: no rashes Neurologic: no focal motor deficits Psychiatric: Orientation: alert and oriented x 3 Affect: euthymic affect Results & Data ([facility]) Vital Signs (Past 12 Hours) Vital Signs Temp Pulse Pulse Resp BP Pulse Ox O2 Del Method 06/19/22 15:07 56 L 06/19/22 12:23 156/96 H 06/19/22 11:33 36.5 C 61 17 169/110 H 100 Room Air 06/19/22 07:45 Room Air 06/19/22 07:57 36.6 C 64 17 168/98 H 97 Room Air 06/19/22 07:49 58 L PG Care Time/CCT Total # of Minutes Spent Total Time Spent with Patient: Total time spent is greater than 50% in coordination of care (as documented) at patient's floor/unit and/or counseling patient: Coding Level of Care Code 07399 SUB INP/OBS CARE MIN Diagnoses Acute cholecystitis K81.0 Hyperkalemia E87.5 Hypertensive kidney disease with CKD stage IV I12.9; N18.4
--- NOTE | 2022-06-19 16:10 | Electrocardiogram Report ---
Test Reason : Blood Pressure : / mmHG Vent. Rate : 053 BPM Atrial Rate : 053 BPM P-R Int : 172 ms QRS Dur : 104 ms QT Int : 478 ms P-R-T Axes : 034 007 028 degrees QTc Int : 448 ms Sinus bradycardia with sinus arrhythmia Cannot rule out Anterior infarct , age undetermined Abnormal ECG When compared with ECG of 18-JUN-2022 05:05, Limb lead reversal is no longer present Confirmed by Gavino Kemp ([id number]) on 06/19/2022 4:10:15 PM Referred By: REFERRED SELF Confirmed By:Gavino Kemp
--- NOTE | 2022-06-19 22:51 | History & Physical Bridge Note ---
Date of Service June 19, 2022 History & Physical Bridge Note 1) Abdominal pain: Plan: Imaging and labs consistent with cholecystitis- surgical evaluation appreciated -Patient status post cholecystectomy Pain control acceptable (2) Abnormal LFTs: Plan: Abdominal pain/abnormal LFTs- imaging noting hepatic steatosis AST increased this morning with likely relation to GBD - INR is normal and no encephalopathy- Ultrasound completed this am - noting hepatic steatosis and sludge with cholelithiasis and consistent with cholecystitis Ultrasound of abdomen has been ordered and pending Patient reports that she had a HIDA scan a few months ago, and was told that she is to have her gallbladder out, but became too busy to follow-up with surgery Follow-up ultrasound as below (3) Acute hyperkalemia: Plan: 6.4 on arrival Acutely treated- following treatment her K is 4.8 this morning - repeat at noon - follow with renal function - continue to hold Spironolactone - Continue with IVF - Appreciate Nephrology evaluation Serum potassium continues to improve (4) Chronic kidney disease, stage 4 (severe): Plan: As above UA on admission without protiesn or blood BP control if needed with IV hydralazine Avoid further nephrotoxic medicaitons, renally dose as applicable, if nephrotoxic medications needed- minimize exposure time (5) Hypertensive kidney disease with CKD stage IV: Plan: CKD stage IV- Continue carvedilol, clonidine patch. - Hold Amlodopine convert to hydralazine PRN Hold spironolactone due to hyperkalemia Hyperkalemia - Appreciate nephrology assistance (6) Elevated troponin: Plan: Elevated troponin- Likely demand and slow clearance with renal dysfunction Troponin 38.9 on admission with repeat lab pending The patient will be admitted to telemetry for serial cardiac enzymes- down- trending x2, ECG without STEMI or other dynamic changes Most recent echo on 04/21/2022 with ejection fraction greater than 70%- repeat ECHO pending (7) Elevated serum glucose: Plan: Elevated serum glucose without the diagnosis of DM - A1C 4.9 - Likely elevated at this time post acute hyperkalemia treatment and stress - will follow with goal <180mg/DL while NPO- pharmacy consultation for now to assist with following in acute phase - repeat BMP at noon (8) Morbid obesity with BMI of 45.0-49.9, adult: Plan: No acute needs- conosider bariatric medicine consultation at discharge for overall CV risk reduction (9) Tobacco dependence: Plan: No acute needs- offer smoking cessation educaiton (10) GERD (gastroesophageal reflux disease): Plan: Continue PPI-
[2022-06-19] MEDS: hydrALAZINE HCL 20 MG/ML VIAL IV PRN (23:33)
[2022-06-20] MEDS: CHLORASEPTIC 1.4% SOLN 180 ML BTL MT PRN ×2 (00:50→07:12)
[2022-06-20] MEDS: MoRPHine SULFATE 4 MG/ML 1 ML CARP\\VIAL IV PRN ×4 (05:13→19:08)
[2022-06-20] MEDS: INSULIN ASPART PER UNIT SC SCH ×2 (08:04→12:02)
[2022-06-20] MEDS: hydrALAZINE HCL 20 MG/ML VIAL IV PRN ×3 (08:19→22:52)
[2022-06-20] MEDS: PIPERACILLIN/TAZOBACTAM 4.5 GM in DEXTROSE 5% 100 ML IV SCH ×3 (08:22→23:16)
[2022-06-20] MEDS: CHECK CLONIDINE PATCH PLACEMENT SCH ×3 (08:22→23:13)
[2022-06-20] MEDS: carvediloL 25 MG TAB PO SCH ×2 (08:26→20:06)
--- NOTE | 2022-06-20 10:34 | Nephrology Progress Note ---
Date of Service June 20, 2022 Assessment & Plan (1) Acute cholecystitis: (2) Hyperkalemia: (3) Hypertensive kidney disease with CKD stage IV: Plan 31-year-old female with stage IV CKD, baseline creatinine around 3, poorly- controlled hypertension, proteinuria and morbid obesity admitted to the hospital with abdominal pain and found to have acute cholecystitis. Renal function at baseline with creatinine around 2.8 but noted to have hyperkalemia on admission, potassium was 6.4 which improved and this morning potassium was 4.7. She is being kept NPO for planned for cholecystectomy tomorrow. Renal function close to baseline, electrolyte acceptable. Blood pressure well controlled. -- Recovered well from surgery, waiting for transportation to get discharged -- Monitor renal function electrolyte with a.m. labs. -- Dose medications for EGFR less than 30 as renal function otherwise stable at baseline, electrolyte acceptable, will sign off, please contact with any further assistance, thank you. Admission and Anticipated Discharge Date Admission Date: June 17, 2022 Juan Rajput was seen and examined in her room this morning. She denies any significant abdominal pain, nausea or vomiting. No shortness of breath or chest pain. Blood pressure well controlled. Renal function stable, potassium normal. Physical Exam Constitutional: WD/WN, vitals as above + ill appearing and + morbidly obese; no acute distress Neck: normal visual inspection Thyroid: no thyromegaly Respiratory: Auscultation: + diminished lung sounds; no crackles and no wheezes Cardiovascular: Rate/Rhythm: regular rate and regular rhythm Heart Sounds: normal S1 and normal S2 Extremities: no edema Skin: no rashes Neurologic: no focal motor deficits and not confused Psychiatric: Orientation: alert and oriented x 3 Affect: euthymic affect Results & Data ([facility]) Vital Signs (Past 12 Hours) Vital Signs Temp Pulse Pulse Pulse Resp BP Pulse Ox 06/20/22 08:07 36.9 C 66 20 166/102 H 94 06/20/22 07:24 64 06/20/22 02:55 36.8 C 55 L 17 170/99 H 96 06/20/22 02:00 06/19/22 23:00 36.7 C 57 L 20 195/107 H 98 Pulse Ox O2 Del Method O2 Del Method 06/20/22 08:07 Room Air 06/20/22 07:24 06/20/22 02:55 Room Air 06/20/22 02:00 97 Room Air 06/19/22 23:00 Room Air PG Care Time/CCT Total # of Minutes Spent Total Time Spent with Patient: Total time spent is greater than 50% in coordination of care (as documented) at patient's floor/unit and/or counseling patient: Coding Level of Care Code 73107 SUB INP/OBS CARE 2/35MIN Diagnoses Acute cholecystitis K81.0 Hyperkalemia E87.5 Hypertensive kidney disease with CKD stage IV I12.9; N18.4
[2022-06-20] MEDS: PANTOprazole 40 MG in SYRINGE 0 ML IV SCH (11:08)
--- NOTE | 2022-06-20 13:24 | Surgery Progress Note ---
Date of Service June 20, 2022 Assessment & Plan (1) Acute cholecystitis: Plan: POD#2 lap cholecystectomy Okay to DC to home f/u in clinic with Dr. Streeter within 2 weeks Wound care instructions, activity restrictions, and return precautions given Admission and Anticipated Discharge Date Admission Date: June 17, 2022 Subjective 31-year-old obese female status post laparoscopic cholecystectomy, POD #2, tolerating diet, pain controlled. Physical Exam Constitutional: WD/WN, vitals as above + morbidly obese Gastrointestinal (Abdomen): normal bowel sounds, soft, nontender, no hepatosplenomegaly Inspection/Auscultation: + abdominal surgical incision (No infection) Results & Data ([facility]) Vital Signs (Past 12 Hours) Vital Signs Temp Pulse Pulse Pulse Resp BP Pulse Ox 06/20/22 12:42 36.4 C L 66 17 165/113 H 100 06/20/22 08:07 36.9 C 66 20 166/102 H 94 06/20/22 07:24 64 06/20/22 02:55 36.8 C 55 L 17 170/99 H 96 06/20/22 02:00 Pulse Ox O2 Del Method O2 Del Method 06/20/22 12:42 Room Air 06/20/22 08:07 Room Air 06/20/22 07:24 06/20/22 02:55 Room Air 06/20/22 02:00 97 Room Air Laboratory Results Laboratory Results - last 24 hr 06/19/22 06/19/22 06/20/22 16:19 20:19 05:53 POC Glucose 114 H 113 H Magnesium 2.2 06/20/22 07:29 POC Glucose 93 Magnesium PG Care Time/CCT Total # of Minutes Spent Total Time Spent with Patient: Total time spent is greater than 50% in coordination of care (as documented) at patient's floor/unit and/or counseling patient: Coding Level of Care Code None Diagnoses Acute cholecystitis K81.0
[2022-06-20] MEDS: DOCUSATE SODIUM 100 MG CAP PO SCH ×2 (16:15→20:06)
[2022-06-20] MEDS: oxyCODONE HCL IR 5 MG TAB (IMMEDIATE RELEASE) PO PRN (20:33)
--- NOTE | 2022-06-20 21:37 | Ultrasound Report ---
US venous doppler LE RT CLINICAL HISTORY: r/o DVT TECHNIQUE: Right lower extremity real-time compression venous ultrasound with Color Doppler imaging. Utilizing real-time ultrasonic imaging multiple real time high-resolution ultrasonic images with comp ression and noncompression maneuvers of the deep venous system in addition to color doppler imaging w ere performed from the common femoral vein through the proximal calf veins. COMPARISON: None available at the time of this dictation. FINDINGS/IMPRESSION: Currently there is normal compressibility of the deep venous system from the common femoral vein thro ugh the proximal calf veins. No superficial venous thrombosis is identified. ACT 112: Negative or not required by law. Electronically signed by: Brett Montoya M.D. 06/20/2022 9:35 PM
[2022-06-20] MEDS: HEPARIN SOD 5,000 UNIT/0.5 ML VIAL SQ SCH (22:23)
--- NOTE | 2022-06-20 22:52 | Hospitalist Progress Note ---
Date of Service June 20, 2022 Assessment & Plan (1) Abdominal pain: Plan: Imaging and labs consistent with cholecystitis- surgical evaluation appreciated - her HScTNI has downtrended- likely mildly elevated with stress response and CKD - N.p.o. except essential medications - Continue NSS at 100 mils per hour - Continue Zosyn - renal dose - Dilaudid 0.25mg and Acetaminophen IV for pain control 06/20-patient status post lap cholecystectomy Pain control acceptable and patient is able to tolerate diet Patient reports right lower extremity discomfort we will check Doppler right lower extremity Continue DVT prophylaxis . (2) Abnormal LFTs: Plan: Abdominal pain/abnormal LFTs- imaging noting hepatic steatosis AST increased this morning with likely relation to GBD - INR is normal and no encephalopathy- Will check CMP in a.m. (3) Acute hyperkalemia: Plan: 6.4 on arrival Acutely treated- following treatment her K is 4.8 this morning - repeat at noon - follow with renal function - continue to hold Spironolactone - Continue with IVF - Appreciate Nephrology evaluation 06/20 -Potassium level improved and stabilized (4) Chronic kidney disease, stage 4 (severe): Plan: As above UA on admission without protiesn or blood BP control if needed with IV hydralazine Avoid further nephrotoxic medicaitons, renally dose as applicable, if nephrotoxic medications needed- minimize exposure time (5) Hypertensive kidney disease with CKD stage IV: Plan: CKD stage IV- Continue carvedilol, clonidine patch. - Hold Amlodopine convert to hydralazine PRN Hold spironolactone due to hyperkalemia Hyperkalemia - Appreciate nephrology assistance (6) Elevated troponin: Plan: Elevated troponin- Likely demand and slow clearance with renal dysfunction Troponin 38.9 on admission with repeat lab pending The patient will be admitted to telemetry for serial cardiac enzymes- down- trending x2, ECG without STEMI or other dynamic changes Most recent echo on 04/21/2022 with ejection fraction greater than 70%- repeat ECHO pending (7) Elevated serum glucose: Plan: Elevated serum glucose without the diagnosis of DM - A1C 4.9 - Likely elevated at this time post acute hyperkalemia treatment and stress - will follow with goal <180mg/DL while NPO- pharmacy consultation for now to assist with following in acute phase - repeat BMP at noon (8) Morbid obesity with BMI of 45.0-49.9, adult: Plan: No acute needs- conosider bariatric medicine consultation at discharge for overall CV risk reduction (9) Tobacco dependence: Plan: No acute needs- offer smoking cessation educaiton (10) GERD (gastroesophageal reflux disease): Plan: Continue PPI- convert to IV if needed Admission and Anticipated Discharge Date Admission Date: June 17, 2022 Subjective status post laparoscopic cholecystectomy, Patient reports that her pain control is improved and patient is able to tolerate diet Physical Exam Physical Exam: Head and ENT no thyroid enlargement trachea midline Cardiovascular S1-S2 are normal no S3 Lungs bilateral air entry fair no wheezing Abdomen soft nondistended positive bowel sounds incision no drainage seen with RN Extremity shows trace edema, patient reports right lower extremity discomfort Neurologically no focal deficits Skin shows no rash no cyanosis Results & Data Results & Data ([facility]) Vital Signs (Past 12 Hours) Vital Signs Temp Pulse Pulse Resp BP Pulse Ox O2 Del Method 06/20/22 22:40 37.0 C 73 18 166/102 H 95 Room Air 06/20/22 20:00 Room Air 06/20/22 19:00 36.6 C 67 20 178/95 H 99 Room Air 06/20/22 16:16 36.9 C 75 20 166/91 H 97 Room Air 06/20/22 16:02 62 06/20/22 12:42 36.4 C L 66 17 165/113 H 100 Room Air PG Care Time/CCT Total # of Minutes Spent Total Time Spent with Patient: Total time spent is greater than 50% in coordination of care (as documented) at patient's floor/unit and/or counseling patient: Coding Level of Care Code None Diagnoses Abdominal pain R10.84 Abdominal location: generalized Abnormal LFTs R79.89 Acute hyperkalemia E87.5 Chronic kidney disease, stage 4 (severe) N18.4 Hypertensive kidney disease with CKD stage IV I12.9; N18.4 Elevated troponin R77.8 Elevated serum glucose R73.9 Morbid obesity with BMI of 45.0-49.9, adult E66.01; Z68.42 Tobacco dependence F17.200 GERD (gastroesophageal reflux disease) K21.9 (1) Abdominal pain Abdominal location: generalized Qualified Code(s): R10.84 - Generalized abdominal pain
[2022-06-21] MEDS: MoRPHine SULFATE 4 MG/ML 1 ML CARP\\VIAL IV PRN ×3 (00:22→21:28)
[2022-06-21] MEDS: oxyCODONE HCL IR 5 MG TAB (IMMEDIATE RELEASE) PO PRN ×2 (04:03→15:57)
[2022-06-21] MEDS: HEPARIN SOD 5,000 UNIT/0.5 ML VIAL SQ SCH ×3 (05:44→21:33)
[2022-06-21 06:29] LABS: Basophils # (auto) 0.07 K/uL (0-0.2); Basophils % (auto) 0.6 %; Eosinophils # (auto) 0.39 K/uL (0-0.50); Eosinophils % (auto) 3.5 %; Hematocrit (blood only) 35.3 % (34.1-44.9); Hemoglobin 11.9 g/dl (12.0-16.0); Immature Granulocytes # (auto) 0.06 K/uL (0.00-0.02); Immature Granulocytes % (auto) 0.5 %; Lymphocytes # (auto) 1.88 K/uL (1.2-3.4); Lymphocytes % (auto) 17.1 %; Mean Corpuscular Hemoglobin 28.3 pg (25.0-34.0); Mean Corpuscular Hgb Conc 33.7 g/dL (32.0-36.0); Mean Corpuscular Volume 83.8 fL (80.0-100.0); Mean Platelet Volume 9.5 fL (9.4-12.3); Monocytes # (auto) 0.99 K/uL (0.24-0.82); Neutrophils % (auto) 69.3 %; Platelet Count 288 K/uL (130-400); RDW Coefficient of Variation 12.9 % (11.5-14.5); RDW Standard Deviation 39.2 fL (36.4-46.3); Red Blood Count 4.21 M/uL (3.93-5.22); White Blood Count 10.99 K/ul (4.8-10.8)
[2022-06-21 07:07] LABS: Albumin Level 3.8 gm/dl (3.4-5.0); Bilirubin,Total 0.7 mg/dl (0.2-1.0); Calcium 8.7 mg/dl (8.5-10.1); Potassium 3.8 mmol/L (3.5-5.1)
[2022-06-21 07:13] LABS: Albumin Globulin Ratio 1.3 (0.9-2); BUN Creatinine Ratio 10.7 (10-20); Est GFR (African American) 25.2 ml/min; Est GFR (Non-African American) 21.8 ml/min; Globulin 2.9 gm/dl (2.5-4.0); Total Protein 6.7 gm/dl (6.0-8.3)
[2022-06-21] MEDS ORDERED: Nursing to Pharmacy Communication SCH (07:30)
[2022-06-21] MEDS: PIPERACILLIN/TAZOBACTAM 4.5 GM in DEXTROSE 5% 100 ML IV SCH ×2 (07:37→16:03)
[2022-06-21] MEDS: CHECK CLONIDINE PATCH PLACEMENT SCH ×2 (07:38→16:00)
[2022-06-21] MEDS: carvediloL 25 MG TAB PO SCH ×2 (08:56→20:03)
[2022-06-21] MEDS: DOCUSATE SODIUM 100 MG CAP PO SCH ×3 (08:57→20:03)
[2022-06-21] MEDS: DICLOFENAC SOD 1% GEL 100 GM TUBE EXT PRN ×2 (10:25→20:02)
[2022-06-21] MEDS: PANTOprazole 40 MG in SYRINGE 0 ML IV SCH (11:25)
[2022-06-21] MEDS: PANTOprazole 40 MG TAB PO SCH ×2 (11:45→20:03)
[2022-06-21] MEDS: hydrALAZINE HCL 20 MG/ML VIAL IV PRN (16:40)
--- NOTE | 2022-06-21 19:15 | Hospitalist Progress Note ---
Date of Service June 21, 2022 Assessment & Plan (1) Abdominal pain: Plan: Imaging and labs consistent with cholecystitis- surgical evaluation appreciated - her HScTNI has downtrended- likely mildly elevated with stress response and CKD - N.p.o. except essential medications - Continue NSS at 100 mils per hour - Continue Zosyn - renal dose - Dilaudid 0.25mg and Acetaminophen IV for pain control 06/20-patient status post lap cholecystectomy Pain control acceptable and patient is able to tolerate diet Patient reports right lower extremity discomfort we will check Doppler right lower extremity Continue DVT prophylaxis . 06/21-patient improving status post lap molina with inability to advance diet Patient however has right leg pain which prevents her from ambulating and patient Concerned regarding her ability to do care for self at home till Wednesday Case management to assist with transport at the time of discharge as well as To review her home situation during discharge (2) Abnormal LFTs: Plan: Abdominal pain/abnormal LFTs- imaging noting hepatic steatosis AST increased this morning with likely relation to GBD - INR is normal and no encephalopathy- Will check CMP in a.m. (3) Acute hyperkalemia: Plan: 6.4 on arrival Acutely treated- following treatment her K is 4.8 this morning - repeat at noon - follow with renal function - continue to hold Spironolactone - Continue with IVF - Appreciate Nephrology evaluation 06/20 -Potassium level improved and stabilized (4) Chronic kidney disease, stage 4 (severe): Plan: As above UA on admission without protiesn or blood BP control if needed with IV hydralazine Avoid further nephrotoxic medicaitons, renally dose as applicable, if nephrotoxic medications needed- minimize exposure time (5) Hypertensive kidney disease with CKD stage IV: Plan: CKD stage IV- Continue carvedilol, clonidine patch. - Hold Amlodopine convert to hydralazine PRN Hold spironolactone due to hyperkalemia Hyperkalemia - Appreciate nephrology assistance (6) Elevated troponin: Plan: Elevated troponin- Likely demand and slow clearance with renal dysfunction Troponin 38.9 on admission with repeat lab pending The patient will be admitted to telemetry for serial cardiac enzymes- down- trending x2, ECG without STEMI or other dynamic changes Most recent echo on 04/21/2022 with ejection fraction greater than 70%- repeat ECHO pending (7) Elevated serum glucose: Plan: Elevated serum glucose without the diagnosis of DM - A1C 4.9 - Likely elevated at this time post acute hyperkalemia treatment and stress - will follow with goal <180mg/DL while NPO- pharmacy consultation for now to assist with following in acute phase - repeat BMP at noon (8) Morbid obesity with BMI of 45.0-49.9, adult: Plan: No acute needs- conosider bariatric medicine consultation at discharge for overall CV risk reduction (9) Tobacco dependence: Plan: No acute needs- offer smoking cessation educaiton (10) GERD (gastroesophageal reflux disease): Plan: Continue PPI- convert to IV if needed Admission and Anticipated Discharge Date Admission Date: June 17, 2022 Subjective status post laparoscopic cholecystectomy, patient is able to tolerate diet patient however reports pain in her right thigh area And reports that makes it difficult for her to ambulate. Doppler of right lower extremity did not show any evidence of DVT Patient also concerned about her ability to ambulate and care for self till Wednesday when she reports that she will have help to assist her Physical Exam Physical Exam: Head and ENT no thyroid enlargement trachea midline Cardiovascular S1-S2 are normal no S3 Lungs bilateral air entry fair no wheezing Abdomen soft nondistended positive bowel sounds incision no drainage Extremity shows trace edema, patient reports right lower extremity discomfort No ecchymosis or any evidence of warmth or tenderness noted when examined with RN Neurologically no focal deficits Skin shows no rash no cyanosis Results & Data Results & Data ([facility]) Vital Signs (Past 12 Hours) Vital Signs Temp Pulse Pulse Resp BP Pulse Ox O2 Del Method 06/21/22 19:00 36.6 C 62 18 173/94 H 92 Room Air 06/21/22 16:39 167/99 H 06/21/22 16:00 36.9 C 62 20 177/98 H 95 Room Air 06/21/22 15:12 64 06/21/22 11:47 36.8 C 79 22 189/88 H Room Air 06/21/22 07:45 Room Air Laboratory Results Short CBC 06/21/22 Range/Units 05:26 WBC 10.99 H (4.8-10.8) K/ul Hgb 11.9 L (12.0-16.0) g/dl Hct 35.3 (34.1-44.9) % Plt Count 288 (130-400) K/uL BMP 06/21/22 05:26 Sodium 135 L Potassium 3.8 Chloride 106 Carbon Dioxide 21 BUN 30 H Creatinine 2.80 H Glucose 84 Calcium 8.7 Liver Function 06/21/22 Range/Units 05:26 Total Bilirubin 0.7 (0.2-1.0) mg/dl AST 17 (13-39) U/L ALT 84 H (7-52) U/L Alkaline Phosphatase 135 H (34-104) U/L Albumin 3.8 (3.4-5.0) gm/dl PG Care Time/CCT Total # of Minutes Spent Total Time Spent with Patient: Total time spent is greater than 50% in coordination of care (as documented) at patient's floor/unit and/or counseling patient: Coding Level of Care Code None Diagnoses Abdominal pain R10.84 Abdominal location: generalized Abnormal LFTs R79.89 Acute hyperkalemia E87.5 Chronic kidney disease, stage 4 (severe) N18.4 Hypertensive kidney disease with CKD stage IV I12.9; N18.4 Elevated troponin R77.8 Elevated serum glucose R73.9 Morbid obesity with BMI of 45.0-49.9, adult E66.01; Z68.42 Tobacco dependence F17.200 GERD (gastroesophageal reflux disease) K21.9 (1) Abdominal pain Abdominal location: generalized Qualified Code(s): R10.84 - Generalized abdominal pain
[2022-06-22] MEDS: hydrALAZINE HCL 20 MG/ML VIAL IV PRN ×2 (00:01→23:39)
[2022-06-22] MEDS: CHECK CLONIDINE PATCH PLACEMENT SCH ×4 (00:01→23:16)
[2022-06-22] MEDS: PIPERACILLIN/TAZOBACTAM 4.5 GM in DEXTROSE 5% 100 ML IV SCH ×2 (00:01→09:09)
[2022-06-22] MEDS: oxyCODONE HCL IR 5 MG TAB (IMMEDIATE RELEASE) PO PRN ×3 (03:12→17:56)
[2022-06-22] MEDS: HEPARIN SOD 5,000 UNIT/0.5 ML VIAL SQ SCH ×3 (05:42→20:47)
[2022-06-22 07:59] LABS: Basophils # (auto) 0.05 K/uL (0-0.2); Basophils % (auto) 0.4 %; Eosinophils % (auto) 2.7 %; Hematocrit (blood only) 34.3 % (34.1-44.9); Hemoglobin 11.6 g/dl (12.0-16.0); Immature Granulocytes # (auto) 0.06 K/uL (0.00-0.02); Immature Granulocytes % (auto) 0.5 %; Lymphocytes # (auto) 1.54 K/uL (1.2-3.4); Lymphocytes % (auto) 13.8 %; Mean Corpuscular Hemoglobin 28.4 pg (25.0-34.0); Mean Corpuscular Hgb Conc 33.8 g/dL (32.0-36.0); Mean Corpuscular Volume 84.1 fL (80.0-100.0); Mean Platelet Volume 9.6 fL (9.4-12.3); Monocytes # (auto) 1.05 K/uL (0.24-0.82); Monocytes % (auto) 9.4 %; Neutrophils # (auto) 8.14 K/uL (1.4-6.5); Neutrophils % (auto) 73.2 %; Platelet Count 281 K/uL (130-400); RDW Coefficient of Variation 12.8 % (11.5-14.5); RDW Standard Deviation 38.9 fL (36.4-46.3); Red Blood Count 4.08 M/uL (3.93-5.22); White Blood Count 11.14 K/ul (4.8-10.8)
[2022-06-22] MEDS: DOCUSATE SODIUM 100 MG CAP PO SCH ×3 (09:06→20:45)
[2022-06-22] MEDS: carvediloL 25 MG TAB PO SCH ×2 (09:06→20:45)
[2022-06-22] MEDS: PANTOprazole 40 MG TAB PO SCH ×2 (09:06→20:45)
[2022-06-22 09:52] LABS: Albumin Globulin Ratio 1.3 (0.9-2); Albumin Level 3.6 gm/dl (3.4-5.0); BUN Creatinine Ratio 10.1 (10-20); Bilirubin,Total 0.7 mg/dl (0.2-1.0); Calcium 8.7 mg/dl (8.5-10.1); Creatinine Clr Calc Pharmacy 41.5 ml/min; Est GFR (African American) 22.5 ml/min; Est GFR (Non-African American) 19.4 ml/min; Globulin 2.8 gm/dl (2.5-4.0); Potassium 3.9 mmol/L (3.5-5.1); Total Protein 6.4 gm/dl (6.0-8.3)
--- NOTE | 2022-06-22 12:30 | Hospitalist Progress Note ---
Date of Service June 22, 2022 Assessment & Plan (1) Abdominal pain: Plan: Imaging and labs consistent with cholecystitis- surgical evaluation appreciated now POD#4 s/p lap molina doing well post-op, neeru reg diet, moving bowels WBC count up slightly to 11k today, afebrile. Alk phos and ALT still slightly up but overall LFTs all trending downward -dc Zosyn for uncomplicated cholecystitis and now s/p lap molina f/u with Surgery as planned as outpt dc IV morphine especially in setting of CKD, continue oxycodone, APAP follow CBC, LFTs, BMP in AM (2) Abnormal LFTs: Plan: Abdominal pain/abnormal LFTs- imaging noting hepatic steatosis and also acute rise due to acute cholecystitis, no bilkiary ductal dilatation noted improving follow LFTs to normal as outpt (3) Acute hyperkalemia: Plan: 6.4 on arrival Acutely treated- now normal - continue to hold Spironolactone and would not restart - Appreciate Nephrology evaluation (4) Chronic kidney disease, stage 4 (severe): 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 - Hold Amlodopine convert to hydralazine PRN Hold spironolactone due to hyperkalemia Hyperkalemia - Appreciate nephrology assistance (6) Elevated troponin: Plan: Elevated troponin- Likely demand and slow clearance with renal dysfunction Troponin 38.9 and then trended downward ECG without STEMI or other dynamic changes Most recent echo on 04/21/2022 with ejection fraction greater than 70%- repeat ECHO here with preserved EF< and with severe LVH this is myocardial demand ischemia in setting of severe LVH, acute cholecystitis Needs improved BP control (7) Elevated serum glucose: Plan: Elevated serum glucose without the diagnosis of DM - A1C 4.9 - Likely elevated at this time post acute hyperkalemia treatment and stress - will follow with goal <180mg/DL while NPO- pharmacy consultation for now to assist with following in acute phase (8) Morbid obesity with BMI of 45.0-49.9, adult: Plan: No acute needs- consider bariatric medicine consultation at discharge for overall CV risk reduction BMI 47.7 (9) Tobacco dependence: Plan: No acute needs- offer smoking cessation educaiwilbert (10) GERD (gastroesophageal reflux disease): Plan: Continue PPI bid Plan Dispo-medically stable for discharge but does not have a ride home-needs [facility]-discussed with [employer] transfer clerk to med/surg unit Admission and Anticipated Discharge Date Admission Date: June 17, 2022 Subjective Pt has some soreness in abdomen. Is eating reg diet, moved bowels yesterday. No nausea. [place] [employer] with NSR< normal rates Review of Systems Review of Systems: All systems reviewed & are unremarkable except as noted in HPI & below Physical Exam Constitutional: WD/WN, vitals as above Eyes: + anicteric sclerae ENMT: external ear and nose normal, oropharynx normal Neck: trachea midline, no thyromegaly (with scarring down right side of neck) Respiratory: normal respiratory effort, lungs clear to auscultation Cardiovascular: RRR, no murmur, no edema Chest (Breasts): Chest: normal inspection of chest Gastrointestinal (Abdomen): Inspection/Auscultation: normal bowel sounds; + abdomen abnormal to inspection (incisaion sites with steri strips,ecchymosis right side) and abdomen not distended Percussion/Palpation: + abdomen tender (mild over incision sites) and abdomen soft; no guarding Musculoskeletal: Extremities: extremities normal to inspection; no cyanosis and no clubbing Skin: no rashes, warm and dry Neurologic: moves all extremities and awake; no focal motor deficits Psychiatric: A+Ox3, euthymic affect Lymphatic: no lymphedema Results & Data Results & Data ([facility]) Vital Signs (Past 12 Hours) Vital Signs Temp Pulse Pulse Resp BP Pulse Ox O2 Del Method 06/22/22 11:13 36.6 C 68 16 169/99 H 98 Room Air 06/22/22 09:04 Room Air 06/22/22 05:59 67 06/22/22 06:58 36.4 C L 72 18 172/80 H 98 Room Air 06/22/22 03:08 64 148/101 H 06/22/22 02:49 36.5 C 86 20 181/82 H 90 Room Air 06/22/22 00:53 68 154/84 H Laboratory Results 06/22/22 06:56 06/22/22 06:56 PG Care Time/CCT Total # of Minutes Spent Total Time Spent with Patient: Total time spent is greater than 50% in coordination of care (as documented) at patient's floor/unit and/or counseling patient: Coding Level of Care Code 91946 SUB INP/OBS CARE 2/35MIN Diagnoses Abdominal pain R10.84 Abdominal location: generalized Abnormal LFTs R79.89 Acute hyperkalemia E87.5 Chronic kidney disease, stage 4 (severe) N18.4 Hypertensive kidney disease with CKD stage IV I12.9; N18.4 Elevated troponin R77.8 Elevated serum glucose R73.9 Morbid obesity with BMI of 45.0-49.9, adult E66.01; Z68.42 Tobacco dependence F17.200 GERD (gastroesophageal reflux disease) K21.9 (1) Abdominal pain Abdominal location: generalized Qualified Code(s): R10.84 - Generalized abdominal pain
[2022-06-22] MEDS: INSULIN ASPART PER UNIT SC SCH (18:04)
[2022-06-23] MEDS: oxyCODONE HCL IR 5 MG TAB (IMMEDIATE RELEASE) PO PRN (06:08)
[2022-06-23] MEDS: HEPARIN SOD 5,000 UNIT/0.5 ML VIAL SQ SCH (06:10)
[2022-06-23] MEDS: hydrALAZINE HCL 20 MG/ML VIAL IV PRN (08:02)
[2022-06-23] MEDS: PANTOprazole 40 MG TAB PO SCH (08:03)
[2022-06-23] MEDS: carvediloL 25 MG TAB PO SCH (08:03)
[2022-06-23] MEDS: DOCUSATE SODIUM 100 MG CAP PO SCH (08:03)
[2022-06-23] MEDS: CHECK CLONIDINE PATCH PLACEMENT SCH (08:04)
[2022-06-23 08:16] LABS: Basophils # (auto) 0.04 K/uL (0-0.2); Basophils % (auto) 0.3 %; Eosinophils # (auto) 0.33 K/uL (0-0.50); Eosinophils % (auto) 2.8 %; Hematocrit (blood only) 35.5 % (34.1-44.9); Hemoglobin 11.9 g/dl (12.0-16.0); Immature Granulocytes # (auto) 0.05 K/uL (0.00-0.02); Immature Granulocytes % (auto) 0.4 %; Lymphocytes # (auto) 1.63 K/uL (1.2-3.4); Mean Corpuscular Hemoglobin 28.3 pg (25.0-34.0); Mean Corpuscular Hgb Conc 33.5 g/dL (32.0-36.0); Mean Corpuscular Volume 84.5 fL (80.0-100.0); Mean Platelet Volume 9.6 fL (9.4-12.3); Monocytes # (auto) 1.12 K/uL (0.24-0.82); Monocytes % (auto) 9.6 %; Neutrophils % (auto) 72.9 %; Platelet Count 318 K/uL (130-400); RDW Coefficient of Variation 12.7 % (11.5-14.5); RDW Standard Deviation 38.5 fL (36.4-46.3); White Blood Count 11.67 K/ul (4.8-10.8)
[2022-06-23 09:00] LABS: Albumin Globulin Ratio 1.2 (0.9-2); Albumin Level 3.5 gm/dl (3.4-5.0); BUN Creatinine Ratio 12.3 (10-20); Bilirubin,Total 0.5 mg/dl (0.2-1.0); Calcium 9.3 mg/dl (8.5-10.1); Creatinine Clr Calc Pharmacy 44.8 ml/min; Est GFR (African American) 24.7 ml/min; Est GFR (Non-African American) 21.3 ml/min; Total Protein 6.5 gm/dl (6.0-8.3)
[2022-06-23] MEDS ORDERED: amLODIPine BESYLATE 5 MG TAB PO SCH (09:00)
[2022-06-23] MEDS ORDERED: ACETAMINOPHEN 500 MG TAB PO PRN (10:21)
[2022-06-23] MEDS ORDERED: amLODIPine BESYLATE 5 MG TAB PO ONE (10:24)
--- NOTE | 2022-06-23 11:50 | Discharge Summary ---
Date of Service June 23, 2022 Admission HPI Per Admitting Provider The patient is a 31-year-old female with a past medical history including CKD stage IV, anemia due to chronic disease, tobacco dependence, morbid obesity, proteinuria, plantar fascial fibromatosis of both feet, mesenteric adenitis, bright red blood per rectum, hypertensive urgency, thrombocytopenia, vitamin D deficiency, hypertensive emergency, history of COVID-19, and adrenal abnormality. Patient was admitted for abdominal pain from 04/21-04/29/2022, and was diagnosed with mesenteric adenitis at that time. She reports that she has been told in the past that she had an issue with her gallbladder and was going to schedule a follow-up appointment to have surgery, but became busy. She denies any recent change in diet, stool pattern, liquid intake. She denies any recent travels or sick exposures. Principal Diagnosis Acute cholecystitis Hyperkalemia Discharge Exam Constitutional WD/WN, vitals as above Eyes + anicteric sclerae Neck trachea midline, no thyromegaly (with scarring down right side of neck) Respiratory normal respiratory effort, lungs clear to auscultation Cardiovascular RRR, no murmur, no edema Chest (Breasts) Chest: normal inspection of chest Gastrointestinal (Abdomen) Inspection/Auscultation: normal bowel sounds; + abdomen abnormal to inspection (incisaion sites with steri strips,ecchymosis right side) and abdomen not distended Percussion/Palpation: + abdomen tender (mild over incision sites) and abdomen soft; no guarding Musculoskeletal Extremities: extremities normal to inspection; no cyanosis and no clubbing Skin no rashes, warm and dry Neurologic moves all extremities and awake; no focal motor deficits Psychiatric A+Ox3, euthymic affect Lymphatic no lymphedema Discharge Data Allergies Allergy/AdvReac Type Severity Reaction Status Date / Time No Known Allergies Allergy Verified 06/17/22 00:56 Consultations 06/17/22 00:26 ED Decision to Admit Stat 06/17/22 03:23 Consult Nephrology Routine 06/17/22 04:28 Consult General Surgery Routine Procedures Performed Operation Date: 06/18/22 10:40 Actual Procedures p Laparoscopic Cholecystectomy, Laparoscopic Lysis of Adhesions(Not Applicable) - Azar Streeter, Ordered Studies 06/16/22 22:37 CT abd pelvis wo con Urgent 06/17/22 01:48 US abdomen limited Urgent 06/20/22 17:08 US venous doppler LE RT Routine Hospital Course (1) Abdominal pain: Imaging and labs consistent with cholecystitis- surgical evaluation appreciated now POD#5 s/p lap molina doing well post-op, neeru reg diet, moving bowels WBC count up slightly to 11k and stable from previous, afebrile. Alk phos still slightly up but overall LFTs all trending downward or have retuned to normal. 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 and now down to 2.8 on day of discharge UA on admission without protein or blood BPs uncontrolled but spironolactone was stopped and amlodipine had been held throughout her stay amlodipine restarted on day of idscharge at 10mg daily tylenol for headache give on day of discharge and this improved as BP came down Avoid further nephrotoxic medications, renally dose as applicable, if nephrotoxic medications needed- minimize exposure time -f/u with Nephro as scheduled in 2 weeks as outpt may need to restart diuretics at some point (5) Hypertensive kidney disease with CKD stage IV: CKD stage IV- Continue carvedilol, clonidine patch. restart amlodiine as above Hold spironolactone due to hyperkalemia Hyperkalemia - Appreciate nephrology assistance (6) Elevated troponin: Elevated troponin- Likely demand and slow clearance with renal dysfunction Troponin 38.9 and then trended downward ECG without STEMI or other dynamic changes Most recent echo on 04/21/2022 with ejection fraction greater than 70%- repeat ECHO here with preserved EF< and with severe LVH this is myocardial demand ischemia in setting of severe LVH, acute cholecystitis Needs improved BP control (7) Elevated serum glucose: Elevated serum glucose without the diagnosis of DM - A1C 4.9 - Likely elevated at this time post acute hyperkalemia treatment and stress resolved (8) Morbid obesity with BMI of 45.0-49.9, adult: No acute needs- consider bariatric medicine consultation at discharge for overall CV risk reduction BMI 47.7 (9) Tobacco dependence: No acute needs- offer smoking cessation educaiton (10) GERD (gastroesophageal reflux disease): Continue PPI bid Plan Dispo-medically stable for discharge Total Time Total Time Spent Total Time Spent (In Minutes): 35 min Discharge Plan Discharge Items Patient Disposition: Home - Self-Care Reason For Visit: ELEVATED TROPONIN, ABNL LFT'S, ABD PAIN Discharge Diagnosis: laparoscopic cholecystectomy Hyperkalemia Condition on Discharge: Fair Activity: Per Instructions section Lifting: No more than 10 pounds Bathing Comment: may shower starting 06/20/22; no soaking in tubs/pools Exercise/Sports: Wait until after follow-up appointment Driving/Machine Use: no driving while taking any narcotics for pain Non-emergency contact: Primary Care Provider, Surgeon and Agricultural Research Technologist Call non-emergency contact if: you have any medication questions, your symptoms worsen, your pain is not controlled, your pain is concerning for you, you have a fever, your temperature is above 101.5, your wound has increased redness, your wound has increased drainage and your wound pain has increased Follow-up/Referrals: Azar Streeter DO [Physician] - 07/03/22 8:30 am (Please call to schedule follow up in clinic within 2 weeks) Kishan Tubbs PA-C [Primary Care Provider] - 06/30/22 9:15 am Diet: Low Sodium (2gm) Addtl Attending Provider Instructions: You may remove your outer surgical dressings on 06/20/22 and shower. You will have small white bandages over your incisions called steri-strips. These will tend to fall off on their own within 7-10 days. You may purchase Tylenol over the counter if needed for additional pain control over the next few days. Take per manufacturers instructions Addtl Manager Fashion Provider Instructions: You had high potassium levels when you came in to the hospital. This is from your kidney problems and your spironolactone. Your spironolactone was STOPPED. Please follow up with Dr. Henry as scheduled in 2 weeks. Pending Studies at Discharge: Yes Studies:: surgical pathology Stand-Alone Forms: [facility], Smoking Cessation Medications and DC Order Prescriptions: New oxycodone 5 mg tablet 5 - 10 mg PO .[id number] PRN (Reason: pain, for initial therapy, max 6 tabs per day) Qty: 15 0RF diclofenac sodium [Voltaren Arthritis Pain] 1 % Gel 2 g EXT BID PRN (Reason: pain) Qty: 100 0RF Continued hydroxyzine HCl 10 mg Tablet 10 mg PO BID PRN (Reason: anxiety or sleep) Qty: 60 0RF clonidine 0.3 mg/24 hr Patch Weekly 1 patch transdermal Q7D Qty: 4 0RF Rx Instructions: CHANGES ON WEDNESDAYS carvedilol 25 mg tablet 25 mg PO BID Qty: 60 0RF amlodipine 10 mg tablet 10 mg PO DAILY Qty: 30 0RF pantoprazole 40 mg Tablet,Delayed Release (Dr/Ec) 40 mg PO BID Qty: 60 0RF ergocalciferol (vitamin D2) 1,250 mcg (50,000 unit) Capsule 50,000 unit PO Q7D Qty: 7 0RF Rx Instructions: TAKES ON WEDNESDAYS acetaminophen 325 mg tablet 650 mg PO Q4H PRN (Reason: PAIN/FEVER) Discontinued spironolactone 100 mg Tablet 100 mg PO DAILY Qty: 30 0RF sucralfate 100 mg/mL Suspension 1 g PO QID Qty: 1000 0RF Discharge Orders: Discharge Order (Routine); Ordered 06/23/22 Ordered By: Heena Leon Admission Data Admit Date/Time: 06/17/22 01:47 Attending Provider: Heena Leon Admit Provider: Sharan Mendoza Primary Care Provider: Kishan Tubbs Other Providers: Sharan Mendoza ; Haritha Henry ; Azar Streeter Coding Level of Care Code HOSP INP/OBS DISCH >30 MIN Diagnoses Abdominal pain R10.84 Abdominal location: generalized Abnormal LFTs R79.89 Acute hyperkalemia E87.5 Chronic kidney disease, stage 4 (severe) N18.4 Hypertensive kidney disease with CKD stage IV I12.9; N18.4 Elevated troponin R77.8 Elevated serum glucose R73.9 Morbid obesity with BMI of 45.0-49.9, adult E66.01; Z68.42 Tobacco dependence F17.200 GERD (gastroesophageal reflux disease) K21.9
[2022-06-24] MEDS ORDERED: cloNIDine HCL 0.3 MG/24 HR TRANSDERM SYS TD SCH (09:00)
== END 2022-06-23 12:30 | disposition home or self-care (01) | DRG 418 ==
LOC: ED 18:59 → EDINP 06-17 01:47 → SUATTDRO 06-17 01:47 → 2S 06-17 02:55 → 3N 06-22 17:45

== ENCOUNTER 2022-12-07 22:12 | Observation (INO) ==
[2022-12-07 23:25] LABS: Alanine Aminotransferase 13 U/L (7-52); Albumin Globulin Ratio 1.1 (0.9-2); Albumin Level 3.8 gm/dl (3.4-5.0); Alkaline Phosphatase 132 U/L (34-104); Anion Gap 8 (3-11); Aspartate Aminotransferase 10 U/L (13-39); BUN Creatinine Ratio 10.8 (10-20); Bilirubin,Total 0.2 mg/dl (0.2-1.0); Blood Urea Nitrogen 30 mg/dl (6-23); Calcium 8.8 mg/dl (8.6-10.3); Carbon Dioxide 23 mmol/L (21-32); Chloride 106 mmol/L (98-107); Est GFR (African American) 25.1 ml/min; Est GFR (Non-African American) 21.7 ml/min; Globulin 3.5 gm/dl (2.5-4.0); Glucose 99 mg/dl (70-99(Fasting)); Potassium 3.5 mmol/L (3.5-5.1); Sodium 137 mmol/L (136-145); Total Protein 7.3 gm/dl (6.0-8.3)
[2022-12-07 23:26] LABS: Basophils # (auto) 0.09 K/uL (0-0.2); Basophils % (auto) 0.7 %; Eosinophils # (auto) 0.28 K/uL (0-0.50); Eosinophils % (auto) 2.1 %; Hematocrit (blood only) 43.6 % (37.0-47.0); Immature Granulocytes # (auto) 0.05 K/uL (0.01-0.20); Immature Granulocytes % (auto) 0.4 %; Lymphocytes # (auto) 3.05 K/uL (1.2-3.4); Lymphocytes % (auto) 23.1 %; Mean Corpuscular Hemoglobin 27.8 pg (25.0-34.0); Mean Corpuscular Hgb Conc 34.4 g/dL (32.0-36.0); Mean Corpuscular Volume 80.7 fL (80.0-100.0); Mean Platelet Volume 9.3 fL (9.4-12.4); Monocytes # (auto) 0.83 K/uL (0.11-0.59); Monocytes % (auto) 6.3 %; Neutrophils # (auto) 8.88 K/uL (1.40-6.50); Neutrophils % (auto) 67.4 %; Platelet Count 405 K/uL (130-400); RDW Coefficient of Variation 13.4 % (11.5-14.5); RDW Standard Deviation 38.5 fL (36.4-46.3); White Blood Count 13.18 K/ul (4.8-10.8)
[2022-12-07 23:31] LABS: Troponin I High Sensitivity 12.5 pg/ml (0-14)
[2022-12-07 23:39] LABS: INR 0.9 (0.9-1.1); Partial Thromboplastin Ratio 1.1; Partial Thromboplastin Time 29.9 Seconds (21.0-31.0); Prothrombin Time 10.2 Seconds (9.0-12.0)
--- NOTE | 2022-12-08 00:02 | Emergency Department Note ---
Impression & Plan Hypertensive urgency, Intracranial hypertension Admit to the [facility] ED Provider Note NAME: AARON CHAUHAN AGE: 32 SEX: F ARRIVES VIA: Ambulance INFORMANT: Patient ED PROVIDER(S): Raquel Spangler DO CHIEF COMPLAINT: Neurological symptoms PLAN: Disposition: Admit to the [facility] Condition: Guarded MEDICAL DECISION MAKING: This is a 32-year-old female patient with chronic kidney disease who presents to the emergency department with an episode of neurological symptoms yesterday. Patient presents to the emergency department with an elevated uncontrolled blood pressure. Patient describes missing only 1 dose of her antihypertensive. She has been left with some numbness to her face. Laboratory studies revealed no significant anemia. White blood cell count was 13.1. She does have underlying chronic kidney disease with baseline BUN of 30 and creatinine of 2.79. Glucose was 99. Troponin was normal at 12.5. Patient went for MRI of the brain which revealed signs of intracranial hypertension. Patient received doses of IV hydralazine and IV labetalol in an effort to control her blood pressure here in the emergency department. [facility] for further inpatient care. Triage Nursing notes reviewed and agree with them. External medical records were reviewed including previous admissions to the hospital. Vital Signs: reviewed and remarkable for hypertension Differential diagnosis: Acute CVA, TIA, hypertensive crisis ER treatment provided: Cardiac monitoring Twelve-lead EKG MRI of the brain IV hydralazine IV labetalol Diagnostics interpreted by me: ECG: Normal sinus rhythm at a rate of 68. There is no ST segment elevation or signs of ischemia. There is no ectopy. Cardiac Monitoring: Normal sinus rhythm at a rate of 63 Laboratory studies: See below Imaging studies: As per stat rad MRI of the brain: See report HPI: arrives for evaluation of neurological episode and headache. Patient had an episode around 6 PM yesterday where she was staring into space. She had resultant numbness in her chin that extended up to her right ear. She does not remember the episode of staring but was told about it by her boyfriend. She does admit that this occurred at her boyfriend's house where it was extremely hot and there was no air conditioning. It was also a high stress situation. A couple of hours later, the patient had a similar episode and began to vomit. PAST MEDICAL HISTORY:See Below PAST SURGICAL HISTORY:See Below FAMILY HISTORY:See Below SOCIAL HISTORY:See Below HOME MEDICATIONS:See list ALLERGIES:None VITALS:See Below PHYSICAL EXAMINATION: HEENT: Head - normocephalic and atraumatic. Pupils are equal, round, and reactive to light. Extraocular eye muscles are intact and sclera are anicteric. Ears - bilaterally patent canals with noninjected tympanic membranes and no evidence of hemotympanum. Nose - moist nasal mucosa without discharge. Mouth - moist buccal mucosa. Oropharynx is nonerythematous and there is no tonsillar exudate or edema noted. Neck: Supple; no JVD, nuchal rigidity, cervical lymphadenopathy, or auscultated bruits. Heart: Regular rate and rhythm. There is a normal S1 and S2 with no murmurs, clicks, or gallops appreciated. Lungs: Clear to auscultation bilaterally with no wheezes, rales, or rhonchi. Abdomen: Soft, completely nontender, nondistended, with good bowel sounds. There are no palpable pulsatile masses or hepatosplenomegaly. There is no guarding, rigidity, or rebound noted. Extremities: No evidence of cyanosis, clubbing, or edema. There are easily palpable peripheral pulses. Neuro:The patient is awake and alert, oriented to day, time, and place. Muscle strength is 5/5 in all 4 extremities. The patient has equal cake puncher strength and equal pedal push and pull. There are no cerebellar signs. ED COURSE: Times/Reassessments: 2325: Patient was evaluated in room A3. A complete history and physical was performed. A twelve-lead EKG was obtained as described above. An order was placed for continuous cardiac monitoring. The patient was in a normal sinus rhythm at a rate of 63. Patient was given a dose of IV hydralazine for blood pressure management. She went for an MRI of the brain. On return from radiology, blood pressure was now elevated and she was given a dose of IV labetalol. Raquel Spangler DO Past Med/Surg History Medical History (Updated 12/09/22 @ 14:34 by Raquel Spangler DO) Anemia due to chronic kidney disease Chronic kidney disease Chronic kidney disease, stage 4 (severe) Hyperkalemia Hypertensive kidney disease with CKD stage IV Hypertensive urgency Idiopathic intracranial hypertension Surgical History Hx laparoscopic cholecystectomy (06/18/22) Laparoscopic Cholecystectomy, Laparoscopic Lysis of Adhesions(Not Applicable) - Azar Streeter DO Family History Denies family history of Crohn's disease Colorectal cancer Ulcerative colitis Social History Smoking Status: Current every day smoker Tobacco Type: Cigarettes Cigarettes Per Day: 6; Second Hand Exposure: Yes; Do You Dip or Chew Tobacco: No; Hx Alcohol Use: No Hx Substance Use: No Preferred Language: Czech Communication Ability: Effective Visual Impairment: No Limitations Gate Manager Required: No Beliefs That Will Affect Care: None Current Living Situation: Alone Current Living Situation Comment: Lives alone, partner frequently visits Feels Safe at Home: No Is there a partner from a previous relationship who is making you feel unsafe now?: No Assistive Devices: None Allergies Allergies Allergy/AdvReac Type Severity Reaction Status Date / Time No Known Allergies Allergy Verified 11/09/22 11:45 Home Meds Home Medications Medication Instructions Recorded Confirmed acetaminophen 325 mg tablet 650 mg PO Q4H PRN PAIN/FEVER 06/17/22 12/07/22 furosemide 20 mg tablet 20 mg PO QAM 09/10/22 12/07/22 calcitriol 0.25 mcg capsule 0.25 mcg PO 3XWK 12/07/22 12/07/22 hydroxyzine HCl 10 mg tablet 10 - 20 mg PO BID PRN anxiety or 12/07/22 12/07/22 sleep potassium chloride 10 mEq 10 meq PO QAM 12/07/22 12/07/22 capsule,extended release Previous Rx's Medication Instructions Recorded amlodipine 10 mg tablet 10 mg PO DAILY #30 tabs 04/28/22 carvedilol 25 mg tablet 25 mg PO BID #60 tabs 04/28/22 clonidine 0.3 mg/24 hr weekly 1 patch transdermal Q7D #4 ea 04/28/22 transdermal patch ergocalciferol (vitamin D2) 1,250 50,000 unit PO Q7D #7 caps 04/28/22 mcg (50,000 unit) capsule diclofenac sodium 1 % topical gel 2 g EXT BID PRN pain #100 grams 06/23/22 (Voltaren Arthritis Pain) pantoprazole 40 mg tablet,delayed 40 mg PO BID #60 tabs 07/03/22 release losartan 100 mg tablet 100 mg PO DAILY #90 tabs 09/10/22 Results & Data (ED) Vital Signs Vital Signs - 24 hr 12/07/22 22:17 12/07/22 23:44 12/07/22 23:51 Temperature 36.7 C Temperature Source Temporal Artery Scan Pulse Rate 66 63 Pulse Rate [Apical] 62 Respiratory Rate 18 18 16 Respiratory Effort / Characteristics Non-Labored Spontaneous Non-Labored Spontaneous Respiratory Depth Normal Normal Blood Pressure 201/126 H Blood Pressure [Left Arm] 211/108 H Blood Pressure Mean 151 Blood Pressure Mean [Left Arm] 142 Blood Pressure Position Sitting Blood Pressure Position [Left Arm] Sitting Pulse Oximetry 94 98 97 Oxygen Delivery Method Room Air Room Air Room Air Sepsis Recent Fever Within 48 Hours No Sepsis New/Unexplained Change in Mental Status No Sepsis Action Taken by Nursing No Action Required Laboratory Data 12/07/22 22:56 12/07/22 22:56 Lab Results 12/07/22 12/07/22 12/07/22 Range/Units 22:56 22:56 22:56 WBC 13.18 H (4.8-10.8) K/ul RBC 5.40 (4.20-5.40) M/uL Hgb 15.0 (12.0-16.0) g/dl Hct 43.6 (37.0-47.0) % MCV 80.7 (80.0-100.0) fL MCH 27.8 (25.0-34.0) pg MCHC 34.4 (32.0-36.0) g/dL RDW Std Deviation 38.5 (36.4-46.3) fL RDW Coeff of Erin 13.4 (11.5-14.5) % Plt Count 405 H (130-400) K/uL MPV 9.3 L (9.4-12.4) fL Immature Gran % (Auto) 0.4 % Neut % (Auto) 67.4 % Lymph % (Auto) 23.1 % Heard % (Auto) 6.3 % Eos % (Auto) 2.1 % Baso % (Auto) 0.7 % Neut # (Auto) 8.88 H (1.40-6.50) K/uL Lymph # (Auto) 3.05 (1.2-3.4) K/uL Heard # (Auto) 0.83 H (0.11-0.59) K/uL Eos # (Auto) 0.28 (0-0.50) K/uL Baso # (Auto) 0.09 (0-0.2) K/uL Immature Gran # (Auto) 0.05 (0.01-0.20) K/uL PT 10.2 (9.0-12.0) Seconds INR 0.9 (0.9-1.1) APTT 29.9 (21.0-31.0) Seconds PTT Ratio 1.1 Sodium 137 (136-145) mmol/L Potassium 3.5 (3.5-5.1) mmol/L Chloride 106 (98-107) mmol/L Carbon Dioxide 23 (21-32) mmol/L Anion Gap 8 (3-11) BUN 30 H (6-23) mg/dl Creatinine 2.79 H (0.6-1.2) mg/dl Est Cr Clr Drug Dosing Not Reportable Est GFR ( Amer) 25.1 ml/min Est GFR (Non-Af Amer) 21.7 ml/min BUN/Creatinine Ratio 10.8 (10-20) Glucose 99 (70-99(Fasting)) mg/dl Calcium 8.8 (8.6-10.3) mg/dl Magnesium 2.3 (1.7-2.4) mg/dl Total Bilirubin 0.2 (0.2-1.0) mg/dl AST 10 L (13-39) U/L ALT 13 (7-52) U/L Alkaline Phosphatase 132 H (34-104) U/L Troponin I High Sens 12.5 (0-14) pg/ml Total Protein 7.3 (6.0-8.3) gm/dl Albumin 3.8 (3.4-5.0) gm/dl Globulin 3.5 (2.5-4.0) gm/dl Albumin/Globulin Ratio 1.1 (0.9-2) SARS-CoV-2, RNA, NAAT (NEGATIVE) 12/08/22 Range/Units 05:11 WBC (4.8-10.8) K/ul RBC (4.20-5.40) M/uL Hgb (12.0-16.0) g/dl Hct (37.0-47.0) % MCV (80.0-100.0) fL MCH (25.0-34.0) pg MCHC (32.0-36.0) g/dL RDW Std Deviation (36.4-46.3) fL RDW Coeff of Erin (11.5-14.5) % Plt Count (130-400) K/uL MPV (9.4-12.4) fL Immature Gran % (Auto) % Neut % (Auto) % Lymph % (Auto) % Heard % (Auto) % Eos % (Auto) % Baso % (Auto) % Neut # (Auto) (1.40-6.50) K/uL Lymph # (Auto) (1.2-3.4) K/uL Heard # (Auto) (0.11-0.59) K/uL Eos # (Auto) (0-0.50) K/uL Baso # (Auto) (0-0.2) K/uL Immature Gran # (Auto) (0.01-0.20) K/uL PT (9.0-12.0) Seconds INR (0.9-1.1) APTT (21.0-31.0) Seconds PTT Ratio Sodium (136-145) mmol/L Potassium (3.5-5.1) mmol/L Chloride (98-107) mmol/L Carbon Dioxide (21-32) mmol/L Anion Gap (3-11) BUN (6-23) mg/dl Creatinine (0.6-1.2) mg/dl Est Cr Clr Drug Dosing Est GFR ( Amer) ml/min Est GFR (Non-Af Amer) ml/min BUN/Creatinine Ratio (10-20) Glucose (70-99(Fasting)) mg/dl Calcium (8.6-10.3) mg/dl Magnesium (1.7-2.4) mg/dl Total Bilirubin (0.2-1.0) mg/dl AST (13-39) U/L ALT (7-52) U/L Alkaline Phosphatase (34-104) U/L Troponin I High Sens (0-14) pg/ml Total Protein (6.0-8.3) gm/dl Albumin (3.4-5.0) gm/dl Globulin (2.5-4.0) gm/dl Albumin/Globulin Ratio (0.9-2) SARS-CoV-2, RNA, NAAT NEGATIVE (NEGATIVE) Administered Medications Acetaminophen (Acetaminophen 325 Mg Tab) 650 mg PO Q4H PRN PRN Reason: Pain or Fever Stop: 01/07/23 06:57 Last Admin: 12/09/22 08:56 Dose: 650 mg Documented By: DLF Acetazolamide (Acetazolamide 250 Mg Tab) 500 mg PO BID17 [facility] Stop: 01/07/23 09:14 Last Admin: 12/09/22 08:49 Dose: 500 mg Documented By: Admin: 12/08/22 16:13 Dose: 500 mg Documented By: Admin: 12/08/22 10:07 Dose: 500 mg Documented By: DLF Amlodipine Besylate (Amlodipine Besylate 5 Mg Tab) 10 mg PO DAILY ONEIL Stop: 01/08/23 08:59 Last Admin: 12/09/22 08:48 Dose: 10 mg Documented By: DLF Calcitriol (Calcitriol 0.25 Mcg Capsule) 0.25 mcg PO MoWeFr@0900 [facility] Stop: 01/08/23 08:59 Last Admin: 12/09/22 08:48 Dose: 0.25 mcg Documented By: DLF Carvedilol (Carvedilol 25 Mg Tab) 25 mg PO BIDM [facility] Stop: 01/07/23 16:59 Last Admin: 12/09/22 08:49 Dose: 25 mg Documented By: Admin: 12/08/22 16:13 Dose: 25 mg Documented By: DLF Furosemide (Furosemide 40 Mg Tab) 40 mg PO QAM ONEIL Stop: 01/08/23 08:59 Last Admin: 12/09/22 08:48 Dose: 40 mg Documented By: DLF Hydroxyzine HCl (Hydroxyzine Hcl 10 Mg Tab) 10 mg PO BID PRN PRN Reason: anxiety or sleep Stop: 01/07/23 06:57 Last Admin: 12/08/22 11:44 Dose: 10 mg Documented By: DLF Losartan Potassium (Losartan Potassium 50 Mg Tab) 100 mg PO DAILY ONEIL Stop: 01/08/23 08:59 Last Admin: 12/09/22 08:48 Dose: 100 mg Documented By: FREDI Miscellaneous (Check Clonidine Patch Placement) 1 each N/A QS [facility] Stop: 01/07/23 15:59 Last Admin: 12/09/22 08:53 Dose: 1 each Documented By: Admin: 12/09/22 00:00 Dose: 1 each Documented By: Admin: 12/08/22 16:13 Dose: 1 each Documented By: FREDI Rider (Remove Nicoderm Patch) 1 each N/A DAILY@0859 [facility] Stop: 01/08/23 08:58 Last Admin: 12/09/22 08:53 Dose: 1 each Documented By: FREDI Nicotine (Nicotine 14 Mg/24 Hr Patch) 14 mg TD [facility] Stop: 01/07/23 11:29 Last Admin: 12/09/22 08:49 Dose: 14 mg Documented By: Admin: 12/08/22 11:44 Dose: 14 mg Documented By: FREDI Pantoprazole Sodium (Pantoprazole 40 Mg Tab) 40 mg PO BID [facility] Stop: 01/07/23 08:59 Last Admin: 12/09/22 08:49 Dose: 40 mg Documented By: Admin: 12/08/22 20:53 Dose: 40 mg Documented By: Admin: 12/08/22 08:35 Dose: 40 mg Documented By: FREDI Potassium Chloride (Potassium Chloride 10 Meq Tabcr) [facility] [place]: 01/08/23 08:59 Last Admin: 12/09/22 08:49 Dose: 10 meq Documented By: FREDI Discontinued Medications Amlodipine Besylate (Amlodipine Besylate 5 Mg Tab) 10 mg PO NOW ONE Stop: 12/08/22 05:45 Last Admin: 12/08/22 05:59 Dose: 10 mg Documented By: INDU Carvedilol (Carvedilol 25 Mg Tab) 25 mg PO NOW ONE Stop: 12/08/22 05:45 Last Admin: 12/08/22 06:12 Dose: 25 mg Documented By: INDU Furosemide (Furosemide 20 Mg Tab) 20 mg PO NOW STA Stop: 12/08/22 05:45 Last Admin: 12/08/22 06:11 Dose: 20 mg Documented By: INDU Gadobutrol (Gadobutrol 65ml Vial) 14 ml IV ONCE ONE Stop: 12/08/22 01:15 Last Admin: 12/08/22 01:14 Dose: 14 ml Documented By: TAIWO Hydralazine HCl (Hydralazine Hcl 20 Mg/Ml Vial) 10 mg IV NOW STA Stop: 12/08/22 02:22 Last Admin: 12/08/22 02:33 Dose: 10 mg Documented By: INDU Labetalol HCl (Labetalol Hcl Iv 5 Mg/Ml 20ml) 10 mg IV NOW STA Stop: 12/08/22 05:03 Last Admin: 12/08/22 05:08 Dose: 10 mg Documented By: INDU Co-signed By: EMILY Losartan Potassium (Losartan Potassium 50 Mg Tab) 100 mg PO NOW STA Stop: 12/08/22 05:45 Last Admin: 12/08/22 06:11 Dose: 100 mg Documented By: INDU Potassium Chloride (Potassium Chloride Crtab 20 Meq Tabcr) 20 meq PO NOW STA Stop: 12/08/22 05:45 Last Admin: 12/08/22 06:10 Dose: 20 meq Documented By: INDU Discharge Plan Visit Data Chief Complaint: Headache Stated Complaint: HEADACHE ED Provider: Raquel Spangler Discharge Problem: Hypertensive urgency, Intracranial hypertension Patient Disposition: Admitted As Inpatient Discharge Instructions Interventions: ED Discharge Assessment Last Done: 12/08/22 06:30
[2022-12-08 00:21] LABS: Magnesium 2.3 mg/dl (1.7-2.4)
[2022-12-08] MEDS ORDERED: GADOBUTROL 65ML VIAL IV ONE (01:14)
[2022-12-08] MEDS ORDERED: hydrALAZINE HCL 20 MG/ML VIAL IV STA (02:21)
--- NOTE | 2022-12-08 04:48 | Magnetic Resonance Report ---
Exam(s): MRI HEAD W/WO Contrast IV Amt: 14cc gadavist EXAM: MR Head Without and With Intravenous Contrast CLINICAL HISTORY: Reason for exam: acute stroke eval. TECHNIQUE: Magnetic resonance images of the head/brain without and with intravenous contrast in multiple planes. CONTRAST: Patient received 14cc gadavist of IV contrast COMPARISON: Comparison made to prior noncontrast head CT from April 21, 2022. FINDINGS: Brain: Mild nonspecific white matter changes. The flow voids at the base of the brain are intact. No mass. No hemorrhage. No acute infarct. No evidence of abnormal enhancement. The venous dural sinuses are patent. Ventricles: Unremarkable. No ventriculomegaly. Bones/joints: Hyperostosis frontalis interna. Sinuses: Unremarkable as visualized. No acute sinusitis. Mastoid air cells: There is a tiny amount of fluid in the mastoid air cells. No mastoid effusion. Orbits: Dilated optic nerve root sheaths and flattening of the posterior globes that the insertion of the optic nerves. IMPRESSION: Findings concerning for idiopathic intracranial hypertension. Mild nonspecific white matter changes. Electronically signed by: Sudha Che MD 12/08/22 04:47 AM
[2022-12-08] MEDS ORDERED: LABETALOL HCL IV 5 MG/ML 20ML IV STA (05:02)
[2022-12-08] MEDS ORDERED: carvediloL 25 MG TAB PO ONE (05:44)
[2022-12-08] MEDS ORDERED: FUROSEMIDE 20 MG TAB PO STA (05:44)
[2022-12-08] MEDS ORDERED: LOSARTAN POTASSIUM 50 MG TAB PO STA (05:44)
[2022-12-08] MEDS ORDERED: amLODIPine BESYLATE 5 MG TAB PO ONE (05:44)
[2022-12-08] MEDS ORDERED: POTASSIUM CHLORIDE CRTAB 20 MEQ TABCR PO STA (05:44)
--- NOTE | 2022-12-08 05:55 | History & Physical Report ---
Date of Service December 08, 2022 Assessment & Plan (1) Hypertensive urgency: Plan: 32yo female with CKD-IV, HTN presenting with 2 days of numbness on right face, brief episode of unresponsiveness reported 2 days ago. Patient with poorly controlled HTN. MRI with findings concerning for idiopathic intracranial hypertension. No acute CVA. No chest pain or SOB. BUN/Cr are near baseline. Blood pressure remains high after administration of IV Hydralazine and labetalol -Admit to PCU -Oral medications have been administered - monitor blood pressure response -Cautious lowering of 25% of MAP in first several hours -Hydralazine as needed for blood pressure >180/110 -If blood pressure fails to respond would consider MICU transfer for Nicardipine drip -Encourage Tobacco cessation, weight loss and low Na diet -Check UA -Continue home medications, Amlodipine, Carvedilol, Clonidine TD, Lasix and Losartan -Idiopathic intracranial hypertension. No acute visual disturbance. Encourage weight loss Low Na diet Consider treatment with Acetazolamide (2) GERD (gastroesophageal reflux disease): Plan: Chronic. Stable -Continue Protonix 40mg po BID (3) Chronic kidney disease, stage 4 (severe): Plan: BUN and Cr near baseline at present. Patient is complaining of intermittent back pain which she often gets with hypertensive urgency -Blood pressure control as above -Repeat chemistry -Avoid nephrotoxic agents -Renal dosing where needed -Continue Calcitriol 3x weekly (4) Anemia due to chronic kidney disease: Plan: H/H near baseline - no active bleeding -Continue to monitor History of Present Illness Chief Complaint: right facial tingling Primary Care Provider: Kishan Tubbs PA-C Atiya Eli is a 32yo female with HTN, CKD IV, GERD presenting with right facial numbness and uncontrolled hypertension. Two days ago, patient developed numbness of the right face from the ear, along the jawline and chin. She reports that she was in [facility] at that time visiting her boyfriend so she didn't call medical services because she didn't want to go to the hospital in [place] due to transportation issues. Numbness has persisted. She has also had intermittent sharp, stabbing headache at the right parietal area. Boyfriend witnessed an episode of unresponsiveness when patient was staring into space and was minimally responsive. Uncertain how long this lasted. No incontinence or tonic-clonic movements reported Poor vision in left eye at baseline. Possibly worsening vision in the right eye but unclear of what timeframe. No additional focal neurological complaints - no chest pain, cough, SOB, abdominal pain, nausea, vomiting. She dose report some intermittent bilateral flank pain Patient reports compliance with her blood pressure medications. She has severe hypertension with CKD-IV secondary to hypertensive nephropathy and multiple episodes of ZULEIMA secondary to hypertensive emergency. She follows with Nephrology and has had a fairly extensive workup for secondary causes of hypertension which have been overall negative. She took her morning medications yesterday 12/07/22 but did not take her evening doses. She reports she changes her Clonidine patches weekly. In the ER she is hypertensive Given Hydralazine 10mg IV x 1 dose and Labetalol 10mg IV x 1 dose with temporary decrease in blood pressure Oral anti-hypertensives ordered and administered around 06:00 to include Amlodipine, Potassium, Lasix, Losartan and Carvedilol Allergies Allergy/AdvReac Type Severity Reaction Status Date / Time No Known Allergies Allergy Verified 11/09/22 11:45 Home Medications Medication Instructions Recorded Confirmed Type amlodipine 10 mg tablet 10 mg PO DAILY #30 tabs 04/28/22 12/07/22 Rx carvedilol 25 mg tablet 25 mg PO BID #60 tabs 04/28/22 12/07/22 Rx clonidine 0.3 mg/24 hr weekly 1 patch transdermal Q7D #4 ea 04/28/22 12/07/22 Rx transdermal patch ergocalciferol (vitamin D2) 1,250 50,000 unit PO Q7D #7 caps 04/28/22 12/07/22 Rx mcg (50,000 unit) capsule acetaminophen 325 mg tablet 650 mg PO Q4H PRN PAIN/FEVER 06/17/22 12/07/22 History diclofenac sodium 1 % topical gel 2 g EXT BID PRN pain #100 grams 06/23/22 12/07/22 Rx (Voltaren Arthritis Pain) pantoprazole 40 mg tablet,delayed 40 mg PO BID #60 tabs 07/03/22 12/07/22 Rx release furosemide 20 mg tablet 20 mg PO QAM 09/10/22 12/07/22 History losartan 100 mg tablet 100 mg PO DAILY #90 tabs 09/10/22 12/07/22 Rx calcitriol 0.25 mcg capsule 0.25 mcg PO 3XWK 12/07/22 12/07/22 History hydroxyzine HCl 10 mg tablet 10 - 20 mg PO BID PRN anxiety or 12/07/22 12/07/22 History sleep potassium chloride 10 mEq 10 meq PO QAM 12/07/22 12/07/22 History capsule,extended release Past Med/Surg History Medical History Anemia due to chronic kidney disease Chronic kidney disease Chronic kidney disease, stage 4 (severe) Hyperkalemia Hypertensive kidney disease with CKD stage IV Hypertensive urgency Surgical History Hx laparoscopic cholecystectomy (06/18/22) Laparoscopic Cholecystectomy, Laparoscopic Lysis of Adhesions(Not Applicable) - Azar Streeter DO Family History Denies family history of Crohn's disease Colorectal cancer Ulcerative colitis Social History Smoking Status: Current some day smoker Tobacco Type: Cigarettes Cigarettes Per Day: 5; Second Hand Exposure: No; Do You Dip or Chew Tobacco: No; Hx Alcohol Use: No Hx Substance Use: No Preferred Language: Dutch Communication Ability: Effective Visual Impairment: No Limitations Customs Brokerage Manager Required: No Beliefs That Will Affect Care: None Current Living Situation: Alone Current Living Situation Comment: Lives alone, partner frequently visits Feels Safe at Home: Yes Assistive Devices: None Review of Systems Review of Systems: All systems reviewed & are unremarkable except as noted in HPI & below Physical Exam Physical Exam: General: patient resting comfortably, NAD, non-toxic in appearance, AA&O x 4 Skin: warm, dry, intact, no rashes or lesions HEENT: NC/AT, PERRL, EOMI, anicteric sclera, conjunctiva without injection, external ear normal to inspection and nontender, nares patent, moist mucus membranes, dentition intact, no oropharyngeal lesions, neck supple, trachea midline, no LAD, no thyromegaly, no JVD Heart: +S1/S2, regular, no m/r/g Lungs: equal air entry bilaterally, no rales/rhonchi/wheezes Abd: +BS, soft, NT/ND, no masses/organomegaly/ascites Ext: warm, 2+ pulses in UE/LE bilaterally, no clubbing/cyanosis or edema Neuro: nonfocal, patient AA&O x 4, speech intact, no facial droop, moving all extremities on command with equal strength 5/5 Results & Data Results & Data Vital Signs (Past 12 Hours) Vital Signs Temp Pulse Pulse Resp BP BP Pulse Ox 12/08/22 05:30 165/131 H 12/08/22 05:23 70 189/131 H 12/08/22 05:08 86 191/121 H 12/08/22 05:00 63 20 161/117 H 91 12/08/22 04:15 70 14 174/94 H 97 12/08/22 04:00 165/89 H 12/08/22 03:25 78 12/08/22 03:30 177/112 H 12/08/22 03:15 81 18 193/115 H 95 12/08/22 03:00 200/98 H 12/08/22 02:50 174/100 H 12/08/22 02:37 165/92 H 12/08/22 02:32 68 21 173/104 H 95 12/08/22 01:47 64 17 192/113 H 97 12/07/22 23:40 61 12/07/22 23:51 63 16 97 12/07/22 23:44 62 18 211/108 H 98 12/07/22 22:17 36.7 C 66 18 201/126 H 94 O2 Del Method 12/08/22 05:30 12/08/22 05:23 12/08/22 05:08 12/08/22 05:00 Room Air 12/08/22 04:15 Room Air 12/08/22 04:00 12/08/22 03:25 12/08/22 03:30 12/08/22 03:15 Room Air 12/08/22 03:00 12/08/22 02:50 12/08/22 02:37 12/08/22 02:32 Room Air 12/08/22 01:47 Room Air 12/07/22 23:40 12/07/22 23:51 Room Air 12/07/22 23:44 Room Air 12/07/22 22:17 Room Air Laboratory Results Laboratory Results WBC 13.18 K/ul (4.8-10.8) H 12/07/22 22:56 RBC 5.40 M/uL (4.20-5.40) 12/07/22 22:56 Hgb 15.0 g/dl (12.0-16.0) 12/07/22 22:56 Hct 43.6 % (37.0-47.0) 12/07/22 22:56 MCV 80.7 fL (80.0-100.0) 12/07/22 22:56 MCH 27.8 pg (25.0-34.0) 12/07/22 22:56 MCHC 34.4 g/dL (32.0-36.0) 12/07/22 22:56 RDW Std Deviation 38.5 fL (36.4-46.3) 12/07/22 22:56 RDW Coeff of Erin 13.4 % (11.5-14.5) 12/07/22 22:56 Plt Count 405 K/uL (130-400) H 12/07/22 22:56 MPV 9.3 fL (9.4-12.4) L 12/07/22 22:56 Immature Gran % (Auto) 0.4 % 12/07/22 22:56 Neut % (Auto) 67.4 % 12/07/22 22:56 Lymph % (Auto) 23.1 % 12/07/22 22:56 Barnwell % (Auto) 6.3 % 12/07/22 22:56 Eos % (Auto) 2.1 % 12/07/22 22:56 Baso % (Auto) 0.7 % 12/07/22 22:56 Neut # (Auto) 8.88 K/uL (1.40-6.50) H 12/07/22 22:56 Lymph # (Auto) 3.05 K/uL (1.2-3.4) 12/07/22 22:56 Barnwell # (Auto) 0.83 K/uL (0.11-0.59) H 12/07/22 22:56 Eos # (Auto) 0.28 K/uL (0-0.50) 12/07/22 22:56 Baso # (Auto) 0.09 K/uL (0-0.2) 12/07/22 22:56 Immature Gran # (Auto) 0.05 K/uL (0.01-0.20) 12/07/22 22:56 PT 10.2 Seconds (9.0-12.0) 12/07/22 22:56 INR 0.9 (0.9-1.1) 12/07/22 22:56 APTT 29.9 Seconds (21.0-31.0) 12/07/22 22:56 PTT Ratio 1.1 12/07/22 22:56 Sodium 137 mmol/L (136-145) 12/07/22 22:56 Potassium 3.5 mmol/L (3.5-5.1) 12/07/22 22:56 Chloride 106 mmol/L (98-107) 12/07/22 22:56 Carbon Dioxide 23 mmol/L (21-32) 12/07/22 22:56 Anion Gap 8 (3-11) 12/07/22 22:56 BUN 30 mg/dl (6-23) H 12/07/22 22:56 Creatinine 2.79 mg/dl (0.6-1.2) H 12/07/22 22:56 Est Cr Clr Drug Dosing Not Reportable 12/07/22 22:56 Est GFR ( Amer) 25.1 ml/min 12/07/22 22:56 Est GFR (Non-Af Amer) 21.7 ml/min 12/07/22 22:56 BUN/Creatinine Ratio 10.8 (10-20) 12/07/22 22:56 Glucose 99 mg/dl (70-99(Fasting)) 12/07/22 22:56 Calcium 8.8 mg/dl (8.6-10.3) 12/07/22 22:56 Magnesium 2.3 mg/dl (1.7-2.4) 12/07/22 22:56 Total Bilirubin 0.2 mg/dl (0.2-1.0) 12/07/22 22:56 AST 10 U/L (13-39) L 12/07/22 22:56 ALT 13 U/L (7-52) 12/07/22 22:56 Alkaline Phosphatase 132 U/L (34-104) H 12/07/22 22:56 Troponin I High Sens 12.5 pg/ml (0-14) 12/07/22 22:56 Total Protein 7.3 gm/dl (6.0-8.3) 12/07/22 22:56 Albumin 3.8 gm/dl (3.4-5.0) 12/07/22 22:56 Globulin 3.5 gm/dl (2.5-4.0) 12/07/22 22:56 Albumin/Globulin Ratio 1.1 (0.9-2) 12/07/22 22:56 SARS-CoV-2, RNA, NAAT NEGATIVE (NEGATIVE) 12/08/22 05:11 Impressions Brain MRI 12/08/22 00:10 Exam(s): MRI HEAD W/WO Contrast IV Amt: 14cc gadavist EXAM: MR Head Without and With Intravenous Contrast CLINICAL HISTORY: Reason for exam: acute stroke eval. TECHNIQUE: Magnetic resonance images of the head/brain without and with intravenous contrast in multiple planes. CONTRAST: Patient received 14cc gadavist of IV contrast COMPARISON: Comparison made to prior noncontrast head CT from April 21, 2022. FINDINGS: Brain: Mild nonspecific white matter changes. The flow voids at the base of the brain are intact. No mass. No hemorrhage. No acute infarct. No evidence of abnormal enhancement. The venous dural sinuses are patent. Ventricles: Unremarkable. No ventriculomegaly. Bones/joints: Hyperostosis frontalis interna. Sinuses: Unremarkable as visualized. No acute sinusitis. Mastoid air cells: There is a tiny amount of fluid in the mastoid air cells. No mastoid effusion. Orbits: Dilated optic nerve root sheaths and flattening of the posterior globes that the insertion of the optic nerves. IMPRESSION: Findings concerning for idiopathic intracranial hypertension. Mild nonspecific white matter changes. Electronically signed by: Sudha Che MD 12/08/22 04:47 AM ECG Additional Comments: EKG with NSR at 68bpm with sinus arrhythmia, no acute ischemic changes. Poor R- wave progression. PG Care Time/CCT Total # of Minutes Spent Total Time Spent with Patient: Total time spent is greater than 50% in coordination of care (as documented) at patient's floor/unit and/or counseling patient: Coding Level of Care Code 72262 INT INP/OBS CARE 3/75MIN Diagnoses Hypertensive urgency I16.0 GERD (gastroesophageal reflux disease) K21.9 Chronic kidney disease, stage 4 (severe) N18.4 Anemia due to chronic kidney disease N18.9; D63.1
[2022-12-08] MEDS ORDERED: hydrALAZINE HCL 20 MG/ML VIAL IV PRN (06:58)
[2022-12-08] MEDS ORDERED: ONDANSETRON INJ 2 MG/ML 2 ML VIAL IV PRN (06:58)
[2022-12-08] MEDS: PANTOprazole 40 MG TAB PO SCH ×2 (08:35→20:53)
[2022-12-08] MEDS: acetaZOLAMIDE 250 MG TAB PO SCH ×2 (10:07→16:13)
--- NOTE | 2022-12-08 10:40 | Nephrology Consultation ---
Date of Consultation December 08, 2022 Assessment & Plan (1) Chronic kidney disease, stage 4 (severe): (2) Anemia due to chronic kidney disease: (3) Morbid obesity with BMI of 45.0-49.9, adult: (4) Proteinuria: (5) Hypertensive emergency: (6) Idiopathic intracranial hypertension: Plan 32 y o female with history of stage IV CKD, secondary to hypertensive nephropathy, morbid obesity admitted to the hospital with hypertensive emergency and MRI brain suggestive of idiopathic intracranial hypertension. Advanced CKD with baseline creatinine around 3, L function at baseline, electrolyte acceptable. Blood pressure slightly improved currently on hydralazine, carvedilol and amlodipine. She has multiple risk factor including morbid obesity, poorly-controlled hypertension, history of questionable sleep apnea. continues to progressively gained weight. --start on acetazolamide 500 mg twice a day, increase Lasix to 40 mg p.o. daily --discussed about the importance of weight loss, previously advised to get evaluated by weight loss program, she has been reluctant, discussed again today encouraged her to see weight loss specialist. Also need diagnostic evaluation for sleep apnea. Discussed about the importance of low-salt heart healthy diet and exercise -- unfortunately she has multiple risk factor for rapid progressive worsening of renal function. Thank you for allowing me to participate in your patient's care. It was a pleasure to see Atiya. History of Present Illness Reason for Consultation: Hypertensive emergency, stage 4 CKD, idiopathic intracranial hypertension Attending Physician: Trey Murillo History of Present Illness Ms. Atiya Eli is a 32-year-old female with PMH of CKD stage IV, poorly controlled hypertension, anemia due to chronic disease, tobacco dependence, morbid obesity admitted to hospital with hypertensive emergency. Nephrology consult requested to manage above. EMR records were reviewed during pts visit. Atiya presented to ER yesterday with right facial numbness and uncontrolled hypertension. She developed numbness of the right face from the ear, along the jawline and chin about 2 days ago. She has also had intermittent sharp, stabbing headache at the right parietal area. According yo the report her boyfriend witnessed an episode of unresponsiveness when patient was staring into space and was minimally responsive but no incontinence or tonic-clonic movements. Denied chest pain, cough, SOB, abdominal pain, nausea, vomiting. Has h/o Poor vision in left eye and concern for worsening vision in the right eye recently. In ER SBP was >200 and DBP>100. CXR was unremarkable. She was given Hydralazine 10mg IV x 1 dose and Labetalol 10mg IV x 1 dose and BP slowly started to improve. She reports taking all her BP meds regularly including amlodipine 10 mg daily, losartan 100 mg daily, carvedilol 25 mg twice a day and clonidine patch. She has also been on Lasix 20 mg daily but she does not take that regularly as she is concerned that it may affect her kidney and also notice some flank pain when she takes Lasix. In ER MRI brain was concerning for idiopathic intracranial hypertension. Has stage 4 CKD , b/l cr around 3.0 secondary to hypertensive nephropathy. Labs available only from November 2019 and since then creatinine has been around 3. Has moderate degree proteinuria.CT abdomen pelvis showed otherwise normal kidney and adrenal gland..She was initially diagnosed with hypertension as a teenager. she was started on medication after hypertension during 8 years ago but no history of eclampsia or preeclampsia. After she was able to wean herself off of medication. She was admitted to hospital in November 2021 with epigastric pain and at that time she was again noted to be in hypertensive urgency. Workup for pheochromocytoma was normal. Renal artery Doppler was negative for hemodynamically mediated renal artery stenosis. AM cortisol 8.8. Renin was mildly elevated but aldosterone was normal. Workup for pheochromocytoma was normal. No history of regular heavy NSAID use, autoimmune disease. No known family history of CKD or ESRD. Current everyday smoker. Has morbid obesity, although she has been trying herself for weight loss, she continues to gain weight. Previously discussed importance for referral to weight management program but she has been hesitant. Questionable history of sleep apnea she said previously she had workup but workup was inconclusive. She was still having some discomfort this morning mainly complain of frontal headache and pressure in her head overall. blood pressure was relatively high but improved from admission blood pressure. Allergies Allergy/AdvReac Type Severity Reaction Status Date / Time No Known Allergies Allergy Verified 11/09/22 11:45 Home Medications Medication Instructions Recorded Confirmed Type amlodipine 10 mg tablet 10 mg PO DAILY #30 tabs 04/28/22 12/07/22 Rx carvedilol 25 mg tablet 25 mg PO BID #60 tabs 04/28/22 12/07/22 Rx clonidine 0.3 mg/24 hr weekly 1 patch transdermal Q7D #4 ea 04/28/22 12/07/22 Rx transdermal patch ergocalciferol (vitamin D2) 1,250 50,000 unit PO Q7D #7 caps 04/28/22 12/07/22 Rx mcg (50,000 unit) capsule acetaminophen 325 mg tablet 650 mg PO Q4H PRN PAIN/FEVER 06/17/22 12/07/22 History diclofenac sodium 1 % topical gel 2 g EXT BID PRN pain #100 grams 06/23/22 12/07/22 Rx (Voltaren Arthritis Pain) pantoprazole 40 mg tablet,delayed 40 mg PO BID #60 tabs 07/03/22 12/07/22 Rx release furosemide 20 mg tablet 20 mg PO QAM 09/10/22 12/07/22 History losartan 100 mg tablet 100 mg PO DAILY #90 tabs 09/10/22 12/07/22 Rx calcitriol 0.25 mcg capsule 0.25 mcg PO 3XWK 12/07/22 12/07/22 History hydroxyzine HCl 10 mg tablet 10 - 20 mg PO BID PRN anxiety or 12/07/22 12/07/22 History sleep potassium chloride 10 mEq 10 meq PO QAM 12/07/22 12/07/22 History capsule,extended release Patient History Medical History (Updated 12/08/22 @ 15:41 by Haritha Henry MD) Anemia due to chronic kidney disease Chronic kidney disease Chronic kidney disease, stage 4 (severe) Hyperkalemia Hypertensive kidney disease with CKD stage IV Hypertensive urgency Idiopathic intracranial hypertension Surgical History Hx laparoscopic cholecystectomy (06/18/22) Laparoscopic Cholecystectomy, Laparoscopic Lysis of Adhesions(Not Applicable) - Azar Streeter DO Family History Denies family history of Crohn's disease Colorectal cancer Ulcerative colitis Social History Smoking Status: Current every day smoker Tobacco Type: Cigarettes Cigarettes Per Day: 6; Second Hand Exposure: No; Do You Dip or Chew Tobacco: No; Hx Alcohol Use: No Hx Substance Use: No Preferred Language: Kazakh Communication Ability: Effective Visual Impairment: No Limitations Collar Tailor Required: No Beliefs That Will Affect Care: None Current Living Situation: Alone Current Living Situation Comment: Lives alone, partner frequently visits Feels Safe at Home: No Is there a partner from a previous relationship who is making you feel unsafe now?: No Assistive Devices: None Review of Systems Review of Systems: detailed review of system was done and pertinent positives and negatives are mentioned above. Physical Exam Constitutional: WD/WN, vitals as above no acute distress Eyes: + anicteric sclerae Neck: normal visual inspection Thyroid: no thyromegaly Respiratory: no respiratory distress Auscultation: lungs clear to auscultation bilaterally Cardiovascular: RRR, no murmur, no edema Heart Sounds: normal S1 and normal S2 Gastrointestinal (Abdomen): Inspection/Auscultation: abdomen normal to inspection Percussion/Palpation: abdomen soft; abdomen nontender Musculoskeletal: Extremities: extremities normal to inspection Skin: no rashes, warm and dry Neurologic: no focal motor deficits and not confused Psychiatric: Orientation: alert and oriented x 3 Affect: euthymic affect Results & Data Vital Signs (Past 12 Hours) Vital Signs Temp Pulse Pulse Resp BP BP Pulse Ox 12/08/22 09:00 74 12/08/22 06:44 36.6 C 78 18 143/93 H 100 12/08/22 06:30 70 18 160/96 H 99 12/08/22 06:17 65 19 202/103 H 99 12/08/22 05:30 165/131 H 12/08/22 05:23 70 189/131 H 12/08/22 05:08 86 191/121 H 12/08/22 05:00 63 20 161/117 H 91 12/08/22 04:15 70 14 174/94 H 97 12/08/22 04:00 165/89 H 12/08/22 03:25 78 12/08/22 03:30 177/112 H 12/08/22 03:15 81 18 193/115 H 95 12/08/22 03:00 200/98 H 12/08/22 02:50 174/100 H 12/08/22 02:37 165/92 H 12/08/22 02:32 68 21 173/104 H 95 12/08/22 01:47 64 17 192/113 H 97 12/07/22 23:40 61 12/07/22 23:51 63 16 97 12/07/22 23:44 62 18 211/108 H 98 O2 Del Method 12/08/22 09:00 12/08/22 06:44 Room Air 12/08/22 06:30 12/08/22 06:17 Room Air 12/08/22 05:30 12/08/22 05:23 12/08/22 05:08 12/08/22 05:00 Room Air 12/08/22 04:15 Room Air 12/08/22 04:00 12/08/22 03:25 12/08/22 03:30 12/08/22 03:15 Room Air 12/08/22 03:00 12/08/22 02:50 12/08/22 02:37 12/08/22 02:32 Room Air 12/08/22 01:47 Room Air 12/07/22 23:40 12/07/22 23:51 Room Air 12/07/22 23:44 Room Air PG Care Time/CCT Total # of Minutes Spent Total Time Spent with Patient: Total time spent is greater than 50% in coordination of care (as documented) at patient's floor/unit and/or counseling patient: Coding Level of Care Code 45768 IN/OBS CONSULT LVL 5,80M Diagnoses Chronic kidney disease, stage 4 (severe) N18.4 Anemia due to chronic kidney disease N18.9; D63.1 Morbid obesity with BMI of 45.0-49.9, adult E66.01; Z68.42 Proteinuria R80.9 Hypertensive emergency I16.1 Idiopathic intracranial hypertension G93.2
[2022-12-08] MEDS: NICOTINE 14 MG/24 HR PATCH TD SCH (11:44)
[2022-12-08] MEDS: hydrOXYzine HCl 10 MG TAB PO PRN (11:44)
[2022-12-08 11:53] LABS: Appearance Urine Clear (Clear); Bilirubin Urine Negative (Negative); Blood Urine Trace (Negative); Color Urine Yellow; Epithelial Cell Urine Auto >30 /lpf (0-5); Glucose Urine UA Negative (Negative); Ketones Urine Negative (Negative); Leukocyte Esterase Urine Negative (Negative); Nitrite Urine Negative (Negative); Protein Urine 3+ (Negative); Specific Gravity Urine 1.017 (1.000-1.030); Urobilinogen Urine Negative (Negative)
[2022-12-08 12:04] LABS: RBC Urine Automated 0-4 /hpf (0-4)
[2022-12-08 12:05] LABS: Bacteria Urine Automated 1+ (Negative)
[2022-12-08] MEDS: carvediloL 25 MG TAB PO SCH (16:13)
[2022-12-08] MEDS: CHECK CLONIDINE PATCH PLACEMENT SCH (16:13)
--- NOTE | 2022-12-08 17:51 | Electrocardiogram Report ---
Test Reason : Blood Pressure : / mmHG Vent. Rate : 068 BPM Atrial Rate : 068 BPM P-R Int : 190 ms QRS Dur : 092 ms QT Int : 446 ms P-R-T Axes : 071 024 062 degrees QTc Int : 474 ms Normal sinus rhythm with sinus arrhythmia When compared with ECG of 19-JUN-2022 05:50, No significant change was found Confirmed by Celestino Alvarado ([id number]) on 12/08/2022 5:51:25 PM Referred By: REFERRED SELF Confirmed By:Abhijit Alvarado
[2022-12-09 07:13] LABS: Basophils # (auto) 0.06 K/uL (0-0.2); Basophils % (auto) 0.4 %; Eosinophils # (auto) 0.25 K/uL (0-0.50); Eosinophils % (auto) 1.8 %; Hematocrit (blood only) 42.6 % (37.0-47.0); Hemoglobin 14.4 g/dl (12.0-16.0); Immature Granulocytes # (auto) 0.06 K/uL (0.01-0.20); Immature Granulocytes % (auto) 0.4 %; Lymphocytes # (auto) 1.99 K/uL (1.2-3.4); Lymphocytes % (auto) 14.5 %; Mean Corpuscular Hemoglobin 27.7 pg (25.0-34.0); Mean Corpuscular Hgb Conc 33.8 g/dL (32.0-36.0); Mean Corpuscular Volume 82.1 fL (80.0-100.0); Mean Platelet Volume 9.4 fL (9.4-12.4); Monocytes % (auto) 7.3 %; Neutrophils # (auto) 10.35 K/uL (1.40-6.50); Neutrophils % (auto) 75.6 %; Platelet Count 373 K/uL (130-400); RDW Coefficient of Variation 13.5 % (11.5-14.5); RDW Standard Deviation 40.1 fL (36.4-46.3); Red Blood Count 5.19 M/uL (4.20-5.40); White Blood Count 13.71 K/ul (4.8-10.8)
[2022-12-09 07:38] LABS: BUN Creatinine Ratio 10.9 (10-20); Calcium 8.6 mg/dl (8.6-10.3); Creatinine Clr Calc Pharmacy 45.8 ml/min; Est GFR (African American) 23.6 ml/min; Est GFR (Non-African American) 20.4 ml/min; Potassium 3.6 mmol/L (3.5-5.1)
[2022-12-09] MEDS: LOSARTAN POTASSIUM 50 MG TAB PO SCH (08:48)
[2022-12-09] MEDS: FUROSEMIDE 40 MG TAB PO SCH (08:48)
[2022-12-09] MEDS: amLODIPine BESYLATE 5 MG TAB PO SCH (08:48)
[2022-12-09] MEDS: CALCITRIOL 0.25 MCG CAPSULE PO SCH (08:48)
[2022-12-09] MEDS: NICOTINE 14 MG/24 HR PATCH TD SCH (08:49)
[2022-12-09] MEDS: carvediloL 25 MG TAB PO SCH ×2 (08:49→16:13)
[2022-12-09] MEDS: POTASSIUM CHLORIDE 10 MEQ TABCR PO SCH (08:49)
[2022-12-09] MEDS: acetaZOLAMIDE 250 MG TAB PO SCH ×2 (08:49→16:13)
[2022-12-09] MEDS: PANTOprazole 40 MG TAB PO SCH ×2 (08:49→20:02)
[2022-12-09] MEDS: CHECK CLONIDINE PATCH PLACEMENT SCH ×3 (08:53→16:16)
[2022-12-09] MEDS: ACETAMINOPHEN 325 MG TAB PO PRN ×3 (08:56→20:07)
[2022-12-09] MEDS ORDERED: FUROSEMIDE 20 MG TAB PO SCH (09:00)
--- NOTE | 2022-12-09 09:53 | Hospitalist Progress Note ---
Date of Service December 09, 2022 Assessment & Plan (1) Hypertensive urgency: Plan: 32yo female with CKD-IV, HTN presenting with 2 days of numbness on right face, brief episode of unresponsiveness reported 2 days ago. Hypertensive Emergency, improved, acute on chronic HTN -On admit MRI with findings concerning for idiopathic intracranial hypertension. No acute CVA. No chest pain or SOB. BUN/Cr are near baseline. - BP Improved with acetazolamide, lasix, clonidine, losartan, carvedilol, amlodipine - Encourage Tobacco cessation, weight loss and low Na diet. Pt will keep journal Recommend outpatient follow-up with bariatric services due to BMI 52 Patient is tearful, expressed frustration over her current medical condition. Would like to talk to psych services were consulted - No acute neuro symptoms (2) GERD (gastroesophageal reflux disease): Plan: Chronic. Stable -Continue Protonix 40mg po BID (3) Chronic kidney disease, stage 4 (severe): Plan: - BUN and Cr near baseline at present. Patient is complaining of intermittent back pain which she often gets with hypertensive urgency Creatinine 2.94, baseline around 3 Nephrology following, appreciate recommendations. BMP daily Continue antihypertensives as noted -Continue Calcitriol 3x weekly (4) Anemia due to chronic kidney disease: Plan: H/H near baseline - no active bleeding -Continue to monitor (5) BMI 50.0-59.9, adult: Plan: - As noted - Outpt bariatric followup Admission and Anticipated Discharge Date Admission Date: December 08, 2022 Subjective +mild h/a improved with tylenol. Much better than admit Confusion has cleared Reports she tries not to eat salt, but does not keep track of this specifically No chest pain, chest pressure, sob. No abdominal pain No new symptoms Does not feel ready to return today, also has to arrange transport Considering bariatric referall. Agreeable to salt/BP/medication notebook Agreeable to [facility] eval/followup Review of Systems Review of Systems: All systems reviewed & are unremarkable except as noted in Subjective Physical Exam Physical Exam: General: A&Ox3. NAD. Cooperative. Somewhat tearful during exam. Obese HEENT: Atraumatic, normocephalic. Vision/hearing intact. EOMs and Pulm: CTAB A&P. -wheezes, -rales, -rhonchi. Symmetrical chest rise. No increased work of breathing. No respiratory distress. Cardiac: RRR, -mrg. Radial pulses intact and symmetrical. Abdominal: Nontender, nondistended, soft. BS present. Extremities: Moving extremities equally, sensation intact in hands bilateral Results & Data Results & Data Vital Signs (Past 12 Hours) Vital Signs Temp Pulse Pulse Resp BP Pulse Ox O2 Del Method 12/09/22 09:30 63 12/09/22 03:00 36.6 C 62 18 144/81 H 96 Room Air 12/08/22 22:03 65 12/08/22 23:00 36.5 C 59 L 19 151/88 H 93 Room Air PG Care Time/CCT Total # of Minutes Spent Total Time Spent with Patient: Total time spent is greater than 50% in coordination of care (as documented) at patient's floor/unit and/or counseling patient: Coding Level of Care Code 11668 SUB INP/OBS CARE 3/50MIN Diagnoses Hypertensive urgency I16.0 GERD (gastroesophageal reflux disease) K21.9 Chronic kidney disease, stage 4 (severe) N18.4 Anemia due to chronic kidney disease N18.9; D63.1 BMI 50.0-59.9, adult Z68.43
--- NOTE | 2022-12-09 10:47 | Nephrology Progress Note ---
Date of Service December 09, 2022 Assessment & Plan (1) Chronic kidney disease, stage 4 (severe): (2) Anemia due to chronic kidney disease: (3) Morbid obesity with BMI of 45.0-49.9, adult: (4) Proteinuria: (5) Hypertensive emergency: (6) Idiopathic intracranial hypertension: Plan 32 y o female with history of stage IV CKD, secondary to hypertensive nephropathy, morbid obesity admitted to the hospital with hypertensive emergency and MRI brain suggestive of idiopathic intracranial hypertension. Advanced CKD with baseline creatinine around 3, L function at baseline, electrolyte acceptable. Blood pressure slightly improved currently on hydralazine, carvedilol and amlodipine. She has multiple risk factor including morbid obesity, poorly-controlled hypertension, history of questionable sleep apnea. continues to progressively gained weight. --continue on acetazolamide 500 mg twice a day, Lasix 40 mg p.o. daily --discussed again about the importance of weight loss, previously advised to get evaluated by weight loss program, she has been reluctant, discussed again today encouraged her to see weight loss specialist. Also need diagnostic evaluation for sleep apnea. Discussed about the importance of low-salt heart healthy diet and exercise -- unfortunately she has multiple risk factor for rapid progressive worsening of renal function. Will follow. Admission and Anticipated Discharge Date Admission Date: December 08, 2022 Juan Rajput was seen and evaluated this morning. She reports her headache improved but overall she does not feel ready to be discharged. Blood pressure improved significantly although still above goal, systolic blood pressure staying around 140s to 150s, diastolic in 80s. Creatinine slightly increased to 2.9, electrolyte acceptable. She was very emotional regarding lot of her health issues and difficulty with social support although she feels she has been trying her best. Review of Systems Review of Systems: detailed review of system was done and pertinent positives and negatives are mentioned above. Physical Exam Constitutional: WD/WN, vitals as above + morbidly obese; no acute distress Eyes: + anicteric sclerae Neck: normal visual inspection Respiratory: no respiratory distress Auscultation: lungs clear to auscultation bilaterally Cardiovascular: RRR, no murmur, no edema Musculoskeletal: Extremities: extremities normal to inspection Skin: no rashes, warm and dry Neurologic: no focal motor deficits and not confused Psychiatric: Orientation: alert and oriented x 3 Affect: euthymic affect Results & Data Vital Signs (Past 12 Hours) Vital Signs Temp Pulse Pulse Resp BP Pulse Ox O2 Del Method 12/09/22 09:30 63 12/09/22 03:00 36.6 C 62 18 144/81 H 96 Room Air 12/08/22 23:00 36.5 C 59 L 19 151/88 H 93 Room Air PG Care Time/CCT Total # of Minutes Spent Total Time Spent with Patient: Total time spent is greater than 50% in coordination of care (as documented) at patient's floor/unit and/or counseling patient: Coding Level of Care Code 16616 SUB INP/OBS CARE 2/35MIN Diagnoses Chronic kidney disease, stage 4 (severe) N18.4 Anemia due to chronic kidney disease N18.9; D63.1 Morbid obesity with BMI of 45.0-49.9, adult E66.01; Z68.42 Proteinuria R80.9 Hypertensive emergency I16.1 Idiopathic intracranial hypertension G93.2
[2022-12-10] MEDS: ACETAMINOPHEN 325 MG TAB PO PRN ×3 (00:02→16:20)
[2022-12-10] MEDS: CHECK CLONIDINE PATCH PLACEMENT SCH ×4 (00:07→23:35)
[2022-12-10] MEDS: hydrOXYzine HCl 10 MG TAB PO PRN ×2 (00:17→21:47)
[2022-12-10] MEDS: PANTOprazole 40 MG TAB PO SCH ×2 (08:24→21:47)
[2022-12-10] MEDS: amLODIPine BESYLATE 5 MG TAB PO SCH (08:24)
[2022-12-10] MEDS: FUROSEMIDE 40 MG TAB PO SCH (08:24)
[2022-12-10] MEDS: LOSARTAN POTASSIUM 50 MG TAB PO SCH (08:24)
[2022-12-10] MEDS: POTASSIUM CHLORIDE 10 MEQ TABCR PO SCH (08:24)
[2022-12-10] MEDS: acetaZOLAMIDE 250 MG TAB PO SCH ×2 (08:25→16:19)
[2022-12-10] MEDS: carvediloL 25 MG TAB PO SCH ×2 (08:25→16:18)
[2022-12-10] MEDS: NICOTINE 14 MG/24 HR PATCH TD SCH (08:25)
[2022-12-10 09:45] LABS: BUN Creatinine Ratio 11.6 (10-20); Calcium 8.5 mg/dl (8.6-10.3); Creatinine Clr Calc Pharmacy 44.8 ml/min; Est GFR (African American) 22.9 ml/min; Est GFR (Non-African American) 19.7 ml/min; Potassium 3.7 mmol/L (3.5-5.1)
--- NOTE | 2022-12-10 10:54 | Nephrology Progress Note ---
Date of Service December 10, 2022 Assessment & Plan (1) Chronic kidney disease, stage 4 (severe): (2) Anemia due to chronic kidney disease: (3) Morbid obesity with BMI of 45.0-49.9, adult: (4) Proteinuria: (5) Hypertensive emergency: (6) Idiopathic intracranial hypertension: Plan 32 y o female with history of stage IV CKD, secondary to hypertensive nephropathy, morbid obesity admitted to the hospital with hypertensive emergency and MRI brain suggestive of idiopathic intracranial hypertension. Advanced CKD with baseline creatinine around 3, L function at baseline, electrolyte acceptable. Blood pressure slightly improved currently on hydralazine, carvedilol and amlodipine. She has multiple risk factor including morbid obesity, poorly-controlled hypertension, history of questionable sleep apnea. continues to progressively gained weight. -- start on hydralazine 25 mg t.i.d. as blood pressure remained poorly controlled, continue on acetazolamide 500 mg twice a day, Lasix 40 mg p.o. daily --discussed again about the importance of weight loss, previously advised to get evaluated by weight loss program, she has been reluctant, discussed again today encouraged her to see weight loss specialist. Also need diagnostic evaluation for sleep apnea. Discussed about the importance of low-salt heart healthy diet and exercise -- unfortunately she has multiple risk factor for rapid progressive worsening of renal function. Will follow. Admission and Anticipated Discharge Date Admission Date: December 08, 2022 Juan Rajput was seen and evaluated this morning. She has not been feeling well, reports cramping with her periods as well as headache. Blood pressure still above goal, SBP up to 160s, diastolic in 90s. Renal function relatively stable, electrolyte acceptable. Review of Systems Review of Systems: detailed review of system was done and pertinent positives and negatives are mentioned above. Physical Exam Constitutional: WD/WN, vitals as above + morbidly obese; no acute distress Eyes: + anicteric sclerae Neck: normal visual inspection Respiratory: no respiratory distress Auscultation: lungs clear to auscultation bilaterally Cardiovascular: RRR, no murmur, no edema Musculoskeletal: Extremities: extremities normal to inspection Skin: no rashes, warm and dry Neurologic: no focal motor deficits Psychiatric: Orientation: alert and oriented x 3 Affect: euthymic affect Results & Data Vital Signs (Past 12 Hours) Vital Signs Temp Pulse Pulse Resp BP Pulse Ox O2 Del Method 12/10/22 08:00 36.8 C 67 20 158/93 H 98 Room Air 12/10/22 07:43 56 L 12/10/22 03:00 36.4 C L 52 L 21 144/78 H 97 Room Air 12/09/22 23:52 54 L 12/09/22 23:00 36.6 C 73 23 158/74 H 96 Room Air PG Care Time/CCT Total # of Minutes Spent Total Time Spent with Patient: Total time spent is greater than 50% in coordination of care (as documented) at patient's floor/unit and/or counseling patient: Coding Level of Care Code 89244 SUB INP/OBS CARE 3/50MIN Diagnoses Chronic kidney disease, stage 4 (severe) N18.4 Anemia due to chronic kidney disease N18.9; D63.1 Morbid obesity with BMI of 45.0-49.9, adult E66.01; Z68.42 Proteinuria R80.9 Hypertensive emergency I16.1 Idiopathic intracranial hypertension G93.2
[2022-12-10] MEDS: hydrALAZINE HCL 25 MG TAB PO SCH ×2 (13:09→21:47)
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
--- NOTE | 2022-12-10 13:51 | Hospitalist Progress Note ---
Date of Service December 10, 2022 Assessment & Plan (1) Hypertensive urgency: Plan: 32yo female with CKD-IV, HTN presenting with 2 days of numbness on right face, brief episode of unresponsiveness reported 2 days ago. Hypertensive Emergency, improving but not yet at goal, acute on chronic HTN -On admit MRI with findings concerning for idiopathic intracranial hypertension. No acute CVA. No chest pain or SOB. BUN/Cr are near baseline. - BP Improved with acetazolamide, lasix, clonidine, losartan, carvedilol, amlodipine - Encourage Tobacco cessation, weight loss and low Na diet. Pt will keep journal Recommend outpatient follow-up with bariatric services due to BMI 52 Patient with suboptimal control remains in 150s Hydralazine 25 mg 3 times daily added by nephrology, continue to trend BP Patient is intermittently hypertensive and tearful, endorses history of depression and difficulty coping with her medical comorbidities. See MDD below (2) GERD (gastroesophageal reflux disease): Plan: Chronic. Stable -Continue Protonix 40mg po BID (3) Chronic kidney disease, stage 4 (severe): Plan: - BUN and Cr near baseline at present. Patient is complaining of intermittent back pain which she often gets with hypertensive urgency Creatinine 3.02 baseline around 3 Nephrology following, appreciate recommendations. BMP daily Continue antihypertensives as noted -Continue Calcitriol 3x weekly Tylenol for menses cramps, deferred NSAIDs due to renal disease and hypertension (4) Anemia due to chronic kidney disease: Plan: H/H near baseline - no active bleeding -Continue to monitor (5) BMI 50.0-59.9, adult: Plan: - As noted - Outpt bariatric followup (6) Depression: Plan: Patient endorses feeling depressed, difficulty adjusting and managing with her multiple medical comorbidities, and general feelings of sadness around this. Had requested psychiatry consultation Did discuss with psychiatry. Recommended to start SSRI. Wellbutrin not recommended due to CKD, Topamax not recommended for minimal mood effects. Patient would like to start sertraline for MDD. Slightly increased risk of IIH, but overall rare. Discussed risk/benefits, patient agreeable to starting this. Sertraline 50 mg daily started; psych liaison scheduling for follow-up. Appreciate recommendations and management Plan Case management is following and helping to facilitate transport, patient is not yet ready for discharge today due to suboptimally controlled blood pressure, general unwellness, and need for psychiatric medication adjustment with initial monitoring due to her history of hypertension. Admission and Anticipated Discharge Date Admission Date: December 08, 2022 Subjective Seen at the bedside this morning. She reports she is still having significant period cramps and feels poorly overall. Blood pressure intermittently elevated, remains above goal 140slow 150s. Headache is mild, less severe than at presentation. She denies fever/chills/sweats/Chest pain, chest pressure. Has had hydralazine 25 mg 3 times daily added for pressure control. Has not yet seen psychiatry attempts at visit, is pending their consultation Review of Systems Review of Systems: All systems reviewed & are unremarkable except as noted in Subjective Physical Exam Physical Exam: General: A&Ox3. NAD. Cooperative. HEENT: Atraumatic, normocephalic. Vision/hearing grossly intact Pulm: Diminished but grossly CTAB A&P. -wheezes, -rales, -rhonchi. Symmetrical chest rise. No increased work of breathing. No respiratory distress. Cardiac: RRR, -mrg. Radial pulses intact and symmetrical. Abdominal: Midline pelvic TTP, otherwise nontender nondistended and soft Results & Data Results & Data Vital Signs (Past 12 Hours) Vital Signs Temp Pulse Pulse Resp BP Pulse Ox O2 Del Method 12/10/22 12:21 36.8 C 65 18 149/73 H 97 Room Air 12/10/22 08:00 36.8 C 67 20 158/93 H 98 Room Air 12/10/22 07:43 56 L 12/10/22 03:00 36.4 C L 52 L 21 144/78 H 97 Room Air PG Care Time/CCT Total # of Minutes Spent Total Time Spent with Patient: Total time spent is greater than 50% in coordination of care (as documented) at patient's floor/unit and/or counseling patient: Coding Level of Care Code 23266 SUB INP/OBS CARE 3/50MIN Diagnoses Hypertensive urgency I16.0 GERD (gastroesophageal reflux disease) K21.9 Chronic kidney disease, stage 4 (severe) N18.4 Anemia due to chronic kidney disease N18.9; D63.1 BMI 50.0-59.9, adult Z68.43 Depression F32.A
[2022-12-10] MEDS: SERTRALINE HCL 50 MG TABLET PO SCH (14:41)
[2022-12-11 07:06] LABS: BUN Creatinine Ratio 12.1 (10-20); Calcium 8.3 mg/dl (8.6-10.3); Est GFR (African American) 20.5 ml/min; Est GFR (Non-African American) 17.6 ml/min; Potassium 3.9 mmol/L (3.5-5.1)
[2022-12-11] MEDS: CHECK CLONIDINE PATCH PLACEMENT SCH (07:37)
[2022-12-11] MEDS: carvediloL 25 MG TAB PO SCH (07:38)
[2022-12-11] MEDS: ACETAMINOPHEN 325 MG TAB PO PRN (07:40)
[2022-12-11] MEDS: acetaZOLAMIDE 250 MG TAB PO SCH (08:37)
[2022-12-11] MEDS: POTASSIUM CHLORIDE 10 MEQ TABCR PO SCH (08:37)
[2022-12-11] MEDS: SERTRALINE HCL 50 MG TABLET PO SCH (08:37)
[2022-12-11] MEDS: CALCITRIOL 0.25 MCG CAPSULE PO SCH (08:37)
[2022-12-11] MEDS: LOSARTAN POTASSIUM 50 MG TAB PO SCH (08:38)
[2022-12-11] MEDS: FUROSEMIDE 40 MG TAB PO SCH (08:38)
[2022-12-11] MEDS: hydrALAZINE HCL 25 MG TAB PO SCH ×2 (08:38→13:33)
[2022-12-11] MEDS: amLODIPine BESYLATE 5 MG TAB PO SCH (08:39)
[2022-12-11] MEDS: NICOTINE 14 MG/24 HR PATCH TD SCH (08:39)
[2022-12-11] MEDS: PANTOprazole 40 MG TAB PO SCH (08:40)
--- NOTE | 2022-12-11 12:34 | Nephrology Progress Note ---
Date of Service December 11, 2022 Assessment & Plan (1) Chronic kidney disease, stage 4 (severe): (2) Anemia due to chronic kidney disease: (3) Morbid obesity with BMI of 45.0-49.9, adult: (4) Proteinuria: (5) Hypertensive emergency: (6) Idiopathic intracranial hypertension: Plan 32 y o female with history of stage IV CKD, secondary to hypertensive nephropathy, morbid obesity admitted to the hospital with hypertensive emergency and MRI brain suggestive of idiopathic intracranial hypertension. Advanced CKD with baseline creatinine around 3, L function at baseline, electrolyte acceptable. Blood pressure slightly improved currently on hydralazine, carvedilol and amlodipine. She has multiple risk factor including morbid obesity, poorly-controlled hypertension, history of questionable sleep apnea. continues to progressively gained weight. --continue on hydralazine 25 mg t.i.d., decrease acetazolamide 500 mg a day, Lasix 20 mg p.o. daily. --discussed again about the importance of weight loss, previously advised to get evaluated by weight loss program, she has been reluctant, discussed again today encouraged her to see weight loss specialist. Also need diagnostic evaluation for sleep apnea. Discussed about the importance of low-salt heart healthy diet and exercise -- unfortunately she has multiple risk factor for rapid progressive worsening of renal function. --if DC anticipated, out pt lab next week and f/u as currently scheduled. Will follow. Admission and Anticipated Discharge Date Admission Date: December 08, 2022 Juan Rajput was seen and evaluated this morning. She denies any specific symptoms, no headache. Blood pressure improved. slight up trend in cr, met acidosis. Review of Systems Review of Systems: detailed review of system was done and pertinent positives and negatives are mentioned above. Physical Exam Constitutional: WD/WN, vitals as above + morbidly obese; no acute distress Eyes: + anicteric sclerae Neck: normal visual inspection Respiratory: no respiratory distress Auscultation: lungs clear to auscultation bilaterally Cardiovascular: RRR, no murmur, no edema Musculoskeletal: Extremities: extremities normal to inspection Skin: no rashes, warm and dry Neurologic: no focal motor deficits Psychiatric: Orientation: alert and oriented x 3 Affect: euthymic affect Results & Data Vital Signs (Past 12 Hours) Vital Signs Temp Pulse Pulse Resp BP Pulse Ox O2 Del Method 12/11/22 11:02 36.5 C 61 22 131/61 98 Room Air 12/11/22 08:00 77 12/11/22 08:00 Room Air 12/11/22 07:45 37.0 C 65 20 127/77 98 Room Air 12/11/22 03:32 36.6 C 64 16 145/84 H 97 Room Air PG Care Time/CCT Total # of Minutes Spent Total Time Spent with Patient: Total time spent is greater than 50% in coordination of care (as documented) at patient's floor/unit and/or counseling patient: Coding Level of Care Code 24394 SUB INP/OBS CARE 2/35MIN Diagnoses Chronic kidney disease, stage 4 (severe) N18.4 Anemia due to chronic kidney disease N18.9; D63.1 Morbid obesity with BMI of 45.0-49.9, adult E66.01; Z68.42 Proteinuria R80.9 Hypertensive emergency I16.1 Idiopathic intracranial hypertension G93.2
--- NOTE | 2022-12-11 13:15 | Discharge Summary ---
Date of Service December 11, 2022 Admission HPI Per Admitting Provider Atiya Eli is a 32yo female with HTN, CKD IV, GERD presenting with right facial numbness and uncontrolled hypertension. Two days ago, patient developed numbness of the right face from the ear, along the jawline and chin. She reports that she was in [facility] at that time visiting her boyfriend so she didn't call medical services because she didn't want to go to the hospital in [place] due to transportation issues. Numbness has persisted. She has also had intermittent sharp, stabbing headache at the right parietal area. Boyfriend witnessed an episode of unresponsiveness when patient was staring into space and was minimally responsive. Uncertain how long this lasted. No incontinence or tonic-clonic movements reported Poor vision in left eye at baseline. Possibly worsening vision in the right eye but unclear of what timeframe. No additional focal neurological complaints - no chest pain, cough, SOB, abdominal pain, nausea, vomiting. She dose report some intermittent bilateral flank pain Patient reports compliance with her blood pressure medications. She has severe hypertension with CKD-IV secondary to hypertensive nephropathy and multiple episodes of ZULEIMA secondary to hypertensive emergency. She follows with Nephrology and has had a fairly extensive workup for secondary causes of hypertension which have been overall negative. She took her morning medications yesterday 12/07/22 but did not take her evening doses. She reports she changes her Clonidine patches weekly. In the ER she is hypertensive Given Hydralazine 10mg IV x 1 dose and Labetalol 10mg IV x 1 dose with temporary decrease in blood pressure Oral anti-hypertensives ordered and administered around 06:00 to include Amlodipine, Potassium, Lasix, Losartan and Carvedilol Principal Diagnosis problem 1 Discharge Exam General: A&Ox3. NAD. Cooperative. HEENT: Atraumatic, normocephalic. Vision/hearing grossly intact Pulm: Diminished but grossly CTAB A&P. -wheezes, -rales, -rhonchi. Symmetrical chest rise. No increased work of breathing. No respiratory distress. Cardiac: RRR, -mrg. Radial pulses intact and symmetrical. Abdominal: Midline pelvic TTP, otherwise nontender nondistended and soft Discharge Data Allergies Allergy/AdvReac Type Severity Reaction Status Date / Time No Known Allergies Allergy Verified 11/09/22 11:45 Consultations 12/08/22 05:16 ED Decision to Admit Stat 07/11/23 08:36 Consult Nephrology Routine 12/09/22 09:53 Consult Behavioral Health Liaison Routine 12/10/22 09:32 Consult Psychiatry Routine Ordered Studies 12/08/22 00:10 MRI Brain [MR brain wo/w con] Stat Hospital Course (1) Hypertensive urgency: 32yo female with CKD-IV, HTN presenting with 2 days of numbness on right face, brief episode of unresponsiveness reported 2 days ago. Hypertensive Emergency, improving but not yet at goal, acute on chronic HTN -On admit MRI with findings concerning for idiopathic intracranial hypertension. No acute CVA. No chest pain or SOB. BUN/Cr are near baseline. - BP Improved with acetazolamide, lasix, clonidine, losartan, carvedilol, amlodipine - Encourage Tobacco cessation, weight loss and low Na diet. Pt will keep journal Recommend outpatient follow-up with bariatric services due to BMI 52 Patient with suboptimal control remains in 150s Hydralazine 25 mg 3 times daily added by nephrology, continue to trend BP B/P improved. Patient will be discharged on medications noted below. Patient will need to followup with nephrology, neurology, opthalmology, behavior health, and weight loss clinic. (2) GERD (gastroesophageal reflux disease): Chronic. Stable -Continue Protonix 40mg po BID (3) Chronic kidney disease, stage 4 (severe): - BUN and Cr near baseline at present. Patient is complaining of intermittent back pain which she often gets with hypertensive urgency Creatinine 3.02 baseline around 3 Nephrology following, appreciate recommendations. BMP daily Continue antihypertensives as noted -Continue Calcitriol 3x weekly Tylenol for menses cramps, deferred NSAIDs due to renal disease and hypertension (4) Anemia due to chronic kidney disease: H/H near baseline - no active bleeding -Continue to monitor (5) BMI 50.0-59.9, adult: - As noted - Outpt bariatric followup (6) Depression: Patient endorses feeling depressed, difficulty adjusting and managing with her multiple medical comorbidities, and general feelings of sadness around this. Had requested psychiatry consultation Did discuss with psychiatry. Recommended to start SSRI. Wellbutrin not recommended due to CKD, Topamax not recommended for minimal mood effects. Patient would like to start sertraline for MDD. Slightly increased risk of IIH, but overall rare. Discussed risk/benefits, patient agreeable to starting this. Sertraline 50 mg daily started; psych liaison scheduling for follow-up. Appreciate recommendations and management Total Time Total Time Spent Total Time Spent (In Minutes): 32 Discharge Plan Discharge Items Patient Disposition: Home - Self-Care Reason For Visit: HYPERTENSIVE EMERGENCY Discharge Diagnosis: hypertensive emergency Activity: Resume your previous activity Non-emergency contact: Primary Care Provider Call non-emergency contact if: you have any medication questions Follow-up/Referrals: [facility] [Other] - 01/22/23 11:00 am Haritha Henry MD [Physician] - 12/22/22 2:20 pm Kishan Tubbs PA-C [Primary Care Provider] - 12/22/22 8:00 am Diet: Low Fat and Low Sodium (2gm) Addtl Attending Provider Instructions: Will recommend close followup with nephrology. Recommend to get blood work in 1 week to recheck your kindey function. This will be arranged by your spindle maker. Will also recommend following up with Behavior health. You will need an ophthalmology followup given your vision changes. Will recommend followup with Neurology. Will recommend followup with weight loss clinic to assist you with your journey to lose weight. Recommend followup with your PCP. Please have a friend or family visit you over the next few weeks as you just started sertraline. Please return to the Emergency department if you have suicide thoughts. Pending Studies at Discharge: No Stand-Alone Forms: My [facility], Smoking Cessation Medications and DC Order Prescriptions: New acetazolamide 250 mg Tablet 500 mg PO BID17 30 Days Qty: 60 0RF hydralazine 25 mg Tablet 25 mg PO TID Qty: 90 0RF sertraline 50 mg Tablet 50 mg PO QAM Qty: 30 0RF nicotine 7 mg/24 hr Patch 24 Hour 14 mg transdermal QAM Qty: 30 0RF Continued losartan 100 mg tablet 100 mg PO DAILY Qty: 90 3RF pantoprazole 40 mg tablet,delayed release (DR/EC) 40 mg PO BID Qty: 60 0RF furosemide 20 mg tablet 20 mg PO QAM clonidine 0.3 mg/24 hr Patch Weekly 1 patch transdermal Q7D Qty: 4 0RF Rx Instructions: CHANGES ON WEDNESDAYS carvedilol 25 mg tablet 25 mg PO BID Qty: 60 0RF amlodipine 10 mg tablet 10 mg PO DAILY Qty: 30 0RF ergocalciferol (vitamin D2) 1,250 mcg (50,000 unit) Capsule 50,000 unit PO Q7D Qty: 7 0RF Rx Instructions: TAKES ON WEDNESDAYS acetaminophen 325 mg tablet 650 mg PO Q4H PRN (Reason: PAIN/FEVER) diclofenac sodium [Voltaren Arthritis Pain] 1 % Gel 2 g EXT BID PRN (Reason: pain) Qty: 100 0RF potassium chloride 10 mEq capsule, extended release 10 meq PO QAM hydroxyzine HCl 10 mg tablet 10 - 20 mg PO BID PRN (Reason: anxiety or sleep) calcitriol 0.25 mcg capsule 0.25 mcg PO 3XWK Rx Instructions: 3 times weekly Discharge Orders: Discharge Order (Routine); Ordered 12/11/22 Ordered By: Trey Murillo Admission Data Admit Date/Time: 12/08/22 05:54 Attending Provider: Trey Murillo Admit Provider: Amelie Cantrell Primary Care Provider: Kishan Tubbs Other Providers: Amelie Cantrell ; Jose R Malin ; Haritha Henry Kevin C. ; Sudha Schwarz ; Gayle Boraj ; Violet Hamilton ; Koffi Hebert Other Interventions: Discharge Summary Assessment (RN) Last Done: 12/11/22 13:37 Coding Level of Care Code 14939 INP/OBS DISCH >30 MIN Diagnoses Hypertensive urgency I16.0 GERD (gastroesophageal reflux disease) K21.9 Chronic kidney disease, stage 4 (severe) N18.4 Anemia due to chronic kidney disease N18.9; D63.1 BMI 50.0-59.9, adult Z68.43 Depression F32.A
--- NOTE | 2022-12-13 15:48 | Coding Query ---
CODING QUERY To promote full compliance with coding requirements relating to patient care, provider participation is requested in all cases of afterschool babysitter uncertainty. Please assist us with the question(s) below: Coding Question(s): 32 year-old admitted with hypertension. history of CKD 4 . MRI suspect idiopathic intracranial hypertension. Progress notes and Discharge Summary mention both Hypertensive Emergency & Hypertensive Urgency. Please check below the hypertensive diagnosis that was treated during this Inpatient Stay. Thanks for your help! KULWANT Olvera [facility] Physician's Response(s): __x Hypertensive Emergency Hypertensive Urgency Other / Please document: Principal Diagnosis: "that condition established after study, to be chiefly responsible for occasioning the admission of the patient to the hospital for care." Co-Existing Principal Diagnosis: "when two or more diagnoses equally meet the criteria for principal diagnosis as determined by the circumstances of admission, diagnostic work up, and/or therapy provided, and the Alphabetic Index, Tabular List, or another coding guideline does not provide sequencing direction, any one of the diagnoses may be sequenced first." "When the physician has documented what appears to be a current diagnosis in the body of the record, but has not included the diagnosis in the final diagnostic statement, the physician should be asked whether the diagnosis should be added." (Source Coding [facility] 2 QTR90. p3-4) JENNA
[2022-12-14] MEDS ORDERED: cloNIDine HCL 0.3 MG/24 HR TRANSDERM SYS TD SCH (09:00)
== END 2022-12-11 16:45 | disposition home or self-care (01) | DRG 305 ==
LOC: ED 22:12 → 2S 12-08 05:54 → SUATTDRO 12-08 05:54 → INTOOBSV 12-08 05:54 → 2S 12-08 06:30